=== PATIENT | female | born 1955 | race Caucasian/White ===

== ENCOUNTER → 2018-04-06 | Outpatient (CLI) | payer BC ==
--- NOTE | 2018-04-06 16:08 | XR ---
EXAMINATION TYPE: XR knee complete LT DATE OF EXAM: 04/06/2018 COMPARISON: None HISTORY: Left knee pain TECHNIQUE: Three-view left knee FINDINGS: No acute fractures are evident. Joint spaces are preserved. No joint effusion is evident. S oft tissues appear unremarkable. IMPRESSION: 1. Normal three-view left knee. 2. Follow-up exams can be performed 7-10 days from acute trauma for continued pain.
== END | disposition home or self-care (01) ==
LOC: RADXRMAIN 11:22
PROVIDERS: ATTEND Family Medicine
DX: M25.562 Pain in left knee (principal)

== ENCOUNTER 2019-01-25 14:15 | Inpatient (IN) | payer BC ==
[2019-01-25 15:00] LABS: Glucose,Whole Blood 109 mg/dL (75-99)
--- NOTE | 2019-01-25 15:03 | ED ---
General Adult HPI - General Chief complaint: Neuro Symptoms/Deficit Stated complaint: Fall, panic attack, shakiness Time Seen by Provider: 01/25/19 14:42 Source: patient Mode of arrival: wheelchair Limitations: no limitations - History of Present Illness Initial comments: Dictation was produced using [employer] dictation software. please excuse any grammatical, word or spelling errors. Chief Complaint: 63-year-old female with past medical history of hypertension presents with tremulousness and weakness to the left side. History of Present Illness: It is a 63-year-old female she was at rest today at approximately 150 she began experiencing tremulousness and weakness to the left upper extremity left lower extremity. Patient states she has had symptoms like this however fleeting. Patient denies any history of CVA. Fell member who was at bedside denies any aphasia. Patient's otherwise well-appearing denies any constitutional symptoms. Patient also complains of mild anesthesia sensation to her right lower extremity. The ROS documented in this emergency department record has been reviewed and confirmed by me. Those systems with pertinent positive or negative responses have been documented in the HPI. All other systems are other negative and/or noncontributory. PHYSICAL EXAM: General Impression: Alert and oriented x3, not in acute distress HEENT: Normocephalic atraumatic, extra-ocular movements intact, pupils equal and reactive to light bilaterally, mucous membranes moist. Cardiovascular: Heart regular rate and rhythm, S1&S2 audible, no murmurs, rubs or gallops Chest: Lungs clear to auscultation bilaterally, no rhonchi, no wheeze, no rales Abdomen: Bowel sounds present, abdomen soft, non-tender, non-distended, no organomegaly Musculoskeletal: Pulses present and equal in all extremities, no peripheral edema Motor: no focal deficits noted Neurological: CN II-XII grossly intact, paresthesia and slight sensory deficit to the right lower extremity, no clonus to lower extremities. Drift of the right lower extremity and left upper extremity. No facial droop. Skin: Intact with no visualized rashes Psych: Normal affect and mood ED course: 63-year-old female presents with onset of symptoms at 1:15 PM of left upper extremity weakness and tremor status, left lower extremity weakness and paresthesias to the right lower extremity. Patient case was discussed with stroke neurologist who did not recommend patient is a TPA candidate.Agree with this recommendation given that patient's NIH score is 0 and risk outweigh the benefits. CT and CTA were obtained and were found to be nonacute. Laboratory evaluation obtained showing no acute processes. No electrolyte derangement. Chest x-ray is nonacute. Patient was notified of these results. Patient initially wanted to leave AGAINST MEDICAL ADVICE. Patient case was discussed with neurologist commend patient not be discharge and to be admitted to the emergency department for further neurologic testing. Further discussion was held with patient and family member. They do agree to stay in the hospital. Patient be admitted to Dr. Sibley. Patient given aspirin. Given 1 g of Keppra. Patient reevaluated with cessation of tremors in the left upper extremity. Patient be admitted for neurologic testing. EKG interpretation: Ventricular rate 116, sinus tachycardia, CO interval 160, care 76, QTC 461. No CO prolongation, no QTC prolongation, no ST or T-wave changes noted.Overall, this EKG is unremarkable - Related Data Home Medications Medication Instructions Recorded Confirmed Lisinopril-Hctz 20-12.5 mg 1 tab PO BID 01/15/16 01/25/19 [Zestoretic 20-12.5] amLODIPine [Norvasc] 10 mg PO QAM 01/15/16 01/25/19 ALPRAZolam [Xanax] 0.25 mg PO Q8H 01/25/19 01/25/19 Allergies Allergy/AdvReac Type Severity Reaction Status Date / Time adhesive tape Allergy Rash/Hives Verified 01/25/19 14:36 gemifloxacin mesylate Allergy Rash/Hives Verified 01/25/19 14:36 [From Factive] Review of Systems ROS Statement: Those systems with pertinent positive or pertinent negative responses have been documented in the HPI. ROS Other: All systems not noted in ROS Statement are negative. Past Medical History Past Medical History: Hypertension History of Any Multi-Drug Resistant Organisms: None Reported Past Surgical History: Appendectomy, Tonsillectomy Past Anesthesia/Blood Transfusion Reactions: Postoperative Nausea & Vomiting (PONV) Past Psychological History: No Psychological Hx Reported Smoking Status: Former smoker Past Alcohol Use History: Occasional Past Drug Use History: Marijuana General Exam Limitations: no limitations Course Vital Signs 01/25/19 01/25/19 01/25/19 14:22 15:43 16:13 Temperature 98.3 F Pulse Rate 126 H 116 H 116 H Respiratory 18 16 20 Rate Blood Pressure 107/72 123/78 109/77 O2 Sat by Pulse 98 97 96 Oximetry Medical Decision Making - Lab Data Result diagrams: 01/25/19 15:04 01/25/19 15:04 Lab Results 01/25/19 01/25/19 01/25/19 Range/Units 14:58 15:04 15:04 WBC 9.0 (3.8-10.6) k/uL RBC 5.10 (3.80-5.40) m/uL Hgb 15.0 (11.4-16.0) gm/dL Hct 46.1 H (34.0-46.0) % MCV 90.3 (80.0-100.0) fL MCH 29.5 (25.0-35.0) pg MCHC 32.7 (31.0-37.0) g/dL RDW 13.1 (11.5-15.5) % Plt Count 376 (150-450) k/uL Neutrophils % 64 % Lymphocytes % 23 % Monocytes % 6 % Eosinophils % 2 % Basophils % 0 % Neutrophils # 5.8 (1.3-7.7) k/uL Lymphocytes # 2.1 (1.0-4.8) k/uL Monocytes # 0.6 (0-1.0) k/uL Eosinophils # 0.2 (0-0.7) k/uL Basophils # 0.0 (0-0.2) k/uL PT (9.0-12.0) sec INR (<1.2) APTT (22.0-30.0) sec Sodium 140 (137-145) mmol/L Potassium 4.4 (3.5-5.1) mmol/L Chloride 104 (98-107) mmol/L Carbon Dioxide 26 (22-30) mmol/L Anion Gap 10 mmol/L BUN 17 (7-17) mg/dL Creatinine 0.73 (0.52-1.04) mg/dL Est GFR (CKD-EPI)AfAm >90 (>60 ml/min/1.73 sqM) Est GFR (CKD-EPI)NonAf 89 (>60 ml/min/1.73 sqM) Glucose 109 H (74-99) mg/dL POC Glucose (mg/dL) 109 H (75-99) mg/dL POC Glu Control Panel Assembler ID Caroline Turcios Calcium 10.1 (8.4-10.2) mg/dL Total Bilirubin 0.6 (0.2-1.3) mg/dL AST 26 (14-36) U/L ALT 22 (9-52) U/L Alkaline Phosphatase 99 (38-126) U/L Troponin I (0.000-0.034) ng/mL Total Protein 7.3 (6.3-8.2) g/dL Albumin 4.6 (3.5-5.0) g/dL 01/25/19 01/25/19 Range/Units 15:04 15:04 WBC (3.8-10.6) k/uL RBC (3.80-5.40) m/uL Hgb (11.4-16.0) gm/dL Hct (34.0-46.0) % MCV (80.0-100.0) fL MCH (25.0-35.0) pg MCHC (31.0-37.0) g/dL RDW (11.5-15.5) % Plt Count (150-450) k/uL Neutrophils % % Lymphocytes % % Monocytes % % Eosinophils % % Basophils % % Neutrophils # (1.3-7.7) k/uL Lymphocytes # (1.0-4.8) k/uL Monocytes # (0-1.0) k/uL Eosinophils # (0-0.7) k/uL Basophils # (0-0.2) k/uL PT 10.0 (9.0-12.0) sec INR 0.9 (<1.2) APTT 23.8 (22.0-30.0) sec Sodium (137-145) mmol/L Potassium (3.5-5.1) mmol/L Chloride (98-107) mmol/L Carbon Dioxide (22-30) mmol/L Anion Gap mmol/L BUN (7-17) mg/dL Creatinine (0.52-1.04) mg/dL Est GFR (CKD-EPI)AfAm (>60 ml/min/1.73 sqM) Est GFR (CKD-EPI)NonAf (>60 ml/min/1.73 sqM) Glucose (74-99) mg/dL POC Glucose (mg/dL) (75-99) mg/dL POC Glu Control Panel Assembler ID Calcium (8.4-10.2) mg/dL Total Bilirubin (0.2-1.3) mg/dL AST (14-36) U/L ALT (9-52) U/L Alkaline Phosphatase (38-126) U/L Troponin I <0.012 (0.000-0.034) ng/mL Total Protein (6.3-8.2) g/dL Albumin (3.5-5.0) g/dL Disposition Clinical Impression: Neurological abnormality Disposition: ADMITTED IP TO THIS HOSP Condition: Fair Referrals: Narendra Mohan DO [Primary Care Provider] - 1-2 days Decision Time: 16:39
--- NOTE | 2019-01-25 15:31 | CT ---
EXAMINATION TYPE: CT brain wo con for TPA DATE OF EXAM: 01/25/2019 COMPARISON: None HISTORY: Left sided arm tingling. CT DLP: 1041 mGycm Automated exposure control for dose reduction was used. FINDINGS: There are few patchy areas of periventricular and subcortical hypoattenuation particularly in the lef t posterior frontal and parietal kaplan radiata such as on series 205 image [address] Jimenez-white mat ter interface is maintained. The MCA appear symmetric without unusual asymmetric hyperdensity. The in sular cortices are well-preserved. No suspicious extra-axial fluid collection. There is slight promin ence of the peripheral sulci and ventricular system compatible with very minimal age-related volume l oss. No acute intracranial hemorrhage, midline shift or mass effect. There is polypoid mucosal thickening of the right maxillary sinus there is mild. Remaining paranasal sinuses and mastoid air cells are well aerated. Calvarium is intact. IMPRESSION: 1. NO ACUTE INTRACRANIAL PROCESS. 2. MILD BURDEN NONSPECIFIC PERIVENTRICULAR WHITE MATTER CHANGE, LIKELY ON THE BASIS OF CHRONIC MICROA NGIOPATHY.
[2019-01-25 15:34] LABS: Basophils % (A) 0 %; Eosinophils # (A) 0.2 k/uL (0-0.7); Eosinophils % (A) 2 %; HCT 46.1 % (34.0-46.0); Lymphocytes # (A) 2.1 k/uL (1.0-4.8); Lymphocytes % (A) 23 %; MCH 29.5 pg (25.0-35.0); MCHC 32.7 g/dL (31.0-37.0); MCV 90.3 fL (80.0-100.0); Mean Platelet Volume 6.8; Monocytes # (A) 0.6 k/uL (0-1.0); Monocytes % (A) 6 %; Neutrophils # (A) 5.8 k/uL (1.3-7.7); Neutrophils % (A) 64 %; Platelet Count 376 k/uL (150-450); RDW 13.1 % (11.5-15.5)
--- NOTE | 2019-01-25 15:38 | XR ---
EXAMINATION TYPE: XR chest 2V DATE OF EXAM: 01/25/2019 COMPARISON: 10/02/2007 HISTORY: Fall and left arm pain. Altered mental status. TECHNIQUE: Frontal and lateral views of the chest are obtained. FINDINGS: There is no focal air space opacity, pleural effusion, or pneumothorax seen. The cardiac silhouette size is upper limits of normal. The osseous structures are intact. Minimal multilevel de generative changes of the spine are seen. IMPRESSION: No acute cardiopulmonary process.
[2019-01-25 15:44] LABS: ALT 22 U/L (9-52); AST 26 U/L (14-36); Albumin 4.6 g/dL (3.5-5.0); Alkaline Phosphatase 99 U/L (38-126); Anion Gap 10 mmol/L; Blood Urea Nitrogen 17 mg/dL (7-17); Calcium 10.1 mg/dL (8.4-10.2); Carbon Dioxide 26 mmol/L (22-30); Chloride 104 mmol/L (98-107); Glucose 109 mg/dL (74-99); Potassium 4.4 mmol/L (3.5-5.1); Sodium 140 mmol/L (137-145); Total Bilirubin 0.6 mg/dL (0.2-1.3); Total Protein 7.3 g/dL (6.3-8.2)
--- NOTE | 2019-01-25 15:44 | CT ---
EXAMINATION TYPE: CT angio head neck DATE OF EXAM: 01/25/2019 HISTORY: Left sided arm tingling COMPARISON: CT brain of the same date CT DLP: 496.6 mGycm. Automated Exposure Control for Dose Reduction was Utilized. TECHNIQUE: CTA scan of the head and neck were performed with IV Contrast, patient injected with 50 m L of Isovue 370, axial images are obtained, coronal and sagittal reformatted images are reviewed. Thr ee-D reconstructed images are created on an independent workstation and reviewed. FINDINGS: Carotid/Vascular Structures: There is incidental note of a bovine aortic arch. Mild atherosclerosis o f the aortic arch is also seen. The common carotid arteries, carotid bulbs, and cervical portions of the internal carotid arteries are patent without hemodynamically significant stenosis. Minimal calcif ic atheromatous changes seen of the left carotid bulb. The left vertebral artery is dominant. There i s a late entry of the right vertebral artery into the transverse foramen. The basilar artery is paten t. The internal carotid arteries and their branches appear patent without hemodynamically significant st enosis. There is slight possibility of distal branch vessels of the right MCA in comparison to the le ft such as on image 35 and 36. The posterior communicating arteries may be diminutive or congenitally absent. No intracranial aneurysm is seen. Other: There is a 3 mm solid pulmonary nodule on image 12 in the right upper lobe laterally. There is a 3 mm solid pulmonary nodule medially in the right upper lobe on image 17. Mild to moderate multilevel degenerative changes of the cervical spine are noted. No vertebral body h eight loss or malalignment. The thyroid gland is diffusely heterogenous and enlarged with numerous no dules measuring up to 2.1 cm. There are numerous scattered nonenlarged cervical lymph nodes. No patho logic adenopathy by size criteria. IMPRESSION: 1. Slight asymmetry and number of visualized distal branch vessels of the right MCA with slight pauci ty on the right in comparison to the left however no large vessel vascular occlusion, hemodynamically significant stenosis, or dissection is seen within the head or neck. 2. 3 mm right upper lobe pulmonary nodules. Full CT thorax could be performed for complete evaluation of the chest on a nonemergent basis. 3. Diffusely heterogenous and enlarged thyroid gland, possible multinodular goiter. Thyroid ultrasoun d is recommended on a nonemergent basis.
[2019-01-25] MEDS ORDERED: levETIRAcetam IV 1,000 MG in SALINE 1 100ML.BAG IVPB STA (15:47)
[2019-01-25 15:52] LABS: INR 0.9 (<1.2); Partial Thromboplastin Time 23.8 sec (22.0-30.0)
[2019-01-25] MEDS ORDERED: ASPIRIN 81 MG PO STA (16:34)
--- NOTE | 2019-01-25 20:06 | P.CNNES ---
History of Present Illness Consult date: 01/25/19 Reason for Consult: Neuro deficit, stroke/TIA History of Present Illness: Patient is a 63-year-old female who came to the hospital for what she believes like an anxiety attack. Patient states she got upset with her about something, then she started crying, yelling which she usually does with her panic attacks. She couldn't breathe, ran into the house and felt will fall so laid down on the kitchen. Her came over and tie to talk to her, and she started snoring. She did calm down. Patient when woke up, started noticing th at her left arm was shaking, weakness tingling on the left side. She heard him talking to her but she could not squeeze her left hand. There was no symptoms on the right side, only left side was weak. All these symptoms of speech difficulty, left-sided weakness shaking like will resolve in about 20-30 minutes. Patient came to the hospital and when she arrived here, her NIH stroke scale was 0. Computed tomography scan of the head showed no acute process. Mild burden nonspecific periventricular white matter change, likely on the basis of chronic microangiopathy. Patient had CTA of the head and neck, which revealed slight asymmetry in number of visualized distal branch vessels of the right MCA with slight paucity on the right in comparison to the left, however no large vessel vascular occlusion, hemodynamically significant stenosis, or dissection seen within the neck or head. 3 mm right upper lobe pulmonary nodule. Full CT thorax could be performed for complete evaluation of the chest on a nonemergent basis. Diffusely heterogenous enlarged thyroid gland, possible multinodular goiter. Thyroid ultrasound is recommended on normal recent basis. Chest x-ray showed no acute process. EKG showed sinus tachycardia. Her blood tests showed normal CBC, PT/PTT, Chem-7. Normal liver panel, TSH. Patient has history of hypertension, but denies diabetes. She does not know about her cholesterol status. She has smoked half pack per day for 15 years, none for the past 30 years. Denies any family history or personal history of epilepsy or seizure disorder. Patient says that she does have history of panic disorder and anxiety attacks in the past, the last one was about a year ago. When she gets anxiety attack, she does start crying, yelling, moaning like she did earlier today, before she had this focal possible TIA Review of Systems Denies any focal symptoms. Denies any headache, double vision, completely unremarkable at this time. Past Medical History Past Medical History: Hypertension History of Any Multi-Drug Resistant Organisms: None Reported Past Surgical History: Appendectomy, Tonsillectomy Past Anesthesia/Blood Transfusion Reactions: Postoperative Nausea & Vomiting (PONV) Past Psychological History: No Psychological Hx Reported Smoking Status: Former smoker Past Alcohol Use History: Occasional Past Drug Use History: Marijuana Medications and Allergies Home Medications Medication Instructions Recorded Confirmed Type Lisinopril-Hctz 20-12.5 mg 1 tab PO BID 01/15/16 01/25/19 History [Zestoretic 20-12.5] amLODIPine [Norvasc] 10 mg PO QAM 01/15/16 01/25/19 History ALPRAZolam [Xanax] 0.25 mg PO Q8H 01/25/19 01/25/19 History Allergies Allergy/AdvReac Type Severity Reaction Status Date / Time adhesive tape Allergy Rash/Hives Verified 01/25/19 14:36 gemifloxacin mesylate Allergy Rash/Hives Verified 01/25/19 14:36 [From Factive] Physical Examination - Vital Signs Vital Signs: Vital Signs Temp Pulse Resp BP Pulse Ox 01/25/19 18:17 96 20 133/89 96 01/25/19 16:13 116 H 20 109/77 96 01/25/19 15:43 116 H 16 123/78 97 01/25/19 14:22 98.3 F 126 H 18 107/72 98 Intake and Output 01/25/19 01/25/19 01/25/19 06:59 14:59 22:59 Other: Weight 107.501 kg Patient's mental status, speech and language functions are normal. Cranial nerve examination, pupils are round and reacting to light, visual weems are full, extraocular muscles muscles are intact. Face is symmetric and tongue protrudes the midline. On muscle strength testing there is no pronator drift and the strength is normal in arms and legs distally and proximally. Reflexes are diminished overall, but symmetric. Plantars downgoing. Sensory touch is equal. No ataxia for [id number] testing, tone and bulk of muscles normal. Results - Laboratory Findings CBC and BMP: 01/25/19 15:04 01/25/19 15:04 Abnormal Lab Findings: Abnormal Labs 01/25/19 01/25/19 01/25/19 14:58 15:04 15:04 Hct 46.1 H Glucose 109 H POC Glucose (mg/dL) 109 H Assessment and Plan Assessment: * 63-year-old female, who had a panic attack, subsequently developed left-sided shaking, left hemiparesis and speech difficulty, that resolved in 20-30 minutes. Rule out TIA versus panic attack versus focal seizure. * Hypertension * Hyperlipidemia Plan: * MRI of the brain to rule out CVA. * 2-D echo with bubble study. * Fasting a.m. lipid panel, hemoglobin A1c. * EEG. * She was given loading dose of Keppra 1000 g IV in the ER. * Aspirin 325 mg daily for now.
[2019-01-25] MEDS: SODIUM CHLORIDE 0.9% 1,000 ML IV SCH (21:46)
[2019-01-25] MEDS ORDERED: ALPRAZolam 0.25 MG TAB PO PRN (22:08)
[2019-01-25] MEDS: LISINOPRIL-HCTZ 20-12.5 MG 1 EACH TAB PO SCH (22:47)
[2019-01-25] MEDS: FAMOTIDINE 20 MG TAB PO SCH (22:47)
--- NOTE | 2019-01-25 23:43 | P.HPIM ---
History of Present Illness H&P Date: 01/25/19 Chief Complaint: Seizures Patient is a 63-year-old female with a known history of hypertension, GERD, chronic back pain currently using medical marijuana every other day came to the hospital with left arm shakiness followed by anxiety attack. Patient says that she had an anxiety Attack after having an argument with her and got upset. Patient ran into the house and laid down on the kitchen. Patient started having left arm shakiness and felt weakness on the left side and also difficulty in speech. Symptoms lasted about 20 minutes and she became completely normal after that. Patient otherwise denied any headache. No numbness or tingling. Patient came to ER for further evaluation. CT head showed no acute cardiopulmonary process. Nonspecific periventricular white matter chronic small vessel ischemic changes were noted. CT angiogram of the head and neck showed slight asymmetry in number of visualized branch vessels of the right MCA with slight paucity on the right in comparison to the left, however no large vessel vascular occlusion, hemodynamically significant stenosis are dissection seen within the neck and head. 3 mL right upper lobe pulmonary nodule. Diffusely heterogenous enlarged thyroid gland, possible multinodular goiter. TSH within normal limits Chest x-ray showed no acute cardiopulmonary process EKG showed sinus tachycardia Troponin times negative and TSH within normal limits. Review of Systems Constitutional: Patient denies any fever or chills . No generalized weakness or weight loss. Abdomen: Patient denied nausea vomiting and diarrhea and abdominal pain. Cardiovascular: Patient denies any chest pain or short of breath no palpitations. Respiratory: patient denied any cough is from production. No shortness of breath Neurologic: Patient denied any numbness or tingling headache. Musculoskeletal: Patient denies any complaints of joint swelling or deformity. Skin: Negative Psychiatric: Negative Endocrine: No heat or cold intolerance. No recent weight gain. Genitourinary: No dysuria or hematuria. All other 14 point ROS negative except the above Past Medical History Past Medical History: Hypertension History of Any Multi-Drug Resistant Organisms: None Reported Past Surgical History: Appendectomy, Tonsillectomy Past Anesthesia/Blood Transfusion Reactions: Postoperative Nausea & Vomiting (PONV) Past Psychological History: No Psychological Hx Reported Smoking Status: Former smoker Past Alcohol Use History: Occasional Past Drug Use History: Marijuana Medications and Allergies Home Medications Medication Instructions Recorded Confirmed Type Lisinopril-Hctz 20-12.5 mg 1 tab PO BID 01/15/16 01/25/19 History [Zestoretic 20-12.5] amLODIPine [Norvasc] 10 mg PO QAM 01/15/16 01/25/19 History ALPRAZolam [Xanax] 0.25 mg PO Q8H 01/25/19 01/25/19 History Allergies Allergy/AdvReac Type Severity Reaction Status Date / Time adhesive tape Allergy Rash/Hives Verified 01/25/19 14:36 gemifloxacin mesylate Allergy Rash/Hives Verified 01/25/19 14:36 [From Factive] Physical Exam Vitals: Vital Signs Temp Pulse Resp BP Pulse Ox 01/25/19 18:17 96 20 133/89 96 01/25/19 16:13 116 H 20 109/77 96 01/25/19 15:43 116 H 16 123/78 97 01/25/19 14:22 98.3 F 126 H 18 107/72 98 Intake and Output 01/25/19 01/25/19 01/25/19 06:59 14:59 22:59 Other: Weight 107.501 kg PHYSICAL EXAMINATION: Patient is lying in the bed comfortably, no acute distress, awake alert and oriented.. HEENT: Normocephalic. Neck is supple. Pupils reactive. Nostrils clear. Oral cavity is moist. Ears reveal no drainage. Neck reveals no JVD, carotid bruits, or thyromegaly. CHEST EXAMINATION: Trachea is central. Symmetrical expansion. Lung weems clear to auscultation and percussion. CARDIAC: Normal S1, S2 with no gallops. No murmurs ABDOMEN: Soft. Bowel sounds normal. No organomegaly. No abdominal bruits. Extremities: reveal no edema. No clubbing or cyanosis Neurologically awake, alert, oriented x3 with well-coordinated movements. No f ocal deficits noted Skin: No rash or skin lesions. Psychiatric: Coperative. Nonsuicidal Musculoskeletal: No joint swelling or deformity. Normal range of motion. Results CBC & Chem 7: 01/25/19 15:04 01/25/19 15:04 Labs: Abnormal Lab Results - Last 24 Hours (Table) 01/25/19 01/25/19 01/25/19 Range/Units 14:58 15:04 15:04 Hct 46.1 H (34.0-46.0) % Glucose 109 H (74-99) mg/dL POC Glucose (mg/dL) 109 H (75-99) mg/dL Thrombosis Risk Factor Assmnt - DVT/VTE Prophylaxis DVT/VTE Prophylaxis: Pharmacologic Prophylaxis ordered Assessment and Plan Assessment: Acute anxiety attack Left arm shakiness with left-sided weakness with dysarthria. Possible TIA versus seizures versus panic attack. Resolving now. Hypertension controlled GERD Chronic back pain on medical marijuana every other day DVT prophylaxis Plan: Patient will be continued on telemetry monitoring. Was given a dose of IV in the ER. Continue with aspirin. Neurology was consulted. MRI of the brain, 2-D echocardiogram with global study, A1c and lipid panel was ordered. Continue with seizure precautions and fall precautions. Further recommendations based on the clinical course. Time with Patient: Greater than 30
[2019-01-26] MEDS: ASPIRIN 325 MG TAB PO SCH (07:49)
[2019-01-26] MEDS: LISINOPRIL-HCTZ 20-12.5 MG 1 EACH TAB PO SCH ×2 (07:49→20:48)
[2019-01-26] MEDS: amLODIPine 10 MG TAB PO SCH (07:49)
[2019-01-26] MEDS: FAMOTIDINE 20 MG TAB PO SCH ×2 (07:49→20:48)
[2019-01-26 08:39] LABS: Cholesterol 169 mg/dL (<200); HDL Cholesterol 36 mg/dL (40-60); LDL Cholesterol,Calculated 108 mg/dL (0-99); Triglycerides 127 mg/dL (<150)
--- NOTE | 2019-01-26 16:50 | EEG ---
ELECTROENCEPHALOGRAM REPORT ELECTROENCEPHALOGRAM REPORT: DATE OF SERVICE: 01/26/2019. PREAMBLE: This is a 63-year-old female who had an episode of panic attack, followed by some focal symptoms concerning for stroke versus seizure. This study is performed to look for any epileptiform activity. CURRENT MEDICATIONS: 1. Lisinopril. 2. Pepcid. 3. Aspirin. 4. Xanax. EEG FINDINGS: The background consists of well developed, well regulated, moderate amplitude activity in the 8-9 Hz alpha. Background is posterior-dominant, reacting to eye opening and closing. Photic driving response was not seen. Some drowsiness was seen with appearance of bilaterally symmetric theta frequency rhythm. Deeper stages of sleep were not seen. No focal or generalized epileptiform activity was seen. EKG rhythm lead revealed no obvious arrhythmia. IMPRESSION: This is a normal awake and drowsy EEG. No focal lateralized or epileptiform activity was seen. MMODL / IJN: [id number] /
--- NOTE | 2019-01-26 17:32 | P.PN ---
Subjective Progress Note Date: 01/26/19 Patient denies any other focal symptoms or syncopal spells. Objective - Vital Signs Vital signs: Vital Signs Temp 98.7 F 01/26/19 16:00 Pulse 117 H 01/26/19 16:00 Resp 18 01/26/19 16:00 BP 107/66 01/26/19 16:00 Pulse Ox 96 01/26/19 16:00 Intake & Output 01/25/19 01/26/19 01/26/19 18:59 06:59 18:59 Intake Total 240 180 Balance 240 180 Weight 107.501 kg 107.1 kg Intake: Oral 240 180 Other: Voiding Method Toilet Toilet # Voids 3 2 - Exam Normal, nonfocal - Labs CBC & Chem 7: 01/25/19 15:04 01/25/19 15:04 Labs: Abnormal Lab Results - Last 24 Hours (Table) 01/26/19 Range/Units 07:24 LDL Cholesterol, Calc 108 H (0-99) mg/dL HDL Cholesterol 36 L (40-60) mg/dL Assessment and Plan Assessment: * 63-year-old female, who had a panic attack, subsequently developed left-sided shaking, left hemiparesis and speech difficulty, that resolved in 20-30 minutes. Rule out TIA versus panic attack versus focal seizure. * Hypertension * Hyperlipidemia Plan: * MRI of the brain has been performed, on my review appears normal. Await official radiology report. * 2-D echo with bubble study if not done, can be performed as an outpatient. * Hemoglobin A1c pending. * Patient's cholesterol is 169, LDL 36 * EEG was normal. No indication for seizure medication. * Continue Aspirin 325 mg daily.
[2019-01-26 19:14] LABS: Hemoglobin A1C 5.9 % (4.0-6.0)
--- NOTE | 2019-01-26 19:47 | MR ---
EXAMINATION TYPE: MR brain wo con DATE OF EXAM: 01/26/2019 COMPARISON: CT brain from yesterday. HISTORY: Lt arm tingling on admission yesterday acute onset neuro deficits, CVA vs TIA TECHNIQUE: Multiplanar, multisequence imaging of the brain and brainstem is performed without IV cont rast. FINDINGS: Diffusion weighted images demonstrate no evidence of a recent infarct or other diffusion abnormality. There is no worrisome extra-axial fluid collection. Mild ventricular and sulcal prominence is present . There are a few scattered foci of T2 hyperintensity throughout deep and superficial white matter wi th some more prominent periventricular areas identified. There is a tangle of vessels low right occip ital region axial image 11 consistent with vascular malformation Midline structures demonstrate normal morphology. The craniocervical junction appears within normal limits. Normal vascular flow voids are present. The visualized sinuses are clear and the globes are i ntact. IMPRESSION: 1. No evidence of a recent infarct. 2. 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
[2019-01-26] MEDS: SODIUM CHLORIDE 0.9% 1,000 ML IV SCH (20:49)
[2019-01-27] MEDS ORDERED: ACETAMINOPHEN TAB 325 MG TAB PO PRN (00:52)
--- NOTE | 2019-01-27 00:56 | P.PN ---
Subjective Progress Note Date: 01/26/19 Principal diagnosis: Possible TIA Acute seizure episode Patient is a 63-year-old female with a known history of hypertension, GERD, chronic back pain currently using medical marijuana every other day came to the hospital with left arm shakiness followed by anxiety attack. Patient says that she had an anxiety Attack after having an argument with her and got upset. Patient ran into the house and laid down on the kitchen. Patient started having left arm shakiness and felt weakness on the left side and also difficulty in speech. Symptoms lasted about 20 minutes and she became completely normal after that. Patient otherwise denied any headache. No numbness or tingling. Patient came to ER for further evaluation. CT head showed no acute cardiopulmonary process. Nonspecific periventricular white matter chronic small vessel ischemic changes were noted. CT angiogram of the head and neck showed slight asymmetry in number of visualized branch vessels of the right MCA with slight paucity on the right in comparison to the left, however no large vessel vascular occlusion, hemodynamically significant stenosis are dissection seen within the neck and head. 3 mL right upper lobe pulmonary nodule. Diffusely heterogenous enlarged thyroid gland, possible multinodular goiter. TSH within normal limits Chest x-ray showed no acute cardiopulmonary process EKG showed sinus tachycardia Troponin times negative and TSH within normal limits. 01/26/2019 Patient denied any complaints of headache or dizziness. Left-sided weakness is resolved. No further seizure episodes. Patient is scheduled for MRI of the brain today afternoon. 2-D echocardiogram is pending. No other acute overnight issues. Neurology is following. Continued on aspirin. Current medications reviewed. Objective - Vital Signs Vital signs: Vital Signs Temp 97.9 F 01/26/19 20:00 Pulse 100 01/26/19 20:00 Resp 18 01/26/19 20:00 BP 115/85 01/26/19 20:00 Pulse Ox 97 01/26/19 20:00 Intake & Output 01/26/19 01/26/19 01/27/19 06:59 18:59 06:59 Intake Total 240 632 Balance 240 632 Weight 107.1 kg Intake: Oral 240 632 Other: Voiding Method Toilet Toilet Toilet # Voids 3 2 1 # Bowel Movements 1 - Exam PHYSICAL EXAMINATION: Patient is lying in the bed comfortably, no acute distress, awake alert and oriented.. HEENT: Normocephalic. Neck is supple. Pupils reactive. Nostrils clear. Oral cavity is moist. Ears reveal no drainage. Neck reveals no JVD, carotid bruits, or thyromegaly. CHEST EXAMINATION: Trachea is central. Symmetrical expansion. Lung weems clear to auscultation and percussion. CARDIAC: Normal S1, S2 with no gallops. No murmurs ABDOMEN: Soft. Bowel sounds normal. No organomegaly. No abdominal bruits. Extremities: reveal no edema. No clubbing or cyanosis Neurologically awake, alert, oriented x3 with well-coordinated movements. No focal deficits noted Skin: No rash or skin lesions. Psychiatric: Coperative. Nonsuicidal Musculoskeletal: No joint swelling or deformity. Normal range of motion. - Labs CBC & Chem 7: 01/25/19 15:04 01/25/19 15:04 Labs: Abnormal Lab Results - Last 24 Hours (Table) 01/26/19 Range/Units 07:24 LDL Cholesterol, Calc 108 H (0-99) mg/dL HDL Cholesterol 36 L (40-60) mg/dL Assessment and Plan Assessment: Acute anxiety attack Left arm shakiness with left-sided weakness with dysarthria. Possible TIA versus seizures versus panic attack. Resolving now. Hypertension controlled GERD Chronic back pain on medical marijuana every other day DVT prophylaxis Plan: Patient will be continued on telemetry monitoring. Was given a dose of IV Keppra in the ER. Continue with aspirin. Neurology is following. MRI of the brain, 2-D echocardiogram with bubble study was ordered. A1c 5.9. LDL 109, Continue with seizure precautions and fall precautions. Further recommendations based on the clinical course. Anticipate discharge tomorrow. Time with Patient: Greater than 30
[2019-01-27] MEDS: ASPIRIN 325 MG TAB PO SCH (07:58)
[2019-01-27] MEDS: amLODIPine 10 MG TAB PO SCH (07:58)
[2019-01-27] MEDS: FAMOTIDINE 20 MG TAB PO SCH (07:58)
[2019-01-27] MEDS: LISINOPRIL-HCTZ 20-12.5 MG 1 EACH TAB PO SCH (07:58)
[2019-01-27 10:22] VITALS: BP 104/67; PULSE 108; RESP 18; TEMP 98.1
--- NOTE | 2019-01-28 06:54 | DS ---
DISCHARGE SUMMARY DATE OF ADMISSION: 01/25/2019 DATE OF DISCHARGE: 01/27/2019 FINAL DIAGNOSES: 1. Probable TIA. 2. Essential hypertension. 3. Gastroesophageal reflux disease. 4. Chronic low back pain, probably from arthritis. HOSPITAL COURSE: This patient presented with an episode of left arm numbness, some change in speech. EEG was unremarkable. MRI was negative. CT angio did not show any critical stenosis. I talked to Dr. Ni from Neurology today. It was felt to be a TIA. I spoke to the patient and . Questions were answered. Symptoms had resolved. PHYSICAL EXAMINATION: Temperature 98, pulse 101, respiration 18, blood pressure 104/57, pulse ox 96% on room air. No neuro deficits. LUNGS: Clear. CARDIOVASCULAR: First and second sounds are normal. Patient's LDL is 108. DISCHARGE MEDICATIONS: 1. Zestoretic /12.5 one tablet p.o. b.i.d. 2. Norvasc 10 mg p.o. daily. 3. Xanax 0.25 p.o. q.8. 4. Aspirin 81 mg p.o. daily. 5. Lipitor 20 mg q.h.s. Follow up with Dr. Mohan on 02/02/2019. CONSULTATION: Dr. Ni from Neurology. MMODL / IJN: [id number] /
== END 2019-01-27 13:57 | disposition home or self-care (01) | DRG 69 ==
LOC: EC 14:15 → 3SCARD 16:39
PROVIDERS: ADMIT Hospitalist; ATTEND Hospitalist
DX: G45.9 Transient cerebral ischemic attack, unspecified (principal); G81.94 Hemiplegia, unspecified affecting left nondominant side; E78.5 Hyperlipidemia, unspecified; F17.200 Nicotine dependence, unspecified, uncomplicated; F41.0 Panic disorder [episodic paroxysmal anxiety]; F41.1 Generalized anxiety disorder; G89.29 Other chronic pain; I10 Essential (primary) hypertension; I73.9 Peripheral vascular disease, unspecified; K21.9 Gastro-esophageal reflux disease without esophagitis; M19.90 Unspecified osteoarthritis, unspecified site; R29.700 NIHSS score 0; Z79.899 Other long term (current) drug therapy; Z88.8 Allergy status to other drugs, medicaments and biological substances
CPT/HCPCS: 36415; 70450; 70496; 70498; 70551; 71046; 80053; 80061; 83036; 84443; 84484; 85025; 85610; 85730; 93005; 95819; 96374; 99285

== ENCOUNTER → 2019-02-15 | Outpatient (CLI) | payer BC ==
--- NOTE | 2019-03-04 15:28 | EM ---
EVENT MONITOR 14-DAY EVENT MONITOR: Fourteen-day event monitor shows: 1. Sinus rhythm. 2. Sinus tachycardia. 3. Intermittent PVCs. 4. One ventricular triplet. KRISTAN / LISAN: [id number] /
== END | disposition home or self-care (01) ==
LOC: RADECHMAIN 11:50
PROVIDERS: ATTEND Family Medicine
DX: I49.3 Ventricular premature depolarization (principal); G45.9 Transient cerebral ischemic attack, unspecified
CPT/HCPCS: 93270

== ENCOUNTER → 2019-03-21 | Outpatient (CLI) | payer BC ==
[2019-03-21 19:28] LABS: T4, Free (Free Thyroxine) 1.1 ng/dL (0.80-1.80)
== END | disposition home or self-care (01) ==
LOC: LABWHC1 13:06
PROVIDERS: ATTEND Internal Medicine Endocrinology, Diabetes & Metabolism
DX: E04.2 Nontoxic multinodular goiter (principal)
CPT/HCPCS: 36415; 84439; 84443

== ENCOUNTER 2019-07-15 06:32 | Day surgery (SDC) | payer BC ==
[2019-07-13 11:31] VITALS: BMI 37.2
[~2019-07-15 06:32] MED LIST: ALPRAZolam 0.25 MG TAB PO PRN; ALPRAZolam 0.5 MG TAB PO PRN; NITROGLYCERIN SL TABS 0.4 MG TAB SUBLINGUAL PRN; SODIUM CHLORIDE 0.9% 1,000 ML in EMPTY BAG 1 BAG IV ONE
[2019-07-15] MEDS ORDERED: ASPIRIN 325 MG TAB PO ONE (07:00)
[2019-07-15] MEDS ORDERED: ATORVASTATIN 80 MG TAB PO ONE (07:00)
[2019-07-15 07:05] VITALS: TEMP 97.8
[2019-07-15] MEDS ORDERED: VERAPAMIL 2.5 MG/ML 2 ML AMP ONE (07:29)
[2019-07-15] MEDS ORDERED: fentaNYL (PF) 50 MCG/ML 2 ML AMP ONE (07:29)
[2019-07-15] MEDS ORDERED: LIDOCAINE 1% INJ 10MG/ML (20 ML MDV) ONE (07:29)
[2019-07-15] MEDS ORDERED: fentaNYL (PF) 50 MCG/ML 2 ML AMP IV ONE (07:53)
[2019-07-15] MEDS ORDERED: LIDOCAINE 1% INJ 10MG/ML (20 ML MDV) SQ ONE (07:59)
[2019-07-15] MEDS ORDERED: VERAPAMIL SYRINGE (5 MG/10 ML) INTRAARTER ONE (08:00)
[2019-07-15] MEDS ORDERED: HEPARIN SODIUM 1,000 UN/ML (10ML VL) IV ONE (08:09)
[2019-07-15] MEDS ORDERED: IOPAMIDOL-370 125ML BTL INJ ONE (08:14)
[2019-07-15] MEDS ORDERED: RX INFO: IV CONTRAST WAS GIVEN 1 EACH MISC MISCELLANE PRN (08:25)
[2019-07-15] MEDS ORDERED: AZELASTINE 137MCG/SPRAY NASAL PRN (08:26)
[2019-07-15] MEDS ORDERED: ALPRAZolam 0.25 MG TAB PO PRN (08:26)
[2019-07-15] MEDS ORDERED: SODIUM CHLORIDE 0.9% 1,000 ML IV SCH (08:30)
--- NOTE | 2019-07-15 08:41 | CC ---
CARDIAC CATHETERIZATION REPORT Mrs. Abernathy is a 64-year-old female with known history of hypertension, hyperlipidemia, prior history of smoking, who has been complaining of progressive dyspnea as well as episode of chest discomfort. She underwent myocardial perfusion imaging that revealed an apical defect with mildly impaired left ventricular systolic function. In view of that, recommendation was made regarding cardiac catheterization. The procedure as well as the risks and the complications were discussed with the patient who is in full understanding and agreement. PROCEDURE: Patient was brought to chemical processing laborer in a fasting semi-sedated state after receiving fentanyl and Benadryl and achieving moderate conscious sedated state. Using Xylocaine anesthesia in the Seldinger technique, a 6-Ivorian sheath was introduced in the right radial artery. Selective right and left coronary angiography performed using 5-Ivorian 3.5 bend right and left Concepcion catheter. Multiple views of the coronary artery including hemiaxial views obtained. Following that, 5-Ivorian tight pigtail catheter was introduced left ventricle and a 30-degree HAILE view of the left ventricle was obtained. Following that, catheter and sheath were removed. Hemostasis was obtained with deployment of a TR band. There was no immediate complication. Patient was returned to her room in stable condition. Of note, the patient received 5000 units of intravenous heparin as well as intra-arterial verapamil. There was no immediate complication. FINDINGS: LEFT MAIN: This is a large-sized vessel bifurcating left circumflex, left anterior descending artery. Left main coronary artery has no evidence of obstructive coronary artery disease. LEFT ANTERIOR DESCENDING ARTERY: This is a large-sized vessel tapers down distal third, giving rise to a large diagonal branch in the mid segment. The left anterior descending artery as well as branches have no evidence of obstructive coronary artery disease. LEFT CIRCUMFLEX: This is a dominant vessel large in caliber giving rise to a proximal obtuse marginal branch distally bifurcating PDA and posterolateral segments and branches. The left circumflex as well as branches have no evidence of obstructive coronary artery disease. RIGHT CORONARY ARTERY: This is a small nondominant vessel giving rise to an acute marginal branch. The right coronary artery as well as branches have no evidence of obstructive coronary artery disease. LEFT VENTRICULOGRAM: The left ventriculogram was performed in 30-degree HAILE view and revealed a mild hypokinesis with ejection fraction 50%. There was no significant mitral regurgitation. HEMODYNAMICS: There was no gradient across the aortic valve. The left ventricular end- diastolic pressure was 16 to 20 mmHg. CONCLUSION: 1. Normal coronary arteries. 2. Mildly impaired left ventricular systolic function. RECOMMENDATION: In view of finding anatomy, I recommend continue medical therapy with aggressive coronary risk modifications that have been initiated. Those findings and recommendation were discussed with the patient and her family and are in full understanding and agreement. Duration of procedure is 17 minutes. MMODL / IJN: [id number] /
--- NOTE | 2019-07-15 08:47 | LTR ---
July 15, 2019 Re: Nohemy Koromamann Dear Dr. Mohan: I had the opportunity to perform cardiac catheterization on Mrs. Abernathy at [facility] on the 15 of July and a full copy of the procedure note will be forwarded to you. In brief, she was found to have no evidence of obstructive coronary artery disease with a mildly impaired left ventricular systolic function. Based on those findings I have recommended to continue medical therapy with aggressive coronary risk modification that has been initiated. Thank you again for allowing me the opportunity to participate in her care. Please feel free to call for any questions. Sincerely yours, MD ELEANOR KelleyL / LISAN: [id number] /
[2019-07-15] MEDS ORDERED: NON FORMULARY DRUG (Ranitidine Hcl [Ranitidine Hcl] 150 MG) PO SCH (09:00)
[2019-07-15] MEDS ORDERED: METOPROLOL SUCCINATE (ER) 25 MG TAB.ER.24H PO SCH (09:00)
[2019-07-15] MEDS ORDERED: amLODIPine 10 MG TAB PO SCH (09:00)
[2019-07-15] MEDS ORDERED: LISINOPRIL-HCTZ 20-12.5 MG 1 EACH TAB PO SCH (09:00)
[2019-07-15 09:11] VITALS: RESP 16
[2019-07-15] MEDS ORDERED: ACETAMINOPHEN TAB 325 MG TAB ONE (09:27)
[2019-07-15] MEDS ORDERED: ACETAMINOPHEN TAB 325 MG TAB PO ONE (09:45)
[2019-07-15 12:46] VITALS: BP 105/76; PULSE 108
[2019-07-15] MEDS ORDERED: ATORVASTATIN 20 MG TAB PO SCH (21:00)
[2019-07-15] MEDS ORDERED: MELOXICAM 15 MG PO SCH (21:00)
[2019-07-16] MEDS ORDERED: ASPIRIN 81 MG PO SCH (09:00)
== END 2019-07-15 13:20 | disposition home or self-care (01) ==
LOC: CATHCVL 06:32
PROVIDERS: ATTEND Internal Medicine Interventional Cardiology
DX: I42.8 Other cardiomyopathies (principal); I10 Essential (primary) hypertension; E78.2 Mixed hyperlipidemia; E66.9 Obesity, unspecified; Z87.891 Personal history of nicotine dependence; Z79.82 Long term (current) use of aspirin; Z79.899 Other long term (current) drug therapy; Z88.8 Allergy status to other drugs, medicaments and biological substances; Z68.37 Body mass index [BMI] 37.0-37.9, adult
CPT/HCPCS: 93458; J2001; J3010; J1644; Q9967

== ENCOUNTER 2019-08-28 14:12 | Emergency (ER) | payer BC ==
[2019-08-28 14:18] VITALS: TEMP 97.3
[2019-08-28] MEDS ORDERED: NITROGLYCERIN OINT 1 INCH/GM PACKET TOPICAL STA (15:12)
[2019-08-28] MEDS ORDERED: ASPIRIN 81 MG PO STA (15:12)
--- NOTE | 2019-08-28 15:14 | ED ---
General Adult HPI - General Chief complaint: Chest Pain Stated complaint: chest & shoulder pain Time Seen by Provider: 08/28/19 14:43 Source: patient, RN notes reviewed Mode of arrival: wheelchair Limitations: no limitations - History of Present Illness Initial comments: Patient is a pleasant 64-year-old female presenting to the emergency Department with complaints of chest discomfort. Onset of symptoms was around an hour and a half ago. Symptoms have now resolved. Patient states discomfort was sharp and was proximally 7/10. Patient has been expressing some shoulder discomfort intermittently over the past month however this is generally worse with movement. Patient did have a sense of some acid reflux is morning. Patient was nauseated with that earlier this morning and did vomit once. No diaphoresis. No dyspnea. No history of similar symptoms previously. - Related Data Home Medications Medication Instructions Recorded Confirmed Lisinopril-Hctz 20-12.5 mg 1 tab PO BID 01/15/16 07/15/19 [Zestoretic 20-12.5] amLODIPine [Norvasc] 10 mg PO QAM 01/15/16 07/15/19 ALPRAZolam [Xanax] 0.25 mg PO Q8H PRN 01/25/19 07/15/19 Albuterol Inhaler [Ventolin Hfa 1 - 2 puff INHALATION RT-Q6H PRN 07/13/19 07/15/19 Inhaler] Azelastine HCl [Astepro] 1 spray NASAL BID PRN 07/13/19 07/15/19 Meloxicam [Mobic] 15 mg PO HS 07/13/19 07/15/19 Metoprolol Succinate (ER) [Toprol 25 mg PO DAILY 07/13/19 07/15/19 Xl] Ranitidine HCl 150 mg PO BID 07/13/19 07/15/19 Previous Rx's Medication Instructions Recorded Aspirin 81 mg PO DAILY #30 chewable 01/27/19 Atorvastatin Calcium [Lipitor] 20 mg PO HS #30 tab 01/27/19 Allergies Allergy/AdvReac Type Severity Reaction Status Date / Time adhesive tape Allergy Rash/Hives Verified 08/28/19 14:18 gemifloxacin mesylate Allergy Rash/Hives Verified 08/28/19 14:18 [From Factive] Review of Systems ROS Statement: Those systems with pertinent positive or pertinent negative responses have been documented in the HPI. ROS Other: All systems not noted in ROS Statement are negative. Constitutional: Denies: fever Eyes: Denies: eye pain ENT: Denies: ear pain Respiratory: Denies: cough Cardiovascular: Reports: as per HPI, chest pain Endocrine: Denies: fatigue Gastrointestinal: Denies: abdominal pain Genitourinary: Denies: dysuria Musculoskeletal: Denies: back pain Skin: Denies: rash Neurological: Denies: weakness Past Medical History Past Medical History: Hypertension Additional Past Medical History / Comment(s): chronic back pain History of Any Multi-Drug Resistant Organisms: None Reported Past Surgical History: Appendectomy, Tonsillectomy Past Anesthesia/Blood Transfusion Reactions: Postoperative Nausea & Vomiting (PONV) Past Psychological History: No Psychological Hx Reported Smoking Status: Never smoker Past Alcohol Use History: Occasional Past Drug Use History: None Reported - Past Family History Mother Family Medical History: Cancer Additional Family Medical History / Comment(s): pt. states her maternal grandmother had ovarian cancer Father Family Medical History: Unable to Obtain General Exam Limitations: no limitations General appearance: alert, in no apparent distress Head exam: Present: normocephalic Eye exam: Present: normal appearance, PERRL ENT exam: Present: normal oropharynx Neck exam: Present: normal inspection Respiratory exam: Present: normal lung sounds bilaterally. Absent: chest wall tenderness Cardiovascular Exam: Present: regular rate, normal rhythm Expanded Peripheral pulses: 2+: Radial (R), Radial (L), Dorsalis Pedis (R), Dorsalis Pedis (L) GI/Abdominal exam: Present: soft. Absent: tenderness Extremities exam: Present: normal inspection. Absent: pedal edema, calf tenderness Neurological exam: Present: alert. Absent: motor sensory deficit Expanded Motor strength exam: RUE: 5, LUE: 5 Psychiatric exam: Present: normal affect, normal mood Skin exam: Present: normal color Course Vital Signs 08/28/19 14:16 Temperature 97.3 F L Pulse Rate 106 H Respiratory 20 Rate Blood Pressure 138/91 O2 Sat by Pulse 99 Oximetry EKG Findings - EKG Comments: EKG Findings:: Normal sinus rhythm 100. VT 172. QRS 84. QT 362. QTC 466. Normal axis. Q waves in leads V1 and V2. No acute ST change. Medical Decision Making - Medical Decision Making Patient reevaluated and resting comfortably in bed. Patient remained symptom- free. Patient and family updated on results and recommended admission. Patient refuses admission. Patient states she did have a heart cath done just one month ago and has been symptom-free since before she got here. Patient is aware that although unlikely cannot 100% rule out heart attack or risk for heart attack in the very near future. Patient does demonstrate medical decision making and will leave AGAINST MEDICAL ADVICE. - Lab Data Result diagrams: 08/28/19 14:50 08/28/19 14:50 Lab Results 08/28/19 08/28/19 08/28/19 Range/Units 14:50 14:50 14:50 WBC 6.6 (3.8-10.6) k/uL RBC 4.59 (3.80-5.40) m/uL Hgb 13.7 (11.4-16.0) gm/dL Hct 40.9 (34.0-46.0) % MCV 89.1 (80.0-100.0) fL MCH 29.9 (25.0-35.0) pg MCHC 33.5 (31.0-37.0) g/dL RDW 12.9 (11.5-15.5) % Plt Count 295 (150-450) k/uL Neutrophils % 57 % Lymphocytes % 28 % Monocytes % 7 % Eosinophils % 3 % Basophils % 1 % Neutrophils # 3.7 (1.3-7.7) k/uL Lymphocytes # 1.9 (1.0-4.8) k/uL Monocytes # 0.5 (0-1.0) k/uL Eosinophils # 0.2 (0-0.7) k/uL Basophils # 0.0 (0-0.2) k/uL PT 10.4 (9.0-12.0) sec INR 1.0 (<1.2) APTT 23.9 (22.0-30.0) sec D-Dimer 0.28 (<0.60) mg/L FEU Sodium 141 (137-145) mmol/L Potassium 3.8 (3.5-5.1) mmol/L Chloride 104 (98-107) mmol/L Carbon Dioxide 28 (22-30) mmol/L Anion Gap 9 mmol/L BUN 28 H (7-17) mg/dL Creatinine 0.99 (0.52-1.04) mg/dL Est GFR (CKD-EPI)AfAm 70 (>60 ml/min/1.73 sqM) Est GFR (CKD-EPI)NonAf 61 (>60 ml/min/1.73 sqM) Glucose 120 H (74-99) mg/dL Calcium 9.9 (8.4-10.2) mg/dL Total Bilirubin 0.6 (0.2-1.3) mg/dL AST 23 (14-36) U/L ALT 18 (4-34) U/L Alkaline Phosphatase 125 (38-126) U/L Troponin I (0.000-0.034) ng/mL Total Protein 7.1 (6.3-8.2) g/dL Albumin 4.2 (3.5-5.0) g/dL 08/28/19 Range/Units 14:50 WBC (3.8-10.6) k/uL RBC (3.80-5.40) m/uL Hgb (11.4-16.0) gm/dL Hct (34.0-46.0) % MCV (80.0-100.0) fL MCH (25.0-35.0) pg MCHC (31.0-37.0) g/dL RDW (11.5-15.5) % Plt Count (150-450) k/uL Neutrophils % % Lymphocytes % % Monocytes % % Eosinophils % % Basophils % % Neutrophils # (1.3-7.7) k/uL Lymphocytes # (1.0-4.8) k/uL Monocytes # (0-1.0) k/uL Eosinophils # (0-0.7) k/uL Basophils # (0-0.2) k/uL PT (9.0-12.0) sec INR (<1.2) APTT (22.0-30.0) sec D-Dimer (<0.60) mg/L FEU Sodium (137-145) mmol/L Potassium (3.5-5.1) mmol/L Chloride (98-107) mmol/L Carbon Dioxide (22-30) mmol/L Anion Gap mmol/L BUN (7-17) mg/dL Creatinine (0.52-1.04) mg/dL Est GFR (CKD-EPI)AfAm (>60 ml/min/1.73 sqM) Est GFR (CKD-EPI)NonAf (>60 ml/min/1.73 sqM) Glucose (74-99) mg/dL Calcium (8.4-10.2) mg/dL Total Bilirubin (0.2-1.3) mg/dL AST (14-36) U/L ALT (4-34) U/L Alkaline Phosphatase (38-126) U/L Troponin I <0.012 (0.000-0.034) ng/mL Total Protein (6.3-8.2) g/dL Albumin (3.5-5.0) g/dL - Radiology Data Radiology results: image reviewed (X-ray shows some atelectasis) Disposition Clinical Impression: Chest pain Disposition: HOME SELF-CARE Condition: Stable Instructions (If sedation given, give patient instructions): Chest Pain (ED) Additional Instructions: Please follow-up with cardiology and primary care physician tomorrow. Return for increased pain, worsening or change in symptoms, or any other concerns. You are leaving AGAINST MEDICAL ADVICE. Is patient prescribed a controlled substance at d/c from ED?: No Referrals: Narendra Mohan DO [Primary Care Provider] - 1-2 days Vanessa Núñez MD [Family Provider] - 1-2 days Time of Disposition: 16:37
[2019-08-28 15:53] LABS: Basophils % (A) 1 %; Eosinophils # (A) 0.2 k/uL (0-0.7); Eosinophils % (A) 3 %; HCT 40.9 % (34.0-46.0); HGB 13.7 gm/dL (11.4-16.0); Lymphocytes # (A) 1.9 k/uL (1.0-4.8); Lymphocytes % (A) 28 %; MCH 29.9 pg (25.0-35.0); MCHC 33.5 g/dL (31.0-37.0); MCV 89.1 fL (80.0-100.0); Mean Platelet Volume 7.6; Monocytes # (A) 0.5 k/uL (0-1.0); Monocytes % (A) 7 %; Neutrophils # (A) 3.7 k/uL (1.3-7.7); Neutrophils % (A) 57 %; Platelet Count 295 k/uL (150-450); RBC 4.59 m/uL (3.80-5.40); RDW 12.9 % (11.5-15.5); WBC 6.6 k/uL (3.8-10.6)
[2019-08-28 15:57] LABS: Albumin 4.2 g/dL (3.5-5.0); Calcium 9.9 mg/dL (8.4-10.2); Potassium 3.8 mmol/L (3.5-5.1); Total Bilirubin 0.6 mg/dL (0.2-1.3); Total Protein 7.1 g/dL (6.3-8.2)
[2019-08-28 16:01] LABS: D-Dimer 0.28 mg/L FEU (<0.60); Partial Thromboplastin Time 23.9 sec (22.0-30.0); Prothrombin Time 10.4 sec (9.0-12.0)
--- NOTE | 2019-08-28 16:02 | XR ---
EXAMINATION TYPE: XR chest 2V DATE OF EXAM: 08/28/2019 COMPARISON: 01/17/2019 HISTORY: Fall. Pain. TECHNIQUE: FINDINGS: There is some mild linear density at the lung bases. There is no pleural effusion or pneumo thorax. Heart is normal. There are no hilar masses. There is no heart failure. There are chest leads thoracic spine is intact. IMPRESSION: There is mild subsegmental atelectasis at the lung bases that is new compared to old exam . Normal heart.
[2019-08-28 17:00] VITALS: BP 101/76; PULSE 90; RESP 18
== END 2019-08-28 16:45 | disposition home or self-care (01) ==
LOC: EC 14:12
DX: R07.89 Other chest pain (principal); I10 Essential (primary) hypertension; G89.29 Other chronic pain; K21.9 Gastro-esophageal reflux disease without esophagitis; Z88.1 Allergy status to other antibiotic agents; Z91.048 Other nonmedicinal substance allergy status; Z79.1 Long term (current) use of non-steroidal anti-inflammatories (NSAID); Z79.899 Other long term (current) drug therapy; Z90.49 Acquired absence of other specified parts of digestive tract; Z95.818 Presence of other cardiac implants and grafts; Z53.29 Procedure and treatment not carried out because of patient's decision for other reasons
CPT/HCPCS: 36415; 71046; 80053; 84484; 85025; 85379; 85610; 85730; 93005; 99285

== ENCOUNTER → 2019-10-25 | Outpatient (CLI) | payer BC ==
--- NOTE | 2019-10-26 07:25 | US ---
EXAMINATION TYPE: US thyroid st tissue head/neck DATE OF EXAM: 10/25/2019 COMPARISON: NONE CLINICAL HISTORY: E04.2 nontoxic multinodular goiter. GLAND SIZE: Right Lobe: 5.1 x 1.9 x 1.9 cm Overall Parenchyma: heterogenous Left Lobe: 4.1 x 1.3 x 1.4 cm Overall Parenchyma: heterogeneous Isthmus Thickness: 0.8 cm NODULES RIGHT: # of nodules measured on right: Innumerable nodules visualized, largest two measurin. 1.0 X 0.5 x 0.8 cm hypoechoic mixed nodule at the upper pole with well-defined margins; . This nodule is wider than tall and shows intranodular vascularity. Prior size: No previous 2. 0.8 X 0.5 x 0.6 cm hypoechoic solid nodule at the upper pole with well-defined margins; . This n odule is wider than tall and shows intranodular vascularity. Prior size: no previous LEFT: # of nodules measured on left: 1 1. 2.4 X 1.1 x 1.8 cm hypoechoic mixed nodule at the lower pole with well-defined margins; . This nodule is wider than tall and shows intranodular vascularity. Prior size: No previous ISTHMUS: # of nodules measured in the isthmus: 0 Bilateral neck scanned, no evidence of lymphadenopathy. IMPRESSION: Glandular heterogeneity complex nodule left thyroid lobe measuring greater than 1 cm. Possible subcen timeter nodules left thyroid lobe are nonspecific. Consider tissue diagnosis if clinically indicated.
== END | disposition home or self-care (01) ==
LOC: RADUSWWP 16:17
PROVIDERS: ATTEND Internal Medicine Endocrinology, Diabetes & Metabolism
DX: E04.1 Nontoxic single thyroid nodule (principal)
CPT/HCPCS: 76536

== ENCOUNTER → 2020-01-18 | Outpatient (CLI) | payer BC ==
--- NOTE | 2020-01-18 14:56 | XR ---
EXAMINATION TYPE: XR shoulder complete LT DATE OF EXAM: 01/18/2020 CLINICAL HISTORY: Chronic left shoulder pain. TECHNIQUE: Three views of the left shoulder are obtained. COMPARISON: None. FINDINGS: There is no acute fracture/dislocation evident in the left shoulder. Mild to moderate narr owing glenohumeral joint. Moderate to severe narrowing of acromioclavicular joint. Distal acromion mo rphology unremarkable. The visualized ribs are intact. IMPRESSION: As above.
== END | disposition home or self-care (01) ==
LOC: RADXRMAIN 14:35
PROVIDERS: ATTEND Family Medicine
DX: M19.012 Primary osteoarthritis, left shoulder (principal)

== ENCOUNTER → 2021-02-27 | Outpatient (CLI) | payer BC, MEDICARE ==
[2021-02-27 16:56] VITALS: BP 128/84; PULSE 99; RESP 18; TEMP 98.7; BMI 40.6
--- NOTE | 2021-02-27 17:20 | P.HPBAR ---
Bariatric H&P - History & Physicial H&P Date: 02/27/21 History & Physicial: Visit/CC: initial visit Patient initial contact: Initial weight: Initial weight in pounds: Height: 5 ft 6.5 in Initial BMI: Last weight: Current weight: 115.802 kg Current weight in pounds: 255.30 Current BMI: 40.6 [place] body weight (based on NIH guidelines): 60.101 kg Excess body weight loss: The patient is a 66 year-old F who presents for Bariatric Assessment. DATE OF SERVICE: 02/27/2021 REASON FOR CONSULTATION: Initial bariatric evaluation. HISTORY OF PRESENT ILLNESS: Nohemy Abernathy is a 66-year-old female who comes with lifelong morbid obesity. She is looking into the gastric bypass. She has tried medical weight loss, weight watchers, including [employer]. Her most weight loss is 20 pounds with weight watchers. She reports being skinny all of her life and was 145 pounds. She has lost weight to 120 pounds after the of her son. She weighed 160 pounds at her marriage. She is looking to get back to her prior weight. She is on medications. She is pre-diabetic. She has lactose int olerance. She is on blood pressure medications. She has gastroesophageal reflux disease that is severe despite her medications. She has not had an upper endoscopy before. She had her colonoscopy and had a polyp. She had her colonoscopy more than 5 years ago. She is due for a colonoscopy. She reports lower back pain, hip, and knee pain. She denies prior deep venous thrombosis. She presents first time in consultation for morbid obesity. At height of 5 feet 6.5 inches, her ideal body weight is 154 pounds. She comes in 255 pounds. Her body mass index is 40.6. She is 101 pounds overweight. PAST MEDICAL HISTORY: 1. Morbid obesity due to excess calories 2. Body mass index of 38.0, initial 3. Hypertensive heart disease 4. Hyperlipidemia 5. Diabetes type II, non-insulin dependent 6. Gastroesophageal reflux disease 7. Osteoarthritis lower back 8. Generalized anxiety disorder 9. Post op nausea and vomiting 10. Colon polyps. 11. Osteoarthritis of the hips 12. Osteoarthritis of the knee PAST SURGICAL HISTORY: 1. Appendectomy 2. Tonsillectomy HOME MEDICATIONS: Home Medications Medication Instructions Recorded Confirmed Lisinopril-Hctz 20-12.5 mg 1 tab PO BID 01/15/16 03/27/21 [Zestoretic 20-12.5] amLODIPine [Norvasc] 5 mg PO QAM 01/15/16 03/27/21 Meloxicam [Mobic] 15 mg PO HS 07/13/19 03/27/21 Metoprolol Succinate (ER) [Toprol 50 mg PO DAILY 07/13/19 03/27/21 Xl] Atorvastatin [Lipitor] 20 mg PO DAILY 02/27/21 03/27/21 Celecoxib [CeleBREX] 200 mg PO DAILY 02/27/21 03/27/21 Omeprazole 20 mg PO DAILY 02/27/21 03/27/21 metFORMIN HCL 500 mg PO DAILY 02/27/21 03/27/21 Previous Rx's Medication Instructions Recorded Aspirin 81 mg PO DAILY #30 chewable 01/27/19 ALLERGIES: Allergies Allergy/AdvReac Type Severity Reaction Status Date / Time adhesive tape Allergy Rash/Hives Verified 03/27/21 11:13 gemifloxacin mesylate Allergy Rash/Hives Verified 03/27/21 11:13 [From Factive] SOCIAL HISTORY: Tobacco use. FAMILY HISTORY: No family history of ulcerative colitis disease or Crohn's disease. Family history of morbid obesity. No lupus in the family. No reports of stomach or esophageal cancer. REVIEW OF ORGAN SYSTEMS: CONSTITUTIONAL: At height of 5 feet 6.5 inches, her ideal body weight is 154 pounds. She comes in 255 pounds. Her body mass index is 40.6. She is 101 pounds overweight. HEENT: Denies any active troubles with vision or hearing. ENDOCRINE: Has diabetes. No hypothyroidism. CARDIOVASCULAR: Denies past reports of palpitations or heart attacks or chest pain. Has hypertensive heart disease. RESPIRATORY: Has daytime somnolence. GASTROINTESTINAL: Denies any bright red blood per rectum. No diarrhea. No constipation. Has gastroesophageal reflux disease. GENITOURINARY: Denies bladder urgency. No recent blood in urine MUSCULOSKELETAL: Has lower back pain and joint pain. Has osteoarthritis of the knees. NEURO: No headaches. No seizure disorders. PSYCH: Has depression. No suicidal ideation. Has anxiety. RHEUMATOLOGIC: No lupus. No rheumatoid arthritis. HEMATOLOGIC: Denies any abnormal bleeding or bruising. SKIN: No rash. No skin cancer. PHYSICAL EXAM: VITAL SIGNS: Height 5 foot 6.5 inches, weight 255 pounds. BMI 40.6 Vital Signs Temp 98.7 F 02/27/21 16:52 Pulse 99 02/27/21 16:52 Resp 18 02/27/21 16:52 BP 128/84 02/27/21 16:52 Pulse Ox GENERAL: Well-developed in no acute distress. HEENT: No scleral icterus. Extraocular movements grossly intact. Hears conversational speech. No nasal drainage. NECK: Supple without lymphadenopathy. CHEST: Nonlabored respirations with equal bilateral excursions. CARDIOVASCULAR: Regular rate and regular rhythm. Distal 2+ pulses. ABDOMEN: Obese, soft, nontender, nondistended. MUSCULOSKELETAL: No clubbing, cyanosis. NEURO: No focal or lateralizing signs. Cranial nerves 2 through 12 grossly within normal limits. PSYCH: Appropriate affect. Alert and oriented to person, place and time. SKIN: Good skin turgor. Well perfused. ASSESSMENT: 1. Morbid obesity due to excess calories 2. Body mass index of 38.0, initial 3. Hypertensive heart disease 4. Hyperlipidemia 5. Diabetes type II, non-insulin dependent 6. Gastroesophageal reflux disease 7. Osteoarthritis lower back 8. Generalized anxiety disorder 9. Post op nausea and vomiting 10. Colon polyps. 11. Osteoarthritis of the hips 12. Osteoarthritis of the knee 13. Lactose intolerance PLAN: 1. Surgical options including a band, gastric bypass, sleeve gastrectomy were described in detail. Alternatives such as gastric balloon including duodenal switch were described. She is looking into the gastric bypass. 2. The [place] bariatric surgical collaborative data and outcomes calculator were described with surgical options. 3. Recommend a bariatric metabolic panel to evaluate for micro- including macronutrient deficiencies. 4. For history of daytime somnolence, recommend evaluation and treatment for sleep apnea. 5. Dietary surveillance and counseling was reviewed. Increased protein intake over 65 grams daily advised. 6. Will need cardiac risk assessment. 7. Recommend medical risk assessment. 8. Psych assessment per insurance guidelines. 9. Recommend upper endoscopy. 10. Recommend 12-lead EKG. 11. Recommend esophagram 12. Recommend urine nicotine testing for history of tobacco abuse disorder 13. Recommend urine drug screen 14. Recommend colonoscopy for history of colon polyps. Thank you for this consultation. Past Medical History Past Medical History: Hypertension Additional Past Medical History / Comment(s): chronic back pain. pre-diabetic. History of Any Multi-Drug Resistant Organisms: None Reported Past Surgical History: Appendectomy, Tonsillectomy Past Anesthesia/Blood Transfusion Reactions: Postoperative Nausea & Vomiting (PONV) Past Psychological History: No Psychological Hx Reported Additional Psychological History / Comment(s): pt. takes xanax prn for anxiety Smoking Status: Former smoker Past Alcohol Use History: Occasional Additional Past Alcohol Use History / Comment(s): STARTED SMOKING AGE 14(1968), QUIT 1988, SMOKED 1-1AND 1/2PPD Past Drug Use History: None Reported Additional Drug Use History / Comment(s): pt. states she rarely drinks alcohol and occassionally smokes a vape pen with marijuana for her chronic back pain, pt. states she uses every 2 days - Past Family History Mother Family Medical History: Cancer Additional Family Medical History / Comment(s): pt. states her maternal grand mother had ovarian cancer Father Family Medical History: Unable to Obtain Surgical - Exam Vital Signs Temp Pulse Resp BP 98.7 F 99 18 128/84 02/27/21 16:52 02/27/21 16:52 02/27/21 16:52 02/27/21 16:52 Bariatric Checklist Checklist: Plan: Checklist: EGD: 1. Hiatal hernia: 2. H. Pylori: HgbA1c: Vitamin D: Smoking: Never smoker Primary care physician referral: Dr. Mohan Psychiatry clearance: Cardiology clearance: Sleep study: Diet journal: VTE risk score: VTE risk level: Rehab needs at discharge:
== END ==
LOC: BARWHC3 15:38
PROVIDERS: ATTEND Surgery Plastic and Reconstructive Surgery
DX: E66.01 Morbid (severe) obesity due to excess calories (principal); I11.0 Hypertensive heart disease with heart failure; E78.5 Hyperlipidemia, unspecified; E11.9 Type 2 diabetes mellitus without complications; K21.9 Gastro-esophageal reflux disease without esophagitis; M47.9 Spondylosis, unspecified; F41.1 Generalized anxiety disorder; E73.9 Lactose intolerance, unspecified; F17.290 Nicotine dependence, other tobacco product, uncomplicated; R11.2 Nausea with vomiting, unspecified; K63.5 Polyp of colon; M17.0 Bilateral primary osteoarthritis of knee; M17.9 Osteoarthritis of knee, unspecified; Z79.84 Long term (current) use of oral hypoglycemic drugs; Z79.899 Other long term (current) drug therapy; Z91.048 Other nonmedicinal substance allergy status; Z88.1 Allergy status to other antibiotic agents; Z68.41 Body mass index [BMI] 40.0-44.9, adult
CPT/HCPCS: 99203

== ENCOUNTER → 2021-03-13 | Outpatient (CLI) | payer MEDICARE ==
[2021-03-13 23:35] LABS: HCT 43.3 % (37.2-46.3); HGB 13.5 g/dL (12.0-15.0); MCHC 31.2 g/dL (32.0-37.0); MCV 92.9 fL (80.0-97.0); Mean Platelet Volume 10.3 fL (9.5-12.2); Platelet Count 350 X 10*3/uL (140-440); RBC 4.66 X 10*6/uL (4.10-5.20); RDW 12.8 % (11.5-14.5); WBC 7.14 X 10*3/uL (4.50-10.00)
[2021-03-14 04:39] LABS: Hemoglobin A1C 6.1 % (4.0-6.0)
[2021-03-14 05:28] LABS: INR 1.01 (0.90-1.11); Partial Thromboplastin Time 25.8 sec (23.5-31.0)
[2021-03-14 12:31] LABS: Zinc, Serum 83 ug/dL (60-130)
[2021-03-14 13:26] LABS: % Iron Saturation 25.12 (12.00-45.00); African American GFR (CKD) 77.8 (60.0-200.0); Albumin 4.8 g/dL (3.80-4.90); Albumin/Globulin Ratio 2.18 (1.60-3.17); Anion Gap 12.4 mmol/L (4.00-12.00); BUN/Creat Ratio 25.56 Ratio (12.00-20.00); Calcium 10.1 mg/dL (8.7-10.3); Carbon Dioxide 25.6 mmol/L (21.6-31.8); Chol/HDL Ratio 3.78; Globulin 2.2 g/dL (1.6-3.3); LDL Cholesterol,Calculated 66.2 mg/dL (0.0-131.0); Magnesium 1.7 mg/dL (1.5-2.4); Non-African American GFR(CKD) 67.1 (60.0-200.0); Phosphorus 3.4 mg/dL (2.4-5.1); Potassium 4.1 mmol/L (3.5-5.5); Total Bilirubin 0.6 mg/dL (0.3-1.2); VLDL Calculation 33.8 mg/dL (5.00-40.00)
[2021-03-14 13:36] LABS: Ferritin 31.7 ng/mL (10.0-291.0)
[2021-03-14 13:40] LABS: Folate, Serum 13.3 ng/mL
[2021-03-15 06:08] LABS: Vit B1(Thiamine) 57 ug/L (38-122)
[2021-03-15 06:18] LABS: Vitamin A 66 ug/dL (38-106)
[2021-03-21 02:34] LABS: Selenium 130 mcg/L (63-160)
== END | disposition home or self-care (01) ==
LOC: LABWHC1 15:28
PROVIDERS: ATTEND Surgery Plastic and Reconstructive Surgery
DX: E66.01 Morbid (severe) obesity due to excess calories (principal); E89.1 Postprocedural hypoinsulinemia; D50.8 Other iron deficiency anemias; E44.0 Moderate protein-calorie malnutrition; E55.9 Vitamin D deficiency, unspecified; K74.1 Hepatic sclerosis; N19 Unspecified kidney failure; K50.90 Crohn's disease, unspecified, without complications; Z71.51 Drug abuse counseling and surveillance of drug abuser; I45.10 Unspecified right bundle-branch block; I21.19 ST elevation (STEMI) myocardial infarction involving other coronary artery of inferior wall; R00.0 Tachycardia, unspecified; R94.31 Abnormal electrocardiogram [ECG] [EKG]; Z98.84 Bariatric surgery status
CPT/HCPCS: 36415; 80053; 80061; 82306; 82525; 82607; 82728; 82746; 83036; 83540; 83550; 83735; 83970; 84100; 84134; 84255; 84425; 84443; 84590; 84630; 85027; 85610; 85730; 93005

== ENCOUNTER → 2021-03-13 | Outpatient (CLI) | payer MEDICARE ==
--- NOTE | 2021-03-13 15:57 | US ---
EXAMINATION TYPE: US pelvic complete DATE OF EXAM: 03/13/2021 COMPARISON: 05/11/2012 CLINICAL HISTORY: R10.2 Pelvic and perineal pain. pelvic pain, patient states she had post menopausal bleeding on and off TECHNIQUE: TA. Transabdominal sonographic images of the pelvis were acquired. Patient felt full an d no to TV approach Date of LMP: 16yrs old EXAM MEASUREMENTS: Uterus: 9.5 x 5.5 x 5.4 cm Endometrial Stripe: 2.4cm Right Ovary: not seen Left Ovary: not seen 1. Uterus: Anteverted wnl 2. Endometrium: grossly thickened 3. Right Ovary: not seen due to bowel gas and atrophy 4. Left Ovary: not seen due to bowel gas and atrophy 5. Bilateral Adnexa: wnl 6. Posterior cul-de-sac: wnl IMPRESSION: Neither ovary could be visualized. There is thickening of the endometrium measuring up to 2.4 cm. Endometrial hyperplasia versus neoplas m are considerations and clinical follow-up is recommended with possible direct visualization and/or biopsy.
== END | disposition home or self-care (01) ==
LOC: RADUSWWP 14:58
PROVIDERS: ATTEND Family Medicine
DX: R93.89 Abnormal findings on diagnostic imaging of other specified body structures (principal)
CPT/HCPCS: 76856

== ENCOUNTER → 2021-04-26 | Outpatient (CLI) | payer MEDICARE ==
--- NOTE | 2021-04-26 16:02 | XR ---
EXAMINATION TYPE: XR chest 2V DATE OF EXAM: 04/26/2021 COMPARISON: Chest x-ray 08/28/2019 HISTORY: Malignant neoplasm of endometrium, preop TECHNIQUE: Frontal and lateral views of the chest are obtained. FINDINGS: There is no focal air space opacity, pleural effusion, or pneumothorax seen. The cardiac silhouette size is within normal limits. The osseous structures are intact, there is a slight spina l curvature. Aorta is atheromatous. Retrocardiac lucency is consistent with a hiatal hernia. IMPRESSION: No acute cardiopulmonary process. Hiatal hernia.
--- NOTE | 2021-04-27 09:00 | CT ---
EXAMINATION TYPE: CT abdomen pelvis w con DATE OF EXAM: 04/26/2021 COMPARISON: None HISTORY: malignant neoplasm of endometrium CT DLP: 1904.8 mGycm Automated exposure control for dose reduction was used. TECHNIQUE: Helical acquisition of images from the lung bases through the pelvis have been completed. CONTRAST: Performed with Oral Contrast and with IV Contrast, patient injected with 80 mL of Isovue 300. FINDINGS: There is a hiatal hernia with partial intrathoracic stomach LUNG BASES: No significant abnormality is appreciated. AORTA: No significant abnormality is appreciated. LIVER/GB: Low dense focus is present within the liver, axial image #24 measuring approximately 16 mm in greatest dimension, likely hepatic cyst, gallbladder somewhat contracted. PANCREAS: No significant abnormality is seen. SPLEEN: No significant abnormality is seen. Splenule is noted anteriorly ADRENALS: No significant abnormality is seen. KIDNEYS: No significant abnormality is seen. REPRODUCTIVE ORGANS: Uterus is somewhat heterogeneous in appearance. BOWEL: No significant abnormality is seen. FREE AIR: No Free Air visible. ASCITES: None visible. PELVIC ADENOPATHY: Borderline enlargement noted along the left external iliac vein, short axis measu rement of the node is approximately 14 to 15 mm, axial image 81. Additional nonenlarged nodes are pre sent along the inguinal regions, iliac chains. RETROPERITONEAL ADENOPATHY: No Retroperitoneal Adenopathy visible. URINARY BLADDER: No significant abnormality is seen. OSSEOUS STRUCTURES: No significant abnormality is seen. IMPRESSION: HETEROGENEOUS APPEARANCE OF THE UTERUS IN KEEPING WITH PATIENT'S HISTORY. BORDERLINE ADENOPATHY SUSPE CTED AT THE LEFT EXTERNAL ILIAC LOCATION DESCRIBED. ADDITIONAL FINDINGS ABOVE.
== END | disposition home or self-care (01) ==
LOC: RADCTMAIN 14:35
PROVIDERS: ATTEND Obstetrics & Gynecology
DX: Z01.818 Encounter for other preprocedural examination (principal); C54.1 Malignant neoplasm of endometrium; K44.9 Diaphragmatic hernia without obstruction or gangrene
CPT/HCPCS: 82565; 84520; 71046; 74177; 36415; Q9967

== ENCOUNTER → 2021-08-05 | Outpatient (CLI) | payer MEDICARE ==
--- NOTE | 2021-08-05 14:27 | US ---
EXAMINATION TYPE: US venous doppler duplex LE LT DATE OF EXAM: 08/05/2021 2:21 PM COMPARISON: NONE CLINICAL HISTORY: M79.662 Pain L leg. Shooting pain in the left lower extremity. SIDE PERFORMED: Left TECHNIQUE: The lower extremity deep venous system is examined utilizing real time linear array sonog cornelia with graded compression, doppler sonography and color-flow sonography. VESSELS IMAGED: Common Femoral Vein Deep Femoral Vein Greater Saphenous Vein * Femoral Vein Popliteal Vein Small Saphenous Vein * Proximal Calf Veins (* superficial vessels) Left Leg: Negative for DVT IMPRESSION: No evidence of DVT.
== END | disposition home or self-care (01) ==
LOC: RADUSWWP 14:01
PROVIDERS: ATTEND Internal Medicine Hematology & Oncology
DX: M79.662 Pain in left lower leg (principal)

== ENCOUNTER → 2021-08-16 | Outpatient (CLI) | payer MEDICARE ==
[2021-08-16 16:12] LABS: African American GFR (CKD) >90 (>60 ml/min/1.73 sqM); Blood Urea Nitrogen 17 mg/dL (7-17); Non-African American GFR(CKD) >90 (>60 ml/min/1.73 sqM)
--- NOTE | 2021-08-19 11:32 | CT ---
EXAMINATION TYPE: CT ChestAbdPelvis w con DATE OF EXAM: 08/16/2021 COMPARISON: 04/26/2021 HISTORY: f/u uterine ca CT DLP: 2070 mGycm Automated exposure control for dose reduction was used. CONTRAST: CT scan of the chest, abdomen and pelvis is performed with Oral Contrast and with IV Contrast, patien t injected with 100 mL of Isovue 300. FINDINGS: LUNGS: The lungs are grossly clear, there is no evidence of consolidative pneumonia. There is no pl eural effusion or pneumothorax seen. The tracheobronchial tree is patent. There is a subpleural nodu le anterior segment right upper lobe axial image 31 measuring 3 mm MEDIASTINUM: There are no greater than 1 cm hilar or mediastinal lymph nodes. No pericardial effusi on is seen. Atherosclerotic change aorta. Heart size normal. OTHER: Moderate-sized hiatal hernia noted there appears to be a thyroid nodule measuring approximate ly 1.2 cm LIVER/GB: Low dense focus is present within the liver, axial image #24 measuring approximately 16 mm in greatest dimension, likely hepatic cyst, gallbladder somewhat contracted. PANCREAS: No significant abnormality is seen. SPLEEN: No significant abnormality is seen. ADRENALS: No significant abnormality is seen. KIDNEYS: No significant abnormality is seen. BOWEL: No significant abnormality is seen. LYMPH NODES: Stable 1 cm short axis measurement left iliac chain lymph node. No interval change from prior exam. Stable subcentimeter retroperitoneal lymph nodes: Shotty adenopathy unchanged from prior exam. OSSEOUS STRUCTURES: Hypertrophic and degenerative changes of the spine. OTHER: Aorta of normal caliber. Small fat-containing periumbilical hernia. Post hysterectomy changes noted. IMPRESSION: 1. Stable left iliac chain 1 cm borderline lymphadenopathy. Findings are unchanged from prior exam. N o new sizable lymph nodes are identified. 2. 3 mm subpleural right upper lobe pulmonary nodule too small to characterize but likely benign. No prior CT of the chest is available 3. Stable subcentimeter hepatic lesion. Given stability over time likely benign. 4. Left thyroid nodule measuring approximately 1 2 cm
== END | disposition home or self-care (01) ==
LOC: RADCTMAIN 15:23
PROVIDERS: ATTEND Internal Medicine Hematology & Oncology
DX: C56.3 Malignant neoplasm of bilateral ovaries (principal); K76.9 Liver disease, unspecified; R59.0 Localized enlarged lymph nodes; E04.1 Nontoxic single thyroid nodule; R91.1 Solitary pulmonary nodule; Z85.42 Personal history of malignant neoplasm of other parts of uterus
CPT/HCPCS: 82565; 84520; 71260; 74177; 36415; Q9967

== ENCOUNTER → 2021-09-11 | Outpatient (CLI) | payer MEDICARE ==
--- NOTE | 2021-09-12 09:24 | US ---
EXAMINATION TYPE: US thyroid st tissue head/neck DATE OF EXAM: 09/11/2021 COMPARISON: 10/25/2019 CLINICAL HISTORY: 66-year-old female R22.0 SWELLING, MASS, LUMP. TECHNIQUE: Multiple sonographic images of the thyroid gland are obtained. FINDINGS: GLAND SIZE: Right Lobe: 5.9 x 1.9 x 2.5 cm Overall Parenchyma: heterogenous Left Lobe: 5.0 x 2.0 x 1.7 cm Overall Parenchyma: heterogeneous Isthmus Thickness: 0.37 cm NODULES RIGHT: # of nodules measured on right: Multiple nodules; largest 2 measured 1. 1.1 X 0.7 x 1.0 cm, upper solid or almost completely solid, hypoechoic nodule, which is wider th an tall, with smooth margins, without echogenic foci. Prior size: 1.0 x 0.5 x 0.8 cm 2. 1.1 X 0.8 x 1.1 cm, upper mid, solid or almost completely solid, hypoechoic nodule, which is wid er than tall, with smooth margins, without echogenic foci. Prior size: 0.8 x 0.5 x 0.6 cm LEFT: # of nodules measured on left: 2 1. 0.8 X 0.7 x 0.8 cm, upper medial, solid or almost completely solid, hypoechoic nodule, which is wider than tall, with ill-defined margins, with echogenic foci. Not clearly seen previously. 2. 1.7 X 1.5 x 1.5 cm, mid to lower pole medial, mixed cystic and solid, but primarily solid hypoe choic nodule, which is wider than tall, with ill-defined margins, without echogenic foci. Prior size: 2.4 x 1.8 x 1.1 cm. Previously larger but now with more solid component ISTHMUS: # of nodules measured in the isthmus: 1 1. 1.2 X 1.0 x 1.5 cm solid or almost completely solid, who hypoechoic nodule, which is wider than tall, with ill-defined margins, with echogenic foci. Bilateral neck scanned, no evidence of lymphadenopathy. IMPRESSION: 1. Multinodular goiter. 2. Two, possible spongiform nodules in the right lobe are slightly larger measuring up to 1.1 cm (carla lucia 1.0 and 0.8 cm, previously). These can be reassessed at follow-up. 3. While a primarily solid nodule in the left mid to lower pole is slightly smaller (1.7 cm versus 2. 4 cm, previously), it now shows more solid component. FNA can be considered. 4. A 1.5 cm solid isthmic nodule has some calcification. Not seen previously. This nodule warrants FN A. 5. A small 8 mm nodule at the left upper pole was not clearly seen previously and can be reassessed a t follow-up.
== END | disposition home or self-care (01) ==
LOC: RADUSWWP 15:32
PROVIDERS: ATTEND Internal Medicine Hematology & Oncology
DX: E04.2 Nontoxic multinodular goiter (principal)
CPT/HCPCS: 76536

== ENCOUNTER 2021-09-26 08:51 | Day surgery (SDC) | payer BC, MEDICARE ==
[2021-09-26] MEDS ORDERED: ALPRAZolam 0.5 MG TAB PO PRN (09:15)
[2021-09-26 09:33] VITALS: TEMP 97.8
[2021-09-26 09:46] LABS: Glucose,Whole Blood 114 mg/dL (75-99)
--- NOTE | 2021-09-26 10:55 | US ---
EXAMINATION TYPE: US FNA thyroid first lesion, US FNA thyroid each add lesion DATE OF EXAM: 09/26/2021 COMPARISON: NONE HISTORY: Thyroid nodules. Maximal barrier technique was utilized. After informed consent, skin overlying the left lobe lower p ole thyroid nodule was localized with ultrasound and the overlying skin prepped and draped. Ultrasoun d was utilized using sterile technique. Lidocaine was used for local anesthesia. Five passes with a 25-gauge needle were made into the nodule and aspirated specimen was submitted to cytology. Using sim ilar technique 5 passes with 25-gauge needle were made into the isthmus nodule and submitted to patho logy. Following the procedure hemostasis achieved. No immediate complication. The patient discharge d in stable condition. IMPRESSION: STATUS POST ULTRASOUND GUIDED FINE NEEDLE ASPIRATION OF THYROID NODULES, PATHOLOGY IS [place]. THIS PROCEDURE WAS PERFORMED BY THE UNDERSIGNED.
[2021-09-26 10:59] VITALS: PULSE 103
[2021-09-26 11:00] VITALS: BP 115/72; RESP 16
== END 2021-09-26 10:50 | disposition home or self-care (01) ==
LOC: RADPROMAIN 08:51
PROVIDERS: ATTEND Internal Medicine Hematology & Oncology
DX: E04.1 Nontoxic single thyroid nodule (principal); Z88.1 Allergy status to other antibiotic agents; Z91.09 Other allergy status, other than to drugs and biological substances
CPT/HCPCS: 10005; 10006; 88173; 88305

== ENCOUNTER → 2021-09-26 | Outpatient (CLI) | payer BC, MEDICARE ==
--- NOTE | 2021-09-30 09:11 | MM ---
Reason for exam: screening (asymptomatic). Last mammogram was performed 7 years and 3 months ago. History: Patient is postmenopausal, has history of endometrial cancer at age 66, and has history of ovarian cancer at age 66. Physical Findings: A clinical breast exam by your physician is recommended on an annual basis and results should be correlated with mammographic findings. MG 3D Screening Mammo W/Cad Bilateral CC, MLO, and XCCL view(s) were taken. Prior study comparison: July 11, 2014, bilateral MG screening mammo w CAD. The breast tissue is heterogeneously dense. This may lower the sensitivity of mammography. Left lower inner quadrant mole. No significant changes when compared with prior studies. ASSESSMENT: Negative, BI-RAD 1 RECOMMENDATION: Routine screening mammogram of both breasts in 1 year.
== END | disposition home or self-care (01) ==
LOC: RADMAMWWP 10:53
PROVIDERS: ATTEND Family Medicine
DX: Z12.31 Encounter for screening mammogram for malignant neoplasm of breast (principal); Z78.0 Asymptomatic menopausal state
CPT/HCPCS: 77063; 77067

== ENCOUNTER → 2021-12-16 | Outpatient (CLI) | payer MEDICARE ==
--- NOTE | 2021-12-16 11:17 | CT ---
EXAMINATION TYPE: CT ChestAbdPelvis w con DATE OF EXAM: 12/16/2021 COMPARISON: CT dated 08/16/2021 HISTORY: Malignant neoplasm of right ovary CT DLP: 2310.6 mGycm Automated exposure control for dose reduction was used. CONTRAST: CT scan of the chest, abdomen and pelvis is performed with Oral Contrast and with IV Contrast, patien t injected with 80 mL of Isovue 300. FINDINGS: LUNGS: Stable 3 mm right upper lobe pleural-based nodule as well as the 4 mm middle lobe pleural-base d nodule. Unremarkable remainder of the lungs. No new or progressive lung lesion. Patent trachea and main bronchi. No pleural effusion. MEDIASTINUM: No progressive or pathologically enlarged lymph nodes in the chest. No gross cardiomegal y. Scattered arterial atherosclerotic calcifications. No pericardial effusion. OTHER: No aggressive bone lesion. LIVER/GB: Stable right hepatic lobe calcification and tiny hypodensity, possibly representing a hepat ic cyst. No definite new hepatic focal lesion identified. Unremarkable gallbladder. PANCREAS: No significant abnormality is seen. SPLEEN: No significant abnormality is seen. ADRENALS: No significant abnormality is seen. KIDNEYS: No significant abnormality is seen. BOWEL: Large hiatal hernia containing probably half of the stomach. Unremarkable remainder of the st omach and duodenum. Grossly unremarkable small bowel. Colonic diverticulosis most evident involving t he sigmoid colon with thickened colonic wall. Recommend correlation with colonoscopy results. REPRODUCTIVE ORGANS: Previous hysterectomy. No gross adnexal mass. LYMPH NODES: Stable prominent subcentimeter bilateral external iliac and retroperitoneal lymph nodes, nonspecific. No pathologically enlarged or progressive lymph nodes in the abdomen or the pelvis. OSSEOUS STRUCTURES: Grade 1 anterolisthesis of L4 over L5. No aggressive bone lesion. OTHER: Arterial atherosclerotic calcifications. No sizable ascites. Small fat-containing umbilical he rnia. IMPRESSION: 1. Stable pulmonary nodules without interval progression, possibly benign. 2. Stable right hepatic lobe hypodensity, likely representing a hepatic cyst. 3. Stable subcentimeter bilateral external iliac and retroperitoneal lymph nodes without interval pro gression. 4. Otherwise no evidence of metastatic disease seen in the chest, abdomen or the pelvis. This is consistent with a stable condition. Other incidental findings as described above.
== END | disposition home or self-care (01) ==
LOC: RADCTMAIN 07:18
PROVIDERS: ATTEND Internal Medicine Hematology & Oncology
DX: C56.1 Malignant neoplasm of right ovary (principal); R91.8 Other nonspecific abnormal finding of lung field; K76.89 Other specified diseases of liver
CPT/HCPCS: 82565; 84520; 71260; 74177; 36415; Q9967

== ENCOUNTER → 2022-03-18 | Outpatient (CLI) | payer MEDICARE ==
[2022-03-18 10:39] LABS: African American GFR (CKD) >90 (>60 ml/min/1.73 sqM); Blood Urea Nitrogen 24 mg/dL (7-17); Non-African American GFR(CKD) 86 (>60 ml/min/1.73 sqM)
--- NOTE | 2022-03-18 12:36 | CT ---
EXAMINATION TYPE: CT ChestAbdPelvis w con CT DLP: 2396.4 mGycm, Automated exposure control for dose reduction was used. DATE OF EXAM: 03/18/2022 11:31 AM COMPARISON: CT chest abdomen pelvis 12/16/2021. CLINICAL INDICATION:Female, 67 years old with history of C56.3 MALIGNANT NEOPLASM OF BILATERAL OVARIE S Technique: Multiple axial images of the chest, abdomen, and pelvis were obtained following the intrav enous administration of 70 mL Isovue-300. Oral contrast was administered. Two-dimensional coronal and sagittal reconstructions were obtained. Findings: CHEST: LUNGS/ PLEURA: No pleural effusion, pneumothorax, or focal consolidation. Bibasilar dependent subsegm ental atelectasis. Stable 3 mm subpleural nodule anterior segment of the right upper lobe. No new or enlarging pulmonary nodules. AIRWAY: Patent and unremarkable.. HEART: Size within normal limits. No pericardial effusion. MEDIASTINUM: No gross evidence of adenopathy. VASCULATURE: Atherosclerotic calcifications are present throughout the aorta and its branches. No th oracic aortic aneurysm. MUSCULOSKELETAL: No acute osseous abnormalities. No suspicious osseous lesions. SOFT TISSUES/LYMPH NODES: Unremarkable. LOWER NECK: Stable left thyroid nodule. ABDOMEN: ABDOMEN LIVER: Stable right hepatic lobe calcification and tiny hypodensity posterior representing a hepatic cyst. No definite new hepatic focal lesion identified. GALLBLADDER AND BILE DUCTS: Unremarkable. PANCREAS: Unremarkable. SPLEEN: Unremarkable. ADRENAL GLANDS: Unremarkable. KIDNEYS AND URETERS: No hydronephrosis. Punctate nonobstructive right renal calculus. No suspicious r enal lesion. PELVIS BLADDER: Unremarkable REPRODUCTIVE: Postsurgical changes from hysterectomy. Vaginal cuff appears unremarkable. No gross adn exal mass. ABDOMEN & PELVIS STOMACH AND BOWEL: Moderate to large hernia redemonstrated containing approximately half the stomach. Distal colonic diverticulosis without evidence for acute diverticulitis. No evidence of bowel obstru ction. PERITONEUM: No evidence of pneumoperitoneum or free fluid. VASCULATURE: Mild atherosclerotic calcifications are present throughout the abdominal aorta and its b ranches. No abdominal aortic aneurysm. Stable prominent right gonadal vein. MUSCULOSKELETAL: No acute osseous abnormalities. No suspicious osseous lesions. Grade 1 anterolisthes is of L4 on L5. LYMPH NODES: No pathologically enlarged lymphadenopathy. SOFT TISSUE/ABDOMINAL WALL: Small fat containing umbilical hernia. IMPRESSION: 1. Stable 3 mm right upper lobe pulmonary nodule. No new or enlarging pulmonary nodules. 2. Stable subcentimeter hepatic lesion which is likely benign given stability over time. 3. No evidence for local recurrence or pathologic adenopathy. 4. Moderate to large hiatal hernia redemonstrated.
== END | disposition home or self-care (01) ==
LOC: RADCTMAIN 09:47
PROVIDERS: ATTEND Internal Medicine Hematology & Oncology
DX: C56.3 Malignant neoplasm of bilateral ovaries (principal); K76.89 Other specified diseases of liver; K44.9 Diaphragmatic hernia without obstruction or gangrene; R91.1 Solitary pulmonary nodule
CPT/HCPCS: 82565; 84520; 71260; 74177; 36415; Q9967

== ENCOUNTER → 2022-06-25 | Outpatient (CLI) | payer MEDICARE ==
[2022-06-25 14:27] VITALS: BP 121/82; PULSE 105; RESP 18; TEMP 98
--- NOTE | 2022-06-25 14:28 | P.PAINPG ---
PQRS Measure Charge Sheet Comment: HISTORY OF PRESENT ILLNESS: 67 yr old female w at side as a referral from Dr Garcia present today w sever and chronic LBP x 4 yrs secondary to DDD, spondylosis and facet arthropathy without myelopathy for evaluation. Pt states her pain level is currently at 1/10 in intensity, constant, localized in the mid to lower aspect of the lumbar spine, sore/ achy in character w shooting towards the BLEs. Pain is provoked as high as 9/10 in intensity by standing/ walking for periods of 5 min or more. Pain is alleviated w TENS unit use, medications (Ibu), massage integrated w PT, PT currently 3 x per week, heating pad use, +CBD oils, sitting, repositioning and rest. PMH: HTN, Hyperlipidemia, Anzeity, OA, GERD, NIDDM PSH: Bariatric Surgery, Appendectomy, Tonsillectomy SH: Former smoker, Occasional ETOH use, +Cannabis use FH: Non contributory All: See list Meds: See list REVIEW OF ORGAN SYSTEMS: CONSTITUTIONAL: No fevers or chills. No recent weight loss. NEUROLOGICAL: + numbness and tingling along the distal extremities. No seizure disorders or headaches. MUSCULOSKELETAL: + pain PSYCHIATRIC: Denies current depression or suicidal thoughts. Physical Examinations : Constitutional : Cooperative , not in acute distress . Neurologic : Cranial nerve II to XII intact. No focal neurological deficits. Psychiatric : alert & oriented x 3. Matching mood & appropriate affect. Judgment & insight intact. Musculoskeletal : Cervical Spine Motor strength in the deltoid and biceps: Normal right side. Normal Left side Motor strength biceps and the wrist extensors: Normal right side . Normal left side Motor strength in the triceps muscle: Normal right side. Normal left side Deep tendon reflexes: Normal at the biceps. Normal at Brachioradialis. Normal at triceps Vertebral body tenderness to deep palpation over Cervical facet loading test: positive bilaterally Spurling test: positive bilaterally Neck distraction test: positive bilaterally Fausto sign: positive bilaterally Lumbar spine Motor strength lower extremities ,thigh and legs 5/5 Right side , 5/5 Left side Deep tendon reflexes : Normal Knee Jerk. Normal Ankle Jerk Vertebral body tenderness over L4 Lumbar facet Loading Test: positive Right / positive Left Range of motion of the lumbar spine Flexion 30 degrees, extension 10 degrees Straight Leg Raise test: Left/ Right positive at <40 degree Samantha test: positive right / positive left. Severe tenderness over the Sacroiliac joint on the Right / Left sides Gaenslen test: positive bilaterally Seated flexion test: positive bilaterally. Sacral spine : Severe tenderness over the Sacroiliac joint: right side / left side Range of motion: Flexion of the lumbar spine <60 degrees Range of motion: Extension of the lumbar spine <20 degrees Gaenslen's Test positive Humberto's Test positive Samantha test: positive right side / left side Thigh Thrust Test Sacral Thrust Test Imaging: MRI without contrast of the lumbar spine from 05/29/22 reviewed Assessment/ Plan : Lumbar DDD, Lumbar spondylosis Recommendation of HERBERT L4-L5 #1. May need a series of injections, up to 3 within a 6 mo period, for optimal pain relief. Risks, benefits of procedure discussed and patient verbalized understanding. Admits to aspirin or anti- coagulant use or medical history of diabetes. Protocol for discontinuation/ continuation of medications rayshawn procedure discussed. All questions answered. I have spent greater than 30 minutes on patient care today. Dr Pizano was available by phone for the evaluation of this patient. The time was used to review the medical records including relevant urine studies and Prescription history (MAPs), review of the available imaging, evaluation and examination of the patient, coordination of care with the medical staff and if applicable referring physicians, as well as creation of the medical record PQRS Narrative: Smoking Status Never smoker Home Medications: Ambulatory Orders Lisinopril-Hctz 20-12.5 mg [Zestoretic 20-12.5] 1 tab PO BID 01/15/16 amLODIPine [Norvasc] 5 mg PO QAM 01/15/16 Aspirin 81 mg PO DAILY #30 chewable 01/27/19 Meloxicam [Mobic] 15 mg PO HS 07/13/19 Metoprolol Succinate (ER) [Toprol Xl] 50 mg PO DAILY 07/13/19 Atorvastatin [Lipitor] 20 mg PO DAILY 02/27/21 Omeprazole 20 mg PO DAILY 02/27/21 metFORMIN HCL 500 mg PO DAILY 02/27/21 ALPRAZolam [Xanax] 0.25 mg PO DIRECTED PRN 07/09/21 Anastrozole [Arimidex] 1 mg PO DAILY 06/25/22 Gabapentin 300 mg PO TID 06/25/22 HYDROcodone/APAP 5-325MG [[place] 5-325] 1 tab PO Q6HR PRN 06/25/22 Controlled Substance Measures - Controlled Substance Measures Is patient prescribed a controlled substance at discharge?: No
== END ==
LOC: PNWHC3 13:26
PROVIDERS: ATTEND Specialist
DX: M47.816 Spondylosis without myelopathy or radiculopathy, lumbar region (principal); M51.36 Other intervertebral disc degeneration, lumbar region; E11.9 Type 2 diabetes mellitus without complications; I10 Essential (primary) hypertension; E78.5 Hyperlipidemia, unspecified; F41.9 Anxiety disorder, unspecified; M19.90 Unspecified osteoarthritis, unspecified site; K21.9 Gastro-esophageal reflux disease without esophagitis; Z79.84 Long term (current) use of oral hypoglycemic drugs; Z79.899 Other long term (current) drug therapy; Z79.01 Long term (current) use of anticoagulants; Z91.048 Other nonmedicinal substance allergy status; Z88.0 Allergy status to penicillin; Z87.891 Personal history of nicotine dependence
CPT/HCPCS: 99211

== ENCOUNTER → 2022-08-18 | Outpatient (CLI) | payer MEDICARE ==
[2022-08-18 18:48] LABS: Blood Urea Nitrogen 21.1 mg/dL (9.0-27.0); Non-African American GFR(CKD) 76.8 (60.0-200.0)
[2022-08-18 21:33] LABS: Cancer Antigen 125 10.6 U/mL (0.0-30.1)
== END | disposition home or self-care (01) ==
LOC: LABWHC1 12:00
PROVIDERS: ATTEND Obstetrics & Gynecology
DX: C56.1 Malignant neoplasm of right ovary (principal)
CPT/HCPCS: 36415; 82565; 84520; 86304

== ENCOUNTER → 2022-08-18 | Outpatient (CLI) | payer MEDICARE ==
[2022-08-18 11:16] VITALS: BP 118/78; PULSE 102; RESP 18; TEMP 982
--- NOTE | 2022-08-18 15:01 | P.PAINPG ---
Objective - Vital Signs Vital signs: Vital Signs Temp 982 F H 08/18/22 11:13 Pulse 102 H 08/18/22 11:13 Resp 18 08/18/22 11:13 BP 118/78 08/18/22 11:13 Pulse Ox 95 08/18/22 11:13 FiO2 Intake & Output 08/17/22 08/18/22 08/18/22 18:59 06:59 18:59 Weight 114.759 kg PQRS Measure Charge Sheet Mode of Arrival: Ambulatory Comment: A 67 yr old female w at side with a history of severe and chronic low back pain secondary to lumbar DDD and spondylosis with facet arthropathy without myelopathy presents today for LBP. Pain level is at 10/10 in intensity w provocation, constant, localized in the lower lumbar spine,stabbing in character w shooting towards the L and R flanks. Pain is provoked by standing for periods of 20 min or more. Pain is alleviated with PT in Jul 2022 but too expensive, home exercise regimen, heat, Meds (Ibu), reclining, repositioning and rest. Patient is currently on ibuprofen Patient denies any side effects of the medication(s), denies excessive drowsiness or sleepiness, denies suicidal ideation and reports that the current pain medication is helping to control the pain and improve activities of daily living. Patient denies any motor or sensory deficits. Patient denies any fever or night sweats, denies any change in the bowel movements or urination. Physical Examination: -Constitutional: Cooperative. Not in acute distress . - Neurologic: Cranial nerve II to XII intact. No focal neurological deficits. - Psychatric: Alert & oriented x 3. Matching mood & appropriate affect. Judgment and insight intact. - Musculoskeletal: Cervical spine: Muscle bulk/ tone/ strength in the bilateral upper extremities normal Vertebral body tenderness to palpation over Spurling test positive Distraction test positive Facet loading test positive Thoracic spine Muscle bulk / tone/ strength in the bilateral paraspinal muscles normal Vertebral body tender to palpation over Facet loading test positive Lumbar spine: Motor bulk/ tone/ strength lower extremities , thigh and legs : 5/5 Deep tendon reflexes : Normal Knee Jerk. Normal Ankle Jerk . Vertebral body tenderness to palpation over L4 Lumbar Facet Loading Test positive Straight Leg Raise: positive at 30 degrees right side/ left side Gaenslen's Test positive Sacral spine : Severe tenderness over the Sacroiliac joint: right side / left side Range of motion: Flexion of the lumbar spine <60 degrees Range of motion: Extension of the lumbar spine <20 degrees Gaenslen's Test positive Samantha test: positive right side / left side Thigh Thrust Test Sacral Thrust Test Assessment and plan: Chronic low back pain secondary to lumbar degenerative disc disease, spondylosis with facet arthropathy without myelopathy Recommendation of HERBERT L4-L5. May need a series, up to 3 within a 6 mo period, for optimal pain relief. Risks, benefits of procedure discussed and pt verbalized understanding. Admits to anticoagulant use or medical history of diabetes. Protocol for discontinuation/ continuation of medications rayshawn procedure discussed. All patient questions answered I have spent less than 30 minutes on patient care today. Dr Pizano was available by phone for the evaluation of this patient. The time was used to review the medical records including relevant urine studies and Prescription history (MAPs), review of the available imaging, evaluation and examination of the patient, coordination of care with the medical staff and if applicable referring physicians, as well as creation of the medical record - Pain Location Lower Back Non-Pharmacological Interventions: Heat, Home Exercise, Inactivity, Physical Therapy, Position/Reposition, Sitting, Stretching Pharmacological Interventions: PRN Medication PQRS Narrative: Smoking Status Never smoker Blood Pressure 118/78 Pain Intensity [Lower Back] 4 Scale Used Numeric (1 - 10) Home Medications: Ambulatory Orders Lisinopril-Hctz 20-12.5 mg [Zestoretic 20-12.5] 1 tab PO BID 01/15/16 amLODIPine [Norvasc] 5 mg PO QAM 01/15/16 Aspirin 81 mg PO DAILY #30 chewable 01/27/19 Meloxicam [Mobic] 15 mg PO HS 07/13/19 Metoprolol Succinate (ER) [Toprol Xl] 50 mg PO DAILY 07/13/19 Atorvastatin [Lipitor] 20 mg PO DAILY 02/27/21 Omeprazole 20 mg PO DAILY 02/27/21 metFORMIN HCL 500 mg PO DAILY 02/27/21 ALPRAZolam [Xanax] 0.25 mg PO DIRECTED PRN 07/09/21 Anastrozole [Arimidex] 1 mg PO DAILY 06/25/22 Gabapentin 300 mg PO TID 06/25/22 HYDROcodone/APAP 5-325MG [[place] 5-325] 1 tab PO Q6HR PRN 06/25/22 Ibuprofen [Motrin Ib] 200 mg PO Q8H PRN 08/18/22 Controlled Substance Measures - Controlled Substance Measures Is patient prescribed a controlled substance at discharge?: No
== END ==
LOC: PNWHC3 11:01
PROVIDERS: ATTEND Specialist
DX: M47.816 Spondylosis without myelopathy or radiculopathy, lumbar region (principal); M51.36 Other intervertebral disc degeneration, lumbar region; E11.9 Type 2 diabetes mellitus without complications; Z79.84 Long term (current) use of oral hypoglycemic drugs; Z91.048 Other nonmedicinal substance allergy status; Z88.1 Allergy status to other antibiotic agents
CPT/HCPCS: 99211

== ENCOUNTER → 2022-08-25 | Outpatient (CLI) | payer MEDICARE ==
--- NOTE | 2022-08-26 21:22 | CT ---
EXAMINATION TYPE: CT ChestAbdPelvis w con DATE OF EXAM: 08/25/2022 COMPARISON: 03/18/2022, 12/16/2021. HISTORY: 67-year-old female C5 4.1, malignant observation for mets. History of ovarian/ endometrial c a TECHNIQUE: Contiguous axial scanning of the chest, abdomen, and pelvis performed with IV Contrast, pa tient injected with 70 mL of Isovue 300. Delayed images through the kidneys were obtained. Coronal/sa gittal reconstructions performed. CT DLP: 2644.70 mGycm Automated exposure control for dose reduction was used. FINDINGS: CHEST: Heart normal size without pericardial effusion. Aorta normal caliber and configuration. Mild atherosclerotic lesions. No thoracic lymphadenopathy is present. Mild dependent atelectasis in the lungs. Minimal biapical pleural parenchymal scarring. Mild upper stacey ng centrilobular edema. Mild diffuse bronchial wall thickening. Tiny calcified pleural plaque posteromedial left base is unchanged. Unchanged 4 mm peripheral pulmonary nodule overlying the left hemidiaphragm on axial image 40. Stable 3 mm pulmonary nodule medial right upper lobe on axial image 17. No new pulmonary nodule is seen. No consolidation or pleural effusion. ABDOMEN: Demonstrated large hiatal hernia involving half of the stomach and the lower chest. No obstructive ch anges. Stable 1.2 cm the cyst right liver lobe. Portal venous system is patent. No biliary ductal dilatation . Gallbladder, adrenal glands, left kidney, spleen with small inferior splenule, and pancreas within no rmal limits. Punctate 2 mm nonobstructive right renal calculus is unchanged. Symmetric uptake and excretion of con trast. Moderate atherosclerotic disease in the infrarenal abdominal aortic aneurysm. No dilated small bowel, free fluid, or free air. Numerous nonenlarged retroperitoneal lymph nodes are redemonstrated measuring up to 9 mm in the aorto caval region. No progressive mesenteric or retroperitoneal lymphadenopathy seen. Oral contrast is faintly progressed to the proximal sigmoid colon. There is moderate stool within the left side of the colon. Redundant sigmoid and scattered diverticulosis. No pericolonic inflammatory. PELVIS: Bladder urine distended. Uterus surgically absent. Neither ovary is visualized. No abnormal fluid col lection in the pelvis. Nonenlarged external iliac lymph nodes are redemonstrated measuring up to 8 mm , unchanged. BONES: Mild degenerative change of both hips. Hypertrophic facet arthropathy lower lumbar spine. Accentuated mid thoracic kyphosis. No osseous destructive process seen. IMPRESSION: 1. A COUPLE TINY PULMONARY NODULES MEASURING UP TO 4 MM REMAIN UNCHANGED. 2. SCATTERED PROMINENT BUT NONENLARGED RETROPERITONEAL LYMPH NODES MEASURING UP TO 9 MM AND BILATERAL EXTERNAL ILIAC CHAIN LYMPH NODES MEASURING UP TO 8 MM REMAIN UNCHANGED BACK TO AT LEAST 12/16/2021. N O EVIDENCE FOR RECURRENT OR METASTATIC DISEASE. 3. COPD WITH MINIMAL EMPHYSEMA. A 2 MM NONOBSTRUCTIVE RIGHT RENAL CALCULUS. 4. DEMONSTRATED LARGE HIATAL HERNIA INVOLVING HALF OF THE STOMACH IN THE LOWER CHEST. 5. REDUNDANT SIGMOID COLON WITH DIVERTICULOSIS.
== END | disposition home or self-care (01) ==
LOC: RADCTMAIN 11:54
PROVIDERS: ATTEND Obstetrics & Gynecology
DX: C54.1 Malignant neoplasm of endometrium (principal); R91.8 Other nonspecific abnormal finding of lung field; J43.9 Emphysema, unspecified; N20.0 Calculus of kidney; K44.9 Diaphragmatic hernia without obstruction or gangrene; K57.30 Diverticulosis of large intestine without perforation or abscess without bleeding
CPT/HCPCS: 71260; 74177; Q9967

== ENCOUNTER 2022-09-18 12:01 | Day surgery (SDC) | payer MEDICARE ==
[2022-09-16 08:57] VITALS: BMI 39.0
[~2022-09-18 12:01] MED LIST changes: -ALPRAZolam 0.25 MG TAB PO PRN; -ALPRAZolam 0.5 MG TAB PO PRN; +LACTATED RINGERS 1,000 ML IV SCH; +LIDOCAINE 1% (10MG/ML) FOR IV START INTRADERMA PRN; -NITROGLYCERIN SL TABS 0.4 MG TAB SUBLINGUAL PRN; -SODIUM CHLORIDE 0.9% 1,000 ML in EMPTY BAG 1 BAG IV ONE
[2022-09-18 12:25] LABS: Glucose,Whole Blood 110 mg/dL (70-110)
[2022-09-18 12:26] VITALS: RESP 16; TEMP 97.4
[2022-09-18] MEDS ORDERED: methylPREDNISolone ACETATE 80 MG/ML 1 ML VIAL ONE (12:40)
[2022-09-18] MEDS ORDERED: fentaNYL (PF) 50 MCG/ML 2 ML AMP ONE (12:40)
[2022-09-18] MEDS ORDERED: IOPAMIDOL M200 10 ML VIAL ONE (12:40)
[2022-09-18] MEDS ORDERED: MIDAZOLAM 2 MG/2 ML VIAL ONE (12:40)
--- NOTE | 2022-09-18 12:57 | P.PCN ---
Date of Procedure: 09/18/22 Procedure(s) Performed: PREOPERATIVE DIAGNOSIS: 1- Lumbar Degenerative Disc Diseases 2-Lumbar spondylosis with Facet arthropathy without myelopathy. POSTOPERATIVE DIAGNOSIS: Same as preop diagnosis. PROCEDURE 1. Lumbar epidural steroid injection under fluoroscopic guidance at the L4-5 level. (Fluoroscopy imaging was available in radiology department) 2. Lumbar epidurogram. ANESTHESIA: moderate sedation with intravenous Versed 2 mg ,and fentanyle 50 Mcg Sedation start time : 1246 Sedation end time : 1254 EBL: Minimal PROCEDURE INDICATION: The patient with low back pain and radiculitis symptoms unresponsive to conservative treatment. Fluoroscopy was used to optimize visualization of the needle placement and to maximize safety. PROCEDURE DESCRIPTION / TECHNIQUE: The patient was seen and identified in the preoperative area. Risks, benefits, complications including but not limited to infections ,bleeding ,allergic reaction to the medications ,nerve damage and not complete pain releife , and alternatives were discussed with the patient. The patient agreed to proceed with the procedure and signed the consent. IV was started, and vital signs were stable. Patient was taken to the OR and time out was completed. The patient was placed in the prone position on procedure table and a pillow was placed under the abdomen to reduce lumbar lordosis. The lumbosacral area was prepped and draped in the usual sterile fashion.ere closely monitored during the procedure. Conscious sedation was used during the procedure to decrease patients anxiety. Vital signs was monitered during the entire procedure. Using anterior-posterior fluoroscopy, the L4-5 interlaminar space was identified and the skin over this site was marked and then infiltrated with 1% lidocaine subcutaneously. Subsequently, a 20-gauge Tuohy epidural needle was inserted and advanced toward the epidural space using the ``Loss of resistance technique and guided by AP and lateral fluoroscopy. The correct needle position in the ep idural space was verified with the injection of 2 mL of the water soluble contrast dye Isovue 200 contrast and observing an excellent epidurogram with the epidural spread of the dye, after negative aspiration for blood and CSF and in the absence of paresthesias. Again after negative aspiration, a 6 ml mixture containing 60 mg of Depo-medrol ( Preservetive Free ), and 2 ml of preservative free Normal Saline, and 2 ml of preservative free lidocaine 1% solution was injected and a washout of epidurogram was seen. Needle was withdrawn intact, skin was cleansed, and bandages were applied. COMPLICATIONS: None DISPOSITION / PLANS: The patient was placed in a supine position and transferred to the recovery area in a stable condition for observation. There was no evidence of lower extremity motor or sensory deficit after the procedure. Patient was discharged from the recovery room after meeting discharge criteria. Home discharge instructions were given to the patient by the staff. The patient was reexamined prior to discharge. The patient will schedule a follow up in the clinic in 2-4 weeks.
--- NOTE | 2022-09-18 13:12 | FL ---
Fluoroscopy INDICATION: Pain FINDINGS: Fluoroscopy time: 4 seconds. Images obtained: One. IMPRESSIONS: 1. Documentation of fluoroscopy.
[2022-09-18] MEDS ORDERED: IV FLUID CONTINUATION 1,000 ML IV ONE (13:17)
[2022-09-18 13:24] VITALS: PULSE 104
[2022-09-18 13:25] VITALS: BP 111/77
== END 2022-09-18 13:30 | disposition home or self-care (01) ==
LOC: ORPAIN 12:01
PROVIDERS: ATTEND Specialist
DX: M51.16 Intervertebral disc disorders with radiculopathy, lumbar region (principal); M47.26 Other spondylosis with radiculopathy, lumbar region; Z88.1 Allergy status to other antibiotic agents; Z91.048 Other nonmedicinal substance allergy status
CPT/HCPCS: 99152; 62323; J2250; J1040; J3010; Q9966

== ENCOUNTER → 2022-09-30 | Outpatient (CLI) | payer MEDICARE ==
--- NOTE | 2022-10-01 09:02 | MM ---
Reason for Exam: Screening (asymptomatic). Last screening mammogram was performed 12 month(s) ago. Patient History: Menarche at age 14. First Full-Term at age 19. Postmenopausal. Endometrial cancer, age 66. Ovarian cancer, age 66. Risk Values: Audra 5 year model risk: 1.2%. NCI Lifetime model risk: 4.4%. Prior Study Comparison: 11/22/2008 Right Diagnostic Mammogram, [facility]ED WITH [facility]. 07/11/2014 Bilateral Screening Mammogram, MERGED WITH [facility]. 09/26/2021 Bilateral Screening Mammogram, MERGED WITH [facility]. Tissue Density: The breast tissue is almost entirely fat. Findings: Analyzed By CAD. There is no suspicious group of microcalcifications or new suspicious mass in either breast. Overall Assessment: Negative, BI-RAD 1 Management: Screening Mammogram of both breasts in 1 year. A clinical breast exam by your physician is recommended on an annual basis and results should be correlated with mammographic findings. [facility] will attempt to contact patient to return for supplemental views and ultrasound if indicated. Electronically signed and approved by: Sai Lorenzana DO
== END | disposition home or self-care (01) ==
LOC: RADMAMWWP 16:40
PROVIDERS: ATTEND Family Medicine
DX: Z12.31 Encounter for screening mammogram for malignant neoplasm of breast (principal); Z78.0 Asymptomatic menopausal state
CPT/HCPCS: 77063; 77067

== ENCOUNTER → 2022-10-01 | Outpatient (CLI) | payer MEDICARE ==
[2022-10-01 16:43] VITALS: BP 122/81; PULSE 92; RESP 13; TEMP 98.3; BMI 40.6
--- NOTE | 2022-10-01 17:14 | P.HPBAR ---
Bariatric H&P - History & Physicial H&P Date: 10/01/22 History & Physicial: Visit/CC: follow up Patient initial contact: Initial weight: Initial weight in pounds: Height: 5 ft 6.5 in Initial BMI: Last weight: Current weight: 115.921 kg Current weight in pounds: 255.56 Current BMI: 40.6 [place] body weight (based on NIH guidelines): 60.101 kg Excess body weight loss: The patient is a 67 year-old F who presents for Bariatric Assessment. She had endometrial and ovarian cancer. She has large hiatal hernia. Recommend fixing hiatal hernia. Recommend assessment. COPD and lung nodules. Pulmonary referral. Bariatric labs. EGD. Needs cardiac management elsewhere. Labs needed. EKG. EGD recommended. Past Medical History Past Medical History: Cancer, GERD/Reflux, Hypertension, Thyroid Disorder Additional Past Medical History / Comment(s): chronic back pain. pre-diabetic. right ovarian CA and endometrial CA, 09/21 Current chemo, finished with radiation. Thyroid nodules History of Any Multi-Drug Resistant Organisms: None Reported Past Surgical History: Appendectomy, Hysterectomy, Tonsillectomy Additional Past Surgical History / Comment(s): COLONOSCOPY Past Anesthesia/Blood Transfusion Reactions: Postoperative Nausea & Vomiting (PONV) Past Psychological History: No Psychological Hx Reported Additional Psychological History / Comment(s): pt. takes xanax prn for anxiety Smoking Status: Former smoker Past Alcohol Use History: Occasional Additional Past Alcohol Use History / Comment(s): STARTED SMOKING AGE 14(1968), QUIT 1988, SMOKED 1-1AND 1/2PPD Past Drug Use History: None Reported Additional Drug Use History / Comment(s): pt. states she rarely drinks alcohol and occassionally smokes a vape pen with marijuana for her chronic back pain, pt. states she uses every 2 days - Past Family History Mother Family Medical History: Cancer Additional Family Medical History / Comment(s): pt. states her maternal grandmother had ovarian cancer, mother had thyroid nodules Father History Unknown: Yes Family Medical History: Unable to Obtain Surgical - Exam Vital Signs Temp Pulse Resp BP 98.3 F 92 13 122/81 10/01/22 16:34 10/01/22 16:34 10/01/22 16:34 10/01/22 16:34 Bariatric Checklist Checklist: Plan: Checklist: EGD: 1. Hiatal hernia: 2. H. Pylori: HgbA1c: Vitamin D: Smoking: Never smoker Primary care physician referral: DR RUBIO Psychiatry clearance: Cardiology clearance: Sleep study: Diet journal: VTE risk score: VTE risk level: Rehab needs at discharge:
== END ==
LOC: BARWHC3 15:25
PROVIDERS: ATTEND Surgery Plastic and Reconstructive Surgery
DX: E66.01 Morbid (severe) obesity due to excess calories (principal); Z68.41 Body mass index [BMI] 40.0-44.9, adult; K21.9 Gastro-esophageal reflux disease without esophagitis; I10 Essential (primary) hypertension; Z87.891 Personal history of nicotine dependence; Z91.048 Other nonmedicinal substance allergy status; Z88.8 Allergy status to other drugs, medicaments and biological substances
CPT/HCPCS: 99211

== ENCOUNTER → 2022-11-27 | Outpatient (CLI) | payer MEDICARE ==
[2022-11-27 13:36] VITALS: BP 101/72; PULSE 109; RESP 18; TEMP 98.3
--- NOTE | 2022-11-27 14:46 | P.PAINPG ---
PQRS Measure Charge Sheet Comment: A 67 yr old female w at side with a history of severe and chronic LBP secondary to lumbar DDD and spondylosis with facet arthropathy without myelopathy presents today for evaluation s/p BL facet block of the medial branches L4-L5, L5-S1 #1. Pt states she experienced 80 % pain relief x 1 hrs s/p procedure. Pain level is provoked at 9/10 in intensity, constant, localized in the lumbar spine, dull in character w shooting towards the RLE. Pain is provoked by standing, walking for periods of 20 min or more. Pain is alleviated with PT in 2021 but stopped due to out of pocket expenses, heat, meds (Tyl), topical, PT guided home exercise regimen multiple times a week, repositioning and rest. Interventional pain procedures completed include BL MBB L3-L5 x1 Patient is currently on Tyl Patient denies any side effects of the medication(s), denies excessive drowsiness or sleepiness, denies suicidal ideation and reports that the current pain medication is helping to control the pain and improve activities of daily living. Patient denies any motor or sensory deficits. Patient denies any fever or night sweats, denies any change in the bowel movements or urination. Physical Examination: -Constitutional: Cooperative. Not in acute distress . - Neurologic: Cranial nerve II to XII intact. No focal neurological deficits. - Psychatric: Alert & oriented x 3. Matching mood & appropriate affect. Judgment and insight intact. - Musculoskeletal: Cervical spine: Muscle bulk/ tone/ strength in the bilateral upper extremities normal Vertebral body tenderness to palpation over Spurling test positive Distraction test positive Facet loading test positive TTP Thoracic spine Muscle bulk / tone/ strength in the bilateral paraspinal muscles normal Vertebral body tender to palpation over Facet loading test positive TTP Lumbar spine: Motor bulk/ tone/ strength lower extremities , thigh and legs : 5/5 Deep tendon reflexes : Normal Knee Jerk. Normal Ankle Jerk . Vertebral body tenderness to palpation over Lumbar Facet Loading Test positive TTP over BL L4-L5, L5-S1 facets Straight Leg Raise: positive at 30 degrees right side/ left side Gaenslen's Test positive Sacral spine : Severe tenderness over the Sacroiliac joint: right side / left side Range of motion: Flexion of the lumbar spine <60 degrees Range of motion: Extension of the lumbar spine <20 degrees Gaenslen's Test positive right side / left side Samantha test: positive right side / left side Thigh Thrust Test positive right side / left side Sacral Thrust Test positive right side / left side Assessment and plan: Chronic LBP secondary to lumbar DDD, spondylosis with facet arthropathy without myelopathy Recommendation of BL facet block of the medial branches L4-L5, L5-S1 #2. May need a series of injections, up until RFA, for optimal pain relief. Risks, benefits of procedure discussed and pt verbalized understanding. Admits to anticoagulant use or medical history of diabetes. Protocol for discontinuation/ continuation of medications rayshawn procedure discussed. All questions answered. I have spent less than 30 minutes on patient care today. Dr Pizano was available by phone for the evaluation of this patient. The time was used to review the medical records including relevant urine studies and Prescription history (MAPs), review of the available imaging, evaluation and examination of the patient, coordination of care with the medical staff and if applicable referring physicians, as well as creation of the medical record PQRS Narrative: Smoking Status Never smoker Home Medications: Ambulatory Orders Lisinopril-Hctz 20-12.5 mg [Zestoretic 20-12.5] 1 tab PO BID 01/15/16 amLODIPine [Norvasc] 5 mg PO QAM 01/15/16 Aspirin 81 mg PO DAILY #30 chewable 01/27/19 Metoprolol Succinate (ER) [Toprol XL] 50 mg PO DAILY 07/13/19 Atorvastatin [Lipitor] 20 mg PO HS 02/27/21 metFORMIN HCL 500 mg PO 1700 02/27/21 Anastrozole [Arimidex] 1 mg PO DAILY 06/25/22 Gabapentin 300 mg PO QID 06/25/22 Omeprazole [PriLOSEC] 40 mg PO DAILY #14 cap 11/03/22 Controlled Substance Measures - Controlled Substance Measures Is patient prescribed a controlled substance at discharge?: No
== END ==
LOC: PNWHC3 12:57
PROVIDERS: ATTEND Specialist
DX: M51.36 Other intervertebral disc degeneration, lumbar region (principal); M47.816 Spondylosis without myelopathy or radiculopathy, lumbar region; G89.29 Other chronic pain; Z91.048 Other nonmedicinal substance allergy status; Z88.8 Allergy status to other drugs, medicaments and biological substances
CPT/HCPCS: 99211

== ENCOUNTER → 2022-12-17 | Outpatient (CLI) | payer MEDICARE ==
[2022-12-17 14:50] VITALS: BP 116/76; PULSE 116; TEMP 97.2; BMI 41.9
--- NOTE | 2022-12-17 14:59 | P.BASOAP ---
Subjective Progress Note Date: 12/17/22 She has a hiatal hernia. Plan for hiatal hernia repair. Refill for omeprazole advised. Objective - Vital Signs Vital signs: Vital Signs Temp 97.2 F L 12/17/22 14:47 Pulse 116 H 12/17/22 14:47 Resp BP 116/76 12/17/22 14:47 Pulse Ox FiO2 Intake & Output 12/16/22 12/17/22 12/17/22 18:59 06:59 18:59 Weight 119.748 kg Assessment/Plan Plan: Date: 12/17/22 Initial Weight: Initial BMI: Current Weight: 119.748 kg Current BMI: 41.9 Type of Surgery: Total Volume in Band: Previous Volume: Volume Removed: Volume Added: Band Size:
== END ==
LOC: BARWHC3 13:58
PROVIDERS: ATTEND Surgery Plastic and Reconstructive Surgery
DX: E66.01 Morbid (severe) obesity due to excess calories (principal); Z98.890 Other specified postprocedural states; Z68.41 Body mass index [BMI] 40.0-44.9, adult; Z91.048 Other nonmedicinal substance allergy status; Z88.1 Allergy status to other antibiotic agents
CPT/HCPCS: 99211

== ENCOUNTER → 2022-12-22 | Outpatient (CLI) | payer MEDICARE ==
[2022-12-22 14:45] LABS: African American GFR (CKD) >90 (>60 ml/min/1.73 sqM); Blood Urea Nitrogen 24 mg/dL (7-17); Non-African American GFR(CKD) 85 (>60 ml/min/1.73 sqM)
--- NOTE | 2022-12-22 16:55 | CT ---
EXAMINATION TYPE: CT ChestAbdPelvis w con DATE OF EXAM: 12/22/2022 COMPARISON: Most recent CT August 25, 2022 and older studies. HISTORY: obs for mets. hx of ovarian ca CT DLP: 2585.70 mGycm. Automated Exposure Control for Dose Reduction was Utilized. CONTRAST: CT scan of the thorax, abdomen and pelvis is performed with oral and with IV Contrast, patient inject ed with 100 mL of Isovue 300. FINDINGS: LUNGS: Stable 4 mm left basilar nodule axial image 42. Stable 3 mm central right mid lung nodule axia l image 19. No new or enlarging greater than 5 mm pulmonary nodules or masses. No pleural effusion or pneumothorax seen bilaterally. MEDIASTINUM: There are no greater than 1 cm hilar or mediastinal lymph nodes. No cardiomegaly or pe ricardial effusion is seen. OTHER: Subcentimeter bilateral axillary lymph nodes are redemonstrated. LIVER/GB: No significant abnormality is appreciated. PANCREAS: No significant abnormality is seen. SPLEEN: No significant abnormality is seen. ADRENALS: No significant abnormality is seen. KIDNEYS: Stable 2 mm nonobstructing calculus midpole of the right kidney coronal image 72. BOWEL: Moderate to large size hiatal hernia is redemonstrated be in stable. Oral contrast reaches lev el of splenic flexure.. Sigmoid colonic diverticulosis. No CT evidence for acute diverticulitis. No s mall or large bowel dilatation. GENITAL ORGANS: Uterus surgically absent. No suspicious adnexal masses. LYMPH NODES: Prominent but subcentimeter lymph nodes in the aortocaval region are not significantly c hanged from most recent study. No new greater than 1.0 cm adenopathy. Tubular shaped device along the right ureter is redemonstrated and stable OSSEOUS STRUCTURES: No significant abnormality is seen. OTHER: Mild to moderate calcified plaque of the aorta extends into branch vessels. IMPRESSION: No new or enlarging masses or adenopathy to suggest active neoplastic recurrence. No sig nificant change from most recent CT.
== END | disposition home or self-care (01) ==
LOC: RADCTMAIN 13:45
PROVIDERS: ATTEND Obstetrics & Gynecology
DX: Z85.43 Personal history of malignant neoplasm of ovary (principal); Z92.3 Personal history of irradiation
CPT/HCPCS: 82565; 84520; 71260; 74177; 36415; Q9967

== ENCOUNTER → 2022-12-29 | Outpatient (CLI) | payer MEDICARE ==
[2022-12-29 11:13] VITALS: BMI 43.0
== END ==
LOC: BARWHC3 08:46
PROVIDERS: ATTEND Surgery Plastic and Reconstructive Surgery
DX: E66.01 Morbid (severe) obesity due to excess calories (principal); Z71.3 Dietary counseling and surveillance; Z91.048 Other nonmedicinal substance allergy status; Z88.1 Allergy status to other antibiotic agents; Z68.41 Body mass index [BMI] 40.0-44.9, adult
CPT/HCPCS: 97804

== ENCOUNTER → 2023-01-13 | Outpatient (CLI) | payer MEDICARE ==
[2023-01-13 21:51] LABS: Basophils # (A) 0.03 X 10*3/uL (0.00-0.10); Basophils % (A) 0.3 %; Eosinophils # (A) 0 X 10*3/uL (0.04-0.35); Eosinophils % (A) 0 %; HCT 40.3 % (37.2-46.3); HGB 12.3 g/dL (12.0-15.0); Immature Grans, Automated 0.4 %; Lymphocytes # (A) 2.38 X 10*3/uL (0.90-5.00); Lymphocytes % (A) 23.3 %; MCH 27.3 pg (27.0-32.0); MCHC 30.5 g/dL (32.0-37.0); MCV 89.4 fL (80.0-97.0); Mean Platelet Volume 9.7 fL (9.5-12.2); Monocytes # (A) 0.68 X 10*3/uL (0.20-1.00); Monocytes % (A) 6.7 %; NRBC Per 100 WBC 0 /100 WBCS (0.0-0.0); Neutrophils # (A) 7.08 X 10*3/uL (1.80-7.70); Neutrophils % (A) 69.3 %; Platelet Count 349 X 10*3/uL (140-440); RBC 4.51 X 10*6/uL (4.10-5.20); RDW 15.6 % (11.5-14.5); WBC 10.21 X 10*3/uL (4.50-10.00)
[2023-01-14 00:15] LABS: Albumin 4.8 g/dL (3.8-4.9); Albumin/Globulin Ratio 1.85 (1.60-3.17); Anion Gap 15.9 mmol/L (10.00-18.00); BUN/Creat Ratio 47.01 Ratio (12.00-20.00); Blood Urea Nitrogen 42.4 mg/dL (9.0-27.0); Calcium 10.3 mg/dL (8.7-10.3); Carbon Dioxide 19.3 mmol/L (20.0-27.5); Globulin 2.6 g/dL (1.6-3.3); Non-African American GFR(CKD) 66.5 (60.0-200.0); Potassium 4.4 mmol/L (3.5-5.5); Total Bilirubin 0.4 mg/dL (0.30-1.20); Total Protein 7.4 g/dL (6.2-8.2)
== END | disposition home or self-care (01) ==
LOC: LABPAT 11:11
PROVIDERS: ATTEND Surgery Plastic and Reconstructive Surgery
DX: Z01.812 Encounter for preprocedural laboratory examination (principal)
CPT/HCPCS: 80053; 85025

== ENCOUNTER 2023-01-19 07:30 | Inpatient (IN) | payer MEDICARE ==
[~2023-01-19 07:30] MED LIST changes: +CHLORHEXIDINE GLUCONATE 15 ML CUP MUCOUS MEM PRN; +ENOXAPARIN 40 MG/0.4 ML SYRINGE SQ PRN; -LACTATED RINGERS 1,000 ML IV SCH; -LIDOCAINE 1% (10MG/ML) FOR IV START INTRADERMA PRN; +PANTOPRAZOLE 40 MG/10 ML VIAL IVP PRN
[2023-01-19] MEDS ORDERED: LIDOCAINE 1% (10MG/ML) FOR IV START INTRADERMA PRN (07:49)
[2023-01-19] MEDS ORDERED: droPERidol 5 MG/2 ML VIAL IVP ONE (07:49)
[2023-01-19] MEDS ORDERED: DEXAMETHASONE SOD PHOSPHATE 4 MG/ML 1 ML VIAL IV ONE (07:49)
[2023-01-19] MEDS ORDERED: ONDANSETRON 4 MG/2 ML VIAL IVP ONE ×2 (07:49→16:23)
--- NOTE | 2023-01-19 07:56 | P.GSHP ---
History of Present Illness H&P Date: 01/19/23 CHIEF COMPLAINT: Gastroesophageal reflux disease HISTORY OF PRESENT ILLNESS: Nohemy Abernathy is a 67-year-old female who comes with lifelong morbid obesity. She has gastroesophageal reflux disease that is severe despite her medications for over 5 years. Upper endoscopy demonstrated gastroesophageal reflux disease with hiatal hernia. She presents for a hiatal hernia repair. At height of 5 feet 6.5 inches, her ideal body weight is 154 pounds. She comes in 255 pounds. Her body mass index is 40.6. She is 101 pounds overweight. PAST MEDICAL HISTORY: 1. Morbid obesity due to excess calories 2. Body mass index of 40.6 3. Hypertensive heart disease 4. Hyperlipidemia 5. Diabetes type II, non-insulin dependent 6. Gastroesophageal reflux disease 7. Osteoarthritis lower back 8. Generalized anxiety disorder 9. Post op nausea and vomiting 10. Colon polyps. 11. Osteoarthritis of the hips 12. Osteoarthritis of the knee PAST SURGICAL HISTORY: 1. Appendectomy 2. Tonsillectomy HOME MEDICATIONS: Reviewed ALLERGIES: Reviewed SOCIAL HISTORY: Tobacco use. FAMILY HISTORY: No family history of ulcerative colitis disease or Crohn's disease. Family history of morbid obesity. No lupus in the family. No reports of stomach or esophageal cancer. REVIEW OF ORGAN SYSTEMS: CONSTITUTIONAL: At height of 5 feet 6.5 inches, her ideal body weight is 154 pounds. She comes in 255 pounds. Her body mass index is 40.6. She is 101 pounds overweight. HEENT: Denies any active troubles with vision or hearing. ENDOCRINE: Has diabetes. No hypothyroidism. CARDIOVASCULAR: Denies past reports of palpitations or heart attacks or chest pain. Has hypertensive heart disease. RESPIRATORY: Has daytime somnolence. GASTROINTESTINAL: Denies any bright red blood per rectum. No diarrhea. No constipation. Has gastroesophageal reflux disease. GENITOURINARY: Denies bladder urgency. No recent blood in urine MUSCULOSKELETAL: Has lower back pain and joint pain. Has osteoarthritis of the knees. NEURO: No headaches. No seizure disorders. PSYCH: Has depression. No suicidal ideation. Has anxiety. RHEUMATOLOGIC: No lupus. No rheumatoid arthritis. HEMATOLOGIC: Denies any abnormal bleeding or bruising. SKIN: No rash. No skin cancer. PHYSICAL EXAM: VITAL SIGNS: Height 5 foot 6.5 inches, weight 255 pounds. BMI 40.6 GENERAL: Well-developed in no acute distress. HEENT: No scleral icterus. Extraocular movements grossly intact. Hears conversational speech. No nasal drainage. NECK: Supple without lymphadenopathy. CHEST: Nonlabored respirations with equal bilateral excursions. CARDIOVASCULAR: Regular rate and regular rhythm. Distal 2+ pulses. ABDOMEN: Obese, soft, nontender, nondistended. MUSCULOSKELETAL: No clubbing, cyanosis. NEURO: No focal or lateralizing signs. Cranial nerves 2 through 12 grossly within normal limits. PSYCH: Appropriate affect. Alert and oriented to person, place and time. SKIN: Good skin turgor. Well perfused. REPORTS: Upper endoscopy demonstrates paraesophageal hiatal hernia BARIUM SWALLOW: Images reviewed demonstrating paraesophageal hiatal hernia. This is my independent interpretation. REPORTS: Cardiology risk assessment obtained. Please see chart. ASSESSMENT: 1. Diaphragmatic paraesophageal hiatal hernia with severe gastroesophageal reflux disease. 2. Body mass index 40.6 3. Hypertensive heart disease 4. Hyperlipidemia 5. Diabetes type II, non-insulin dependent 6. Gastroesophageal reflux disease 7. Osteoarthritis lower back 8. Generalized anxiety disorder 9. Post op nausea and vomiting 10. Colon polyps. 11. Osteoarthritis of the hips 12. Osteoarthritis of the knee 13. Lactose intolerance1 14. Morbid obesity due to excess calories PLAN: 1. Recommend proceeding with a robotic paraesophageal hiatal hernia with possible mesh. 2. Benefits and risks of surgical intervention was discussed including possibility of open technique. 3. Inpatient hospitalization recommended of 2 nights 4. DVT prophylaxis. 5. Antibiotic prophylaxis. 6. She has also completed a very low caloric high-protein diet to address underlying hepatomegaly. 7. Non narcotic pain management including abdominal wall block described 8. Blood sugar glucose described. 9. Weight loss management described. Past Medical History Past Medical History: Cancer, Diabetes Mellitus, GERD/Reflux, Hypertension, Thyroid Disorder Additional Past Medical History / Comment(s): chronic back pain. right ovarian CA and endometrial CA-last chemo Oct 2021,received radiation. Thyroid nodules, HIATAL HERNIA,gastric ulcer History of Any Multi-Drug Resistant Organisms: None Reported Past Surgical History: Appendectomy, Hysterectomy, Tonsillectomy Additional Past Surgical History / Comment(s): COLONOSCOPY, PAIN CLINIC PROCEDURE Past Anesthesia/Blood Transfusion Reactions: Postoperative Nausea & Vomiting (PONV) Additional Past Anesthesia/Blood Transfusion Reaction / Comment(s): PONV w/ appendicitis, no other problems. no hx blood transfusion Smoking Status: Former smoker - Past Family History Mother Family Medical History: Cancer Additional Family Medical History / Comment(s): pt. states her maternal grandmother had ovarian cancer, mother had thyroid nodules Father History Unknown: Yes Family Medical History: Unable to Obtain Medications and Allergies Home Medications Medication Instructions Recorded Confirmed Type Lisinopril-Hctz 20-12.5 mg 1 tab PO BID 01/15/16 01/14/23 History [Zestoretic 20-12.5] amLODIPine [Norvasc] 5 mg PO QAM 01/15/16 01/14/23 History Aspirin 81 mg PO DAILY #30 chewable 01/27/19 01/14/23 Rx Atorvastatin [Lipitor] 20 mg PO HS 02/27/21 01/14/23 History metFORMIN HCL 500 mg PO 1700 02/27/21 01/14/23 History Anastrozole [Arimidex] 1 mg PO DAILY 06/25/22 01/14/23 History Gabapentin 300 mg PO 0500,1100 06/25/22 01/14/23 History Gabapentin 600 mg PO HS 01/14/23 01/14/23 History Metoprolol Succinate (ER) [Toprol 50 mg PO QAM 01/14/23 01/14/23 History Xl] Omeprazole [PriLOSEC] 40 mg PO QAM 01/14/23 01/14/23 History Allergies Allergy/AdvReac Type Severity Reaction Status Date / Time adhesive tape Allergy Rash/Hives Verified 01/14/23 14:53 gemifloxacin mesylate Allergy Rash/Hives Verified 01/14/23 14:53 [From Factive]
[2023-01-19] MEDS ORDERED: HEPARIN SODIUM,PORCINE/PF 5,000 UNIT/0.5 ML SYRINGE SQ PRN (08:03)
[2023-01-19] MEDS: LACTATED RINGERS 1,000 ML IV SCH ×2 (08:05→13:44)
[2023-01-19 08:48] LABS: Glucose,Whole Blood 104 mg/dL (70-110)
[2023-01-19] MEDS ORDERED: NEOSTIGMINE 1 MG/ML 10 ML VIAL ONE (10:36)
[2023-01-19] MEDS ORDERED: MIDAZOLAM 2 MG/2 ML VIAL ONE (10:36)
[2023-01-19] MEDS ORDERED: LIDOCAINE 2% INJ 20 MG/ML (2 ML VIAL) ONE (10:36)
[2023-01-19] MEDS ORDERED: fentaNYL (PF) 50 MCG/ML 2 ML AMP ONE (10:36)
[2023-01-19] MEDS ORDERED: GLYCOPYRROLATE 0.2 MG/ML 2 ML VIAL ONE (10:36)
[2023-01-19] MEDS ORDERED: ESMOLOL 100 MG/10 ML VIAL ONE (10:36)
[2023-01-19] MEDS ORDERED: SUCCINYLCHOLINE CHLORIDE 200 MG/10 ML VIAL IV ONE (10:36)
[2023-01-19] MEDS ORDERED: ROCURONIUM 10 MG/ML (5 ML VIAL) IV ONE (10:36)
[2023-01-19] MEDS ORDERED: PROPOFOL 10 MG/ML 20 ML VIAL IV ONE (10:36)
[2023-01-19] MEDS ORDERED: HYDROmorphone (PF) 1 MG/ML ONE (10:36)
[2023-01-19] MEDS ORDERED: PHENYLEPHRINE-0.9% NACL SYG 1,000 MCG/10 ML SYRINGE ONE (10:36)
[2023-01-19] MEDS ORDERED: KETOROLAC 15 MG/ML 1 ML VIAL ONE (10:36)
[2023-01-19] MEDS ORDERED: BUPIVACAINE (PF) 0.5% 30 ML VIAL SQ ONE (11:18)
[2023-01-19] MEDS ORDERED: LACTATED RINGERS 1,000 ML IV ONE (11:30)
[2023-01-19] MEDS: HYDROmorphone 0.5 MG/0.5 ML SYRINGE IVP PRN ×2 (12:58→15:16)
--- NOTE | 2023-01-19 13:30 | P.OP ---
Date of Procedure: 01/19/23 Description of Procedure: SURGEON: VIKAS CUMMINGS MD PREOPERATIVE DIAGNOSES: 1. Symptomatic paraesophageal diaphragmatic hiatal hernia. 2. Gastroesophageal reflux disease. 3. Hypertensive heart disease 4. Generalized anxiety disorder 5. History of breast cancer 6. History of ovarian and endometrial cancer 7. Morbid obesity excess calories, BMI 37.9 8. Panic disorder 9. History of gastric ulcers 10. Postop nausea or vomiting POSTOPERATIVE DIAGNOSES: 1. Paraesophageal midline diaphragmatic hernia, 6 cm, with incarceration. 2. Gastroesophageal reflux disease. 3. Hypertensive heart disease 4. Generalized anxiety disorder 5. History of breast cancer 6. History of ovarian and endometrial cancer 7. Morbid obesity excess calories, BMI 37.9 8. Panic disorder 9. History of gastric ulcers 10. Postop nausea or vomiting 11. 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 Robotic-assisted da Lorena Xi laparoscopic repair of incarcerated paraesophageal hiatal hernia, 6 x 5 cm, with [place] Biopatch A 8 x 8 cm. 2. Intraoperative esophagogastroduodenoscopy 3. Placement of 56-Djiboutian bougie ANESTHESIA: General with local anesthetic. ESTIMATED BLOOD LOSS: 5 mL SPECIMENS REMOVED: None COMPLICATIONS: None. Condition: stable Disposition: floor FINDINGS: 1. Midline incarcerated paraesophageal hiatal hernia 6 x 5 cm 2. Intraoperative upper endoscopy confirms complete closure of hiatal hernia from Hill grade 4 to Hill grade 1 3. Intraesophageal length over 2 cm 4. 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 Gastric bypass unlikely procedure for the future ue to severe intraloop, peritoneal adhesions involving pelvis and small bowel 6. Incarceration of 40% of the stomach with risk of obstruction requiring extensive dissection INDICATIONS: The patient is a 67-year-old female who presents withastroesophageal reflux disease poorly controlled despite medications, and a symptomatic diaphragmatic hiatal hernia. Preoperative workup including upper endoscopy demonstrated a sliding hiatal hernia. Given the severity of symptoms, the patient had elected for surgical intervention. Benefits and risks including bleeding, infection, recurrence, dysphagia, injury to the lung, need for further surgery was described at length. Informed consent was obtained. DESCRIPTION: The patient was brought into the operating room and placed in supine position. Preoperatively the patient had received heparin subcutaneously for DVT prophylaxis. After general induction, the abdomen was prepped and draped in standard sterile fashion. The patient had previously voided prior to coming to the operating room. [place]oban draping was placed along the abdomen. A timeout protocol was confirmed with the surgical team, for which the patient's name, procedure to be performed including DVT prophylaxis with bilateral SCDs, and preoperative antibiotics were also confirmed. A robotic da Lorena Xi system was prepped and primed. At 12 cm from the xiphoid to just below the umbilicus, proposed port sites were marked with indelible marker along the left axillary line, left mid-clavicular line with each ports were marked 10 cm from each other. A 5 mm 0 degrees laparoscopic trocar entry was performed along the left upper quadrant. The abdomen was insufflated to 15 mmHg pressure was tolerated well. Diagnostic laparoscopy demonstrated no injury to bowel, viscera, or mesentery. No injury had occurred to the small bowel or viscera. The liver was smooth consistent with two-week high-protein low-carb diet. Severe pelvic adhesions involving small bowel colon or identified due to previous pelvic surgery with radiation. With this finding, gastric bypass would be less advised for future bariatric procedures. Previous trochar sites from cholecystectomy were used. Next, one 8 mm robotic port was placed along the right upper abdomen. An 8-mm port was were placed along the right lateral lateral abdominal wall. The camera 8-mm port was maintained along the epigastrium. Another 12 mm port was placed along the left upper abdominal wall after exchanging the 5 mm port. Please note that the ports were placed at least 20 cm away from the target anatomy. Care was taken to check that each robotic arm were safely away from collision with the bed or the patient. At the epigastrium, a medium sized Jeanie liver retractor was placed under direct visualization with the Iron Bench Assembler placed under the right shoulder of the patient. All robotic arms were used. The patient was repositioned in reverse Trendelenburg position at 21-degrees after lowering the bed. The robot was docked above the right side of the patient. Using a grasper for arm 3, a grasper for arm 1, including vessel sealer for arm 2, the robotic system was docked and primed as described. Instruments were interchanged by the assistant corporate controller. I had sat at the console. The gastrohepatic ligament was cleaved using a vessel sealer. Next, the phrenoesophageal ligament was mobilized and the distal esophagus was mobilized circumferentially. The left and right crura was identified. Circumferentially, the hernia sac was excised and brought into the peritoneal cavity. Over 40% of the stomach was incarcerated and obstructed into the mediastinum. Moderate dissection into the mediastinum was performed to release the esophagus into the abdominal cavity. The paraesophageal hiatal hernia sac was also incised and divided from the esophagus. Care was taken to avoid any gastrotomy. The measured defect was consistent with 6 cm axial length and 5 cm in width. After dissection, the distal esophagus of 2+ cm was brought into the abdominal cavity. Once the hiatus and crura was dissected, 2-0 VLOC nonabsorbable suture was placed to reapproximate the diaphragmatic hiatus posteriorly. To buttress the repair, a [place] Biopatch A was prepared along the back table and cut in half of a garcia-hole fashion as to reinforce the repair as an underlay. The mesh was placed along the crural repair and tagged using horizontal mattress sutures using 2-0 VLOC. I went to the head of the bed to perform intraoperative esophagogastroduodenoscopy and placement of a 56Fr bougie. The bougie was passed along the posterior oropharynx into the stomach to address pre-existing esophageal dysmotility for 2 minutes then removed. An Olympus gastroscope was passed through posterior oropharynx. Retroflexion of the scope confirmed a Hill grade 1 lower esophageal valve. A gastric cardia diverticulum was identified. The stomach had been desufflated. No evidence of leaks were found of the esophagus or stomach. The GI tract with desufflated This concluded the endoscopic portion of the case. The robot was undocked from the patient. I re-scrubbed into the case. All instruments and pneumoperitoneum and specimens were evacuated from the abdominal cavity. Incisions were reapproximated using 4-0 Monocryl in an interrupted subcuticular fashion. Liquid glue was applied to the skin. Local anesthetic was infiltrated in all wounds for postop analgesia. At the end of the procedure, needle, sponge, and instrument count was verified correct by the surgical garment inspector. The patient had tolerated the procedure well and was taken to the postanesthesia unit in stable condition.
[2023-01-19] MEDS ORDERED: METOPROLOL TARTRATE 5 MG/5 ML VIAL IVP ONE (16:27)
[2023-01-19] MEDS ORDERED: metFORMIN 500 MG TAB PO SCH (17:00)
[2023-01-19 17:44] LABS: Glucose,Whole Blood 159 mg/dL (70-110)
[2023-01-19] MEDS: D5-0.45% NACL WITH KCL 20MEQ/L 1,000 ML IV SCH (18:38)
[2023-01-19] MEDS: DEXAMETHASONE SOD PHOSPHATE 4 MG/ML 1 ML VIAL IVP SCH ×2 (18:56→23:27)
[2023-01-19] MEDS: ONDANSETRON 4 MG/2 ML VIAL IVP SCH ×2 (19:02→23:27)
[2023-01-19] MEDS: METOCLOPRAMIDE 5 MG/ML 2 ML VIAL IVP SCH (19:02)
[2023-01-19] MEDS: HYDROmorphone 1 MG/ML 1 ML SYRINGE IVP PRN ×2 (19:04→23:27)
[2023-01-19 20:27] LABS: Glucose,Whole Blood 141 mg/dL (70-110)
[2023-01-19] MEDS: LISINOPRIL-HCTZ 20-12.5 MG 1 EACH TAB PO SCH (20:38)
[2023-01-19] MEDS: FAMOTIDINE 20 MG/2 ML VIAL IV SCH (20:39)
[2023-01-19] MEDS ORDERED: GABAPENTIN 300 MG CAP PO SCH (21:00)
[2023-01-20] MEDS: METOCLOPRAMIDE 5 MG/ML 2 ML VIAL IVP SCH ×3 (02:53→11:49)
[2023-01-20] MEDS: GABAPENTIN 300 MG CAP PO SCH ×2 (04:36→10:16)
[2023-01-20] MEDS: D5-0.45% NACL WITH KCL 20MEQ/L 1,000 ML IV SCH ×2 (04:36→09:36)
[2023-01-20] MEDS: ONDANSETRON 4 MG/2 ML VIAL IVP SCH ×2 (05:36→11:48)
[2023-01-20] MEDS: DEXAMETHASONE SOD PHOSPHATE 4 MG/ML 1 ML VIAL IVP SCH ×2 (05:36→11:48)
[2023-01-20] MEDS: LACTATED RINGERS 1,000 ML IV SCH (06:55)
[2023-01-20 07:14] LABS: Glucose,Whole Blood 166 mg/dL (70-110)
[2023-01-20] MEDS ORDERED: ASPIRIN 81 MG PO SCH (09:00)
[2023-01-20] MEDS ORDERED: METOPROLOL SUCCINATE (ER) 50 MG TAB.ER.24H PO SCH (09:00)
[2023-01-20] MEDS ORDERED: amLODIPine 5 MG TAB PO SCH (09:00)
[2023-01-20] MEDS ORDERED: ANASTROZOLE 1 MG TAB PO SCH (09:00)
[2023-01-20] MEDS: LISINOPRIL-HCTZ 20-12.5 MG 1 EACH TAB PO SCH (09:36)
[2023-01-20] MEDS: FAMOTIDINE 20 MG/2 ML VIAL IV SCH (09:37)
[2023-01-20 12:52] LABS: Glucose,Whole Blood 108 mg/dL (70-110)
--- NOTE | 2023-01-20 13:00 | FL ---
EXAMINATION TYPE: FL esophagus cervic/pharynx DATE OF EXAM: 01/20/2023 HISTORY: History of gastric sleeve COMPARISON: CT 12/22/2022 TECHNIQUE: A double contrast esophagram is performed utilizing air and barium. A total of 24 second s of fluoroscopic time was utilized during procedure and 10 images obtained. Total dose area product (DAP) is not provided by the machine. FINDINGS: The stomach demonstrates a postsurgical morphology. No extravasation of contrast identifie d. No evidence of mass or ulcer disease. There is delayed emptying into the stomach. The duodenal bulb and sweep are unremarkable. IMPRESSION: 1. Postsurgical changes without evidence of contrast extravasation. 2. Mild delayed emptying into the stomach.
[2023-01-20 13:09] VITALS: BMI 37.9
[2023-01-20 14:19] VITALS: BP 106/72; PULSE 97; RESP 16; TEMP 97.4
--- NOTE | 2023-01-20 14:46 | P.DS ---
Providers Date of admission: 01/19/23 07:50 Expected date of discharge: 01/20/23 Attending physician: Loretta Espinoza Primary care physician: Narendra Mohan [facility] Course: Discharge diagnosis 1. Paraesophageal midline diaphragmatic hernia, 6 cm, with incarceration. 2. Gastroesophageal reflux disease. 3. Hypertensive heart disease 4. Generalized anxiety disorder 5. History of breast cancer 6. History of ovarian and endometrial cancer 7. Morbid obesity excess calories, BMI 37.9 8. Panic disorder 9. History of gastric ulcers 10. Postop nausea or vomiting 11. 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 Patient tolerated surgery well. Her pain is controlled. She is tolerating liquid diet. Upper GI shows no evidence of leak or obstruction. She has been up and ambulating. She is afebrile. She is stable for discharge. Physician Time Clock Inspector note has been reviewed by physician. Signing provider agrees with the documented findings, assessment, and plan of care. Patient Condition at Discharge: Stable Plan - Discharge Summary Discharge Rx Participant: No New Discharge Prescriptions: New Simethicone 40 mg/0.6 ml Drops [Mylicon Drops] 40 mg PO PCHS PRN #30 ml PRN Reason: Gas Ondansetron Odt [Zofran Odt] 4 mg PO Q8HR PRN #9 tab PRN Reason: Nausea Acetaminophen Tab [Tylenol] 1,000 mg PO Q6HR PRN #30 tablet PRN Reason: Pain bisacodyL [Dulcolax] 5 mg PO DAILY PRN #10 tab PRN Reason: Constipation Omeprazole [PriLOSEC] 40 mg PO DAILY #30 cap Continue amLODIPine [Norvasc] 5 mg PO QAM Lisinopril-Hctz 20-12.5 mg [Zestoretic 20-12.5] 1 tab PO BID Aspirin 81 mg PO DAILY #30 chewable Anastrozole [Arimidex] 1 mg PO DAILY Metoprolol Succinate (ER) [Toprol XL] 50 mg PO QAM metFORMIN HCL 500 mg PO 1700 Gabapentin 300 mg PO 0500,1100 Gabapentin 600 mg PO HS Discontinued Omeprazole [PriLOSEC] 40 mg PO QAM No Action Atorvastatin [Lipitor] 20 mg PO HS Discharge Medication List Lisinopril-Hctz 20-12.5 mg [Zestoretic 20-12.5] 1 tab PO BID 01/15/16 [History] amLODIPine [Norvasc] 5 mg PO QAM 01/15/16 [History] Aspirin 81 mg PO DAILY #30 chewable 01/27/19 [Rx] Atorvastatin [Lipitor] 20 mg PO HS 02/27/21 [History] metFORMIN HCL 500 mg PO 1700 02/27/21 [History] Anastrozole [Arimidex] 1 mg PO DAILY 06/25/22 [History] Gabapentin 300 mg PO 0500,1100 06/25/22 [History] Gabapentin 600 mg PO HS 01/14/23 [History] Metoprolol Succinate (ER) [Toprol XL] 50 mg PO QAM 01/14/23 [History] Acetaminophen Tab [Tylenol] 1,000 mg PO Q6HR PRN #30 tablet 01/20/23 [Rx] Omeprazole [PriLOSEC] 40 mg PO DAILY #30 cap 01/20/23 [Rx] Ondansetron Odt [Zofran Odt] 4 mg PO Q8HR PRN #9 tab 01/20/23 [Rx] Simethicone 40 mg/0.6 ml Drops [Mylicon Drops] 40 mg PO PCHS PRN #30 ml 01/20/23 [Rx] bisacodyL [Dulcolax] 5 mg PO DAILY PRN #10 tab 01/20/23 [Rx] Follow up Appointment(s)/Referral(s): Loretta Espinoza MD [STAFF PHYSICIAN] - 01/27/23 Activity/Diet/Wound Care/Special Instructions: Liquid diet only for 2 weeks No lifting over 4 pounds in 4 weeks May shower No soaking in bath tubs for 2 weeks Please notify your surgeon if you develop nausea and vomiting including new onset of abdominal pain. Please ambulate at all times. Use Simethicone, Gas-X, Tylenol scheduled for the next 24-48 hours for best pain relief. Use ice along incisions for the today to prevent swelling. Please open, cut, crush pills larger than the size of a tic tack No carbonated beverages. No straws. DO NOT take Lipitor until seen by surgeon Do not remove scopolamine patch for 3 days, if present Avoiding Gas Avoid drinking through a straw. Do not chew gum or tobacco. These actions cause you to swallow air, which produces excess gas in your stomach. Chew with your mouth closed. Avoid any foods that cause stomach gas and distention. These foods include corn, dried beans, peas, lentils, onions, broccoli, cauliflower and any food from the cabbage family. Avoid carbonated drinks, alcohol, citrus and tomato products. Carbonated drinks (sodas) are not allowed for the first six to eight weeks after surgery. After this time you can try them again in small amounts Clear Liquid Diet The first diet after surgery is the clear liquid diet. It includes the following liquids: Apple juice Cranberry juice Grape juice Chicken broth Beef broth Flavored gelatin (Jell-O) Decaf tea and coffee Caffeinated beverages are permitted based on tolerance Popfranciscan children's Chinese ice Full Liquid Diet The full liquid diet contains anything on the clear liquid diet, plus: Milk, soy, rice and almond (no chocolate) Cream of wheat, cream of rice, grits Strained creamed soups (no tomato or broccoli) Vanilla and strawberry-flavored ice cream Sherbet Blended, custard styled or whipped yogurt (plain or vanilla only) Vanilla and butterscotch pudding (no chocolate or coconut) Nutritional drinks including Ensure, Boost, [place] Instant Breakfast (no chocolate-flavored) Note: Dairy products, such as milk, ice cream and pudding, may cause diarrhea in some people just after surgery. You may need to avoid milk products. If so, substitute them with lactose-free beverages, such as soy, rice, Lactaid or almond milks. Discharge Disposition: HOME SELF-CARE
== END 2023-01-20 16:14 | disposition home or self-care (01) | DRG 327 ==
LOC: 2ORMAIN 07:50 → 6NMEDSUR 16:49
PROVIDERS: ADMIT Surgery Plastic and Reconstructive Surgery; ATTEND Surgery Plastic and Reconstructive Surgery
PROC: 0BUT4JZ Supplement Diaphragm with Synthetic Substitute, Percutaneous Endoscopic Approach (ICD-10-PCS; principal; 2023-01-19 09:00)
PROC: 0DJ08ZZ Inspection of Upper Intestinal Tract, Via Natural or Artificial Opening Endoscopic (ICD-10-PCS; principal; 2023-01-19 09:00)
PROC: 8E0W4CZ Robotic Assisted Procedure of Trunk Region, Percutaneous Endoscopic Approach (ICD-10-PCS; principal; 2023-01-19 09:00)
DX: K44.0 Diaphragmatic hernia with obstruction, without gangrene (principal); I42.8 Other cardiomyopathies; E66.01 Morbid (severe) obesity due to excess calories; Z68.37 Body mass index [BMI] 37.0-37.9, adult; E11.9 Type 2 diabetes mellitus without complications; I11.9 Hypertensive heart disease without heart failure; R16.0 Hepatomegaly, not elsewhere classified; E04.2 Nontoxic multinodular goiter; E73.0 Congenital lactase deficiency; K21.9 Gastro-esophageal reflux disease without esophagitis; K22.4 Dyskinesia of esophagus; K31.4 Gastric diverticulum; N73.6 Female pelvic peritoneal adhesions (postinfective); E78.2 Mixed hyperlipidemia; K63.5 Polyp of colon; F41.1 Generalized anxiety disorder; F41.0 Panic disorder [episodic paroxysmal anxiety]; M16.0 Bilateral primary osteoarthritis of hip; M17.10 Unilateral primary osteoarthritis, unspecified knee; M19.09 Primary osteoarthritis, other specified site; G89.29 Other chronic pain; M54.9 Dorsalgia, unspecified; Z79.82 Long term (current) use of aspirin; Z79.811 Long term (current) use of aromatase inhibitors; Z79.84 Long term (current) use of oral hypoglycemic drugs; Z79.899 Other long term (current) drug therapy; Z87.891 Personal history of nicotine dependence; Z87.11 Personal history of peptic ulcer disease; Z92.21 Personal history of antineoplastic chemotherapy; Z92.3 Personal history of irradiation; Z85.42 Personal history of malignant neoplasm of other parts of uterus; Z85.43 Personal history of malignant neoplasm of ovary; Z85.3 Personal history of malignant neoplasm of breast; Z88.1 Allergy status to other antibiotic agents; Z91.048 Other nonmedicinal substance allergy status; R06.00 Dyspnea, unspecified
CPT/HCPCS: 74210; 86850; 86900; 86901

== ENCOUNTER → 2023-01-23 | Outpatient (CLI) | payer MEDICARE ==
[2023-01-23 10:40] VITALS: BP 98/65; PULSE 115; RESP 12; TEMP 97.6; BMI 39.1
--- NOTE | 2023-01-23 10:48 | P.BASOAP ---
Subjective Progress Note Date: 01/23/23 Clinically doing well. No dysphagia. Pain well-controlled. Full liquid diet without straws. Follow-up next week. 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 No infection. Objective - Vital Signs Vital signs: Vital Signs Temp 97.6 F 01/23/23 10:30 Pulse 115 H 01/23/23 10:30 Resp 12 01/23/23 10:30 BP 98/65 01/23/23 10:30 Pulse Ox FiO2 Intake & Output 01/22/23 01/23/23 01/23/23 18:59 06:59 18:59 Weight 111.674 kg Assessment/Plan Plan: Date: 01/23/23 Initial Weight: Initial BMI: Current Weight: 111.674 kg Current BMI: 39.1 Type of Surgery: Total Volume in Band: Previous Volume: Volume Removed: Volume Added: Band Size:
== END ==
LOC: BARWHC3 08:54
PROVIDERS: ATTEND Surgery Plastic and Reconstructive Surgery
DX: E66.01 Morbid (severe) obesity due to excess calories (principal); Z91.048 Other nonmedicinal substance allergy status; Z88.1 Allergy status to other antibiotic agents
CPT/HCPCS: 99211

== ENCOUNTER → 2023-01-28 | Outpatient (CLI) | payer MEDICARE ==
[2023-01-28 15:22] VITALS: BP 111/77; PULSE 96; TEMP 98.4; BMI 38.9
--- NOTE | 2023-01-28 16:06 | P.BASOAP ---
Subjective Progress Note Date: 01/28/23 She has no troubles with her surgery. Pictures reviewed. She has severe adhesions. Plan for sleeve instead. Objective - Vital Signs Vital signs: Vital Signs Temp 98.4 F 01/28/23 15:19 Pulse 96 01/28/23 15:19 Resp BP 111/77 01/28/23 15:19 Pulse Ox FiO2 Intake & Output 01/27/23 01/28/23 01/28/23 18:59 06:59 18:59 Weight 111.13 kg Assessment/Plan Plan: Date: 01/28/23 Initial Weight: Initial BMI: Current Weight: 111.13 kg Current BMI: 38.9 Type of Surgery: Total Volume in Band: Previous Volume: Volume Removed: Volume Added: Band Size:
== END ==
LOC: BARWHC3 14:46
PROVIDERS: ATTEND Surgery Plastic and Reconstructive Surgery
DX: E66.01 Morbid (severe) obesity due to excess calories (principal); Z91.048 Other nonmedicinal substance allergy status; Z88.1 Allergy status to other antibiotic agents; Z68.36 Body mass index [BMI] 36.0-36.9, adult
CPT/HCPCS: 99211

== ENCOUNTER → 2023-01-29 | Outpatient (CLI) | payer MEDICARE ==
[2023-01-29 13:34] VITALS: BP 103/60; PULSE 107; RESP 18; TEMP 97.7
--- NOTE | 2023-01-29 14:27 | P.PAINPG ---
PQRS Measure Charge Sheet Comment: A 67 yr old female w at side with a history of severe and chronic LBP secondary to lumbar DDD and spondylosis with facet arthropathy without myelopathy presents today for evaluation s/p BL MBB L4-L5, L5-S1 #2. Pt states she experienced 85% pain relief x 6 hrs s/p procedure. Pain level is provoked a t 9/10 in intensity, constant, localized in the lumbar spine, sore in character w shooting towards the BLEs. Pain is provoked by standing for periods of 3 min or more. Pain is alleviated with heated massage pad use, medications, topical, repositioning and rest. Pt could not afford PT but she follows the packet provided by her therapist at home. Interventional pain procedures completed include BL MBB L3-L5 x2, HERBERT L4-5 Patient is currently on Tyl Arth, Patient denies any side effects of the medication(s), denies excessive drowsiness or sleepiness, denies suicidal ideation and reports that the current pain medication is helping to control the pain and improve activities of daily living. Patient denies any motor or sensory deficits. Patient denies any fever or night sweats, denies any change in the bowel movements or urination. Physical Examination: -Constitutional: Cooperative. Not in acute distress . - Neurologic: Cranial nerve II to XII intact. No focal neurological deficits. - Psychatric: Alert & oriented x 3. Matching mood & appropriate affect. Judgment and insight intact. - Musculoskeletal: Cervical spine: Muscle bulk/ tone/ strength in the bilateral upper extremities normal Vertebral body tenderness to palpation over Spurling test positive Distraction test positive Facet loading test positive TTP Thoracic spine Muscle bulk / tone/ strength in the bilateral paraspinal muscles normal Vertebral body tender to palpation over Facet loading test positive TTP Lumbar spine: Motor bulk/ tone/ strength lower extremities , thigh and legs : 5/5 Deep tendon reflexes : Normal Knee Jerk. Normal Ankle Jerk . Vertebral body tenderness to palpation over Jay Test positive Lumbar Facet Loading Test positive over BL L4-L5, L5-S1 Straight Leg Raise: positive at 30 degrees right side/ left side Gaenslen's Test positive Sacral spine : Severe tenderness over the Sacroiliac joint: right side / left side Range of motion: Flexion of the lumbar spine <60 degrees Range of motion: Extension of the lumbar spine <20 degrees Gaenslen's Test positive right side / left side Samantha test: positive right side / left side Thigh Thrust Test positive right side / left side Sacral Thrust Test positive right side / left side Assessment and plan: Chronic LBP secondary to lumbar DDD, spondylosis with facet arthropathy without myelopathy Recommendation of BL RFA L4-L5 L5-S1. Pt exhibited sufficient and substantial pain relief w prior facet blocks of the medial branches. Risks, benefits of procedure discussed and pt verbalized understanding. Admits to anticoagulant use or medical history of diabetes. Protocol for discontinuation/ continuation of medications rayshawn procedure discussed. Minimal anesthesia provided, if clinically indicated, consisting of Versed and Fentanyl. All questions answered. I have spent less than 30 minutes on patient care today. Dr Pizano was available by phone for the evaluation of this patient. The time was used to review the medical records including relevant urine studies and Prescription history (MAPs), review of the available imaging, evaluation and examination of the patient, coordination of care with the medical staff and if applicable referring physicians, as well as creation of the medical record PQRS Narrative: Smoking Status Never smoker Home Medications: Ambulatory Orders Lisinopril-Hctz 20-12.5 mg [Zestoretic 20-12.5] 1 tab PO BID 01/15/16 amLODIPine [Norvasc] 5 mg PO QAM 01/15/16 Aspirin 81 mg PO DAILY #30 chewable 01/27/19 metFORMIN HCL 500 mg PO 1700 02/27/21 Anastrozole [Arimidex] 1 mg PO DAILY 06/25/22 Gabapentin 300 mg PO 0500,1100 06/25/22 Metoprolol Succinate (ER) [Toprol XL] 50 mg PO QAM 01/14/23 Acetaminophen Tab [Tylenol] 1,000 mg PO Q6HR PRN #30 tablet 01/20/23 Omeprazole [PriLOSEC] 40 mg PO DAILY #30 cap 01/20/23 Simethicone 40 mg/0.6 ml Drops [Mylicon Drops] 40 mg PO PCHS PRN #30 ml 01/20/23 bisacodyL [Dulcolax] 5 mg PO DAILY PRN #10 tab 01/20/23 Controlled Substance Measures - Controlled Substance Measures Is patient prescribed a controlled substance at discharge?: No
== END ==
LOC: PNWHC3 12:49
PROVIDERS: ATTEND Specialist
DX: M51.37 Other intervertebral disc degeneration, lumbosacral region (principal); G89.29 Other chronic pain; M47.817 Spondylosis without myelopathy or radiculopathy, lumbosacral region; Z79.82 Long term (current) use of aspirin; Z88.1 Allergy status to other antibiotic agents; Z91.048 Other nonmedicinal substance allergy status
CPT/HCPCS: 99211

== ENCOUNTER → 2023-02-20 | Day surgery (SDC) | payer MEDICARE ==
[2023-02-16 16:13] VITALS: BMI 36.1
[~2023-02-20] MED LIST changes: -CHLORHEXIDINE GLUCONATE 15 ML CUP MUCOUS MEM PRN; -ENOXAPARIN 40 MG/0.4 ML SYRINGE SQ PRN; +IV FLUID CONTINUATION 1,000 ML IV ONE; +LACTATED RINGERS 1,000 ML IV SCH; +LIDOCAINE 1% (10MG/ML) FOR IV START INTRADERMA PRN; +MIDAZOLAM 2 MG/2 ML VIAL ONE; -PANTOPRAZOLE 40 MG/10 ML VIAL IVP PRN; +ROPIVACAINE 5 MG/ML 20 ML AMPULE ONE; +fentaNYL (PF) 50 MCG/ML 2 ML AMP ONE; +methylPREDNISolone ACETATE 40 MG/ML 1 ML VIAL ONE
[2023-02-20 07:07] VITALS: TEMP 97.2
[2023-02-20 07:09] LABS: Glucose,Whole Blood 103 mg/dL (70-110)
--- NOTE | 2023-02-20 08:17 | P.PCN ---
Date of Procedure: 02/20/23 Procedure(s) Performed: PREOPERATIVE DIAGNOSIS: 1-Lumbar Spondylosis with Facet Arthropathy without myelopathy. 2- Lumber degenerative disc disease. POSTOPERATIVE DIAGNOSIS: 1- Lumbar Spondylosis with Facet Arthropathy without myelopathy. 2- Lumber degenerative disc disease. PROCEDURES : Bilateral Radiofrequency thermocoagulation, L3 , L4 , and L5 medial branch, with fluoroscopic guidance (fluoroscopy images available in the radiology department) ( to denervate the facet joint at bilateral L4-5 ,and L5-S1 levels ). ANESTHESIA: Monitored anesthesia care as per anesthesia department . EBL: Minimal PROCEDURE INDICATION: The patient with low back pain secondary to lumbar facet arthropathy who had more than 80% relief of her pain with previous diagnostic lumbar medial branch block with bupivacaine. PROCEDURE DESCRIPTION / TECHNIQUE: The patient was seen and identified in the preoperative area. Risks, benefits, complications, including but not limited to risk of infection ,bleeding , allergic reactions to the medications and no complete pain releife , and alternatives were discussed with the patient, the patient agreed to proceed with the procedure and signed the consent. IV was started. Vital signs remained stable throughout the procedure. Patient was taken to the OR and time out was completed. The patient was placed in the prone position on the procedure table. The lumber area was prepped and draped in the usual sterile fashion. . Vital signs were closely monitored during the procedure .IV sedation was used during the procedure to decrease patients anxiety. Using AP and then oblique fluoroscopy, the ``eye of the Layo dog luke esponding to the connection between the superior and transverse articular processes of right L3, L4, and L5 were identified, marked, and localized with 1% lidocaine. Subsequently, a [id number] radiofrequency cannula with a 10- mm active tip was advanced guided by fluoroscopy to each of the``eyes of the Layo dog at right L3, L4, and L5. Each site then underwent sensory testing at 50 Hz and 0 to 1 volt and motor testing at 2.5 Hz and 0 to 3 volt with local stimulation, but no radicular symptoms down the legs. Thereafter each sites underwent radiofrequency thermocoagulation at 80 degrees celsius for 90 seconds after injecting 0.5 ml of PF Ropivacaine 1ml, then after the thermocoagulation done , 1 ml of the block solution containing Depo-Medrol 20 mg and 3 ml of Ropivacaine 0.5% was injected at the right L3 , L4 , and L5 , levels after negative aspiration of CSF and blood and with no paresthesias. Cannulas were retracted while injecting lidocaine 1% until the needle is out. The same procedure was repeated at the level of Left L3, L4, and L5 levels. At the end of the procedure, the skin was cleansed and bandages were applied. COMPLICATIONS: No acute complications. DISPOSITION / PLANS: The patient was placed in a supine position and transferred to the recovery area in a stable condition for observation and was discharged from the recovery room after meeting discharge criteria. Home discharge instructions given to the patient by the staff. The patient was reexamined prior to discharge. The patient will schedule a follow up in the clinic in 2-4 weeks.
[2023-02-20 08:36] VITALS: BP 96/68; PULSE 93; RESP 16
--- NOTE | 2023-02-20 08:52 | FL ---
Fluoroscopy History: RADIO FREQ BILAT LUMBAR Eligio lumbar rf dap [id number] fl 22.1
== END ==
LOC: ORPAIN 06:37
PROVIDERS: ATTEND Specialist
DX: M51.36 Other intervertebral disc degeneration, lumbar region (principal); M47.816 Spondylosis without myelopathy or radiculopathy, lumbar region; I10 Essential (primary) hypertension; E11.9 Type 2 diabetes mellitus without complications; K21.9 Gastro-esophageal reflux disease without esophagitis; Z91.048 Other nonmedicinal substance allergy status; Z88.8 Allergy status to other drugs, medicaments and biological substances; Z79.84 Long term (current) use of oral hypoglycemic drugs; Z79.899 Other long term (current) drug therapy; Z90.710 Acquired absence of both cervix and uterus
CPT/HCPCS: 64636 ×2; 64635; 99152; 99153; J2250; J1030; J3010; J2795

== ENCOUNTER → 2023-03-18 | Outpatient (CLI) | payer MEDICARE ==
[2023-03-18 13:39] VITALS: BP 117/81; PULSE 103; RESP 14; TEMP 97.6
--- NOTE | 2023-03-18 15:32 | P.PAINPG ---
Objective - Vital Signs Vital signs: Vital Signs Temp 97.6 F 03/18/23 13:30 Pulse 103 H 03/18/23 13:30 Resp 14 03/18/23 13:30 BP 117/81 03/18/23 13:30 Pulse Ox 96 03/18/23 13:30 FiO2 Intake & Output 03/17/23 03/18/23 03/18/23 18:59 06:59 18:59 Weight 108.862 kg PQRS Measure Charge Sheet Mode of Arrival: Ambulatory Comment: A 68 yr old female w at side with a history of severe and chronic LBP secondary to lumbar DDD and spondylosis with facet arthropathy without myelopathy presents today for evaluation s/p BL RFA L4-L5, L5-S1. Pt states she experienced 80% pain relief s/p procedure. Pain level is provoked at 2/10 in intensity, constant, localized in the lumbar spine, sharp in character w shooting towards the L hip and knee. Pain is provoked by standing for periods of 3 min or more. Pain is alleviated with injections, heated massage pad use, medications, topical, repositioning and rest. Pt could not afford PT but she follows the packet provided by her therapist at home. Interventional pain procedures completed include BL RFA L3-L5, HERBERT L4-5 Patient is currently on Tyl Arth, Patient denies any side effects of the medication(s), denies excessive drowsiness or sleepiness, denies suicidal ideation and reports that the current pain medication is helping to control the pain and improve activities of daily living. Patient denies any motor or sensory deficits. Patient denies any fever or night sweats, denies any change in the bowel movements or urination. Physical Examination: -Constitutional: Cooperative. Not in acute distress . - Neurologic: Cranial nerve II to XII intact. No focal neurological deficits. - Psychatric: Alert & oriented x 3. Matching mood & appropriate affect. Judgment and insight intact. - Musculoskeletal: Cervical spine: Muscle bulk/ tone/ strength in the bilateral upper extremities normal Vertebral body tenderness to palpation over Spurling test positive Distraction test positive Facet loading test positive TTP Thoracic spine Muscle bulk / tone/ strength in the bilateral paraspinal muscles normal Vertebral body tender to palpation over Facet loading test positive TTP Lumbar spine: Motor bulk/ tone/ strength lower extremities , thigh and legs : 5/5 Deep tendon reflexes : Normal Knee Jerk. Normal Ankle Jerk . Vertebral body tenderness to palpation over Jay Test positive Lumbar Facet Loading Test positive over BL L4-L5, L5-S1 Straight Leg Raise: positive at 30 degrees right side/ left side Gaenslen's Test positive Sacral spine : Severe tenderness over the Sacroiliac joint: right side / left side Range of motion: Flexion of the lumbar spine <60 degrees Range of motion: Extension of the lumbar spine <20 degrees Gaenslen's Test positive right side / left side Samantha test: positive right side / left side Thigh Thrust Test positive right side / left side Sacral Thrust Test positive right side / left side Assessment and plan: Chronic LBP secondary to lumbar DDD, spondylosis with facet arthropathy without myelopathy May follow up at this clinic on an as needed basis. All questions answered. I have spent less than 30 minutes on patient care today. Dr Pizano was available by phone for the evaluation of this patient. The time was used to review the medical records including relevant urine studies and Prescription history (MAPs), review of the available imaging, evaluation and examination of the patient, coordination of care with the medical staff and if applicable referring physicians, as well as creation of the medical record PQRS Narrative: Smoking Status Never smoker Blood Pressure 117/81 Pain Intensity [Right Hip] 2 Scale Used Numeric (1 - 10) Home Medications: Ambulatory Orders Lisinopril-Hctz 20-12.5 mg [Zestoretic 20-12.5] 1 tab PO BID 01/15/16 amLODIPine [Norvasc] 5 mg PO QAM 01/15/16 Aspirin 81 mg PO DAILY #30 chewable 01/27/19 metFORMIN HCL 500 mg PO 1700 02/27/21 Anastrozole [Arimidex] 1 mg PO DAILY 06/25/22 Gabapentin 300 mg PO 0500,1100 06/25/22 Metoprolol Succinate (ER) [Toprol XL] 50 mg PO QAM 01/14/23 Acetaminophen Tab [Tylenol] 1,000 mg PO Q6HR PRN #30 tablet 01/20/23 Omeprazole [PriLOSEC] 40 mg PO DAILY #30 cap 01/20/23 Simethicone 40 mg/0.6 ml Drops [Mylicon Drops] 40 mg PO PCHS PRN #30 ml 01/20/23 bisacodyL [Dulcolax] 5 mg PO DAILY PRN #10 tab 01/20/23 Atorvastatin [Lipitor] 20 mg PO HS 02/16/23 Controlled Substance Measures - Controlled Substance Measures Is patient prescribed a controlled substance at discharge?: No
== END ==
LOC: PNWHC3 13:14
PROVIDERS: ATTEND Specialist
DX: M51.37 Other intervertebral disc degeneration, lumbosacral region (principal); M47.817 Spondylosis without myelopathy or radiculopathy, lumbosacral region; G89.29 Other chronic pain; Z79.82 Long term (current) use of aspirin; Z91.048 Other nonmedicinal substance allergy status; Z88.8 Allergy status to other drugs, medicaments and biological substances
CPT/HCPCS: 99211

== ENCOUNTER → 2023-03-30 | Outpatient (CLI) | payer MEDICARE ==
[2023-03-30 20:47] LABS: ALT 14 U/L (8-44); AST 20 U/L (13-35); Albumin 4.8 d/dL (3.8-4.9); Albumin/Globulin Ratio 2.18 Ratio (1.60-3.17); Alkaline Phosphatase 129 U/L (41-126); Blood Urea Nitrogen 23.2 mg/dL (9.0-27.0); Calcium 10.6 mg/dL (8.7-10.3); Carbon Dioxide 20.7 mmol/L (21.6-31.8); Chloride 101 mmol/L (96-109); Globulin 2.2 d/dL (1.6-3.3); Glucose 103 mg/dL (70-110); Potassium 4.3 mmol/L (3.5-5.5); Sodium 138 mmol/L (135-145); Total Bilirubin 0.4 mg/dL (0.3-1.2)
[2023-03-30 21:42] LABS: Basophils # (A) 0.02 X 10*3/uL (0.00-0.10); Basophils % (A) 0.4 %; Eosinophils # (A) 0.13 X 10*3/uL (0.04-0.35); Eosinophils % (A) 2.3 %; HGB 13.1 d/dL (12.0-15.0); Lymphocytes # (A) 2.01 X 10*3/uL (0.90-5.00); Lymphocytes % (A) 35.9 %; MCH 28.5 pg (27.0-32.0); MCV 89.1 FL (80.0-97.0); Mean Platelet Volume 9.7 FL (9.5-12.2); Monocytes # (A) 0.59 X 10*3/uL (0.20-1.00); Monocytes % (A) 10.5 %; NRBC Per 100 WBC 0 X 10*3/uL (0.00-0.01); Neutrophils # (A) 2.84 X 10*3/uL (1.80-7.70); Neutrophils % (A) 50.7 %; Platelet Count 324 X 10*3/uL (140-440); RDW 15.4 % (11.5-14.5)
== END | disposition home or self-care (01) ==
LOC: LABPAT 13:05
PROVIDERS: ATTEND Surgery Plastic and Reconstructive Surgery
DX: Z01.812 Encounter for preprocedural laboratory examination (principal)
CPT/HCPCS: 80053; 85025

== ENCOUNTER 2023-04-06 08:00 | Inpatient (IN) | payer MEDICARE ==
[~2023-04-06 08:00] MED LIST changes: +ACETAMINOPHEN TAB 500 MG TAB PO PRN; +ALVIMOPAN 12 MG CAPSULE PO PRN; +CHLORHEXIDINE GLUCONATE 15 ML CUP MUCOUS MEM PRN; +ENOXAPARIN 40 MG/0.4 ML SYRINGE SQ PRN; +HYDROmorphone 0.5 MG/0.5 ML SYRINGE IVP PRN; -IV FLUID CONTINUATION 1,000 ML IV ONE; -LACTATED RINGERS 1,000 ML IV SCH; -LIDOCAINE 1% (10MG/ML) FOR IV START INTRADERMA PRN; +MIDAZOLAM 2 MG/2 ML VIAL IV PRN; -MIDAZOLAM 2 MG/2 ML VIAL ONE; +ONDANSETRON 4 MG/2 ML VIAL IVP PRN; +PANTOPRAZOLE 40 MG/10 ML VIAL IVP PRN; -ROPIVACAINE 5 MG/ML 20 ML AMPULE ONE; -fentaNYL (PF) 50 MCG/ML 2 ML AMP ONE; -methylPREDNISolone ACETATE 40 MG/ML 1 ML VIAL ONE
--- NOTE | 2023-04-06 08:38 | P.GSHP ---
History of Present Illness H&P Date: 04/06/23 DATE OF SERVICE: 04/06/2023 CHIEF COMPLAINT: Morbid obesity HISTORY OF PRESENT ILLNESS: Nohemy Abernathy is a 68-year-old female who comes with lifelong morbid obesity. She is looking into the gastric bypass. She has tried medical weight loss, weight watchers, including [employer]. Her most weight loss is 20 pounds with weight watchers. She reports being skinny all of her life and was 145 pounds. She has lost weight to 120 pounds after the of her son. She weighed 160 pounds at her marriage. She is looking to get back to her prior weight. She is on medications. She is pre-diabetic. She has lactose intolerance. She is on blood pressure medications. She has gastroesophageal reflux disease that is severe despite her medications. She has not had an upper endoscopy before. She had her colonoscopy and had a polyp. She had her colonoscopy more than 5 years ago. She is due for a colonoscopy. She reports lower back pain, hip, and knee pain. She denies prior deep venous thrombosis. She presents first time in consultation for morbid obesity. At height of 5 feet 6.5 inches, her ideal body weight is 154 pounds. She comes in 255 pounds. Her body mass index is 40.6. She is 101 pounds overweight. PAST MEDICAL HISTORY: 1. Morbid obesity due to excess calories 2. Body mass index of 38.0, initial 3. Hypertensive heart disease 4. Hyperlipidemia 5. Diabetes type II, non-insulin dependent 6. Gastroesophageal reflux disease 7. Osteoarthritis lower back 8. Generalized anxiety disorder 9. Post op nausea and vomiting 10. Colon polyps. 11. Osteoarthritis of the hips 12. Osteoarthritis of the knee PAST SURGICAL HISTORY: 1. Appendectomy 2. Tonsillectomy HOME MEDICATIONS: ALLERGIES: SOCIAL HISTORY: Tobacco use. FAMILY HISTORY: No family history of ulcerative colitis disease or Crohn's disease. Family history of morbid obesity. No lupus in the family. No reports of stomach or esophageal cancer. REVIEW OF ORGAN SYSTEMS: CONSTITUTIONAL: At height of 5 feet 6.5 inches, her ideal body weight is 154 pounds. She comes in 255 pounds. Her body mass index is 40.6. She is 101 pounds overweight. HEENT: Denies any active troubles with vision or hearing. ENDOCRINE: Has diabetes. No hypothyroidism. CARDIOVASCULAR: Denies past reports of palpitations or heart attacks or chest pain. Has hypertensive heart disease. RESPIRATORY: Has daytime somnolence. GASTROINTESTINAL: Denies any bright red blood per rectum. No diarrhea. No constipation. Has gastroesophageal reflux disease. GENITOURINARY: Denies bladder urgency. No recent blood in urine MUSCULOSKELETAL: Has lower back pain and joint pain. Has osteoarthritis of the knees. NEURO: No headaches. No seizure disorders. PSYCH: Has depression. No suicidal ideation. Has anxiety. RHEUMATOLOGIC: No lupus. No rheumatoid arthritis. HEMATOLOGIC: Denies any abnormal bleeding or bruising. SKIN: No rash. No skin cancer. PHYSICAL EXAM: VITAL SIGNS: Height 5 foot 6.5 inches, weight 255 pounds. BMI 40.6 GENERAL: Well-developed in no acute distress. HEENT: No scleral icterus. Extraocular movements grossly intact. Hears conversational speech. No nasal drainage. NECK: Supple without lymphadenopathy. CHEST: Nonlabored respirations with equal bilateral excursions. CARDIOVASCULAR: Regular rate and regular rhythm. Distal 2+ pulses. ABDOMEN: Obese, soft, nontender, nondistended. MUSCULOSKELETAL: No clubbing, cyanosis. NEURO: No focal or lateralizing signs. Cranial nerves 2 through 12 grossly within normal limits. PSYCH: Appropriate affect. Alert and oriented to person, place and time. SKIN: Good skin turgor. Well perfused. ASSESSMENT: 1. Morbid obesity due to excess calories 2. Body mass index of 40.6, initial 3. Hypertensive heart disease 4. Hyperlipidemia 5. Diabetes type II, non-insulin dependent 6. Gastroesophageal reflux disease 7. Osteoarthritis lower back 8. Generalized anxiety disorder 9. Post op nausea and vomiting 10. Colon polyps. 11. Osteoarthritis of the hips 12. Osteoarthritis of the knee 13. Lactose intolerance PLAN: 1. Bariatric options between a sleeve, band and a Kayleigh-en-Y gastric bypass were reviewed in detail. The patient elected for a sleeve gastrectomy. Robotic assisted approach described. 2. The [place] [facility] Data was also reviewed with benefits and risks as described. 3. An 8 page second-generation bariatric consent form was reviewed in detail including potential of bleeding, infection, leaks, adequate weight loss, nutritional deficiencies which the patient demonstrated understanding of the risks. 4. A 2 week high-protein low caloric 800 kcal diet described to address hepatomegaly. 5. Preoperative labs including complete metabolic panel and CBC with type and screen recommended. 6. DVT prophylaxis per [place] [facility]. 7. Antibiotic prophylaxis. 8. Inpatient hospitalization anticipated for more than 2 nights. 9. All questions and concerns were addressed with the patient. 10. The patient is at elevated risk for perioperative complications with sleep apnea and hypertensive heart disease. 11. Overall, patient has expressed understanding of bariatric care including postoperative diet and commitment of lifestyle. Patient should benefit from surgical intervention for correction of morbid obesity. 12. She is elevated risk due to pre-existing comorbid conditions Past Medical History Past Medical History: Cancer, GERD/Reflux, Hearing Disorder / Deafness, Hypertension, Thyroid Disorder Additional Past Medical History / Comment(s): chronic back pain. right ovarian CA and endometrial CA, 09/21 Current chemo, finished with radiation. Thyroid nodules, HIATAL HERNIA History of Any Multi-Drug Resistant Organisms: None Reported Past Surgical History: Appendectomy, Hernia Repair, Hysterectomy, Tonsillectomy Additional Past Surgical History / Comment(s): FEBRUARY 19 HIATAL HERNIA REPAIR. COLONOSCOPY, PAIN CLINIC PROCEDURE Past Anesthesia/Blood Transfusion Reactions: Postoperative Nausea & Vomiting (PONV) Additional Past Anesthesia/Blood Transfusion Reaction / Comment(s): PONV w/ appendicitis, no other problems. no hx blood transfusion Past Psychological History: Anxiety Additional Psychological History / Comment(s): NO MEDS. Smoking Status: Former smoker Past Alcohol Use History: Occasional Additional Past Alcohol Use History / Comment(s): STARTED SMOKING AGE 14(1968), QUIT 1988, SMOKED 1-1AND 1/2PPD Past Drug Use History: None Reported - Past Family History Mother Family Medical History: Cancer Additional Family Medical History / Comment(s): pt. states her maternal grandmother had ovarian cancer, mother had thyroid nodules Father History Unknown: Yes Family Medical History: Unable to Obtain Medications and Allergies Home Medications Medication Instructions Recorded Confirmed Type Lisinopril-Hctz 20-12.5 mg 1 tab PO BID 01/15/16 03/30/23 History [Zestoretic 20-12.5] amLODIPine [Norvasc] 5 mg PO QAM 01/15/16 03/30/23 History Aspirin 81 mg PO DAILY #30 chewable 01/27/19 03/30/23 Rx metFORMIN HCL 500 mg PO 1700 02/27/21 03/30/23 History Anastrozole [Arimidex] 1 mg PO QAM 10/26/22 07/31/23 History Gabapentin 300 mg PO TID 06/25/22 03/30/23 History Metoprolol Succinate (ER) [Toprol 50 mg PO QAM 01/14/23 03/30/23 History XL] Acetaminophen Tab [Tylenol] 1,000 mg PO Q6HR PRN #30 tablet 01/20/23 03/30/23 Rx Simethicone 40 mg/0.6 ml Drops 40 mg PO PCHS PRN #30 ml 01/20/23 03/30/23 Rx [Mylicon Drops] bisacodyL [Dulcolax] 5 mg PO DAILY PRN #10 tab 01/20/23 03/30/23 Rx Atorvastatin [Lipitor] 20 mg PO HS 02/16/23 03/30/23 History Omeprazole [PriLOSEC] 40 mg PO QAM 03/30/23 03/30/23 History Allergies Allergy/AdvReac Type Severity Reaction Status Date / Time adhesive tape Allergy Rash/Hives Verified 03/30/23 11:39 gemifloxacin mesylate Allergy Rash/Hives Verified 03/30/23 11:39 [From Factive]
[2023-04-06] MEDS ORDERED: droPERidol 5 MG/2 ML VIAL IVP ONE (08:39)
[2023-04-06] MEDS ORDERED: LACTATED RINGERS 1,000 ML IV ONE ×2 (12:06→15:00)
[2023-04-06 12:22] LABS: Glucose,Whole Blood 99 mg/dL (70-110)
[2023-04-06] MEDS ORDERED: GLYCOPYRROLATE 0.2 MG/ML 2 ML VIAL ONE (13:37)
[2023-04-06] MEDS ORDERED: ROCURONIUM 10 MG/ML (5 ML VIAL) IV ONE (13:37)
[2023-04-06] MEDS ORDERED: fentaNYL (PF) 50 MCG/ML 2 ML AMP ONE (13:37)
[2023-04-06] MEDS ORDERED: SUCCINYLCHOLINE CHLORIDE 200 MG/10 ML VIAL IV ONE (13:37)
[2023-04-06] MEDS ORDERED: PROPOFOL 10 MG/ML 20 ML VIAL IV ONE (13:37)
[2023-04-06] MEDS ORDERED: LIDOCAINE 2% INJ 20 MG/ML (2 ML VIAL) ONE (13:37)
[2023-04-06] MEDS ORDERED: NEOSTIGMINE 1 MG/ML 10 ML VIAL ONE (13:37)
[2023-04-06] MEDS ORDERED: PHENYLEPHRINE-0.9% NACL SYG 1,000 MCG/10 ML SYRINGE ONE (13:37)
[2023-04-06] MEDS ORDERED: MIDAZOLAM 2 MG/2 ML VIAL ONE (13:37)
[2023-04-06] MEDS ORDERED: BUPIVACAINE (PF) 0.25% 30 ML VIAL SQ ONE ×2 (13:40→14:23)
[2023-04-06] MEDS ORDERED: NALOXONE 0.4 MG/ML 1 ML VIAL IV PRN (15:43)
--- NOTE | 2023-04-06 15:49 | P.OP ---
Date of Procedure: 04/06/23 Description of Procedure: SURGEON: VIKAS CUMMINGS MD PREOPERATIVE DIAGNOSES: 1. Morbid obesity due to excess calories 2. Body mass index of 38.0, initial 3. Hypertensive heart disease 4. Hyperlipidemia 5. Diabetes type II, non-insulin dependent 6. Gastroesophageal reflux disease 7. Osteoarthritis lower back 8. Generalized anxiety disorder 9. Post op nausea and vomiting 10. Colon polyps. 11. Osteoarthritis of the hips 12. Osteoarthritis of the knee 13. History of hiatal hernia repair POSTOPERATIVE DIAGNOSES: 1. Morbid obesity due to excess calories 2. Body mass index of 38.0, initial 3. Hypertensive heart disease 4. Hyperlipidemia 5. Diabetes type II, non-insulin dependent 6. Gastroesophageal reflux disease 7. Osteoarthritis lower back 8. Generalized anxiety disorder 9. Post op nausea and vomiting 10. Colon polyps. 11. Osteoarthritis of the hips 12. Osteoarthritis of the knee 13. History of hiatal hernia repair with recurrence OPERATION: 1. Robotic assisted daVinci Xi laparoscopic sleeve gastrectomy 2. Intraoperative esophagogastroduodenoscopy. ANESTHESIA: Gen. local anesthetic ESTIMATED BLOOD LOSS: 5 mL SPECIMENS REMOVED: Sleeve gastrectomy COMPLICATIONS: None. FINDINGS: 1. Negative intraoperative esophagogastrojejunoscopy leak test. 2. No hepatomegaly 3. Total of 7 staplers used including 2 - 60 mm green robot darin and 4 - 60 mm blue robot loads used to create the gastric sleeve. 4. Sleeve gastrectomy, 26 x 4 cm 5. Recurrent hiatal hernia, anterior without incarceration, 2-cm 6. Endoscope used for sleeve gastrectomy bougie as 40-Yoruba bougie unable to pass. INDICATIONS: Nohemy Abernathy is a 68-year-old female who comes with lifelong morbid obesity. As a result of her morbid obesity, she has developed osteoarthritis, hypertensive heart disease, diabetes type 2. She had recent hiatal hernia repair for control of her gastroesophageal reflux disease. She presents seeking sleeve gastrectomy. At height of 5 feet 6.5 inches, her ideal body weight is 154 pounds. She was 255 pounds. Her body mass index was 40.6. Today she comes in 235 pounds, 81 pounds overweight. Surgical options for morbid obesity had been described. A second-generation bariatric consent form was described in detail including the possibility of protein malnutrition, leaks, gastric stricture, venous thrombosis, gastroesophageal reflux disease, need for further surgery for which she demonstrated understanding. Benefits and risks of the procedure were described at length. Informed consent was obtained. DESCRIPTION: The patient was brought into the operating room theater. Preoperatively she had received Lovenox subcutaneously for DVT prophylaxis. Additionally she had Peridex oral solution as an oral decontaminant. After general induction, the abdomen was prepped and draped in standard sterile fashion. An Ioban draping was placed along the abdomen. A robotic da Lorena Xi system was prepped and primed. At 15 cm from the xiphoid, proposed port sites were marked with indelible marker along the anterior axillary line bilaterally, mid axillary line bilaterally with each ports were marked 10 to 15 cm from each other. The robotic stapler port was marked for the right midclavicular line. A 5 mm 0 degrees laparoscopic trocar entry was performed along the left upper quadrant. The abdomen was insufflated to 15 mmHg pressure was tolerated well. Diagnostic laparoscopy demonstrated no injury to bowel, viscera, or mesentery. No evidence of large hiatus hernia was identified. The liver edge was sharp consistent with 2 week low-carb high-protein diet. A 8 mm port was placed along the left upper abdominal wall after exchanging the 5 mm port. A separate 8 mm port was placed along the left lateral abdominal wall. Please note that the ports were placed at least 20 cm away from the target anatomy. Care was taken to check each robotic arms were safely away from collision with the bed or the patient. At the epigastrium, a medium sized Jeanie liver retractor was placed under direct visualization with the [employer] Account Manager placed under the right shoulder of the patient. Next, 12-mm robot stapler port was placed along the right upper quadrant. The camera 8-mm port was maintained along the epigastrium. The patient was repositioned in reverse Trendelenburg position at 21-degrees after lowering the bed. The robot was docked along the left side of the patient. Using a grasper for arm 4, a vessel sealer for arm 3, including grasper for arm 1, the robotic system was docked and primed as described. Instruments were interchanged by the assistant guest services manager for stapler loads. The camera was placed at 30- degrees down. I had sat at the console. The pylorus was identified and 6 cm proximally along the greater curvature of the stomach, the short gastrics were mobilized upwards to the angle of His using a vessel sealer. Hemostasis was excellent during this portion of the procedure. Next, the upper pole of the stomach was adherent to the left sridhar, which was gently dissected free using atraumatic grasper. I went to the head of the bed and placed 40-Yoruba blunt bougie into the stomach. However the bougie could not pass. An Olympus gastroscope was used as a bougie. Robotic stapler green load 60 mm 2 followed by blue 60 mm x 4 loads were used to create the sleeve. Initial firing was across the antrum of the stomach towards the angle of His. The staple line was linear without corkscrewing. The space from the angularis incisura of the sleeve was approximately 4 cm. I then went to the head of the bed to perform the intraoperative esophagogastroduodenoscopy leak test. The bougie was withdrawn. The upper pole of the stomach was bathed using normal saline solution. The scope was withdrawn with careful inspection along the staple line for which no leaks were found along the entire length. Additionally,the sleeve was completely hemostatic without any encroachment along the angularis incisura. Its topology was a soft "J". No stricture was encountered upon placement of the scope. The GI tract was desufflated. The patient tolerated this portion of the procedure well. The scope was completely withdrawn. The robot was undocked. I then rescrubbed into case, whereby the irrigation fluid was aspirated from the abdominal cavity. Tisseel fibrin sealant was placed along the entire staple length. Once dried the Jeanie liver retractor was removed. Attention was now brought to removal of the specimen. The distal end of the sleeve gastrectomy specimen was brought out through the 12 mm port at the left upper quadrant. The specimen was gently removed en total. No contamination had occurred during this process. All instruments and pneumoperitoneum including irrigation fluid was removed from the abdominal cavity. The 12 mm port site was closed using 0-Vicryl and Aldo Hartley and irrigated with diluted hydrogen peroxide. The final incisions were closed using subcuticular interrupted suture of 4-0 Monocryl. Exofin was applied to the skin once the skin had been cleansed. OptiFoam dressing was placed along the stomach extraction site. The sleeve specimen was measured and checked also for leaks which none were found. At the end of the procedure, needle, sponge, and instrument count was verified correct by the surgical pathologist. The patient was taken to the postanesthesia care unit in stable condition. She had tolerated the procedure well. Intraoperative films and findings were reviewed with the patient's family.
[2023-04-06] MEDS: LACTATED RINGERS 1,000 ML IV SCH (18:08)
[2023-04-06] MEDS: ONDANSETRON 4 MG/2 ML VIAL IVP SCH (18:08)
[2023-04-06] MEDS: ACETAMINOPHEN IV (For NPO) 1,000 MG in EMPTY BAG 1 BAG IVPB SCH (18:09)
[2023-04-06] MEDS: SIMETHICONE 80 MG CHEWABLE PO SCH ×2 (18:10→23:17)
[2023-04-06] MEDS ORDERED: DEXTROSE 50% SYRINGE 50 ML IVP PRN ×2 (18:34)
[2023-04-06] MEDS: 0.9% NACL WITH KCL 20 MEQ/L 1,000 ML IV SCH ×2 (18:45→23:06)
[2023-04-06] MEDS: ALBUTEROL NEBULIZED 2.5 MG/3 ML INHALATION SCH ×2 (18:46→21:42)
[2023-04-06] MEDS ORDERED: DEXAMETHASONE SOD PHOSPHATE 10 MG/ML 1 ML VIAL IVP STA (19:50)
[2023-04-06] MEDS ORDERED: SODIUM CHLORIDE 0.9% 1,000 ML IV ONE (19:51)
[2023-04-06] MEDS: PANTOPRAZOLE 40 MG/10 ML VIAL IV SCH (21:40)
[2023-04-06] MEDS: LISINOPRIL-HCTZ 20-12.5 MG 1 EACH TAB PO SCH (21:40)
[2023-04-06] MEDS: GABAPENTIN 300 MG CAP PO SCH (21:41)
[2023-04-06] MEDS: HYDROmorphone 1 MG/ML 1 ML SYRINGE IVP PRN (21:41)
[2023-04-06 21:56] LABS: Glucose,Whole Blood 156 mg/dL (70-110)
[2023-04-06] MEDS: INSULIN ASPART (NovoLOG) 100 UNIT/ML VIAL SQ SCH (23:06)
[2023-04-07] MEDS: ACETAMINOPHEN IV (For NPO) 1,000 MG in EMPTY BAG 1 BAG IVPB SCH ×3 (00:24→11:12)
[2023-04-07] MEDS: ONDANSETRON 4 MG/2 ML VIAL IVP SCH ×4 (00:25→17:04)
[2023-04-07] MEDS: DEXAMETHASONE SOD PHOSPHATE 4 MG/ML 1 ML VIAL IVP SCH ×4 (00:25→17:04)
[2023-04-07] MEDS ORDERED: ONDANSETRON 4 MG/2 ML VIAL IVP PRN (00:37)
[2023-04-07] MEDS: 0.9% NACL WITH KCL 20 MEQ/L 1,000 ML IV SCH (03:00)
[2023-04-07 05:35] LABS: Glucose,Whole Blood 150 mg/dL (70-110)
[2023-04-07] MEDS: LACTATED RINGERS 1,000 ML IV SCH (07:58)
[2023-04-07] MEDS: INSULIN ASPART (NovoLOG) 100 UNIT/ML VIAL SQ SCH ×4 (07:59→21:08)
[2023-04-07] MEDS ORDERED: 0.9% NACL WITH KCL 20 MEQ/L 1,000 ML IV SCH (08:00)
[2023-04-07] MEDS ORDERED: SODIUM CHLORIDE 0.9% 1,000 ML IV ONE ×2 (08:35→13:38)
[2023-04-07] MEDS ORDERED: METOPROLOL SUCCINATE (ER) 50 MG TAB.ER.24H PO SCH (09:00)
[2023-04-07] MEDS ORDERED: amLODIPine 5 MG TAB PO SCH (09:00)
[2023-04-07] MEDS: ALBUTEROL NEBULIZED 2.5 MG/3 ML INHALATION SCH ×4 (09:09→20:39)
[2023-04-07] MEDS: PANTOPRAZOLE 40 MG/10 ML VIAL IV SCH ×2 (09:54→21:08)
[2023-04-07] MEDS: HYDROmorphone 1 MG/ML 1 ML SYRINGE IVP PRN ×2 (09:55→21:13)
[2023-04-07 11:06] LABS: Basophils # (A) 0.01 X 10*3/uL (0.00-0.10); Basophils % (A) 0.1 %; Eosinophils # (A) 0 X 10*3/uL (0.04-0.35); Eosinophils % (A) 0 %; HCT 39.1 % (37.2-46.3); HGB 11.9 d/dL (12.0-15.0); Lymphocytes # (A) 0.81 X 10*3/uL (0.90-5.00); Lymphocytes % (A) 9.9 %; MCH 28.7 pg (27.0-32.0); MCHC 30.4 d/dL (32.0-37.0); MCV 94.4 FL (80.0-97.0); Mean Platelet Volume 9.8 FL (9.5-12.2); Monocytes # (A) 0.06 X 10*3/uL (0.20-1.00); Monocytes % (A) 0.7 %; NRBC Per 100 WBC 0 X 10*3/uL (0.00-0.01); Neutrophils # (A) 7.24 X 10*3/uL (1.80-7.70); Neutrophils % (A) 88.7 %; Platelet Count 271 X 10*3/uL (140-440); RBC 4.14 X 10*6/uL (4.10-5.20); RDW 15.2 % (11.5-14.5); WBC 8.17 X 10*3/uL (4.50-10.00)
[2023-04-07] MEDS: ENOXAPARIN 40 MG/0.4 ML SYRINGE SQ SCH (11:11)
[2023-04-07] MEDS: ASPIRIN 81 MG PO SCH (11:11)
[2023-04-07] MEDS: GABAPENTIN 300 MG CAP PO SCH ×3 (11:11→21:09)
[2023-04-07] MEDS: SIMETHICONE 80 MG CHEWABLE PO SCH ×4 (11:12→22:22)
[2023-04-07] MEDS: LISINOPRIL-HCTZ 20-12.5 MG 1 EACH TAB PO SCH (11:12)
[2023-04-07 11:16] LABS: Glucose,Whole Blood 182 mg/dL (70-110)
[2023-04-07 12:12] LABS: Magnesium 1.5 mg/dL (1.5-2.4); Phosphorus 3.9 mg/dL (2.4-5.1)
[2023-04-07 12:15] LABS: Blood Urea Nitrogen 19.2 mg/dL (9.0-27.0); Calcium 9.5 mg/dL (8.7-10.3); Carbon Dioxide 14.7 mmol/L (21.6-31.8); Chloride 104 mmol/L (96-109); Potassium 5.5 mmol/L (3.5-5.5); Sodium 137 mmol/L (135-145)
--- NOTE | 2023-04-07 12:57 | FL ---
EXAMINATION TYPE: FL UGI DATE OF EXAM: 04/07/2023 CLINICAL HISTORY: Status post gastric sleeve Contrast: Omnipaque 350 50 mL FL TIME 0.37 MINS DAP 710.41 The patient ingested contrast without difficulty or delay. Noted are postsurgical changes of gastric sleeve. There is no evidence for leak or obstruction. Contrast is noted within the duodenum. IMPRESSION: Post-surgical change of gastric sleeve without evidence for obstruction or leak at this point in time.
[2023-04-07 13:15] VITALS: BMI 35.7
[2023-04-07] MEDS: MAGNESIUM SULFATE-D5W PMX 1 GM in DEXTROSE/WATER 1 100ML.BAG IVPB SCH ×2 (14:08→15:23)
[2023-04-07] MEDS: SODIUM CHLORIDE 0.9% 1,000 ML IV SCH (14:09)
--- NOTE | 2023-04-07 14:42 | P.PN ---
Subjective Progress Note Date: 04/07/23 CHIEF COMPLAINT: Morbid obesity HISTORY OF PRESENT ILLNESS: Postop day #1 status post sleeve gastrectomy. Patient complains of abdominal pain about 7 out of 10. Denies any vomiting. Does report nausea earlier that has improved. She denies any flatus. She has been up and ambulate. Denies difficulty urinating. She has been tachycardic. Also had a drop in oxygen saturation 86% on 2 L. Afebrile. Patient did receive IV fluid bolus this morning. But does remain tachycardic and has become hypoten sive again. Patient does report taking her metoprolol yesterday. WBC is 8.17 hgb 11.9 na 137 potassium is 5.5 creatinine 1.0 magnesium is 1.5 upper GI shows no evidence of obstruction or leak PHYSICAL EXAM: VITAL SIGNS: Reviewed GENERAL: Well-developed in no acute distress. HEENT: No sclera icterus. Extraocular movements grossly intact. Moist buccal mucosa. Head is atraumatic, normocephalic. Hears conversational speech. No nasal drainage. NECK: Supple without lymphadenopathy. CHEST: Non-labored respirations and equal bilateral excursions. CARDIOVASCULAR: Palpable 2+ radial pulses. ABDOMEN: Soft. Nondistended. Incision sites clean dry and intact. MUSCULOSKELETAL: No clubbing or cyanosis. NEUROLOGIC: No focal or lateralizing signs. Cranial nerves II through XII grossly intact. PSYCH: Appropriate affect. Alert and oriented to person, place and time. SKIN: Well perfused. Good skin turgor. ASSESSMENT: 1. Morbid obesity due to excess calories 2. Body mass index of 40.6, initial 3. Hypertensive heart disease 4. Hyperlipidemia 5. Diabetes type II, non-insulin dependent 6. Gastroesophageal reflux disease 7. Osteoarthritis lower back 8. Generalized anxiety disorder 9. Post op nausea and vomiting 10. Colon polyps. 11. Osteoarthritis of the hips 12. Osteoarthritis of the knee 13. History of hiatal hernia repair with recurrence 14. Hypomagnesemia PLAN: -Continue bariatric clear liquid diet -CTA of the chest to rule out PE due to tachycardia and hypoxia -Consult cardiology due to tachycardia -Discontinue patient Zestoretic -We'll give another 1 L fluid bolus -Remove potassium from IV fluids. Place patient on normal saline at 100 mL an hour -Replace magnesium -Repeat labs in a.m. -Check EKG and check troponin -DVT prophylaxis Lovenox Physician Fagot Maker note has been reviewed by physician. Signing provider agrees with the documented findings, assessment, and plan of care. Objective - Vital Signs Vital signs: Vital Signs Temp 98.7 F 04/07/23 13:18 Pulse 127 H 04/07/23 13:18 Resp 18 04/07/23 13:18 BP 86/49 04/07/23 13:18 Pulse Ox 86 L 04/07/23 13:18 FiO2 Intake & Output 04/06/23 04/07/23 04/07/23 18:59 06:59 18:59 Intake Total 1050 Output Total 5 Balance 1045 Weight 106.6 kg 106.6 kg 106.6 kg Intake: IV 1050 Output: Estimated Blood Loss 5 - Labs CBC & Chem 7: 04/07/23 05:10 04/07/23 05:10 Labs: Abnormal Lab Results - Last 24 Hours (Table) 04/06/23 04/07/23 04/07/23 Range/Units 21:53 05:10 05:10 Hgb 11.9 L (12.0-15.0) d/dL MCHC 30.4 L (32.0-37.0) d/dL RDW 15.2 H (11.5-14.5) % Lymphocytes # 0.81 L (0.90-5.00) X 10*3/uL Monocytes # 0.06 L (0.20-1.00) X 10*3/uL Eosinophils # 0 L (0.04-0.35) X 10*3/uL Carbon Dioxide 14.7 L (21.6-31.8) mmol/L Anion Gap 18.30 H (4.00-12.00) mmol/L POC Glucose (mg/dL) 156 H (70-110) mg/dL 04/07/23 04/07/23 Range/Units 05:28 11:15 Hgb (12.0-15.0) d/dL MCHC (32.0-37.0) d/dL RDW (11.5-14.5) % Lymphocytes # (0.90-5.00) X 10*3/uL Monocytes # (0.20-1.00) X 10*3/uL Eosinophils # (0.04-0.35) X 10*3/uL Carbon Dioxide (21.6-31.8) mmol/L Anion Gap (4.00-12.00) mmol/L POC Glucose (mg/dL) 150 H 182 H (70-110) mg/dL
--- NOTE | 2023-04-07 15:44 | CT ---
EXAMINATION TYPE: CT chest angio for PE DATE OF EXAM: 04/07/2023 COMPARISON: 12/22/2022 HISTORY: Shortness of breath and tachycardia post bariatric surgery x1 week ago. CT DLP: 539.5 mGycm CONTRAST: CT chest with contrast and 3D reconstruction with MIP imaging is performed with IV Contrast, patient injected with 62ml mL of Isovue 370. Contrast-enhanced CT of the chest was performed through the course of the pulmonary arteries with елена g and mediastinal window settings submitted. 3D reconstruction with MIP imaging was also performed. PULMONARY ARTERIES: The pulmonary arteries and their major tributaries are patent. I do not see yoan dence for sizable filling defect to suggest pulmonary embolic process. LUNGS: The lungs are clear and free of infiltrate. No evidence for atelectasis. No pulmonary nodule or mass is detected. No pleural effusion. MEDIASTINUM: Thyroid nodules. Thoracic aorta is of normal caliber. The heart is not enlarged. No ev idence for mediastinal mass. No mediastinal lymph nodes greater than 1cm. HILAR STRUCTURES: No evidence for mass. No hilar lymph nodes greater than 1 cm. UPPER ABDOMEN: There is anterior abdominal wall subcutaneous air from recent bariatric surgery. There appears to be gastric sleeve formation. There may be a hiatal hernia. IMPRESSION: 1. No evidence for Pulmonary embolism at this time.
[2023-04-07 16:10] LABS: Glucose,Whole Blood 202 mg/dL (70-110)
[2023-04-07] MEDS: metFORMIN 500 MG TAB PO SCH (17:04)
[2023-04-07 20:11] LABS: Glucose,Whole Blood 185 mg/dL (70-110)
[2023-04-08] MEDS: DEXAMETHASONE SOD PHOSPHATE 4 MG/ML 1 ML VIAL IVP SCH ×3 (00:41→12:44)
[2023-04-08] MEDS: ONDANSETRON 4 MG/2 ML VIAL IVP SCH ×3 (00:41→12:39)
[2023-04-08] MEDS: SODIUM CHLORIDE 0.9% 1,000 ML IV SCH ×2 (01:39→05:04)
[2023-04-08 05:54] LABS: Glucose,Whole Blood 164 mg/dL (70-110)
[2023-04-08] MEDS: INSULIN ASPART (NovoLOG) 100 UNIT/ML VIAL SQ SCH ×2 (06:40→12:31)
[2023-04-08] MEDS: LACTATED RINGERS 1,000 ML IV SCH (06:58)
[2023-04-08] MEDS: HYDROmorphone 1 MG/ML 1 ML SYRINGE IVP PRN (07:41)
[2023-04-08] MEDS: ALBUTEROL NEBULIZED 2.5 MG/3 ML INHALATION SCH ×3 (08:21→16:04)
[2023-04-08] MEDS ORDERED: METOPROLOL TARTRATE 50 MG TAB PO SCH (09:00)
--- NOTE | 2023-04-08 09:08 | P.CRDCN ---
History of Present Illness Consult date: 04/08/23 Reason for Consult (text): Tachycardia and hypotension History of present illness: History of present illness: This is a 68-year-old female patient of Dr. Mulligan with past medical history of tachycardia, hypertension, hyperlipidemia, diabetes, remote history of tobacco use. Patient was recently in the office on 02/11 for surgical clearance for gastric sleeve surgery with Dr. Espinoza. Patient was admitted on 04/06 underwent gastric sleeve procedure. We have been consulted regarding tachycardia and hypotension. Patient states that she is on clear liquid diet and tolerating. She has been on IV fluids at 100 mL per hour since yesterday. Patient also states that she is urinating well. Yesterday, patient had documented blood pressure at the lowest of 86/49 and heart rate 127. Patient is well-known to have sinus tachycardia and maintained on Toprol-XL 50 mg daily and usually is asymptomatic. Yesterday, patient did receive amlodipine and Toprol- XL 50 mg. EKG sinus tachycardia right bundle branch 126 bpm CTA of the chest performed 04/07: No evidence of pulmonary embolism WBC 8.1, hemoglobin 1.9, BUN 19 and creatinine 1. Potassium 5.5. Troponin negative 1. Home cardiac medications: Amlodipine 5 mg daily, aspirin 81 mg daily, Lipitor 20 mg at bedtime, lisinopril hydrochlorothiazide 1 tablet twice a day, Toprol-XL 50 mg daily Echocardiograms 10/2022 EF 52%, mild MR, mild TR. Lexiscan stress test 03/2019 EF 45%, fixed apical defect Cardiac catheterization 07/2019 EF 50%, normal coronaries, left dominant. Review Of Systems: At the time of my evaluation: Constitutional: No fever, no chills. No weakness, fatigue or lethargy. EENT: No headache. No dizziness. Lungs: No shortness of breath, cough, no sputum production. No wheezing. Cardiovascular: No chest pain, no lower extremity edema. No palpitations. No paroxysmal nocturnal dyspnea. No orthopnea. No lightheadedness or dizziness. No syncopal episodes. Abdominal: Mild abdominal discomfort. No nausea, vomiting. Genitourinary: No dysuria.. No urinary retention. Musculoskeletal: No myalgias. No muscle weakness, no frequent falls. Integumentary: No wounds. No rash. No unusual bruising. Neurologic: No aphasia. No facial droop. No change in mentation. Physical examination: Gen: This is a 68-year-old female. She is resting in bed appears to be comfortable and in no acute distress VS: reviewed 101/69, heart rate 106. HEENT: Head is atraumatic, normocephalic. Pupils equal, round. Sclerae is anicteric. NECK: Supple. No JVD. LUNGS: Clear to auscultation. No wheezes or rhonchi. No intercostal retractions. HEART: Regular rate and rhythm. No murmur. Tachycardic. ABDOMEN: Soft EXTREMITIES: No pedal edema. No calf tenderness. NEUROLOGICAL: Patient is awake, alert and oriented x3. Assessment: Gastric sleeve surgery Sinus tachycardia and hypotension Hypertension Hyperlipidemia Diabetes2 Plan: Discontinue amlodipine and continue to hold lisinopril/chlorothiazide Discontinue Toprol-XL and place patient on metoprolol tartrate 50 mg twice daily Continue IV fluids at 100 mL per hour until 4 PM this afternoon and decreased to 75 mL Obtain TSH and free T4 No need to obtain echocardiogram Further recommendations to follow based upon clinical course Thank you kindly for this consultation. Nurse practitioner note has been reviewed, I agree with documented findings and plan of care. Patient was seen and examined. Past Medical History Past Medical History: Cancer, GERD/Reflux, Hearing Disorder / Deafness, Hypertension, Thyroid Disorder Additional Past Medical History / Comment(s): chronic back pain. right ovarian CA and endometrial CA, 09/21 Current chemo, finished with radiation. Thyroid nodules, HIATAL HERNIA History of Any Multi-Drug Resistant Organisms: None Reported Past Surgical History: Appendectomy, Hernia Repair, Hysterectomy, Tonsillectomy Additional Past Surgical History / Comment(s): FEBRUARY 19 HIATAL HERNIA REPAIR. COLONOSCOPY, PAIN CLINIC PROCEDURE Past Anesthesia/Blood Transfusion Reactions: Postoperative Nausea & Vomiting (PONV) Additional Past Anesthesia/Blood Transfusion Reaction / Comment(s): PONV w/ appendicitis, no other problems. no hx blood transfusion Past Psychological History: Anxiety Additional Psychological History / Comment(s): NO MEDS. Smoking Status: Former smoker Past Alcohol Use History: Occasional Additional Past Alcohol Use History / Comment(s): STARTED SMOKING AGE 14(1968), QUIT 1988, SMOKED 1-1AND 1/2PPD Past Drug Use History: None Reported Additional Drug Use History / Comment(s): pt. states she rarely drinks alcohol and occassionally smokes a vape pen with marijuana for her chronic back pain, pt. states she uses every 2 days - Past Family History Mother Family Medical History: Cancer Additional Family Medical History / Comment(s): pt. states her maternal grandmother had ovarian cancer, mother had thyroid nodules Father History Unknown: Yes Family Medical History: Unable to Obtain Medications and Allergies Home Medications Medication Instructions Recorded Confirmed Type Lisinopril-Hctz 20-12.5 mg 1 tab PO BID 01/15/16 03/30/23 History [Zestoretic 20-12.5] amLODIPine [Norvasc] 5 mg PO QAM 01/15/16 03/30/23 History Aspirin 81 mg PO DAILY #30 chewable 01/27/19 03/30/23 Rx metFORMIN HCL 500 mg PO 1700 02/27/21 03/30/23 History Anastrozole [Arimidex] 1 mg PO QAM 06/25/22 03/30/23 History Gabapentin 300 mg PO TID 06/25/22 03/30/23 History Metoprolol Succinate (ER) [Toprol 50 mg PO QAM 01/14/23 03/30/23 History XL] Acetaminophen Tab [Tylenol] 1,000 mg PO Q6HR PRN #30 tablet 01/20/23 03/30/23 Rx Simethicone 40 mg/0.6 ml Drops 40 mg PO PCHS PRN #30 ml 01/20/23 03/30/23 Rx [Mylicon Drops] bisacodyL [Dulcolax] 5 mg PO DAILY PRN #10 tab 01/20/23 03/30/23 Rx Atorvastatin [Lipitor] 20 mg PO HS 02/16/23 03/30/23 History Omeprazole [PriLOSEC] 40 mg PO QAM 03/30/23 03/30/23 History Allergies Allergy/AdvReac Type Severity Reaction Status Date / Time adhesive tape Allergy Rash/Hives Verified 03/30/23 11:39 gemifloxacin mesylate Allergy Rash/Hives Verified 03/30/23 11:39 [From Factive] Physical Exam Vitals: Vital Signs Temp Pulse Pulse Pulse Resp BP Pulse Ox 04/08/23 08:21 95 04/08/23 07:05 98.8 F 109 H 17 101/69 95 04/08/23 00:53 97.6 F 123 H 18 103/67 94 L 04/07/23 20:49 120 H 04/07/23 20:40 115 H 04/07/23 19:25 97.9 F 114 H 16 97/55 95 04/07/23 15:44 120 H 04/07/23 15:36 117 H 04/07/23 13:18 98.7 F 127 H 18 86/49 86 L 04/07/23 12:26 120 H 04/07/23 12:15 116 H 04/07/23 09:18 126 H 04/07/23 09:12 95 04/07/23 09:09 120 H Intake and Output 04/07/23 04/08/23 04/08/23 22:59 06:59 14:59 Other: # Voids 1 Results 04/07/23 05:10 04/07/23 05:10 Cardiac Enzymes 04/07/23 Range/Units 15:11 Troponin I 0.033 (0.000-0.034) ng/mL CBC 04/07/23 Range/Units 05:10 WBC 8.17 (4.50-10.00) X 10*3/uL RBC 4.14 (4.10-5.20) X 10*6/uL Hgb 11.9 L (12.0-15.0) d/dL Hct 39.1 (37.2-46.3) % Plt Count 271 (140-440) X 10*3/uL Comprehensive Metabolic Panel 04/07/23 Range/Units 05:10 Sodium 137 (135-145) mmol/L Potassium 5.5 (3.5-5.5) mmol/L Chloride 104 (96-109) mmol/L Carbon Dioxide 14.7 L (21.6-31.8) mmol/L BUN 19.2 (9.0-27.0) mg/dL Creatinine 1.0 (0.6-1.5) mg/dL Calcium 9.5 (8.7-10.3) mg/dL Current Medications Generic Name Dose Route Start Last Admin Trade Name Freq PRN Reason Stop Dose Admin Albuterol Sulfate 2.5 mg 04/06/23 16:00 04/08/23 08:21 Albuterol Nebulized 2.5 Mg/3 Ml INHALATION Not Given RT-QID TYRONE Aspirin 81 mg 04/07/23 09:00 04/07/23 11:11 Aspirin 81 Mg PO 81 mg DAILY TYRONE Administration Dexamethasone Sodium Phosphate 4 mg 04/07/23 00:00 04/08/23 05:04 Dexamethasone Sod Phosphate 4 Mg/Ml 1 Ml Vial IVP 4 mg Q6HR TYRONE Administration Dextrose/Water 25 ml 04/06/23 18:34 Dextrose 50% Syringe 50 Ml IVP PER PROTOCOL PRN Hypoglycemia Protocol Dextrose/Water 50 ml 04/06/23 18:34 Dextrose 50% Syringe 50 Ml IVP PER PROTOCOL PRN Hypoglycemia Protocol Enoxaparin Sodium 40 mg 04/07/23 09:00 04/07/23 11:11 Enoxaparin 40 Mg/0.4 Ml Syringe SQ 40 mg DAILY TYRONE Administration Gabapentin 300 mg 04/06/23 22:00 04/07/23 21:09 Gabapentin 300 Mg Cap PO 300 mg TID TYRNOE Administration Hydromorphone HCl 1 mg 04/06/23 15:43 04/08/23 07:41 Hydromorphone 1 Mg/Ml 1 Ml Syringe IVP 1 mg Q3HR PRN Administration Severe Pain (7 to 10) Lactated Ringer's 1,000 mls @ 20 mls/hr 04/06/23 05:23 04/08/23 06:58 Lactated Ringers IV Not Given .Q24H [facility] Sodium Chloride 1,000 mls @ 100 mls/hr 04/07/23 13:45 04/08/23 05:04 Saline 0.9% IV 100 mls/hr .Q10H TYRONE Administration Insulin Aspart 0 unit 04/06/23 21:00 04/08/23 06:40 Insulin Aspart (Novolog) 100 Unit/Ml Vial SQ 2 unit ACHS TYRONE Administration Protocol Metformin HCl 500 mg 04/07/23 17:00 04/07/23 17:04 Metformin 500 Mg Tab PO 500 mg 1700 TYRONE Administration Metoprolol Tartrate 50 mg 04/08/23 09:00 Metoprolol Tartrate 50 Mg Tab PO BID TYRONE Naloxone HCl 0.2 mg 04/06/23 15:43 Naloxone 0.4 Mg/Ml 1 Ml Vial IV Q2M PRN Opioid Reversal Ondansetron HCl 4 mg 04/06/23 18:00 04/08/23 05:04 Ondansetron 4 Mg/2 Ml Vial IVP 4 mg Q6HR TYRONE Administration Ondansetron HCl 4 mg 04/07/23 00:37 Ondansetron 4 Mg/2 Ml Vial IVP Q6HR PRN Nausea And Vomiting Pantoprazole Sodium 40 mg 04/06/23 21:00 04/07/23 21:08 Pantoprazole 40 Mg/10 Ml Vial IV 40 mg BID TYRONE Administration Simethicone 80 mg 04/06/23 18:00 04/07/23 22:22 Simethicone 80 Mg Chewable PO Not Given QID TYRONE Intake and Output 04/07/23 04/08/23 04/08/23 22:59 06:59 14:59 Other: # Voids 1 04/07/23 05:10 04/07/23 05:10
[2023-04-08] MEDS: ENOXAPARIN 40 MG/0.4 ML SYRINGE SQ SCH (09:21)
[2023-04-08] MEDS: PANTOPRAZOLE 40 MG/10 ML VIAL IV SCH (09:21)
[2023-04-08] MEDS: ASPIRIN 81 MG PO SCH (09:21)
[2023-04-08] MEDS: SIMETHICONE 80 MG CHEWABLE PO SCH ×2 (09:21→12:44)
[2023-04-08] MEDS: GABAPENTIN 300 MG CAP PO SCH ×2 (09:21→16:37)
[2023-04-08 09:31] LABS: Basophils # (A) 0.02 X 10*3/uL (0.00-0.10); Basophils % (A) 0.1 %; Eosinophils # (A) 0 X 10*3/uL (0.04-0.35); Eosinophils % (A) 0 %; HCT 34.9 % (37.2-46.3); HGB 10.7 d/dL (12.0-15.0); Lymphocytes # (A) 0.91 X 10*3/uL (0.90-5.00); Lymphocytes % (A) 6.1 %; MCH 28.9 pg (27.0-32.0); MCHC 30.7 d/dL (32.0-37.0); MCV 94.3 FL (80.0-97.0); Mean Platelet Volume 9.8 FL (9.5-12.2); Monocytes # (A) 0.67 X 10*3/uL (0.20-1.00); Monocytes % (A) 4.5 %; NRBC Per 100 WBC 0 X 10*3/uL (0.00-0.01); Neutrophils # (A) 13.34 X 10*3/uL (1.80-7.70); Neutrophils % (A) 88.8 %; Platelet Count 290 X 10*3/uL (140-440); RDW 15.9 % (11.5-14.5); WBC 15.01 X 10*3/uL (4.50-10.00)
[2023-04-08 11:01] LABS: BUN/Creat Ratio 18.29 Ratio (12.00-20.00); Blood Urea Nitrogen 12.8 mg/dL (9.0-27.0); Calcium 9.5 mg/dL (8.7-10.3); Carbon Dioxide 20.1 mmol/L (21.6-31.8); Chloride 110 mmol/L (96-109); Glucose 149 mg/dL (70-110); Magnesium 2.1 mg/dL (1.5-2.4); Potassium 4.2 mmol/L (3.5-5.5); Sodium 142 mmol/L (135-145)
[2023-04-08 11:12] LABS: Glucose,Whole Blood 151 mg/dL (70-110)
[2023-04-08] MEDS ORDERED: ACETAMINOPHEN TAB 500 MG TAB PO SCH (12:00)
[2023-04-08 13:09] VITALS: BP 109/74; PULSE 103; RESP 18; TEMP 97.7
[2023-04-08 16:24] LABS: Glucose,Whole Blood 131 mg/dL (70-110)
[2023-04-08] MEDS: metFORMIN 500 MG TAB PO SCH (16:37)
--- NOTE | 2023-04-08 16:40 | P.DS ---
Providers Date of admission: 04/06/23 11:49 Expected date of discharge: 04/08/23 Attending physician: Loretta Espinoza Consults: 04/07/23 13:39 Consult Physician Routine Consulting Provider: Reji Kelly Consult Reason/Comments: Tachycardia and hypotension Do you want consulting provider notified?: Yes Primary care physician: Narendra Mohan [facility] Hospital Course: Discharge diagnosis 1. Morbid obesity due to excess calories 2. Body mass index of 40.6, initial 3. Hypertensive heart disease 4. Hyperlipidemia 5. Diabetes type II, non-insulin dependent 6. Gastroesophageal reflux disease 7. Osteoarthritis lower back 8. Generalized anxiety disorder 9. Post op nausea and vomiting 10. Colon polyps. 11. Osteoarthritis of the hips 12. Osteoarthritis of the knee 13. History of hiatal hernia repair with recurrence 14. Hypomagnesemia 15. Sinus tachycardia and hypotension Hospital course This is a 68-year-old female with a known history of morbid obesity she is status post Robotic-assisted laparoscopic sleeve gastrectomy. Patient's upper GI shows no evidence of leak or obstruction. She is tolerating diet. Her pain is controlled she has been up and ambulating. She is having flatus. Denies and was urinating. On during the hospitalization patient had a drop in her oxygen saturation and had been tachycardic. CT of the chest was done no evidence of PE. Her troponin was negative. EKG had shown sinus tachycardia. Cardiology was consulted. The adjusted patient's metoprolol and and discontinued her other 2 blood pressure medications. Patient had received fluid boluses. Patient's blood pressure and heart rate have improved. Patient is on room air. Patient is stable for discharge. Physician Administration Manager note has been reviewed by physician. Signing provider agrees with the documented findings, assessment, and plan of care. Patient Condition at Discharge: Stable Plan - Discharge Summary Discharge Rx Participant: No New Discharge Prescriptions: New bisacodyL [Dulcolax] 5 mg PO DAILY PRN #10 tab PRN Reason: Constipation Simethicone 40 mg/0.6 ml Drops [Mylicon Drops] 40 mg PO PCHS PRN #30 ml PRN Reason: Gas Ondansetron Odt [Zofran Odt] 4 mg PO Q8HR PRN #9 tab PRN Reason: Nausea Metoprolol Tartrate [Lopressor] 50 mg PO BID #60 tab Continue Aspirin 81 mg PO DAILY #30 chewable Acetaminophen Tab [Tylenol] 1,000 mg PO Q6HR PRN #30 tablet PRN Reason: Pain metFORMIN HCL 500 mg PO 1700 Gabapentin 300 mg PO TID Omeprazole [PriLOSEC] 40 mg PO QAM Discontinued amLODIPine [Norvasc] 5 mg PO QAM Lisinopril-Hctz 20-12.5 mg [Zestoretic 20-12.5] 1 tab PO BID Anastrozole [Arimidex] 1 mg PO QAM Metoprolol Succinate (ER) [Toprol XL] 50 mg PO QAM Simethicone 40 mg/0.6 ml Drops [Mylicon Drops] 40 mg PO PCHS PRN #30 ml PRN Reason: Gas Atorvastatin [Lipitor] 20 mg PO HS bisacodyL [Dulcolax] 5 mg PO DAILY PRN #10 tab PRN Reason: Constipation Discharge Medication List Aspirin 81 mg PO DAILY #30 chewable 01/27/19 [Rx] metFORMIN HCL 500 mg PO 1700 02/27/21 [History] Gabapentin 300 mg PO TID 06/25/22 [History] Omeprazole [PriLOSEC] 40 mg PO QAM 03/30/23 [History] Acetaminophen Tab [Tylenol] 1,000 mg PO Q6HR PRN #30 tablet 04/08/23 [Rx] Metoprolol Tartrate [Lopressor] 50 mg PO BID #60 tab 04/08/23 [Rx] Ondansetron Odt [Zofran Odt] 4 mg PO Q8HR PRN #9 tab 04/08/23 [Rx] Simethicone 40 mg/0.6 ml Drops [Mylicon Drops] 40 mg PO PCHS PRN #30 ml 04/08/23 [Rx] bisacodyL [Dulcolax] 5 mg PO DAILY PRN #10 tab 04/08/23 [Rx] Follow up Appointment(s)/Referral(s): Loretta Espinoza MD [STAFF PHYSICIAN] - 04/15/23 [place], [place] [NON-STAFF] - 04/10/23 Activity/Diet/Wound Care/Special Instructions: Liquid diet only for 2 weeks No lifting over 4 pounds in 4 weeks, May Shower. No soaking in bath tubs for 2 weeks Please notify your surgeon if you develop nausea and vomiting including new onset of abdominal pain. Continue to use incentive spirometry to prevent pneumonias. Please continue to ambulate at home to prevent blood clots in legs. Follow-up at the bariatric center. May shower. Dressings to be discontinued by surgeon in the office. Drink 64 oz of fluid daily. Start protein shakes on . Notify bariatric center for temp over 101.0, increased pain, drainage from incisions. No straws or carbonated beverages. Liquid diet only. Sugar content should be less than 6 g to avoid dumping syndrome. Take MOM for constipation. CRUSH, OPEN, OR CUT TABLETS LARGER THAN A SIZE OF A TIC TAC Hold on taking Lipitor and Arimidex until seen by surgeon Follow up with your street railway line installer in 1 week Check BP daily at home Discharge Disposition: HOME SELF-CARE
== END 2023-04-08 16:52 | disposition home or self-care (01) | DRG 621 ==
LOC: 2ORMAIN 11:49 → 4SSUR 17:33
PROVIDERS: ADMIT Surgery Plastic and Reconstructive Surgery; ATTEND Surgery Plastic and Reconstructive Surgery
PROC: 8E0W4CZ Robotic Assisted Procedure of Trunk Region, Percutaneous Endoscopic Approach (ICD-10-PCS; 2023-04-06)
PROC: 0DB64Z3 Excision of Stomach, Percutaneous Endoscopic Approach, Vertical (ICD-10-PCS; principal; 2023-04-06 13:00)
DX: E66.01 Morbid (severe) obesity due to excess calories (principal); E11.9 Type 2 diabetes mellitus without complications; Z68.41 Body mass index [BMI] 40.0-44.9, adult; I95.9 Hypotension, unspecified; I11.9 Hypertensive heart disease without heart failure; M16.0 Bilateral primary osteoarthritis of hip; K21.9 Gastro-esophageal reflux disease without esophagitis; E78.5 Hyperlipidemia, unspecified; F41.1 Generalized anxiety disorder; M17.10 Unilateral primary osteoarthritis, unspecified knee; K44.9 Diaphragmatic hernia without obstruction or gangrene; H91.90 Unspecified hearing loss, unspecified ear; G89.29 Other chronic pain; E73.9 Lactose intolerance, unspecified; M54.50 Low back pain, unspecified; K63.5 Polyp of colon; E83.42 Hypomagnesemia; R11.2 Nausea with vomiting, unspecified; R00.0 Tachycardia, unspecified; Z68.36 Body mass index [BMI] 36.0-36.9, adult; Z87.891 Personal history of nicotine dependence; Z79.82 Long term (current) use of aspirin; Z79.899 Other long term (current) drug therapy; Z85.43 Personal history of malignant neoplasm of ovary; Z85.42 Personal history of malignant neoplasm of other parts of uterus; Z92.3 Personal history of irradiation; Z92.21 Personal history of antineoplastic chemotherapy; Z79.84 Long term (current) use of oral hypoglycemic drugs; Z91.048 Other nonmedicinal substance allergy status; Z88.8 Allergy status to other drugs, medicaments and biological substances
CPT/HCPCS: 71275; 74240; 80048; 80051; 82310; 82565; 83036; 83735; 84100; 84439; 84443; 84484; 84520; 85025; 86850; 86900; 86901; 93005; 94640; 94760

== ENCOUNTER → 2023-04-10 | Outpatient (CLI) | payer MEDICARE ==
--- NOTE | 2023-04-10 09:41 | P.BASOAP ---
Subjective Progress Note Date: 04/10/23 Patient presents status post sleeve gastrectomy. No nausea or vomiting. Does complain of intermittent epigastric pain with large gulps. Abdominal binder readjusted. No signs of infection. Start full liquid diet. Avoid cream of wheat and oatmeal until April 20. Not tachycardic. Encouraged deep breaths H hour while awake. Follow up in 1 week. All questions addressed. Assessment/Plan Plan: Date: Initial Weight: Initial BMI: Current Weight: Current BMI: Type of Surgery: Total Volume in Band: Previous Volume: Volume Removed: Volume Added: Band Size:
[2023-04-10 11:47] VITALS: BP 144/77; PULSE 77; TEMP 98.1; BMI 38.7
== END ==
LOC: BARWHC3 09:06
PROVIDERS: ATTEND Surgery Plastic and Reconstructive Surgery
DX: Z53.9 Procedure and treatment not carried out, unspecified reason (principal)
CPT/HCPCS: 99211

== ENCOUNTER → 2023-04-15 | Outpatient (CLI) | payer MEDICARE ==
[2023-04-15 14:44] VITALS: BP 140/91; PULSE 95; TEMP 98; BMI 36.8
--- NOTE | 2023-04-15 15:04 | P.BASOAP ---
Subjective Progress Note Date: 04/15/23 No reflux She feels well She lost 14 pounds in 1 week. She has constipation She feels better after her enema. Incisions without infection. Objective - Vital Signs Vital signs: Vital Signs Temp 98 F 04/15/23 14:38 Pulse 95 04/15/23 14:38 Resp BP 140/91 04/15/23 14:38 Pulse Ox FiO2 Intake & Output 04/14/23 04/15/23 04/15/23 18:59 06:59 18:59 Weight 105.233 kg Assessment/Plan Plan: Date: 04/15/23 Initial Weight: Initial BMI: Current Weight: 105.233 kg Current BMI: 36.8 Type of Surgery: Total Volume in Band: Previous Volume: Volume Removed: Volume Added: Band Size:
== END ==
LOC: BARWHC3 14:01
PROVIDERS: ATTEND Surgery Plastic and Reconstructive Surgery
DX: Z53.9 Procedure and treatment not carried out, unspecified reason (principal)
CPT/HCPCS: 97802; G0463; 99211

== ENCOUNTER → 2023-04-21 | Outpatient (CLI) | payer MEDICARE ==
[2023-04-21 11:42] LABS: Prothrombin Time 10.7 sec (9.0-12.0)
[2023-04-21 15:33] LABS: HCT 41.4 % (37.2-46.3); HGB 12.8 d/dL (12.0-15.0); MCH 28.3 pg (27.0-32.0); MCHC 30.9 d/dL (32.0-37.0); MCV 91.6 FL (80.0-97.0); Mean Platelet Volume 9.9 FL (9.5-12.2); NRBC Per 100 WBC 0 X 10*3/uL (0.00-0.01); Platelet Count 338 X 10*3/uL (140-440); RBC 4.52 X 10*6/uL (4.10-5.20); RDW 15.4 % (11.5-14.5); WBC 6.02 X 10*3/uL (4.50-10.00)
[2023-04-21 16:11] LABS: Prealbumin 26.7 mg/dL (18.0-42.0)
[2023-04-21 16:17] LABS: % Iron Saturation 9.46 (12.00-45.00); ALT 31 U/L (8-44); AST 24 U/L (13-35); Albumin 4.7 d/dL (3.8-4.9); Albumin/Globulin Ratio 2.24 Ratio (1.60-3.17); Alkaline Phosphatase 113 U/L (41-126); Blood Urea Nitrogen 16.8 mg/dL (9.0-27.0); Calcium 10.5 mg/dL (8.7-10.3); Carbon Dioxide 22.7 mmol/L (21.6-31.8); Chloride 107 mmol/L (96-109); Chol/HDL Ratio 5.27 Ratio; Ferritin 36.2 ng/mL (10.0-291.0); Globulin 2.1 d/dL (1.6-3.3); Glucose 104 mg/dL (70-110); Iron 42 UG/DL (50-170); LDL Cholesterol,Calculated 118.6 mg/dL (0.0-131.0); Magnesium 2.1 mg/dL (1.5-2.4); Phosphorus 3.5 mg/dL (2.4-5.1); Potassium 4.6 mmol/L (3.5-5.5); Sodium 142 mmol/L (135-145); Total Bilirubin 0.5 mg/dL (0.3-1.2); Total Iron Binding Capacity 444 UG/DL (228-460); Total Protein 6.8 d/dL (6.2-8.2)
[2023-04-23 06:35] LABS: Vit B1(Thiamine) 57 ug/L (38-122)
== END | disposition home or self-care (01) ==
LOC: LABWHC1 09:31
PROVIDERS: ATTEND Internal Medicine Interventional Cardiology
DX: E78.2 Mixed hyperlipidemia (principal); E66.01 Morbid (severe) obesity due to excess calories; E89.1 Postprocedural hypoinsulinemia; D50.8 Other iron deficiency anemias; K91.2 Postsurgical malabsorption, not elsewhere classified; E44.1 Mild protein-calorie malnutrition; E44.0 Moderate protein-calorie malnutrition; E55.9 Vitamin D deficiency, unspecified; E45 Retarded development following protein-calorie malnutrition; K74.1 Hepatic sclerosis; N19 Unspecified kidney failure; T56.894A Toxic effect of other metals, undetermined, initial encounter; K50.90 Crohn's disease, unspecified, without complications
CPT/HCPCS: 36415; 80053; 80061; 82306; 82525; 82607; 82728; 82746; 83036; 83540; 83550; 83735; 83970; 84100; 84134; 84255; 84425; 84443; 84590; 84630; 85027; 85610; 85730

== ENCOUNTER → 2023-04-29 | Outpatient (CLI) | payer MEDICARE | END | disposition home or self-care (01) | LOC: LABWHC1 09:17 | PROVIDERS: ATTEND Obstetrics & Gynecology | DX: C54.1 Malignant neoplasm of endometrium (principal); C56.9 Malignant neoplasm of unspecified ovary; Z79.811 Long term (current) use of aromatase inhibitors; Z85.43 Personal history of malignant neoplasm of ovary; Z92.3 Personal history of irradiation | CPT/HCPCS: 36415; 86304 ==

== ENCOUNTER → 2023-05-06 | Outpatient (CLI) | payer MEDICARE ==
[2023-05-06 14:08] VITALS: BP 110/77; PULSE 56; TEMP 97.7; BMI 35.3
== END ==
LOC: BARWHC3 13:55
PROVIDERS: ATTEND Surgery Plastic and Reconstructive Surgery
DX: E66.01 Morbid (severe) obesity due to excess calories (principal); Z71.3 Dietary counseling and surveillance; Z68.35 Body mass index [BMI] 35.0-35.9, adult; Z91.048 Other nonmedicinal substance allergy status; Z88.8 Allergy status to other drugs, medicaments and biological substances
CPT/HCPCS: 97803; G0463; 99211

== ENCOUNTER → 2023-06-12 | Outpatient (CLI) | payer MEDICARE ==
[2023-06-12 11:41] LABS: ALT 15 U/L (8-44); AST 19 U/L (13-35); Chol/HDL Ratio 3.64 Ratio; LDL Cholesterol,Calculated 57.6 mg/dL (0.0-131.0)
== END | disposition home or self-care (01) ==
LOC: LABWHC1 07:11
PROVIDERS: ATTEND Internal Medicine Interventional Cardiology
DX: E78.2 Mixed hyperlipidemia (principal)
CPT/HCPCS: 36415; 80061; 84450; 84460

== ENCOUNTER → 2023-07-09 | Outpatient (CLI) | payer MEDICARE ==
[2023-07-09 09:48] LABS: Partial Thromboplastin Time 23.4 sec (22.0-30.0); Prothrombin Time 11.3 sec (10.0-12.5)
[2023-07-09 16:26] LABS: HCT 42.2 % (37.2-46.3); HGB 13.1 g/dL (12.0-15.0); MCH 28.4 pg (27.0-32.0); MCV 91.5 FL (80.0-97.0); Mean Platelet Volume 10.2 FL (9.5-12.2); NRBC Per 100 WBC 0 X 10*3/uL (0.00-0.01); Platelet Count 251 X 10*3/uL (140-440); RBC 4.61 X 10*6/uL (4.10-5.20); WBC 4.71 X 10*3/uL (4.50-10.00)
[2023-07-09 16:37] LABS: Prealbumin 23.9 mg/dL (18.0-42.0)
[2023-07-09 16:39] LABS: % Iron Saturation 23.49 (12.00-45.00); ALT 12 U/L (8-44); AST 16 U/L (13-35); Albumin 4.3 g/dL (3.8-4.9); Albumin/Globulin Ratio 2.05 Ratio (1.60-3.17); Alkaline Phosphatase 122 U/L (41-126); BUN/Creat Ratio 27.71 Ratio (12.00-20.00); Blood Urea Nitrogen 19.4 mg/dL (9.0-27.0); Calcium 10.3 mg/dL (8.7-10.3); Carbon Dioxide 20.6 mmol/L (21.6-31.8); Chloride 108 mmol/L (96-109); Chol/HDL Ratio 3.39 Ratio; Globulin 2.1 g/dL (1.6-3.3); Glucose 96 mg/dL (70-110); Iron 105 UG/DL (50-170); Magnesium 2.1 mg/dL (1.5-2.4); Phosphorus 3.7 mg/dL (2.4-5.1); Potassium 4.5 mmol/L (3.5-5.5); Sodium 145 mmol/L (135-145); Total Bilirubin 0.7 mg/dL (0.3-1.2); Total Iron Binding Capacity 447 UG/DL (228-460); Total Protein 6.4 g/dL (6.2-8.2)
[2023-07-09 21:44] LABS: Ferritin 20.5 ng/mL (10.0-291.0)
[2023-07-10 15:40] LABS: Zinc, Serum 80 ug/dL (60-130)
== END | disposition home or self-care (01) ==
LOC: LABWHC1 08:13
PROVIDERS: ATTEND Surgery Plastic and Reconstructive Surgery
DX: E89.1 Postprocedural hypoinsulinemia (principal); E66.01 Morbid (severe) obesity due to excess calories; D50.8 Other iron deficiency anemias; E44.0 Moderate protein-calorie malnutrition; E44.1 Mild protein-calorie malnutrition; E45 Retarded development following protein-calorie malnutrition; E55.9 Vitamin D deficiency, unspecified; K74.1 Hepatic sclerosis; N19 Unspecified kidney failure; T56.894A Toxic effect of other metals, undetermined, initial encounter; K50.90 Crohn's disease, unspecified, without complications
CPT/HCPCS: 36415; 80053; 80061; 82306; 82525; 82607; 82728; 82746; 83036; 83540; 83550; 83735; 83970; 84100; 84134; 84255; 84425; 84443; 84590; 84630; 85027; 85610; 85730

== ENCOUNTER → 2023-08-26 | Outpatient (CLI) | payer MEDICARE | END | disposition home or self-care (01) | LOC: LABWHC1 08:00 | PROVIDERS: ATTEND Obstetrics & Gynecology | DX: C54.1 Malignant neoplasm of endometrium (principal); Z79.811 Long term (current) use of aromatase inhibitors; Z92.3 Personal history of irradiation; Z85.43 Personal history of malignant neoplasm of ovary | CPT/HCPCS: 36415; 86304 ==

== ENCOUNTER → 2023-10-07 | Outpatient (CLI) | payer MEDICARE ==
[2023-10-07 09:24] LABS: INR 1.1 (<1.2); Partial Thromboplastin Time 23.1 sec (22.0-30.0); Prothrombin Time 11.6 sec (10.0-12.5)
[2023-10-07 15:15] LABS: HCT 41.9 % (37.2-46.3); HGB 13.2 g/dL (12.0-15.0); MCH 29.3 pg (27.0-32.0); MCHC 31.5 g/dL (32.0-37.0); MCV 92.9 FL (80.0-97.0); NRBC Per 100 WBC 0 X 10*3/uL (0.00-0.01); Platelet Count 243 X 10*3/uL (140-440); RBC 4.51 X 10*6/uL (4.10-5.20); RDW 14.6 % (11.5-14.5); WBC 5.34 X 10*3/uL (4.50-10.00)
[2023-10-07 15:51] LABS: Prealbumin 21.9 mg/dL (18.0-42.0)
[2023-10-07 16:19] LABS: % Iron Saturation 13.36 (12.00-45.00); ALT 9 U/L (8-44); AST 16 U/L (13-35); Albumin 4.2 g/dL (3.8-4.9); Alkaline Phosphatase 132 U/L (41-126); Blood Urea Nitrogen 19.6 mg/dL (9.0-27.0); Calcium 10.2 mg/dL (8.7-10.3); Carbon Dioxide 21.5 mmol/L (21.6-31.8); Chloride 108 mmol/L (96-109); Chol/HDL Ratio 3.27 Ratio; Ferritin 19.1 ng/mL (10.0-291.0); Glucose 118 mg/dL (70-110); Iron 58 UG/DL (50-170); LDL Cholesterol,Calculated 69.8 mg/dL (0.0-131.0); Magnesium 2.1 mg/dL (1.5-2.4); Phosphorus 4.2 mg/dL (2.4-5.1); Potassium 4.4 mmol/L (3.5-5.5); Sodium 143 mmol/L (135-145); Total Bilirubin 0.5 mg/dL (0.3-1.2); Total Iron Binding Capacity 434 UG/DL (228-460); Total Protein 6.2 g/dL (6.2-8.2); VLDL Calculation 19.14 mg/dL (5.00-40.00)
[2023-10-08 13:07] LABS: Zinc, Serum 80 ug/dL (60-130)
[2023-10-09 06:45] LABS: Vitamin A 57 ug/dL (38-106)
== END | disposition home or self-care (01) ==
LOC: LABWHC1 08:29
PROVIDERS: ATTEND Surgery Plastic and Reconstructive Surgery
DX: E66.01 Morbid (severe) obesity due to excess calories (principal); D50.8 Other iron deficiency anemias; K91.2 Postsurgical malabsorption, not elsewhere classified; E44.0 Moderate protein-calorie malnutrition; E44.1 Mild protein-calorie malnutrition; E45 Retarded development following protein-calorie malnutrition; E55.9 Vitamin D deficiency, unspecified; K74.1 Hepatic sclerosis; N19 Unspecified kidney failure; T56.894A Toxic effect of other metals, undetermined, initial encounter; K50.90 Crohn's disease, unspecified, without complications; E46 Unspecified protein-calorie malnutrition
CPT/HCPCS: 36415; 80053; 80061; 82306; 82525; 82607; 82728; 82746; 83036; 83540; 83550; 83735; 83970; 84100; 84134; 84255; 84425; 84443; 84590; 84630; 85027; 85610; 85730

== ENCOUNTER → 2023-10-14 | Outpatient (CLI) | payer MEDICARE ==
--- NOTE | 2023-10-15 15:24 | MM ---
Reason for Exam: Screening (asymptomatic). Last mammogram was performed 1 year(s) and 1 month(s) ago. Patient History: Menarche at age 14. First Full-Term at age 19. Left ovary removed at age 65. Right ovary removed at age 65. Hysterectomy at age 65. Postmenopausal. Patient has history of breast feeding. Endometrial cancer, age 66. Ovarian cancer, age 66. Previous chemotherapy at age 65. Patient used Hormonal Contraceptives for 10 years. Risk Values: Audra 5 year model risk: 1.2%. NCI Lifetime model risk: 4.2%. Prior Study Comparison: 07/11/2014 Bilateral Screening Mammogram, [facility]. 09/26/2021 Bilateral Screening Mammogram, [facility]. 09/30/2022 Bilateral MG 3D screening mammo w/cad, [facility]. Tissue Density: There are scattered fibroglandular densities. Findings: Analyzed By CAD. There is no suspicious group of microcalcifications or new suspicious mass. Overall Assessment: Negative, BI-RAD 1 Management: Screening Mammogram of both breasts in [address] [facility] will attempt to contact patient to return for supplemental views and ultrasound if indicated. Patient should continue monthly self-breast exams. A clinical breast exam by your physician is recommended on an annual basis. This exam should not preclude additional follow-up of suspicious palpable abnormalities. Note on Audra scores and lifetime risk: 1. A Audra score greater than 3% is considered moderate risk. If this is the case, consider specialist referral to assess eligibility for a risk reducing agent. 2. If overall lifetime risk for the development of breast cancer is 20% or higher, the patient may qualify for future screening with alternating mammogram and breast MRI. Electronically signed and approved by: aSi Lorenzana DO
== END | disposition home or self-care (01) ==
LOC: RADMAMWWP 14:16
PROVIDERS: ATTEND Family Medicine
DX: Z12.31 Encounter for screening mammogram for malignant neoplasm of breast (principal); Z78.0 Asymptomatic menopausal state
CPT/HCPCS: 77063; 77067

== ENCOUNTER 2024-01-22 14:05 | Emergency (ER) | payer MEDICARE ==
--- NOTE | 2024-01-22 14:13 | ED ---
Abdominal Pain HPI - General Source: patient, RN notes reviewed Mode of arrival: ambulatory Limitations: no limitations - History of Present Illness MD Complaint: abdominal pain <Goldie Galvez - Last Filed: 01/22/24 14:12> - General Source: RN notes reviewed <Rylee Beltran - Last Filed: 01/22/24 19:10> - General Chief Complaint: Abdominal Pain Stated Complaint: R sided abd pain Time Seen by Provider: 01/22/24 14:12 - History of Present Illness Initial Comments: Quick Note: This is a 68-year-old female who presents to the emergency department for right lower quadrant abdominal pain. Symptoms started an hour before arrival. She had a large bowel movement, however symptoms did not improve. She has mild associated nausea. (Goldie Galvez) 68-year-old female presenting with right lower quadrant abdominal pain since this morning. States pain came on suddenly and felt as though she needed to have a bowel movement. She went to the bathroom and states she was able to have a normal bowel movement however symptoms did not resolve. Admits some mild nausea but denies vomiting. Reports history of appendectomy, total hysterectomy status post ovarian and endometrial cancer 3 years ago. Reports the pain is a 6 out of 10 currently. Denies fever, dysuria, urinary urgency, urinary frequency. Tolerating orals well. (Rylee Beltran) - Related Data Home Medications Medication Instructions Recorded Confirmed metFORMIN HCL 500 mg PO 1700 02/27/21 10/14/23 Gabapentin 300 mg PO TID 06/25/22 10/14/23 Omeprazole [PriLOSEC] 40 mg PO QAM 03/30/23 10/14/23 Anastrozole [Arimidex] 1 mg PO DAILY 05/06/23 10/14/23 Atorvastatin [Lipitor] 20 mg PO DAILY 05/06/23 10/14/23 Metoprolol Succinate (ER) [Toprol 100 mg PO DAILY 05/06/23 10/14/23 Xl] lisinopriL [Zestril] 5 mg PO DAILY 05/06/23 10/14/23 Previous Rx's Medication Instructions Recorded Aspirin 81 mg PO DAILY #30 chewable 01/27/19 Acetaminophen Tab [Tylenol] 1,000 mg PO Q6HR PRN #30 tablet 04/08/23 Ondansetron Odt [Zofran Odt] 4 mg PO Q8HR PRN #10 tab 01/22/24 Tamsulosin [Flomax] 0.4 mg PO DAILY #7 cap 01/22/24 Allergies Allergy/AdvReac Type Severity Reaction Status Date / Time adhesive tape Allergy Rash/Hives Verified 01/22/24 14:30 gemifloxacin mesylate Allergy Rash/Hives Verified 01/22/24 14:30 [From Factive] Review of Systems ROS Other: All systems not noted in ROS Statement are negative. <Goldie Galvez - Last Filed: 01/22/24 14:12> ROS Other: All systems not noted in ROS Statement are negative. <Rylee Beltran - Last Filed: 01/22/24 19:10> ROS Statement: Those systems with pertinent positive or pertinent negative responses have been documented in the HPI. Past Medical History Past Medical History: Cancer, GERD/Reflux, Hearing Disorder / Deafness, Hypertension, Thyroid Disorder Additional Past Medical History / Comment(s): chronic back pain. right ovarian CA and endometrial CA, 09/21 Current chemo, finished with radiation. Thyroid nodules, HIATAL HERNIA History of Any Multi-Drug Resistant Organisms: None Reported Past Surgical History: Appendectomy, Hernia Repair, Hysterectomy, Tonsillectomy Additional Past Surgical History / Comment(s): FEBRUARY 19 HIATAL HERNIA REPAIR. COLONOSCOPY, PAIN CLINIC PROCEDURE. Hiatal hernia repair 01-20. Sleeve gastrectomy 04-06-23 Past Anesthesia/Blood Transfusion Reactions: Postoperative Nausea & Vomiting (PONV) Additional Past Anesthesia/Blood Transfusion Reaction / Comment(s): PONV w/ appendicitis, no other problems. no hx blood transfusion Past Psychological History: Anxiety Additional Psychological History / Comment(s): NO MEDS. Smoking Status: Former smoker Past Alcohol Use History: Occasional Additional Past Alcohol Use History / Comment(s): STARTED SMOKING AGE 14(1968), QUIT 1988, SMOKED 1-1AND 1/2PPD Past Drug Use History: None Reported Additional Drug Use History / Comment(s): pt. states she rarely drinks alcohol and occassionally smokes a vape pen with marijuana for her chronic back pain, pt. states she uses every 2 days - Past Family History Mother Family Medical History: Cancer Additional Family Medical History / Comment(s): pt. states her maternal grandmother had ovarian cancer, mother had thyroid nodules Father History Unknown: Yes Family Medical History: Unable to Obtain <Goldie Galvez - Last Filed: 01/22/24 14:12> General Exam <Goldie Galvez - Last Filed: 01/22/24 14:12> General appearance: alert, in no apparent distress Head exam: Present: atraumatic, normocephalic, normal inspection Eye exam: Present: normal appearance, PERRL, EOMI. Absent: scleral icterus, conjunctival injection, periorbital swelling ENT exam: Present: normal exam, mucous membranes moist Neck exam: Present: normal inspection. Absent: tenderness, meningismus, lymphadenopathy Respiratory exam: Present: normal lung sounds bilaterally. Absent: respiratory distress, wheezes, rales, rhonchi, stridor Cardiovascular Exam: Present: regular rate, normal rhythm, normal heart sounds. Absent: systolic murmur, diastolic murmur, rubs, gallop, clicks GI/Abdominal exam: Present: soft, normal bowel sounds. Absent: distended, tenderness, guarding, rebound, rigid Extremities exam: Present: normal inspection, full ROM, normal capillary refill. Absent: tenderness, pedal edema, joint swelling, calf tenderness Back exam: Absent: CVA tenderness (R), CVA tenderness (L) Neurological exam: Present: alert, oriented X3, CN II-XII intact Psychiatric exam: Present: normal affect, normal mood Skin exam: Present: warm, dry, intact, normal color. Absent: rash <Rylee Beltran - Last Filed: 01/22/24 19:10> - General Exam Comments Initial Comments: Visual Physical Exam Vital signs reviewed General: Well-appearing, nontoxic, no acute distress. Head: Normocephalic, atraumatic Eyes: PERRLA, EOMI ENT: Airway patent Chest: Nonlabored breathing Skin: No visual rash, normal skin tone Neuro: Alert and oriented 3 Musculoskeletal: No gross abnormalities (Goldie Galvez) Course Vital Signs 01/22/24 01/22/24 14:28 18:15 Temperature 98.2 F Pulse Rate 72 70 Respiratory 20 16 Rate Blood Pressure 157/97 145/80 O2 Sat by Pulse 98 98 Oximetry Medical Decision Making <Goldie Galvez - Last Filed: 01/22/24 14:12> - Lab Data Result diagrams: 01/22/24 14:49 01/22/24 14:49 <Rylee Beltran - Last Filed: 01/22/24 19:10> - Medical Decision Making I performed the QuickNote portion of this chart. Signed Goldie Galvez PA-C. (Goldie Galvez) Was pt. sent in by a medical professional or institution ([facility], WAITER, urgent care, hospital, or penitentiary...) When possible be specific @ -No Did you speak to anyone other than the patient for history (EMS, parent, family, police, friend...)? What history was obtained from this source @ -No Did you review nursing and triage notes (agree or disagree)? Why? @ -I reviewed and agree with nursing and triage notes Were old charts reviewed (outside hosp., previous admission, EMS record, old EKG, old radiological studies, urgent care reports/EKG's, penitentiary records)? Report findings @ -No old charts were reviewed Differential Diagnosis (chest pain, altered mental status, abdominal pain women, abdominal pain men, vaginal bleeding, weakness, fever, dyspnea, syncope, headache, dizziness, GI bleed, back pain, seizure, CVA, palpatations, mental health, musculoskeletal)? @ -Differential Abdominal Pain Women: Appendicitis, Cholecystitis, diverticulosis, ischemic bowel, pancreatitis, hepatitis, UTI, gastroenteritis, AAA, incarcerated hernia, bowel obstruction, constipation, inflammatory bowel, hepatitis, peptic ulcer disease, splenic infar ction, perforated viscus, vulvitis, ovarian torsion, PID, kidney stone, placenta abruption, this is not meant to be an all-inclusive list EKG interpreted by me (3pts min.). @ -None X-rays interpreted by me (1pt min.). @ -None done CT interpreted by me (1pt min.). @ -CT of abdomen pelvis revealed 4 mm right ureteral vesicle junction calcification with mild right hydronephrosis U/S interpreted by me (1pt. min.). @ -None done What testing was considered but not performed or refused? (CT, X-rays, U/S, labs)? Why? @ -None What meds were considered but not given or refused? Why? @ -None Did you discuss the management of the patient with other professionals (professionals i.e. , PA, WAITER, lab, RT, psych nurse, vp digital marketing social media and crm, cottage parent, teacher, special weapons and tactics officer, social work case manager)? Give summary @ -No Was smoking cessation discussed for >3mins.? @ -No Was critical care preformed (if so, how long)? @ -No Were there social determinants of health that impacted care today? How? (Homelessness, low income, unemployed, alcoholism, drug addiction, transportation, low edu. Level, literacy, decrease access to med. care, shelter, rehab)? @ -No Was there de-escalation of care discussed even if they declined (Discuss DNR or withdrawal of care, Hospice)? DNR status @ -No What co-morbidities impacted this encounter? (DM, HTN, Smoking, COPD, CAD, Cancer, CVA, ARF, Chemo, Hep., AIDS, mental health diagnosis, sleep apnea, morbid obesity)? @ -None Was patient admitted / discharged? Hospital course, mention meds given and route, prescriptions, significant lab abnormalities, going to OR and other pertinent info. @ -Patient was discharged. Patient was seen and evaluated for right lower quadrant pain since this morning with nausea. Vitals are stable. Physical examination is unremarkable. Patient is tolerating orals well and pain is well- controlled. Declines pain medication or antinausea medication at this time. Lab work unremarkable. Urine remarkable for large amount of red blood cells, negative for bacteria. CT scan of abdomen pelvis revealed a 4 mm right ureteral vesicle junction calcification with mild right hydronephrosis. Discussed diagnosis of nephrolithiasis with patient. Given urology follow-up. Prescribed Flomax and Zofran. Given Tylenol 3 starter pack for pain control. Encouraged aggressive hydration. Strict return/alarm symptoms discussed with patient and she shows understanding and agrees to plan. Patient discharged in stable condition. Case discussed with Dr. Suggs Undiagnosed new problem with uncertain prognosis? @ -No Drug Therapy requiring intensive monitoring for toxicity (Heparin, Nitro, Insulin, Cardizem)? @ -No Were any procedures done? @ -No Diagnosis/symptom? @ -Right-sided nephrolithiasis Acute, or Chronic, or Acute on Chronic? @ -Acute Uncomplicated (without systemic symptoms) or Complicated (systemic symptoms)? @ -uncomplicated Side effects of treatment? @ -No Exacerbation, Progression, or Severe Exacerbation? @ -No Poses a threat to life or bodily function? How? (Chest pain, USA, NM, pneumonia, PE, COPD, DKA, ARF, appy, cholecystitis, CVA, Diverticulitis, Homicidal, Suicidal, threat to staff... and all critical care pts) @ -No (Rylee Beltran) - Lab Data Lab Results 01/22/24 01/22/24 01/22/24 Range/Units 14:49 14:49 14:49 WBC 5.8 (3.8-10.6) k/uL RBC 4.16 (3.80-5.40) m/uL Hgb 13.0 (11.4-16.0) gm/dL Hct 39.0 (34.0-46.0) % MCV 93.8 (80.0-100.0) fL MCH 31.2 (25.0-35.0) pg MCHC 33.3 (31.0-37.0) g/dL RDW 13.4 (11.5-15.5) % Plt Count 234 (150-450) k/uL MPV 7.8 Neutrophils % 57 % Lymphocytes % 29 % Monocytes % 7 % Eosinophils % 3 % Basophils % 0 % Neutrophils # 3.3 (1.3-7.7) k/uL Lymphocytes # 1.7 (1.0-4.8) k/uL Monocytes # 0.4 (0-1.0) k/uL Eosinophils # 0.2 (0-0.7) k/uL Basophils # 0.0 (0-0.2) k/uL Sodium 142 (137-145) mmol/L Potassium 4.5 (3.5-5.1) mmol/L Chloride 112 H (98-107) mmol/L Carbon Dioxide 23 (22-30) mmol/L Anion Gap 7 mmol/L BUN 23 H (7-17) mg/dL Creatinine 0.71 (0.52-1.04) mg/dL Est GFR (CKD-EPI)AfAm >90 (>60 ml/min/1.73 sqM) Est GFR (CKD-EPI)NonAf 89 (>60 ml/min/1.73 sqM) Glucose 110 H (74-99) mg/dL Plasma Lactic Acid Garth (0.7-2.0) mmol/L Calcium 9.7 (8.4-10.2) mg/dL Total Bilirubin 0.8 (0.2-1.3) mg/dL AST 29 (14-36) U/L ALT 14 (4-34) U/L Alkaline Phosphatase 123 (38-126) U/L Total Protein 6.4 (6.3-8.2) g/dL Albumin 3.9 (3.5-5.0) g/dL Amylase 40 (30-110) U/L Lipase 57 (23-300) U/L Urine Color Light Red Urine Appearance Cloudy H (Clear) Urine pH 5.5 (5.0-8.0) Ur Specific [place] 1.026 (1.001-1.035) Urine Protein 1+ H (Negative) Urine Glucose (UA) Negative (Negative) Urine Ketones Negative (Negative) Urine Blood Large H (Negative) Urine Nitrite Negative (Negative) Urine Bilirubin Negative (Negative) Urine Urobilinogen <2.0 (<2.0) mg/dL Ur Leukocyte Esterase Small H (Negative) Urine RBC >182 H (0-5) /hpf Urine WBC 7 H (0-5) /hpf Ur Squamous Epith Cells 2 (0-4) /hpf Calcium Oxalate Crystal Moderate H (None) /hpf Urine Mucus Occasional H (None) /hpf 01/21/ Range/Units 16:14 WBC (3.8-10.6) k/uL RBC (3.80-5.40) m/uL Hgb (11.4-16.0) gm/dL Hct (34.0-46.0) % MCV (80.0-100.0) fL MCH (25.0-35.0) pg MCHC (31.0-37.0) g/dL RDW (11.5-15.5) % Plt Count (150-450) k/uL MPV Neutrophils % % Lymphocytes % % Monocytes % % Eosinophils % % Basophils % % Neutrophils # (1.3-7.7) k/uL Lymphocytes # (1.0-4.8) k/uL Monocytes # (0-1.0) k/uL Eosinophils # (0-0.7) k/uL Basophils # (0-0.2) k/uL Sodium (137-145) mmol/L Potassium (3.5-5.1) mmol/L Chloride (98-107) mmol/L Carbon Dioxide (22-30) mmol/L Anion Gap mmol/L BUN (7-17) mg/dL Creatinine (0.52-1.04) mg/dL Est GFR (CKD-EPI)AfAm (>60 ml/min/1.73 sqM) Est GFR (CKD-EPI)NonAf (>60 ml/min/1.73 sqM) Glucose (74-99) mg/dL Plasma Lactic Acid Garth 1.2 (0.7-2.0) mmol/L Calcium (8.4-10.2) mg/dL Total Bilirubin (0.2-1.3) mg/dL AST (14-36) U/L ALT (4-34) U/L Alkaline Phosphatase (38-126) U/L Total Protein (6.3-8.2) g/dL Albumin (3.5-5.0) g/dL Amylase (30-110) U/L Lipase (23-300) U/L Urine Color Urine Appearance (Clear) Urine pH (5.0-8.0) Ur Specific [place] (1.001-1.035) Urine Protein (Negative) Urine Glucose (UA) (Negative) Urine Ketones (Negative) Urine Blood (Negative) Urine Nitrite (Negative) Urine Bilirubin (Negative) Urine Urobilinogen (<2.0) mg/dL Ur Leukocyte Esterase (Negative) Urine RBC (0-5) /hpf Urine WBC (0-5) /hpf Ur Squamous Epith Cells (0-4) /hpf Calcium Oxalate Crystal (None) /hpf Urine Mucus (None) /hpf Disposition <Goldie Galvez - Last Filed: 01/22/24 14:12> Is patient prescribed a controlled substance at d/c from ED?: No Time of Disposition: 17:54 <Rylee Beltran - Last Filed: 01/22/24 19:10> Clinical Impression: Right nephrolithiasis Disposition: HOME SELF-CARE Condition: Stable Instructions (If sedation given, give patient instructions): Kidney Stones (ED) Additional Instructions: Please follow-up with urology. Please return to the Emergency Department if symptoms worsen or any other concerns. Prescriptions: Tamsulosin [Flomax] 0.4 mg PO DAILY #7 cap Ondansetron Odt [Zofran Odt] 4 mg PO Q8HR PRN #10 tab PRN Reason: Nausea Referrals: Narendra Mohan DO [Primary Care Provider] - 1-2 days Rio Graham MD [STAFF PHYSICIAN] - 1-2 days
[2024-01-22 14:58] LABS: Basophils % (A) 0 %; Eosinophils # (A) 0.2 k/uL (0-0.7); Eosinophils % (A) 3 %; Lymphocytes # (A) 1.7 k/uL (1.0-4.8); Lymphocytes % (A) 29 %; MCH 31.2 pg (25.0-35.0); MCHC 33.3 g/dL (31.0-37.0); MCV 93.8 fL (80.0-100.0); Mean Platelet Volume 7.8; Monocytes # (A) 0.4 k/uL (0-1.0); Monocytes % (A) 7 %; Neutrophils # (A) 3.3 k/uL (1.3-7.7); Neutrophils % (A) 57 %; Platelet Count 234 k/uL (150-450); RBC 4.16 m/uL (3.80-5.40); RDW 13.4 % (11.5-15.5); WBC 5.8 k/uL (3.8-10.6)
[2024-01-22 14:59] VITALS: TEMP 98.2
[2024-01-22 15:10] LABS: Appearance,Urine Cloudy (Clear); Bilirubin,Urine Negative (Negative); Blood,Urine Large (Negative); Calcium Oxalate Crystals,Urine Moderate /hpf; Color,Urine Light Red; Glucose,Urine (UA) Negative (Negative); Ketones,Urine Negative (Negative); Leukocyte Esterase,Urine Small (Negative); Mucus,Urine Occasional /hpf; Nitrite,Urine Negative (Negative); PH, Urine 5.5 (5.0-8.0); Protein,Urine 1+ (Negative); RBC,Urine >182 /hpf (0-5); Specific Gravity,Urine 1.026 (1.001-1.035); Squamous Epithelial Cell,Urine 2 /hpf (0-4); Urobilinogen,Urine <2.0 mg/dL (<2.0); WBC,Urine 7 /hpf (0-5)
[2024-01-22 15:31] LABS: ALT 14 U/L (4-34); African American GFR (CKD) >90 (>60 ml/min/1.73 sqM); Albumin 3.9 g/dL (3.5-5.0); Amylase 40 U/L (30-110); Anion Gap 7 mmol/L; Blood Urea Nitrogen 23 mg/dL (7-17); Calcium 9.7 mg/dL (8.4-10.2); Carbon Dioxide 23 mmol/L (22-30); Chloride 112 mmol/L (98-107); Glucose 110 mg/dL (74-99); Lipase 57 U/L (23-300); Non-African American GFR(CKD) 89 (>60 ml/min/1.73 sqM); Sodium 142 mmol/L (137-145); Total Bilirubin 0.8 mg/dL (0.2-1.3); Total Protein 6.4 g/dL (6.3-8.2)
[2024-01-22 15:41] LABS: AST 29 U/L (14-36); Alkaline Phosphatase 123 U/L (38-126); Potassium 4.5 mmol/L (3.5-5.1)
--- NOTE | 2024-01-22 16:46 | CT ---
EXAMINATION TYPE: CT abdomen pelvis w con DATE OF EXAM: 01/22/2024 COMPARISON: 12/22/2022 INDICATION: RLQ abdominal pain. hx of endometrial and ovarian ca DLP: 1151.8 mGycm, Automated exposure control for dose reduction was used. CONTRAST: 100 ml mL of Isovue 300. Study performed without Oral Contrast TECHNIQUE: Axial images were obtained from above the diaphragm to the pubic rami in the axial plane a t 5 mm thick sections. Reconstructed images are reviewed on the computer in the coronal plane. FINDINGS: Limited CT sections are obtained the lung bases. The lung bases are clear. There is a large hiatal hernia present. There has been prior gastric sleeve surgery. CT ABDOMEN: Liver: Normal Spleen: Normal Pancreas: Normal Adrenal glands: The adrenal glands are normal. Gallbladder: Normal Kidneys: No masses are evident. Minimal right hydronephrosis is present. No cysts are present. There is mild right hydroureter to the urinary bladder. At the right ureterovesical junction there is a 0. 4 cm calcification. Aorta: Vascular calcification is within the aorta. Inferior vena cava: Normal. CT PELVIS: Loops of bowel within the abdomen and pelvis are normal. This study was performed without oral co ntrast limiting bowel evaluation. Appendix: Not visualized. No dilated tubular structure or inflammatory changes. There appears to be a prior appendectomy. No suspicious right lower quadrant masses or cysts. Urinary bladder: Normal. Genitourinary structures: Uterus and ovaries are not identified. No free fluid is within the pelvis. Osseous structures: No suspicious lytic or sclerotic lesions. IMPRESSION: 1. Right ureteral vesicle junction calcification with mild right hydronephrosis and hydroureter. Thi s is an interval change from comparison.
[2024-01-22] MEDS: ACET/COD 300 MG/30 MG STARTER PACK 6 TAB BTL PO STA (18:11)
[2024-01-22 18:23] VITALS: BP 145/80; PULSE 70; RESP 16
== END 2024-01-22 18:18 | disposition home or self-care (01) ==
LOC: EC 14:05
DX: N13.2 Hydronephrosis with renal and ureteral calculous obstruction (principal); F12.90 Cannabis use, unspecified, uncomplicated; Z91.09 Other allergy status, other than to drugs and biological substances; Z88.8 Allergy status to other drugs, medicaments and biological substances
CPT/HCPCS: 36415; 80053; 82150; 83605; 83690; 85025; 81001; 74177; 99284; Q9967

== ENCOUNTER → 2024-01-27 | Outpatient (CLI) | payer MEDICARE ==
[2024-01-27 12:47] LABS: INR 1.1 (<1.2); Prothrombin Time 11.4 sec (10.0-12.5)
[2024-01-27 14:38] LABS: HGB 13.1 g/dL (12.0-15.0); MCH 30.4 pg (27.0-32.0); MCHC 32.8 g/dL (32.0-37.0); MCV 92.8 FL (80.0-97.0); Mean Platelet Volume 9.6 FL (9.5-12.2); NRBC Per 100 WBC 0 X 10*3/uL (0.00-0.01); Platelet Count 232 X 10*3/uL (140-440); RBC 4.31 X 10*6/uL (4.10-5.20); RDW 12.9 % (11.5-14.5); WBC 5.73 X 10*3/uL (4.50-10.00)
[2024-01-27 15:32] LABS: % Iron Saturation 16.33 (12.00-45.00); ALT 12 U/L (8-44); AST 20 U/L (13-35); Albumin 4.4 g/dL (3.8-4.9); Albumin/Globulin Ratio 2.44 Ratio (1.60-3.17); Alkaline Phosphatase 146 U/L (41-126); BUN/Creat Ratio 30.17 Ratio (12.00-20.00); Blood Urea Nitrogen 18.1 mg/dL (9.0-27.0); Carbon Dioxide 21.9 mmol/L (21.6-31.8); Chloride 108 mmol/L (96-109); Chol/HDL Ratio 3.29 Ratio; Ferritin 16.7 ng/mL (10.0-291.0); Globulin 1.8 g/dL (1.6-3.3); Glucose 105 mg/dL (70-110); Iron 73 UG/DL (50-170); LDL Cholesterol,Calculated 53.2 mg/dL (0.0-131.0); Phosphorus 3.6 mg/dL (2.4-5.1); Sodium 142 mmol/L (135-145); Total Bilirubin 0.5 mg/dL (0.3-1.2); Total Iron Binding Capacity 447 UG/DL (228-460); Total Protein 6.2 g/dL (6.2-8.2)
[2024-01-27 15:52] LABS: Prealbumin 21.6 mg/dL (18.0-42.0)
[2024-01-28 10:28] LABS: Zinc, Serum 66 ug/dL (60-130)
[2024-01-29 06:55] LABS: Vitamin A 69 ug/dL (38-106)
[2024-01-29 11:29] LABS: Vit B1(Thiamine) 74 ug/L (38-122)
== END | disposition home or self-care (01) ==
LOC: LABWHC1 10:48
PROVIDERS: ATTEND Surgery Plastic and Reconstructive Surgery
DX: E89.1 Postprocedural hypoinsulinemia (principal); E66.01 Morbid (severe) obesity due to excess calories; D50.8 Other iron deficiency anemias; K91.2 Postsurgical malabsorption, not elsewhere classified; E44.0 Moderate protein-calorie malnutrition; E44.1 Mild protein-calorie malnutrition; E45 Retarded development following protein-calorie malnutrition; E55.9 Vitamin D deficiency, unspecified; K74.1 Hepatic sclerosis; N19 Unspecified kidney failure; T56.894A Toxic effect of other metals, undetermined, initial encounter; K50.90 Crohn's disease, unspecified, without complications
CPT/HCPCS: 36415; 80053; 80061; 82306; 82525; 82607; 82728; 82746; 83036; 83540; 83550; 83735; 83970; 84100; 84134; 84255; 84425; 84443; 84590; 84630; 85027; 85610; 85730

== ENCOUNTER → 2024-02-03 | Outpatient (CLI) | payer MEDICARE ==
[2024-02-03 13:48] VITALS: BP 152/89; PULSE 73; RESP 16; TEMP 98; BMI 30.9
--- NOTE | 2024-02-03 14:30 | P.BASOAP ---
Subjective Progress Note Date: 02/03/24 DATE OF SERVICE: 02/03/24 CHIEF COMPLAINT: Status post sleeve gastrectomy HISTORY OF PRESENT ILLNESS: Nohemy Abernathy is a 68-year-old female status post sleeve gastrectomy, 04/06/2023. She is over 9 months out. She had kidney stones and was hospitalized for which she is concerned. She has moderate constipation. She has new bruising and lower legs. She still has her gallbladder. She denies symptoms from her hiatal hernia. She has history of cancer with ovarian and uterine cancer. She reports change in bowel habits. She presents with trouble with her bowels. At height of 5 feet 6.5 inches, her ideal body weight is 154 pounds. She comes in 195 pounds from 255 pounds, 9 months ago. She has lost 40 pounds in 9 months. Her lifetime weight loss is 60 pounds. Her body mass index was 40.6. Her body mass index is 31.0. She is 41 pounds overweight. PAST MEDICAL HISTORY: 1. Morbid obesity due to excess calories 2. Body mass index of 40.6, initial 3. Hypertensive heart disease 4. Hyperlipidemia 5. Diabetes type II, non-insulin dependent 6. Gastroesophageal reflux disease 7. Osteoarthritis lower back 8. Generalized anxiety disorder 9. Post op nausea and vomiting 10. Colon polyps. 11. Osteoarthritis of the hips 12. Osteoarthritis of the knee 13. Chronic lower back pain 14. Right ovarian cancer 15. Endometrial cancer 16. Neuropathy PAST SURGICAL HISTORY: 1. Appendectomy 2. Tonsillectomy 3. Hysterectomy 4. Status post hernia repair 5. Status post sleeve gastrectomy HOME MEDICATIONS: Home Medications Medication Instructions Recorded Confirmed metFORMIN HCL 500 mg PO AC-SUPPER 02/27/21 03/17/24 Gabapentin 300 mg PO QAM 06/25/22 03/17/24 Anastrozole [Arimidex] 1 mg PO DAILY 05/06/23 03/17/24 Atorvastatin [Lipitor] 20 mg PO HS 05/06/23 03/17/24 Metoprolol Succinate (ER) [Toprol 100 mg PO QAM 05/06/23 03/17/24 Xl] lisinopriL [Zestril] 5 mg PO QAM 05/06/23 03/17/24 Previous Rx's Medication Instructions Recorded Aspirin 81 mg PO DAILY #30 chewable 01/27/19 Acetaminophen Tab [Tylenol] 1,000 mg PO Q6HR PRN #30 tablet 04/08/23 ALLERGIES: Allergies Allergy/AdvReac Type Severity Reaction Status Date / Time adhesive tape Allergy Rash/Hives Verified 03/17/24 06:29 gemifloxacin mesylate Allergy Rash/Hives Verified 03/17/24 06:29 [From Factive] SOCIAL HISTORY: Past tobacco use. FAMILY HISTORY: No family history of ulcerative colitis disease or Crohn's disease. Family history of morbid obesity. No lupus in the family. No reports of stomach or esophageal cancer. REVIEW OF ORGAN SYSTEMS: CONSTITUTIONAL: At height of 5 feet 6.5 inches, her ideal body weight is 154 pounds. She comes in 255 pounds. Her body mass index is 40.6. She is 101 pounds overweight. HEENT: Denies any active troubles with vision. Has troubles with hearing. ENDOCRINE: Has diabetes. No hypothyroidism. CARDIOVASCULAR: Denies past reports of palpitations or heart attacks or chest pain. Has hypertensive heart disease. RESPIRATORY: Has daytime somnolence. GASTROINTESTINAL: Denies any bright red blood per rectum. No diarrhea. No constipation. Has gastroesophageal reflux disease. GENITOURINARY: Denies bladder urgency. No recent blood in urine. History of endometrial and ovarian cancer. MUSCULOSKELETAL: Has lower back pain and joint pain. Has osteoarthritis of the knees. NEURO: No headaches. No seizure disorders. Has neuropathy. PSYCH: Has depression. No suicidal ideation. Has anxiety. RHEUMATOLOGIC: No lupus. No rheumatoid arthritis. HEMATOLOGIC: Denies any abnormal bleeding or bruising. History of chemoradiation. SKIN: No rash. No skin cancer. PHYSICAL EXAM: VITAL SIGNS: Height 5 foot 6.5 inches, weight 195 pounds. BMI 31.0 Vital Signs Temp 98 F 02/03/24 13:45 Pulse 73 02/03/24 13:45 Resp 16 02/03/24 13:45 BP 152/89 02/03/24 13:45 Pulse Ox FiO2 GENERAL: Well-developed in no acute distress. HEENT: No scleral icterus. Extraocular movements grossly intact. Hears conversational speech. No nasal drainage. NECK: Supple without lymphadenopathy. CHEST: Nonlabored respirations with equal bilateral excursions. CARDIOVASCULAR: Regular rate and regular rhythm. Distal 2+ pulses. ABDOMEN: Obese, soft, nontender, nondistended. MUSCULOSKELETAL: No clubbing, cyanosis. Browsing along the lower extremities. NEURO: No focal or lateralizing signs. Cranial nerves 2 through 12 grossly within normal limits. PSYCH: Appropriate affect. Alert and oriented to person, place and time. SKIN: Good skin turgor. Well perfused. LABS: Reviewed from 01/27/2024 demonstrates elevated hemoglobin A1c at 6.1%. Triglycerides elevated. STUDIES: CT reviewed with diverticulosis and lower abdominal pain along the right lower side. She still has her gallbladder. She has moderately redundant colon with diverticulosis. Presence of hiatal hernia. Small umbilical hernia. Osteoarthritis of the spine. ASSESSMENT: 1. Morbid obesity due to excess calories 2. Body mass index of 40.6, initial to 31.0 3. Hypertensive heart disease 4. Hyperlipidemia 5. Diabetes type II, non-insulin dependent 6. Gastroesophageal reflux disease 7. Osteoarthritis lower back 8. Generalized anxiety disorder 9. Post op nausea and vomiting 10. Colon polyps. 11. Osteoarthritis of the hips 12. Osteoarthritis of the knee 13. Chronic lower back pain 14. Right ovarian cancer 15. Endometrial cancer 16. Status post sleeve gastrectomy 17. Kidney stones 18. Sigmoid diverticulosis 19. Hiatal hernia PLAN: 1. She has moderate constipation and change in bowel habits. Options for colectomy described with K57.30 for CPT 97445. 2. She denies symptoms from her hiatal hernia. No hiatal hernia repair needed at this time. 3. She has history of cancer with ovarian and uterine cancer with increased ri sk of pelvic adhesions. She is at elevated risk for colectomy. Objective - Vital Signs Vital signs: Vital Signs Temp 98 F 02/03/24 13:45 Pulse 73 02/03/24 13:45 Resp 16 02/03/24 13:45 BP 152/89 02/03/24 13:45 Pulse Ox FiO2 Intake & Output 02/02/24 02/03/24 02/03/24 18:59 06:59 18:59 Weight 88.451 kg Assessment/Plan Plan: Date: 02/03/24 Initial Weight: 115.751 kg Initial BMI: 40.6 Current Weight: 88.451 kg Current BMI: 30.9 Type of Surgery: Vertical Sleeve Gastrectomy Total Volume in Band: Previous Volume: Volume Removed: Volume Added: Band Size:
== END ==
LOC: BARWHC3 13:00
PROVIDERS: ATTEND Surgery Plastic and Reconstructive Surgery
DX: E66.01 Morbid (severe) obesity due to excess calories (principal); I11.9 Hypertensive heart disease without heart failure; E78.5 Hyperlipidemia, unspecified; K21.9 Gastro-esophageal reflux disease without esophagitis; M47.816 Spondylosis without myelopathy or radiculopathy, lumbar region; F41.1 Generalized anxiety disorder; K91.0 Vomiting following gastrointestinal surgery; K63.5 Polyp of colon; M16.0 Bilateral primary osteoarthritis of hip; M17.0 Bilateral primary osteoarthritis of knee; G89.29 Other chronic pain; M54.50 Low back pain, unspecified; N20.0 Calculus of kidney; C56.1 Malignant neoplasm of right ovary; C54.1 Malignant neoplasm of endometrium; K57.30 Diverticulosis of large intestine without perforation or abscess without bleeding; K44.9 Diaphragmatic hernia without obstruction or gangrene; E11.40 Type 2 diabetes mellitus with diabetic neuropathy, unspecified; Z90.3 Acquired absence of stomach [part of]; Z68.30 Body mass index [BMI] 30.0-30.9, adult; Z98.84 Bariatric surgery status; Z91.048 Other nonmedicinal substance allergy status; Z88.1 Allergy status to other antibiotic agents; Z79.84 Long term (current) use of oral hypoglycemic drugs; Z79.899 Other long term (current) drug therapy; Z87.442 Personal history of urinary calculi
CPT/HCPCS: 99211

== ENCOUNTER → 2024-02-08 | Outpatient (CLI) | payer MEDICARE ==
[2024-02-08 10:08] VITALS: BP 151/93; PULSE 70; RESP 16; TEMP 97.1
--- NOTE | 2024-02-08 15:02 | P.PAINPG ---
PQRS Measure Charge Sheet Comment: A 68 yr old female w at side with a history of severe and chronic LBP secondary to lumbar DDD and spondylosis with facet arthropathy without myelopathy presents today for evaluation. Pain level is provoked at 10 /10 in intensity, constant, localized in the lumbar spine, predominantly axial, sharp i n character w occasional shooting towards the back of the LEs. Pain is provoked by standing for periods of 3 min or more. Pain is alleviated with injections, heated massage pad use, medications, topical, repositioning and rest. Pt could not afford PT but she follows the packet provided by her therapist at home. Oswestry axial pain score of 26. Interventional pain procedures completed include BL RFA L3-L5 (Oct 2022), HERBERT L4-5 Patient is currently on Tyl Arth, Patient denies any side effects of the medication(s), denies excessive drowsiness or sleepiness, denies suicidal ideation and reports that the current pain medication is helping to control the pain and improve activities of daily living. Patient denies any motor or sensory deficits. Patient denies any fever or night sweats, denies any change in the bowel movements or urination. Physical Examination: -Constitutional: Cooperative. Not in acute distress . - Neurologic: Cranial nerve II to XII intact. No focal neurological deficits. - Psychatric: Alert & oriented x 3. Matching mood & appropriate affect. Judgment and insight intact. - Musculoskeletal: Cervical spine: Muscle bulk/ tone/ strength in the bilateral upper extremities normal Vertebral body tenderness to palpation over Spurling test positive Distraction test positive Facet loading test positive TTP Thoracic spine Muscle bulk / tone/ strength in the bilateral paraspinal muscles normal Vertebral body tender to palpation over Facet loading test positive TTP Lumbar spine: Motor bulk/ tone/ strength lower extremities , thigh and legs : 5/5 Deep tendon reflexes : Normal Knee Jerk. Normal Ankle Jerk . Vertebral body tenderness to palpation over Jay Test positive Lumbar Facet Loading Test positive over BL L4-L5, L5-S1 Straight Leg Raise: positive at 30 degrees right side/ left side Gaenslen's Test positive Sacral spine : Severe tenderness over the Sacroiliac joint: right side / left side Range of motion: Flexion of the lumbar spine <60 degrees Range of motion: Extension of the lumbar spine <20 degrees Gaenslen's Test positive right side / left side Samantha test: positive right side / left side Thigh Thrust Test positive right side / left side Sacral Thrust Test positive right side / left side Assessment and plan: Chronic LBP secondary to lumbar DDD, spondylosis with facet arthropathy without myelopathy Recommendation of BL RFA L3-L5. Pt exhibited substantial relief with prior BL RFA L3-L5 procedure. Risks, benefits of procedure discussed and patient verbalized understanding. Protocol for discontinuation/continuation of medication surrounding procedure discussed. Minimal anesthesia including Fentanyl and Versed if clinically indicated. All questions answered. I have spent less than 30 minutes on patient care today. Dr Pizano was available by phone for the evaluation of this patient. The time was used to review the medical records including relevant urine studies and Prescription history (MAPs), review of the available imaging, evaluation and examination of the patient, coordination of care with the medical staff and if applicable referring physicians, as well as creation of the medical record PQRS Narrative: Smoking Status Never smoker Home Medications: Ambulatory Orders Aspirin 81 mg PO DAILY #30 chewable 01/27/19 metFORMIN HCL 500 mg PO 1700 02/27/21 Gabapentin 300 mg PO TID 06/25/22 Omeprazole [PriLOSEC] 40 mg PO QAM 03/30/23 Acetaminophen Tab [Tylenol] 1,000 mg PO Q6HR PRN #30 tablet 04/08/23 Anastrozole [Arimidex] 1 mg PO DAILY 05/06/23 Atorvastatin [Lipitor] 20 mg PO DAILY 05/06/23 Metoprolol Succinate (ER) [Toprol Xl] 100 mg PO DAILY 05/06/23 lisinopriL [Zestril] 5 mg PO DAILY 05/06/23 Ondansetron Odt [Zofran Odt] 4 mg PO Q8HR PRN #10 tab 01/22/24 Tamsulosin [Flomax] 0.4 mg PO DAILY #7 cap 01/22/24 Controlled Substance Measures - Controlled Substance Measures Is patient prescribed a controlled substance at discharge?: No
== END ==
LOC: PNWHC3 09:45
PROVIDERS: ATTEND Specialist
DX: M51.37 Other intervertebral disc degeneration, lumbosacral region (principal); M47.817 Spondylosis without myelopathy or radiculopathy, lumbosacral region; Z91.048 Other nonmedicinal substance allergy status; Z88.1 Allergy status to other antibiotic agents
CPT/HCPCS: 99211

== ENCOUNTER → 2024-03-08 | Outpatient (CLI) | payer MEDICARE | END | disposition home or self-care (01) | LOC: LABWHC1 13:27 | PROVIDERS: ATTEND Obstetrics & Gynecology | DX: C54.1 Malignant neoplasm of endometrium (principal); C56.9 Malignant neoplasm of unspecified ovary; Z79.811 Long term (current) use of aromatase inhibitors; Z85.43 Personal history of malignant neoplasm of ovary; Z92.3 Personal history of irradiation | CPT/HCPCS: 36415; 86304 ==

== ENCOUNTER 2024-03-17 06:11 | Day surgery (SDC) | payer MEDICARE ==
[~2024-03-17 06:11] MED LIST changes: -ACETAMINOPHEN TAB 500 MG TAB PO PRN; -ALVIMOPAN 12 MG CAPSULE PO PRN; -CHLORHEXIDINE GLUCONATE 15 ML CUP MUCOUS MEM PRN; -ENOXAPARIN 40 MG/0.4 ML SYRINGE SQ PRN; -HYDROmorphone 0.5 MG/0.5 ML SYRINGE IVP PRN; +LACTATED RINGERS 1,000 ML IV SCH; -MIDAZOLAM 2 MG/2 ML VIAL IV PRN; -ONDANSETRON 4 MG/2 ML VIAL IVP PRN; -PANTOPRAZOLE 40 MG/10 ML VIAL IVP PRN
[2024-03-17 06:36] VITALS: TEMP 97.3
[2024-03-17] MEDS: LACTATED RINGERS 1,000 ML IV SCH (06:40)
[2024-03-17] MEDS: IV FLUID CONTINUATION 1,000 ML IV ONE ×2 (06:40→07:45)
[2024-03-17 07:00] LABS: Glucose,Whole Blood 102 mg/dL (70-110)
[2024-03-17] MEDS ORDERED: fentaNYL (PF) 50 MCG/ML 2 ML AMP ONE (07:07)
[2024-03-17] MEDS ORDERED: MIDAZOLAM 2 MG/2 ML VIAL ONE (07:07)
[2024-03-17] MEDS ORDERED: ROPIVACAINE 5MG/ML 20ML VIAL ONE (07:07)
--- NOTE | 2024-03-17 07:49 | P.PCN ---
Description of Procedure: Preprocedure diagnosis. 1. Lumbar spondylosis with facet joint arthropathy without myelopathy. 2. Lumbar degenerative disc disease. Procedure diagnosis. 1. Lumbar spondylosis with facet joint arthropathy without myelopathy. Space 2. Lumbar degenerative disc disease. Procedure.Bilateral radiofrequency thermocoagulation L3, L4 and L5 medial branch, with fluoroscopic guidance (fluoroscopy images are available in the radiology department) (to Denervate the facet joint at bilateral L4- 5 and L5-S1 levels) Anesthesia. Moderate sedation with intravenous Versed 2 mg and fentanyl 50 g and local infiltration with Lidocaine. Continuous pulse OX,BP,EKG and verbal communication was maintained with patient. EBL minimal. Procedure indication. The patient with low back pain secondary to lumbar facet arthropathy who he had more than 50% relief of her pain with previous diagnostic lumbar medial branch block with local anesthetics.The patient was seen and identified in the preoperative area. Risks: Benefits, complications, including but not limited to risk of infection, bleeding, ALLERGIC reaction to the medications and no complete pain relief and alternatives were discussed with the patient, the patient admitted to proceed with the procedure and signed the consent. Procedure description/technique. Patient was taken to the OR and timeout was completed. The patient was placed in prone position on the procedure table. The lumbar area was prepped and draped in the usual sterile fashion. After injecting 5 ml of 1% Lidocaine subcutaneously,using AP and then oblique, lateral view of fluoroscopy, 18-gauge 100 mm radiofrequency cannula with a 10 mm active tip was advanced and guided by fluoroscopy at the junction of supirior articular process with RIGHT ala of the sacrum, transverse process of L4&L5. Each site then underwent positive sensory testing with 50 Hz and 0-1 V and negative motor testing at 2.5 Hz and 0-3 V with local stimulation but no radicular symptoms down the leg. Thereafter each sites underwent radiofrequency thermocoagulation at 80C for 90 seconds after injecting 1 mL of preservative- free 0.5% ropivacaine. Repeat radiofrequency ablation was done at each points after rotating the needle 180 with same setting. This same procedure was repeated twice on the LEFT side at the junction of superior articular process with ala of sacrum,transverse process of L4, L5 with the same settings after positive sensory,negative motor stimulation and infiltration of 1.0 ml 5% Ropivacaine at each site . RF needles were taken out. At the end of the procedure the skin was cleansed and Band-Aids were applied. Disposition patient tolerated the procedure well. No complication. She was placed in supine position and transferred to the recovery area in stable condition for observation and was discharged home from recovery room after meeting discharge criteria. Discharge instructions given to the patient by the staff. The patient were examined prior to discharge the patient will schedule a follow-up in the clinic in 2-4 weeks.
[2024-03-17] MEDS: ONDANSETRON 4 MG/2 ML VIAL IVP STA (07:51)
[2024-03-17 08:01] VITALS: RESP 18
[2024-03-17 08:23] VITALS: BP 116/76; PULSE 85
--- NOTE | 2024-03-17 08:46 | FL ---
Fluoroscopy INDICATION: Pain FINDINGS: Fluoroscopy time: 62.3 seconds. Total dose area product (DAP) in uGy*m?, mGy*cm? (or similar): 0.33015 Images obtained: 6. IMPRESSION: 1. Documentation of fluoroscopy.
== END 2024-03-17 08:20 | disposition home or self-care (01) ==
LOC: ORPAIN 06:11
PROVIDERS: ATTEND Pain Medicine Interventional Pain Medicine
DX: M47.816 Spondylosis without myelopathy or radiculopathy, lumbar region (principal); M51.36 Other intervertebral disc degeneration, lumbar region; Z91.040 Latex allergy status; Z88.8 Allergy status to other drugs, medicaments and biological substances
CPT/HCPCS: 64635; 64636 ×2; 99152; 99153; J2250; J2405; J3010; J2795

== ENCOUNTER → 2024-04-04 | Outpatient (CLI) | payer MEDICARE ==
--- NOTE | 2024-05-18 07:56 | XR ---
Patient Abernathy Carolyn ID [id number] Order # EXAMINATION TYPE: XR thoracic spine complete DATE OF EXAM: 04/17/2024 COMPARISON: No comparison available on downtime PACS. HISTORY: Midthoracic back pain 3-4 months TECHNIQUE: 3 view thoracic spine FINDINGS: There are 12 thoracic type vertebral bodies. Pedicles are intact. There is exaggeration of the thoracic kyphosis. Vertebral body heights are preserved. Minimal spondylosis is present. Mild dif fuse disc space narrowing is present. IMPRESSION: 1. No suspicious acute osseous abnormality. 2. Exaggeration thoracic kyphosis. Degenerative disc changes and mild spondylosis present.
== END ==
LOC: PNWHC3 09:44
PROVIDERS: ATTEND Specialist
DX: M47.816 Spondylosis without myelopathy or radiculopathy, lumbar region
CPT/HCPCS: 72072; 99211

== ENCOUNTER → 2024-04-08 | Outpatient (CLI) | payer MEDICARE ==
--- NOTE | 2024-05-17 14:42 | MR ---
Site ID synapse default Patient Nohemy Abernathy J ID [id number] Age/Gender: 69Y, F Order # N/A Procedure MR thoracic spine wo Date 04/08/2024 8:02:28 PM INDICATION: Patient age: Female; 69 year old; Reason for study: Mid back pain COMPARISON: CTA chest 04/07/2023, thyroid ultrasound 09/11/2021. TECHNIQUE: Multi planar, multi sequence imaging was performed utilizing: T1-weighted, T2-weighted, an d turbo inversion recovery imaging of the thoracic spine. The patient was not given Gadolinium. FINDINGS: The thoracic vertebral bodies have preserved heights. No spondylolisthesis. Increased smooth thoracic kyphosis. Bone marrow is diffusely heterogenous. Benign 1.2 cm vertebral hemangioma involving the T9 vertebral body. Multilevel disc desiccation. Thoracic spinal cord appears unremarkable. T6-T7 central disc protrusion with cranial extrusion approximately 4 mm along the posterior cortex of the T6 vertebral body. Mild effacement of the anterior thecal sac (series 801, image 2). T8-T9 central disc protrusion with mild effacement of the anterior thecal sac (series 701, image 14). No other evidence of significant central canal stenosis. No MR evidence for significant neural alva inal stenosis at any thoracic level. Right thyroid lobe 9 mm T2 hyperintense nodule with additional T2 hyperintense nodules within the ist hmus. These correspond to prior ultrasound. Prominent size right thyroid lobe. IMPRESSION: Mild multilevel degenerative disc disease. T6-T7 small disc herniation with cranial extrusion. Additi onally T8-T9 small disc herniation. Both cause mild central canal stenosis.
== END | disposition home or self-care (01) ==
LOC: RADMRIMAIN 20:45
PROVIDERS: ATTEND Specialist
DX: M51.24 Other intervertebral disc displacement, thoracic region (principal); M51.34 Other intervertebral disc degeneration, thoracic region; M48.04 Spinal stenosis, thoracic region
CPT/HCPCS: 72146

== ENCOUNTER → 2024-05-25 | Outpatient (CLI) | payer MEDICARE ==
[2024-05-25 09:08] VITALS: BP 144/85; PULSE 75; RESP 16; TEMP 97.1
--- NOTE | 2024-05-25 15:30 | P.PAINPG ---
PQRS Measure Charge Sheet Comment: A 69 yr old female w at side with a history of severe and chronic thoracolumbar secondary to radiculopathy, spondylosis and facet arthropathy without myelopathy presents today for evaluation s/p BL RFA L3-L5. Pt states she experienced 85 % pain relief s/p procedure. Pain level is provoked at 10 /10 in intensity, constant, localized in the thoracic spine, predominantly axial, sharp in character without shooting pain. Pain is provoked by standing for periods of 3 min or more. Pain is alleviated with injections, heated massage pad use, medications, topical, repositioning and rest. Pt could not afford PT but she follows the packet provided by her therapist at home. Interventional pain procedures completed include BL RFA L3-L5 x2 (Oct 2022, Mar 2024), HERBERT L4-5 Patient is currently on Tyl Arth Patient denies any side effects of the medication(s), denies excessive drowsiness or sleepiness, denies suicidal ideation and reports that the current pain medication is helping to control the pain and improve activities of daily living. Patient denies any motor or sensory deficits. Patient denies any fever or night sweats, denies any change in the bowel movements or urination. Physical Examination: -Constitutional: Cooperative. Not in acute distress . - Neurologic: Cranial nerve II to XII intact. No focal neurological deficits. - Psychatric: Alert & oriented x 3. Matching mood & appropriate affect. Judgment and insight intact. - Musculoskeletal: Cervical spine: Muscle bulk/ tone/ strength in the bilateral upper extremities normal Vertebral body tenderness to palpation over Spurling test positive Distraction test positive Facet loading test positive TTP Thoracic spine Muscle bulk / tone/ strength in the bilateral paraspinal muscles normal Vertebral body tender to palpation over T6 Jay test positive BL T6-T7 Facet loading test positive TTP Lumbar spine: Motor bulk/ tone/ strength lower extremities , thigh and legs : 5/5 Deep tendon reflexes : Normal Knee Jerk. Normal Ankle Jerk . Vertebral body tenderness to palpation over Jay Test positive Lumbar Facet Loading Test positive over BL L4-L5, L5-S1 Straight Leg Raise: positive at 30 degrees right side/ left side Gaenslen's Test positive Sacral spine : Severe tenderness over the Sacroiliac joint: right side / left side Range of motion: Flexion of the lumbar spine <60 degrees Range of motion: Extension of the lumbar spine <20 degrees Gaenslen's Test positive right side / left side Samantha test: positive right side / left side Thigh Thrust Test positive right side / left side Sacral Thrust Test positive right side / left side Imaging: MRI non contrast thoracic spine from 04/24/24 reviewed, T6-T8 disc bulges Assessment and plan: Chronic thoracolumbar pain secondary to radiculopathy, spondylosis with facet arthropathy without myelopathy Recommendation of HERBERT T6-T7 #1. Risks, benefits of procedure discussed and patient verbalized understanding. Protocol for discontinuation/continuation of medication surrounding procedure discussed. All questions answered. I have spent less than 30 minutes on patient care today. Dr Pizano was available by phone for the evaluation of this patient. The time was used to review the medical records including relevant urine studies and Prescription history (MAPs), review of the available imaging, evaluation and examination of the patient, coordination of care with the medical staff and if applicable referring physicians, as well as creation of the medical record PQRS Narrative: Smoking Status Never smoker Home Medications: Ambulatory Orders Aspirin 81 mg PO DAILY #30 chewable 01/27/19 Gabapentin 300 mg PO QAM 06/25/22 Acetaminophen Tab [Tylenol] 1,000 mg PO Q6HR PRN #30 tablet 04/08/23 Anastrozole [Arimidex] 1 mg PO DAILY 05/06/23 Atorvastatin [Lipitor] 20 mg PO HS 05/06/23 Metoprolol Succinate (ER) [Toprol Xl] 100 mg PO QAM 05/06/23 lisinopriL [Zestril] 5 mg PO QAM 05/06/23 Dapagliflozin Propanediol [Farxiga] 5 mg PO DAILY 05/25/24 Controlled Substance Measures - Controlled Substance Measures Is patient prescribed a controlled substance at discharge?: No
== END ==
LOC: PNWHC3 08:44
PROVIDERS: ATTEND Specialist
DX: M54.14 Radiculopathy, thoracic region
CPT/HCPCS: 99211

== ENCOUNTER → 2024-06-23 | Outpatient (CLI) | payer MEDICARE ==
[2024-06-23 08:15] LABS: INR 1.1 (<1.2); Partial Thromboplastin Time 22.5 sec (22.0-30.0); Prothrombin Time 11.5 sec (10.0-12.5)
[2024-06-23 10:36] LABS: HGB 14.5 g/dL (12.0-15.0); MCHC 32.2 g/dL (32.0-37.0); MCV 96.4 FL (80.0-97.0); NRBC Per 100 WBC 0 X 10*3/uL (0.00-0.01); Platelet Count 234 X 10*3/uL (140-440); RBC 4.67 X 10*6/uL (4.10-5.20); RDW 12.7 % (11.5-14.5); WBC 5.85 X 10*3/uL (4.50-10.00)
[2024-06-23 11:01] LABS: Prealbumin 23.6 mg/dL (18.0-42.0)
[2024-06-23 11:08] LABS: ALT 15 U/L (8-44); AST 20 U/L (13-35); Albumin 4.4 g/dL (3.8-4.9); Alkaline Phosphatase 160 U/L (41-126); BUN/Creat Ratio 21.75 Ratio (12.00-20.00); Blood Urea Nitrogen 17.4 mg/dL (9.0-27.0); Calcium 9.9 mg/dL (8.7-10.3); Cancer Antigen 125 11.4 U/mL (0.0-30.1); Carbon Dioxide 26.6 mmol/L (21.6-31.8); Chloride 106 mmol/L (96-109); Chol/HDL Ratio 3.24 Ratio; Globulin 2.1 g/dL (1.6-3.3); Glucose 106 mg/dL (70-110); LDL Cholesterol,Calculated 77.2 mg/dL (0.0-131.0); Magnesium 2.1 mg/dL (1.5-2.4); Phosphorus 3.9 mg/dL (2.4-5.1); Potassium 3.9 mmol/L (3.5-5.5); Sodium 142 mmol/L (135-145); Total Bilirubin 0.6 mg/dL (0.3-1.2); Total Protein 6.5 g/dL (6.2-8.2)
[2024-06-23 11:39] LABS: % Iron Saturation 18.31 (12.00-45.00); Ferritin 20.1 ng/mL (10.0-291.0); Iron 91 UG/DL (50-170); Total Iron Binding Capacity 497 UG/DL (228-460)
[2024-06-24 15:17] LABS: Zinc, Serum 90 ug/dL (60-130)
[2024-06-25 09:19] LABS: Vit B1(Thiamine) 76 ug/L (38-122)
== END ==
LOC: LABWHC1 07:11
PROVIDERS: ATTEND Surgery Plastic and Reconstructive Surgery
CPT/HCPCS: 36415; 80053; 80061; 82306; 82525; 82607; 82728; 82746; 83036; 83540; 83550; 83735; 83970; 84100; 84134; 84255; 84425; 84443; 84590; 84630; 85027; 85610; 85730; 86304

== ENCOUNTER → 2024-06-29 | Outpatient (CLI) | payer MEDICARE ==
--- NOTE | 2024-06-29 15:38 | P.BASOAP ---
Subjective Progress Note Date: 06/29/24 She had lost 10 pounds and regained after staying home and snacking. She eats out of boredom. She is not getting much exercise. She needs colon resection for constipation. She is not eating protein. Needs steps 5 x per day. Get 2 shakes and a leg for diet over 60 to 80 grams daily. EKG abnormal. Needs cardiology clearance. Wants colectomy. Objective - Vital Signs Vital signs: Vital Signs Temp 98.1 F 06/29/24 14:50 Pulse 84 06/29/24 14:50 Resp 16 06/29/24 14:50 BP 128/81 06/29/24 14:50 Pulse Ox FiO2 Intake & Output 06/28/24 06/29/24 06/29/24 18:59 06:59 18:59 Weight 87.543 kg Assessment/Plan Plan: Date: 06/29/24 Initial Weight: 115.751 kg Initial BMI: 40.6 Current Weight: 87.543 kg Current BMI: 30.7 Type of Surgery: Total Volume in Band: Previous Volume: Volume Removed: Volume Added: Band Size:
[2024-06-29 16:38] VITALS: BP 128/81; PULSE 84; RESP 16; TEMP 98.1; BMI 30.7
== END ==
LOC: BARWHC3 14:23
PROVIDERS: ATTEND Surgery Plastic and Reconstructive Surgery
DX: E66.01 Morbid (severe) obesity due to excess calories (principal); Z91.048 Other nonmedicinal substance allergy status; Z88.1 Allergy status to other antibiotic agents; Z68.30 Body mass index [BMI] 30.0-30.9, adult
CPT/HCPCS: 99211

== ENCOUNTER → 2024-07-07 | Outpatient (CLI) | payer MEDICARE | END | disposition home or self-care (01) | LOC: LABPAT 11:45 | PROVIDERS: ATTEND Surgery Plastic and Reconstructive Surgery | DX: Z53.9 Procedure and treatment not carried out, unspecified reason (principal) ==

== ENCOUNTER → 2024-09-07 | Outpatient (CLI) | payer MEDICARE ==
[2024-09-07 09:51] VITALS: BP 136/88; PULSE 72; RESP 16; TEMP 97
--- NOTE | 2024-09-07 15:15 | P.PAINPG ---
Objective - Vital Signs Vital signs: Intake & Output 09/06/24 09/07/24 09/07/24 18:59 06:59 18:59 Weight 87.997 kg PQRS Measure Charge Sheet Comment: A 69 yr old female w at side with a history of severe and chronic thoracolumbar secondary to radiculopathy, spondylosis and facet arthropathy without myelopathy presents today for evaluation. Pt underwent a BL RFA L3-L5 in Oct 2023 when she experienced 75% pain relief x 7 mo s/p procedure. Pain level is provoked at 6 /10 in intensity, constant, localized in the lumbar spine, predominantly axial, sharp in character without shooting pain. Pain is provoked by standing for periods of 15 min or more. Pain is alleviated with injections, heated massage pad use, medications, topical, repositioning and rest. Pt could not afford PT but she follows the packet provided by her therapist at home. Interventional pain procedures completed include BL RFA L3-L5 x2 (Oct 2022, Mar 2024), HERBERT L4-L5 Patient is currently on Tyl Arth (since 10/23), Ibu (since 06/21) Patient denies any side effects of the medication(s), denies excessive drowsiness or sleepiness, denies suicidal ideation and reports that the current pain medication is helping to control the pain and improve activities of daily living. Patient denies any motor or sensory deficits. Patient denies any fever or night sweats, denies any change in the bowel movements or urination. Physical Examination: -Constitutional: Cooperative. Not in acute distress . - Neurologic: Cranial nerve II to XII intact. No focal neurological deficits. - Psychatric: Alert & oriented x 3. Matching mood & appropriate affect. Judgment and insight intact. - Musculoskeletal: Cervical spine: Muscle bulk/ tone/ strength in the bilateral upper extremities normal Vertebral body tenderness to palpation over Spurling test positive Distraction test positive Facet loading test positive TTP Thoracic spine Muscle bulk / tone/ strength in the bilateral paraspinal muscles normal Vertebral body tender to palpation over T6 Jay test positive BL T6-T7 Facet loading test positive TTP Lumbar spine: Motor bulk/ tone/ strength lower extremities , thigh and legs : 5/5 Deep tendon reflexes : Normal Knee Jerk. Normal Ankle Jerk . Vertebral body tenderness to palpation over Jay Test positive Lumbar Facet Loading Test positive over BL L4-L5, L5-S1 Straight Leg Raise: positive at 30 degrees right side/ left side Gaenslen's Test positive Sacral spine : Severe tenderness over the Sacroiliac joint: right side / left side Range of motion: Flexion of the lumbar spine <60 degrees Range of motion: Extension of the lumbar spine <20 degrees Gaenslen's Test positive right side / left side Samantha test: positive right side / left side Thigh Thrust Test positive right side / left side Sacral Thrust Test positive right side / left side Imaging: MRI non contrast thoracic spine from 04/24/24 reviewed, T6-T8 disc bulges Assessment and plan: Chronic thoracolumbar pain secondary to radiculopathy, spondylosis with facet arthropathy without myelopathy Recommendation of BL RFA L4-L5/ L5-S1. Risks, benefits of procedure discussed and patient verbalized understanding. Protocol for discontinuation/continuation of medication surrounding procedure discussed. Minimal anesthesia including Fentanyl and Versed if clinically indicated. All questions answered. I have spent less than 30 minutes on patient care today. Dr Pizano was available by phone for the evaluation of this patient. The time was used to review the medical records including relevant urine studies and Prescription history (MAPs), review of the available imaging, evaluation and examination of the patient, coordination of care with the medical staff and if applicable referring physicians, as well as creation of the medical record - Pain Location Back Non-Pharmacological Interventions: Position/Reposition Pharmacological Interventions: Discuss Pain Med Options PQRS Narrative: Smoking Status Never smoker Hx Alcohol Use (MH) Yes Home Medications: Ambulatory Orders Aspirin 81 mg PO DAILY #30 chewable 01/27/19 Gabapentin 300 mg PO BID 06/25/22 Acetaminophen Tab [Tylenol] 1,000 mg PO Q6HR PRN #30 tablet 04/08/23 Anastrozole [Arimidex] 1 mg PO DAILY 05/06/23 Atorvastatin [Lipitor] 20 mg PO HS 05/06/23 Metoprolol Succinate (ER) [Toprol Xl] 100 mg PO QAM 05/06/23 lisinopriL [Zestril] 5 mg PO QAM 05/06/23 Dapagliflozin Propanediol [Farxiga] 5 mg PO DAILY 05/25/24 Acetaminophen/Diphenhydramine [Tylenol PM 500-25mg] 2 tab PO HS PRN 09/07/24 HYDROcodone/APAP 5-325MG [[place] 5-325] 1 tab PO Q4H PRN 3 Days #18 tab 09/07/24 Melatonin [Melatonin Tr] 1 tab PO HS PRN 09/07/24 Controlled Substance Measures - Controlled Substance Measures Is patient prescribed a controlled substance at discharge?: Yes When asked, does pt state using other controlled substances?: No If prescribed controlled substance>3 days was MAPS reviewed?: Prescribed <3 Days
== END ==
LOC: PNWHC3 08:49
PROVIDERS: ATTEND Specialist
DX: M54.14 Radiculopathy, thoracic region (principal); M47.819 Spondylosis without myelopathy or radiculopathy, site unspecified; G89.29 Other chronic pain; Z88.8 Allergy status to other drugs, medicaments and biological substances; Z91.09 Other allergy status, other than to drugs and biological substances
CPT/HCPCS: 99211

== ENCOUNTER → 2024-09-28 | Outpatient (CLI) | payer MEDICARE ==
[2024-09-28 14:44] VITALS: BP 137/86; PULSE 69; RESP 16; TEMP 97.6; BMI 31.4
--- NOTE | 2024-09-28 15:20 | P.BASOAP ---
Subjective Progress Note Date: 09/28/24 DATE OF SERVICE: 09/28/24 CHIEF COMPLAINT: Morbid obesity HISTORY OF PRESENT ILLNESS: Nohemy Abernathy is a 69-year-old female status post sleeve gastrectomy 04/06/2023. She is almost 2 years out. She presents with lower abdominal cramping. She reports troubles with bowel habits. She is on protein shakes for at least 2 weeks. No reports of dysphagia. She has occasional gastroesophageal reflux disease. She presents for management of her bowels. At height of 5 feet 6.5 inches, her ideal body weight is 154 pounds. Her highest weight was 265 pounds. Her body mass index was 44.3. She comes in 198 pounds from 193 pounds, 4 ago. She has gained 5 pounds in 4 months. Her body mass index is 31.5. Lifetime weight loss 80 pounds. Lifetime percent excess weight loss 65%. She is 44 pounds overweight. PAST MEDICAL HISTORY: 1. Morbid obesity due to excess calories 2. Body mass index of 38.0, initial 3. Hypertensive heart disease 4. Hyperlipidemia 5. Diabetes type II, non-insulin dependent 6. Gastroesophageal reflux disease 7. Osteoarthritis lower back 8. Generalized anxiety disorder 9. Post op nausea and vomiting 10. Colon polyps. 11. Osteoarthritis of the hips 12. Osteoarthritis of the knee 13. History of ovarian cancer 14. History of breast cancer PAST SURGICAL HISTORY: 1. Appendectomy 2. Tonsillectomy 3. Status post sleeve gastrectomy 4. Hysterectomy HOME MEDICATIONS: Home Medications Medication Instructions Recorded Confirmed Gabapentin 300 mg PO BID 06/25/22 09/29/24 Anastrozole [Arimidex] 1 mg PO QAM 05/06/23 09/29/24 Atorvastatin [Lipitor] 20 mg PO HS 05/06/23 09/29/24 Dapagliflozin Propanediol [Farxiga] 5 mg PO QAM 05/25/24 09/29/24 Acetaminophen/Diphenhydramine 2 tab PO HS PRN 09/07/24 09/29/24 [Tylenol PM 500-25mg] Melatonin [Melatonin Tr] 1 tab PO HS PRN 09/07/24 09/29/24 Aspirin 81 mg PO QAM 09/22/24 09/29/24 Calcium Carb/Mag Ox/Zinc Sulf 1 each PO HS 09/22/24 09/29/24 [Lcf-Rxr-Ewqq 334-134-5 mg Tab] Cholecalciferol [Vitamin D3 (125 125 mcg PO BID 09/22/24 09/29/24 Mcg = 5000 Iu)] Previous Rx's Medication Instructions Recorded Acetaminophen Tab [Tylenol Tab] 1,000 mg PO Q6HR PRN #30 tablet 10/01/24 Ibuprofen [Motrin] 600 mg PO Q8HR PRN #30 tab 10/01/24 Simethicone [Gas-X] 125 mg PO AC-TID PRN #20 capsule 10/01/24 Omeprazole [PriLOSEC] 40 mg PO DAILY #14 cap 10/04/24 ALLERGIES: Allergies Allergy/AdvReac Type Severity Reaction Status Date / Time adhesive tape Allergy Rash/Hives Verified 09/30/24 08:55 gemifloxacin mesylate Allergy Rash/Hives Verified 09/30/24 08:55 [From Factive] SOCIAL HISTORY: No current tobacco use. FAMILY HISTORY: No family history of ulcerative colitis disease or Crohn's disease. Family history of morbid obesity. No lupus in the family. No reports of stomach or esophageal cancer. REVIEW OF ORGAN SYSTEMS: CONSTITUTIONAL: At height of 5 feet 6.5 inches, her ideal body weight is 154 pounds. Her highest weight was 265 pounds. Her body mass index was 44.3. She comes in 198 pounds from 193 pounds, 4 ago. She has gained 5 pounds in 4 months. Her body mass index is 31.5. Lifetime weight loss 80 pounds. Lifetime percent excess weight loss 65%. She is 44 pounds overweight. HEENT: Denies any active troubles with vision or hearing. ENDOCRINE: Has diabetes. No hypothyroidism. CARDIOVASCULAR: Denies past reports of palpitations or heart attacks or chest pain. Has hypertensive heart disease. RESPIRATORY: Has daytime somnolence. GASTROINTESTINAL: Denies any bright red blood per rectum. No diarrhea. No constipation. Has gastroesophageal reflux disease. GENITOURINARY: Denies bladder urgency. No recent blood in urine MUSCULOSKELETAL: Has lower back pain and joint pain. Has osteoarthritis of the knees. NEURO: No headaches. No seizure disorders. PSYCH: Has depression. No suicidal ideation. Has anxiety. RHEUMATOLOGIC: No lupus. No rheumatoid arthritis. HEMATOLOGIC: Denies any abnormal bleeding or bruising. SKIN: No rash. No skin cancer. PHYSICAL EXAM: VITAL SIGNS: Height 5 foot 6.5 inches, weight 198 pounds. BMI 31.5 Vital Signs Temp 97.6 F 09/28/24 14:37 Pulse 69 09/28/24 14:37 Resp 16 09/28/24 14:37 BP 137/86 09/28/24 14:37 Pulse Ox FiO2 GENERAL: Well-developed in no acute distress. HEENT: No scleral icterus. Extraocular movements grossly intact. Hears conversational speech. No nasal drainage. NECK: Supple without lymphadenopathy. CHEST: Nonlabored respirations with equal bilateral excursions. CARDIOVASCULAR: Regular rate and regular rhythm. Distal 2+ pulses. ABDOMEN: Obese, soft, nontender, nondistended. MUSCULOSKELETAL: No clubbing, cyanosis. NEURO: No focal or lateralizing signs. Cranial nerves 2 through 12 grossly within normal limits. PSYCH: Appropriate affect. Alert and oriented to person, place and time. SKIN: Good skin turgor. Well perfused. ASSESSMENT: 1. Morbid obesity due to excess calories 2. Body mass index of 44.3 to 31.5 3. Hypertensive heart disease 4. Hyperlipidemia 5. Diabetes type II, non-insulin dependent 6. Gastroesophageal reflux disease 7. Osteoarthritis lower back 8. Generalized anxiety disorder 9. Post op nausea and vomiting 10. Colon polyps. 11. Osteoarthritis of the hips 12. Osteoarthritis of the knee 13. Lactose intolerance 14. Status post sleeve gastrectomy 15. Large bowel obstruction due to diverticulitis PLAN: 1. Patient's pre-existing history of change in bowel habits do recommend colonoscopy 2. Due to worsening symptoms of change in bowel habits including partial obstruction, recommend colectomy. 3. Recommend CBC including CMP 4. Inpatient hospitalization advised 5. She is elevated risk for complications due to multiple abdominal surgeries Objective - Vital Signs Vital signs: Vital Signs Temp 97.6 F 09/28/24 14:37 Pulse 69 09/28/24 14:37 Resp 16 09/28/24 14:37 BP 137/86 09/28/24 14:37 Pulse Ox FiO2 Intake & Output 09/27/24 09/28/24 09/28/24 18:59 06:59 18:59 Weight 89.811 kg Assessment/Plan Plan: Date: 09/28/24 Initial Weight: 115.751 kg Initial BMI: 40.6 Current Weight: 89.811 kg Current BMI: 31.4 Type of Surgery: Total Volume in Band: Previous Volume: Volume Removed: Volume Added: Band Size:
== END ==
LOC: BARWHC3 13:58
PROVIDERS: ATTEND Surgery Plastic and Reconstructive Surgery
DX: E66.01 Morbid (severe) obesity due to excess calories (principal); I11.9 Hypertensive heart disease without heart failure; E78.5 Hyperlipidemia, unspecified; E11.9 Type 2 diabetes mellitus without complications; K21.9 Gastro-esophageal reflux disease without esophagitis; M19.09 Primary osteoarthritis, other specified site; F41.9 Anxiety disorder, unspecified; K63.5 Polyp of colon; M17.11 Unilateral primary osteoarthritis, right knee; M17.12 Unilateral primary osteoarthritis, left knee; M16.0 Bilateral primary osteoarthritis of hip; E73.9 Lactose intolerance, unspecified; K56.609 Unspecified intestinal obstruction, unspecified as to partial versus complete obstruction; K57.32 Diverticulitis of large intestine without perforation or abscess without bleeding; Z68.41 Body mass index [BMI] 40.0-44.9, adult; Z98.84 Bariatric surgery status; Z91.09 Other allergy status, other than to drugs and biological substances; Z88.8 Allergy status to other drugs, medicaments and biological substances
CPT/HCPCS: 99211

== ENCOUNTER 2024-09-29 07:34 | Day surgery (SDC) | payer MEDICARE ==
[2024-09-22 14:02] VITALS: BMI 29.5
[2024-09-29] MEDS: IV FLUID CONTINUATION 1,000 ML IV ONE ×2 (07:42→13:18)
[2024-09-29 08:05] LABS: Glucose,Whole Blood 85 mg/dL (70-110)
[2024-09-29] MEDS ORDERED: LIDOCAINE 1% (10MG/ML) FOR IV START INTRADERMA PRN (08:19)
[2024-09-29] MEDS ORDERED: PROPOFOL 10 MG/ML 20 ML VIAL IV ONE (08:35)
--- NOTE | 2024-09-29 08:44 | P.GSHP ---
History of Present Illness H&P Date: 09/29/24 CHIEF COMPLAINT: Sigmoid diverticulosis with obstruction HISTORY OF PRESENT ILLNESS: The patient is a 69-year-old female who presents with change in bowel habits including intermittent large bowel obstruction for over 6 months. She reports chronic gas bloat. She presents for surgical options, sigmoid colectomy. PAST MEDICAL HISTORY: Please see list. PAST SURGICAL HISTORY: Please see list. MEDICATIONS: Please see list. ALLERGIES: Please see list. SOCIAL HISTORY: No illicit drug use FAMILY HISTORY: No reports of Crohn disease or ulcerative colitis. REVIEW OF ORGAN SYSTEMS: CONSTITUTIONAL: Denies any fever or chills. HEENT: Denies any trouble with vision or nosebleeds. No difficulty swallowing. LYMPHATIC: The patient denies any lumps and bumps around the neck. ENDOCRINE: Denies any thyroid disorders. Has blood sugar glucose intolerance. RESPIRATORY: Denies pneumonia. Denies any troubles with breathing or dyspnea on exertion. CARDIOVASCULAR: Denies any chest pain, palpitations, or recent heart attacks. GASTROINTESTINAL: Has chronic diverticulitis. GENITOURINARY: Has increased urinary frequency. MUSCULOSKELETAL: Has back pain, stiffness, joint arthritis. NEUROLOGIC: Denies any numbness or tingling along the distal extremities. No seizure disorders or headaches. PSYCHIATRIC: Denies depression or suidical ideation. HEMATOLOGIC: Denies any abnormal bleeding or bruising. PHYSICAL EXAM: VITAL SIGNS: Stable GENERAL: Well-developed pleasant in no acute distress. HEENT: No scleral icterus. Extraocular movements grossly intact. Moist buccal mucosa. NECK: Supple without lymphadenopathy. CHEST: Unlabored respirations. Equal bilateral excursions. CARDIOVASCULAR: Regular rate and rhythm. Distal 2+ pulses. ABDOMEN: Soft, nontender, nondistended. MUSCULOSKELETAL: No clubbing, cyanosis, or edema. NERUO: Cranial nerves 2-12 grossly intact. PSYCH: Alert and oriented to person place and time. ASSESSMENT: 1. Sigmoid diverticulosis with bowel obstruction PLAN: 1. Benefits and risks of surgical robotic sigmoid resection was reviewed in detail. Robotic-assisted approach was also described. 2. Enhanced colon recovery program. 3. DVT prophylaxis. 4. Antibiotic prophylaxis. 5. Inpatient hospitalization greater than 2 nights. 6. Recommend colonoscopy for extent of obstruction and evaluation of neoplasm. 7. CBC and CMP on day of procedure 8. IV fluid hydration, 2 L 9. Recommend abdominal wall block for colectomy Past Medical History Past Medical History: Cancer, CVA/TIA, Diabetes Mellitus, GERD/Reflux, Hyperlipidemia, Hypertension, Pneumonia, Thyroid Disorder Additional Past Medical History / Comment(s): chronic back pain. right ovarian CA and endometrial CA, 09/21 chemo, finished with radiation. Thyroid nodules, hiatal hernia. "Possible mild stroke 2018." Arthritis. Kidney stones. "Excess colon" Chronic constipation. History of Any Multi-Drug Resistant Organisms: None Reported Past Surgical History: Appendectomy, Hernia Repair, Hysterectomy, Tonsillectomy Additional Past Surgical History / Comment(s): FEBRUARY 19 HIATAL HERNIA REPAIR. COLONOSCOPY, PAIN CLINIC PROCEDURE. Hiatal hernia repair 01-20. Sleeve gastrectomy 04-06-23 Past Anesthesia/Blood Transfusion Reactions: Postoperative Nausea & Vomiting (PONV) Additional Past Anesthesia/Blood Transfusion Reaction / Comment(s): PONV w/ appendicitis, no other problems. no hx blood transfusion to date. Past Psychological History: Anxiety Additional Psychological History / Comment(s): no meds Smoking Status: Former smoker Past Alcohol Use History: Rare Additional Past Alcohol Use History / Comment(s): STARTED SMOKING AGE 14(1968), QUIT 1988, SMOKED 1-1.5ppd Past Drug Use History: Marijuana Additional Drug Use History / Comment(s): pt. states she rarely drinks alcohol 2-3 drinks/month and occassionally smokes a vape pen with marijuana for her chronic back pain, pt. states she uses every 2 days. No Marijuana 24 hrs prior to procedure. - Past Family History Mother Family Medical History: Cancer Additional Family Medical History / Comment(s): pt. states her maternal grandmother had ovarian cancer, mother had thyroid nodules Father History Unknown: Yes Family Medical History: Unable to Obtain Additional Family Medical History / Comment(s): Didn't know father. Medications and Allergies Home Medications Medication Instructions Recorded Confirmed Type Gabapentin 300 mg PO BID 06/25/22 09/29/24 History Anastrozole [Arimidex] 1 mg PO QAM 05/06/23 09/29/24 History Atorvastatin [Lipitor] 20 mg PO HS 05/06/23 09/29/24 History Metoprolol Succinate (ER) [Toprol 100 mg PO QAM 05/06/23 09/29/24 History Xl] lisinopriL [Zestril] 5 mg PO QAM 05/06/23 09/29/24 History Dapagliflozin Propanediol [Farxiga] 5 mg PO QAM 05/25/24 09/29/24 History Acetaminophen/Diphenhydramine 2 tab PO HS PRN 09/07/24 09/29/24 History [Tylenol PM 500-25mg] Melatonin [Melatonin Tr] 1 tab PO HS PRN 09/07/24 09/29/24 History Aspirin 81 mg PO QAM 09/22/24 09/29/24 History Calcium Carb/Mag Ox/Zinc Sulf 1 each PO HS 09/22/24 09/29/24 History [Nzk-Atr-Tmxz 334-134-5 mg Tab] Cholecalciferol [Vitamin D3 (125 125 mcg PO BID 09/22/24 09/29/24 History Mcg = 5000 Iu)] Turmeric Root Extract [Turmeric 500 mg PO HS 09/22/24 09/29/24 History Curcumin] Allergies Allergy/AdvReac Type Severity Reaction Status Date / Time adhesive tape Allergy Rash/Hives Verified 09/29/24 07:45 gemifloxacin mesylate Allergy Rash/Hives Verified 09/29/24 07:45 [From Factive] Surgical - Exam Vital Signs Temp Pulse Resp BP Pulse Ox 98.1 F 78 14 140/88 99 09/29/24 07:42 09/29/24 07:42 09/29/24 07:42 09/29/24 07:42 09/29/24 07:42
[2024-09-29] MEDS ORDERED: Antibiotics per Pharmacy 1 EACH MISC MISCELLANE PRN (08:52)
[2024-09-29] MEDS: SODIUM CHLORIDE 0.9% 1,000 ML IV ONE ×3 (09:15→09:18)
--- NOTE | 2024-09-29 09:29 | P.PCN ---
Date of Procedure: 09/29/24 Description of Procedure: PREOPERATIVE DIAGNOSIS: Sigmoid diverticulosis with obstruction POSTOPERATIVE DIAGNOSIS: Sigmoid diverticulosis with obstruction OPERATION: Colonoscopy to the sigmoid colon. SURGEON: Loretta Espinoza MD. ANESTHESIA: MAC. INDICATIONS: The patient is a 69-year-old female who presents with change in bowel habits including worsening abdominal distention. Benefits and risks were described and informed consent was obtained. DESCRIPTION OF PROCEDURE: The patient had undergone Surep. She had been brought into the operating room and laid in the left lateral decubitus position. After adequate intravenous sedation, the rectum was examined with 2% lidocaine jelly. External hemorrhoids were encountered. The rectal tone was loose. No lesions were palpated in the rectal vault. An Olympus colonoscope was advanced along the rectum to a very tortuous sigmoid colon. The scope was then exchanged for a pediatric colonoscope. Despite multiple maneuvers, the sigmoid colon had severe tortuosity preventing further advancement of scope. Severe diverticulosis was identified. The scope was passed to 30 cm from the anal verge. As the patient posed high risk for perforation with persistence of the procedure, the procedure was discontinued. The colon was desufflated. The patient had tolerated the procedure well. Withdrawal time was over 6 minutes. FINDINGS: [place] preparation quality scale 2 (1-5) Tortuous sigmoid colon with stricture preventing further advancement of the scope due to diverticulitis. External prolapsed hemorrhoids, grade 2 Scope advanced to sigmoid colon at 30 cm. RECOMMENDATIONS: Recommend admission for colectomy due to obstruction
[2024-09-29] MEDS ORDERED: MELATONIN 5 MG TABLET PO PRN (09:30)
[2024-09-29] MEDS ORDERED: DEXTROSE 50% SYRINGE 50 ML IVP PRN ×2 (09:30)
[2024-09-29 09:51] LABS: HCT 41.4 % (34.0-46.0); HGB 13.8 gm/dL (11.4-16.0); MCH 30.5 pg (25.0-35.0); MCHC 33.2 g/dL (31.0-37.0); MCV 91.8 fL (80.0-100.0); Mean Platelet Volume 7.4; Platelet Count 212 k/uL (150-450); RBC 4.51 m/uL (3.80-5.40); RDW 13.6 % (11.5-15.5); WBC 5.9 k/uL (3.8-10.6)
[2024-09-29 09:54] LABS: ALT 18 U/L (4-34); African American GFR (CKD) >90 (>60 ml/min/1.73 sqM); Anion Gap 9 mmol/L; Blood Urea Nitrogen 17 mg/dL (7-17); Calcium 9.9 mg/dL (8.4-10.2); Carbon Dioxide 24 mmol/L (22-30); Chloride 105 mmol/L (98-107); Glucose 72 mg/dL (74-99); Non-African American GFR(CKD) >90 (>60 ml/min/1.73 sqM); Sodium 138 mmol/L (137-145); Total Bilirubin 1.2 mg/dL (0.2-1.3); Total Protein 6.3 g/dL (6.3-8.2)
[2024-09-29 10:04] LABS: AST 26 U/L (14-36); Alkaline Phosphatase 134 U/L (38-126); Potassium 4.4 mmol/L (3.5-5.1)
[2024-09-29] MEDS ORDERED: diphenhydrAMINE 25 MG CAP PO PRN (13:19)
[2024-09-29 13:53] LABS: Eosinophils # (M) 0.18 k/uL (0-0.7); Lymphocytes # (M) 1.83 k/uL (1.0-4.8); Monocytes # (M) 0.71 k/uL (0-1.0); Neutrophils # (M) 3.19 k/uL (1.3-7.7); Neutrophils % (M) 54 %; Nucleated Red Blood Cells 0 /100 WBC (0-0); Total Cells Counted 100
[2024-09-29 13:56] LABS: RBC Morphology Normal
[2024-09-29] MEDS: NEOMYCIN 500 MG TAB PO SCH (14:23)
[2024-09-29] MEDS: metroNIDAZOLE 500 MG TAB PO SCH (14:23)
[2024-09-29] MEDS: LACTATED RINGERS 1,000 ML IV SCH (15:03)
[2024-09-29] MEDS: PEG 3350 (420 GM/BTL) + LYTES 4,000 ML BOTTLE PO ONE (15:03)
[2024-09-29] MEDS: INSULIN ASPART (NovoLOG) 100 UNIT/ML VIAL SQ SCH (15:04)
[2024-09-29] MEDS: SODIUM CHLORIDE 0.9% 1,000 ML IV SCH (15:04)
[2024-09-29 16:19] LABS: Glucose,Whole Blood 87 mg/dL (70-110)
[2024-09-29] MEDS: GABAPENTIN 300 MG CAP PO SCH (20:48)
[2024-09-29] MEDS: ACETAMINOPHEN TAB 500 MG TAB PO PRN (20:49)
[2024-09-29] MEDS: TEMAZEPAM 15 MG CAP PO ONE (20:50)
[2024-09-29 20:57] LABS: Glucose,Whole Blood 88 mg/dL (70-110)
[2024-09-29 23:22] LABS: Glucose,Whole Blood 98 mg/dL (70-110)
[2024-09-30] MEDS ORDERED: metroNIDAZOLE-NS PMX 500 MG in SALINE 1 100ML.BAG IVPB PRN (05:00)
[2024-09-30 06:29] LABS: Glucose,Whole Blood 98 mg/dL (70-110)
[2024-09-30 07:04] LABS: Basophils % (A) 0 %; Eosinophils # (A) 0.2 k/uL (0-0.7); Eosinophils % (A) 3 %; HCT 43.6 % (34.0-46.0); HGB 14.1 gm/dL (11.4-16.0); Lymphocytes # (A) 1.9 k/uL (1.0-4.8); Lymphocytes % (A) 36 %; MCH 29.8 pg (25.0-35.0); MCHC 32.4 g/dL (31.0-37.0); Mean Platelet Volume 6.8; Monocytes # (A) 0.4 k/uL (0-1.0); Monocytes % (A) 7 %; Neutrophils # (A) 2.6 k/uL (1.3-7.7); Neutrophils % (A) 49 %; Platelet Count 230 k/uL (150-450); RBC 4.74 m/uL (3.80-5.40); RDW 13.2 % (11.5-15.5); WBC 5.2 k/uL (3.8-10.6)
[2024-09-30 07:26] LABS: ALT 18 U/L (4-34); AST 23 U/L (14-36); African American GFR (CKD) >90 (>60 ml/min/1.73 sqM); Albumin 3.9 g/dL (3.5-5.0); Albumin/Globulin Ratio 1.9; Alkaline Phosphatase 139 U/L (38-126); Anion Gap 8 mmol/L; Blood Urea Nitrogen 10 mg/dL (7-17); Calcium 9.8 mg/dL (8.4-10.2); Carbon Dioxide 23 mmol/L (22-30); Chloride 108 mmol/L (98-107); Globulin 2.1 g/dL; Glucose 86 mg/dL (74-99); Non-African American GFR(CKD) >90 (>60 ml/min/1.73 sqM); Potassium 3.6 mmol/L (3.5-5.1); Sodium 139 mmol/L (137-145); Total Bilirubin 0.9 mg/dL (0.2-1.3)
[2024-09-30] MEDS: lisinopriL 5 MG TAB PO SCH (08:36)
[2024-09-30] MEDS: METOPROLOL SUCCINATE (ER) 100 MG TAB.ER.24H PO SCH (08:36)
[2024-09-30] MEDS: IV FLUID CONTINUATION 1,000 ML IV ONE ×2 (09:12→09:40)
[2024-09-30] MEDS: ALVIMOPAN 12 MG CAPSULE PO PRN (09:30)
[2024-09-30] MEDS: ACETAMINOPHEN TAB 500 MG TAB PO PRN (09:30)
[2024-09-30 09:31] LABS: Glucose,Whole Blood 90 mg/dL (70-110)
[2024-09-30] MEDS: ONDANSETRON 4 MG/2 ML VIAL IVP PRN (09:32)
[2024-09-30] MEDS: DEXAMETHASONE SOD PHOSPHATE 4 MG/ML 1 ML VIAL IVP STA (09:32)
[2024-09-30] MEDS: HEPARIN SODIUM,PORCINE 5,000 UNIT/ML 1 ML VIAL SQ PRN (09:35)
[2024-09-30] MEDS: MIDAZOLAM 2 MG/2 ML VIAL IV ONE (09:42)
--- NOTE | 2024-09-30 09:52 | P.ANPRN ---
Procedure Note - Anesthesia - Nerve Block Performed Bilateral Erector Spinae Single Time Out Performed: Yes (0940) Date of Procedure: 09/30/24 Procedure Start Time: :40 Procedure Stop Time: 09:47 Location of Patient: PreOp Indication: Acute Post-Operative Pain, Requested by Surgeon Sedation Type: Sedate with meaningful contact maintained Preparation: Sterile Prep, Sterile Dressing Position: Sitting Catheter: None Needle Types: Pajunk Needle Gauge: 21 Ultrasound used to visualize needle placement: Yes Ultrasound used to observe medication spread: Yes Injectate: 0.5% Ropivacaine (see comment for volume) (On each side, 21 mL of block solution containing 10 mL of 0.5% ropivacaine mixed with 10 mL of preservative-free normal saline, and 4 mg of dexamethasone) Blood Aspirated: No Pain Paresthesia on Injection Noted: No Resistance on Injection: Normal Image Stored and Saved: Yes Events: Uneventful and Well Tolerated
--- NOTE | 2024-09-30 11:08 | P.HPADDEND ---
H&P Addendum H&P Addendum Date: 09/30/24 CBC and CMP this morning within normal limits. Benefits of risks of procedure described. Low fiber diet following diet reviewed. Patient will need to achieve pain control, no nausea, urinating prior to discharge. All questions addressed.
[2024-09-30] MEDS ORDERED: HEPARIN SODIUM,PORCINE 5,000 UNIT/ML 1 ML VIAL ONE (11:18)
[2024-09-30] MEDS ORDERED: DEXAMETHASONE SOD PHOSPHATE 4 MG/ML 1 ML VIAL ONE (11:18)
[2024-09-30] MEDS ORDERED: SODIUM CHLORIDE 0.9% (PF) 10 ML VIAL ONE (11:18)
[2024-09-30] MEDS ORDERED: GLYCOPYRROLATE 0.2 MG/ML 2 ML VIAL ONE (11:18)
[2024-09-30] MEDS ORDERED: ROPIVACAINE 5 MG/ML 30 ML VIAL ONE (11:18)
[2024-09-30] MEDS ORDERED: LIDOCAINE 1% INJ 10MG/ML (20 ML MDV) ONE (11:18)
[2024-09-30] MEDS ORDERED: KETAMINE HCL IN 0.9 % NACL 50 MG/5 ML SYRINGE ONE (11:18)
[2024-09-30] MEDS ORDERED: SUCCINYLCHOLINE CHLORIDE 200 MG/10 ML VIAL IV ONE (11:18)
[2024-09-30] MEDS ORDERED: fentaNYL (PF) 50 MCG/ML 2 ML AMP ONE (11:18)
[2024-09-30] MEDS ORDERED: ROCURONIUM 10 MG/ML (5 ML VIAL) IV ONE (11:18)
[2024-09-30] MEDS ORDERED: HYDROmorphone (PF) 1 MG/ML ONE (11:18)
[2024-09-30] MEDS ORDERED: NEOSTIGMINE 1 MG/ML 10 ML VIAL ONE (11:18)
[2024-09-30] MEDS ORDERED: PROPOFOL 10 MG/ML 20 ML VIAL IV ONE (11:18)
[2024-09-30] MEDS: LIDOCAINE 1%-EPI 1:100,000 20 ML VIAL SQ ONE (12:14)
[2024-09-30] MEDS: LACTATED RINGERS 1,000 ML IV ONE ×2 (13:45→15:20)
[2024-09-30] MEDS ORDERED: NALOXONE 0.4 MG/ML 1 ML VIAL IV PRN (17:27)
[2024-09-30] MEDS ORDERED: HYDROmorphone 1 MG/ML 1 ML SYRINGE IVP PRN (17:30)
[2024-09-30] MEDS ORDERED: BENZOCAINE/MENTHOL LOZENG 1 EACH LOZENGE MUCOUS MEM PRN (17:30)
[2024-09-30] MEDS: HYDROmorphone 0.5 MG/0.5 ML SYRINGE IVP ONE ×3 (17:36→18:10)
--- NOTE | 2024-09-30 17:36 | P.OP ---
Date of Procedure: 09/30/24 Description of Procedure: SURGEON: VIKAS CUMMINGS MD PREOPERATIVE DIAGNOSES: 1. Sigmoid diverticulitis with partial bowel obstruction 2. Hypertensive heart disease 3. History of sleeve gastrectomy POSTOPERATIVE DIAGNOSES: 1. Sigmoid diverticulitis with sigmoid volvulus 2. Hypertensive heart disease 3. History of sleeve gastrectomy 4. Severe pelvic adhesions including interloop adhesions OPERATION: 1. Robotic-assisted daVinci Xi sigmoid colectomy with low anterior resection using 29 mm Ethicon powered stapler 2. Robotic-assisted daVinci Xi extensive lysis of adhesions over 2 hours, greater than 60% of the case 3. Intraoperative colonoscopy used for sigmoidoscopy Anesthesia: GETA, local, regional Estimated Blood Loss (ml): 20 Pathology: 1. Sigmoid colon 2. EEA donuts 3. Proximal colotomy Condition: stable Disposition: floor COMPLICATIONS: None. Operative Findings: 1. Severe intra-abdominal pelvic adhesions involving the right lower quadrant, sigmoid colon and pelvis including cecum 2. Extensive lysis of adhesions over 2 hours sharply performed without enterotomy 3. Sigmoid resection 20 to 25 cm performed INDICATIONS: The patient is a 69-year-old female who presents with change in bowel habits, sigmoid diverticulosis with tortuous colon. She had prior to the colonoscopy however unsuccessful with computed tomography scan performed. She has pre-existing persistent leukocytosis which was addressed by hematology. Benefits and risks of surgical intervention was described in detail including infection, injury to the ureter, colostomy creation, possibility for additional surgery was discussed at length. Informed consent was obtained. All questions of the patient and family were answered. DESCRIPTION: Earlier the patient had undergone a bowel prep using the enhanced colon recovery program. The patient was transferred to the operating room and placed supine. After general induction, the abdomen was prepped and draped in standard sterile fashion. Ioban was placed along the abdomen to minimize any contamination of skin floor. A Quintanilla catheter was placed. After a timeout protocol was performed, attention was then brought to the left upper quadrant whereby a 0 degree 5 mm laparoscopic trocar entry was performed. The abdominal cavity was entered and insufflated to 15 mmHg pressure, which was tolerated well. Diagnostic laparoscopy confirmed moderately redundant sigmoid colon and active sigmoid volvulus. The small bowel was unremarkable. Next a robotic 12-mm trocar was placed along the right lateral abdominal wall 20 cm superior from the pelvis. Two 8 mm ports were placed along the upper abdomen. Ports were placed 10 cm apart from each other including 20 cm away from the target anatomy of the left pelvis. The 12-mm port was exchanged for an 8 mm robotic port at the left upper quadrant. The robot was docked along the left lateral abdomen. The patient was positioned in steep Trendelenburg position at 21-degrees. Using atraumatic graspers and vessel sealer, the robotic system was docked and primed as described. Instruments were interchanged by the phlebotomy lab assistant including hook cautery, needle national van truck driver, robotic stapler and vessel sealer. The robot stapler was prepared along the right lateral abdominal wall. The stapler 12-mm port was arranged along the right lateral abdominal wall. Next, attention was brought to identify the sigmoid colon. A stay suture using 3- 0 silk was placed along the anterior serosa of the redundant sigmoid colon. The sigmoid mesentery was mobilized using a vessel sealer whereby the descending colon was marked and tagged. Using multiple fires of the robot stapler 60 mm green load, the proximal sigmoid colon was divided. The mesentery of the sigmoid colon was mobilized towards the pelvic brim and sacral promontory using a vessel sealer. The sigmoid volvulus was reduced with viable colon. Next, the sigmoid colon was divided using the robotic stapler 60 mm black staple loads. The rest of the sigmoid colon mesentery was mobilized using vessel sealer. Additionally, the sigmoid colon was mobilized onto the colon to minimize injury to the ureters. I went to the foot of the bed to confirm sizers and placement of 29-mm Ethicon powered stapler. I re-scrubbed into the case. The robotic arms were temporarily undocked. A 29-mm anvil was placed with a 3-0 silk sutured at the tip of the anvil planning coordinator. Then the anvil was placed via the left upper quadrant 12 mm port. All robotic arms were re-docked. I went back to the console. The staple line was opened using cautery. The anvil was entered into the proximal descending colon. The colotomy was closed using 60 mm green load. Next, the sharp tip of the anvil planning coordinator was brought through the staple line. The anvil planning coordinator was removed from the abdomen using empty clip appliers. I went to the foot of the bed to place the powered Ethicon 29 mm stapler via the rectum. The anvil and stapler were mated for 1 minute. The doughnuts were intact on both sides and thick. An intraoperative leak test was performed as I inserted the colonoscope to the anastomosis. Endoscopic images were obtained. Irrigation was placed in the pelvis and no air leaks were identified. Irrigation fluid was aspirated from the pelvis until dry. I went back to the console. All sponges and needles were removed from the abdominal cavity. The robot was undocked. I re-scrubbed into the case. Via the left upper quadrant port, the sigmoid colon was removed using 15 mm Endo Catch bag. All sponges were removed from the abdominal cavity. The left upper quadrant incision was widened to 3-cm. No contamination had occurred throughout the case. The fascial defect was oversewn using 0 Vicryl and a Aldo Zaidi. Next all pneumoperitoneum was evacuated from the abdominal cavity. The 8-mm trocar sites were reapproximated using 4-0 Monocryl in an interrupted subcuticular fashion. Local anesthetic was infiltrated to all wounds for postop analgesia. All incisions were also cleansed with diluted hydrogen peroxide. An [employer] Ag advance surgical dressing was placed over the colon extraction site. Liquid glue was applied to the rest of the skin incisions. The patient had tolerated the procedure well. The patient was extubated successfully. The patient was transferred to the postanesthesia care unit in stable condition. Intraoperative findings were described in detail to the patient's family. Console time: 77 minutes
[2024-09-30 18:42] LABS: Glucose,Whole Blood 173 mg/dL (70-110)
[2024-09-30] MEDS: SODIUM CHLORIDE 0.9% 1,000 ML IV ONE (19:00)
[2024-09-30] MEDS: ACETAMINOPHEN IV (For NPO) 1,000 MG in EMPTY BAG 1 BAG IVPB SCH (20:39)
[2024-09-30 21:27] LABS: Glucose,Whole Blood 163 mg/dL (70-110)
[2024-09-30] MEDS: fentaNYL PCA 500 MCG/50 ML BAG IV SCH (21:29)
[2024-09-30] MEDS: ARTIFICIAL TEARS-HYPROMELLOSE DROPS 15 ML BTL BOTH EYES PRN (22:17)
[2024-09-30] MEDS: HEPARIN SODIUM,PORCINE 5,000 UNIT/ML 1 ML VIAL SQ SCH (22:17)
[2024-09-30] MEDS: FAMOTIDINE 20 MG/2 ML VIAL IV SCH (22:17)
[2024-09-30] MEDS: ONDANSETRON 4 MG/2 ML VIAL IVP SCH (22:18)
[2024-09-30] MEDS: metroNIDAZOLE-NS PMX 500 MG in SALINE 1 100ML.BAG IVPB SCH (22:18)
[2024-09-30] MEDS: SIMETHICONE 80 MG CHEWABLE PO SCH (22:19)
[2024-10-01 06:07] LABS: Glucose,Whole Blood 118 mg/dL (70-110)
[2024-10-01 08:39] VITALS: PULSE 100
[2024-10-01] MEDS: ALVIMOPAN 12 MG CAPSULE PO SCH (08:39)
[2024-10-01] MEDS: SODIUM CHLORIDE 0.9% 1,000 ML IV ONE (09:59)
[2024-10-01 11:54] LABS: Glucose,Whole Blood 135 mg/dL (70-110)
[2024-10-01 12:27] LABS: BUN/Creat Ratio 15.33 Ratio (12.00-20.00); Blood Urea Nitrogen 9.2 mg/dL (9.0-27.0); Calcium 8.8 mg/dL (8.7-10.3); Carbon Dioxide 20.6 mmol/L (21.6-31.8); Chloride 110 mmol/L (96-109); Glucose 132 mg/dL (70-110); Potassium 4.3 mmol/L (3.5-5.5); Sodium 142 mmol/L (135-145)
[2024-10-01 12:37] VITALS: BP 103/60; RESP 20; TEMP 98.2
--- NOTE | 2024-10-01 15:19 | P.DS ---
Providers Date of admission: 09/29/2024 Expected date of discharge: 10/01/24 Attending physician: Loretta Espinoza Primary care physician: Narend[facility] Course: CHIEF COMPLAINT: Sigmoid diverticulitis with bowel obstruction HISTORY OF PRESENT ILLNESS: The patient is a 69-year-old female admitted for sigmoid diverticulitis with large bowel obstruction. Patient had an attempted colonoscopy confirming sigmoid stricture with near partial obstruction. Patient underwent colectomy, 09/30/2024. Findings of severe intra-abdominal pelvic adhesions were found extending her surgery. This morning, pain is well- controlled. She is tolerating diet. No nausea and vomiting. at bedside. ROS: No reports of nausea and vomiting. No bowel movements. No fevers or chills. No new chest pain. No productive sputum PHYSICAL EXAM: VITAL SIGNS: Reviewed CONSTITUTIONAL: Well developed and in no acute distress. EYES: Conjuctivae without sclera icterus. Extraocular movements grossly intact. HEAD, EARS, NOSE, THROAT: Moist buccal mucosa. Head is atraumatic, normocephalic. Hears conversational speech. No nasal drainage. RESPIRATORY: Non-labored respirations and equal bilateral excursions. CARDIOVASCULAR: Palpable 2+ radial pulses. ABDOMEN: Incisions clean dry intact. Abdominal binder present. MUSCULOSKELETAL: No gross deformity of the lower extremities noted. No clubbing. No cyanosis. SKIN: Good skin turgor. Well perfused. NEUROLOGIC: Cranial nerves II through XII grossly intact. No focal or lateralizing signs. PSYCH: Appropriate affect. Alert and oriented to person, place and time. CLINICAL LABS: Reviewed. Creatinine within normal limits. ASSESSMENT: 1. Sigmoid diverticulitis with large bowel obstruction 2. Severe intra-abdominal adhesions PLAN: 1. Clinically, patient is doing well after robotic colectomy. 2. Patient advised to avoid broccoli, seeds, nuts which may interfere with her recent colectomy 3. Close outpatient follow-up via telehealth 4. Discharge instruction reviewed and verbalized Procedures: Colonoscopy, 09/29/2024 Sigmoid colectomy, low anterior resection, 09/30/2024 Patient Condition at Discharge: Good Plan - Discharge Summary Discharge Rx Participant: No New Discharge Prescriptions: New Ibuprofen [Motrin] 600 mg PO Q8HR PRN #30 tab PRN Reason: Pain Acetaminophen Tab [Tylenol Tab] 1,000 mg PO Q6HR PRN #30 tablet PRN Reason: Pain Simethicone [Gas-X] 125 mg PO AC-TID PRN #20 capsule PRN Reason: Pain Continue Atorvastatin [Lipitor] 20 mg PO HS Dapagliflozin Propanediol [Farxiga] 5 mg PO QAM Acetaminophen/Diphenhydramine [Tylenol PM 500-25mg] 2 tab PO HS PRN PRN Reason: sleep Melatonin [Melatonin Tr] 1 tab PO HS PRN PRN Reason: sleep Calcium Carb/Mag Ox/Zinc Sulf [Lag-Hqj-Ekxh 334-134-5 mg Tab] 1 each PO HS Gabapentin 300 mg PO BID Anastrozole [Arimidex] 1 mg PO QAM Cholecalciferol [Vitamin D3 (125 Mcg = 5000 Iu)] 125 mcg PO BID Aspirin 81 mg PO QAM Discontinued lisinopriL [Zestril] 5 mg PO QAM Turmeric Root Extract [Turmeric Curcumin] 500 mg PO HS Metoprolol Succinate (ER) [Toprol XL] 100 mg PO QAM Discharge Medication List Gabapentin 300 mg PO BID 06/25/22 [History] Anastrozole [Arimidex] 1 mg PO QAM 05/06/23 [History] Atorvastatin [Lipitor] 20 mg PO HS 05/06/23 [History] Dapagliflozin Propanediol [Farxiga] 5 mg PO QAM 05/25/24 [History] Acetaminophen/Diphenhydramine [Tylenol PM 500-25mg] 2 tab PO HS PRN 09/07/24 [History] Melatonin [Melatonin Tr] 1 tab PO HS PRN 09/07/24 [History] Aspirin 81 mg PO QAM 09/22/24 [History] Calcium Carb/Mag Ox/Zinc Sulf [Xar-Ser-Pqml 334-134-5 mg Tab] 1 each PO HS 09/22/24 [History] Cholecalciferol [Vitamin D3 (125 Mcg = 5000 Iu)] 125 mcg PO BID 09/22/24 [History] Acetaminophen Tab [Tylenol Tab] 1,000 mg PO Q6HR PRN #30 tablet 10/01/24 [Rx] Ibuprofen [Motrin] 600 mg PO Q8HR PRN #30 tab 10/01/24 [Rx] Simethicone [Gas-X] 125 mg PO AC-TID PRN #20 capsule 10/01/24 [Rx] Follow up Appointment(s)/Referral(s): Loretta Espinoza MD [STAFF PHYSICIAN] - 10/04/24 7:00 pm (Telehealth) Patient Instructions/Handouts: Colectomy Diet (ED), Laparoscopic Bowel Resection (GEN) Activity/Diet/Wound Care/Special Instructions: EXPECT BOWEL MOVEMENT WITH BLOOD FOR 1 WEEK, 10/07/24 TAKE LAXATIVE FOR CONSTIPATION AFTER 7 DAYS, 10/07/24 NO LONG DRIVES OR AIRPLANE RIDES OVER 60 MINUTES FOR THE NEXT 2 WEEKS, 10/14/24, DUE TO HIGH RISK OF PULMONARY EMBOLISM/DVTs May drive on 10/04/24 Wear abdominal binder for comfort. No lifting over 4 pounds in 4 weeks OCTOBER 29December shower. No bath tub soaks for two weeks until 10/14/24, Avoid raspberry seeds. See diverticulitis, low fiber, colectomy diet Use Tylenol and ibuprofen scheduled for the next 24-48 hours for best pain relief. Use ice along incisions for today to prevent swelling. Remove dressing 10/07/24 Discharge Disposition: HOME SELF-CARE
== END 2024-10-01 16:52 | disposition home or self-care (01) ==
LOC: ORWHC2ENDO 07:34 → 4SSUR 08:51 → ORWHC2ENDO 10-01 16:52
PROVIDERS: ATTEND Surgery Plastic and Reconstructive Surgery
DX: K57.32 Diverticulitis of large intestine without perforation or abscess without bleeding (principal); K56.690 Other partial intestinal obstruction; K64.1 Second degree hemorrhoids; K56.2 Volvulus; N73.6 Female pelvic peritoneal adhesions (postinfective); G89.18 Other acute postprocedural pain; I11.9 Hypertensive heart disease without heart failure; E11.9 Type 2 diabetes mellitus without complications; E78.5 Hyperlipidemia, unspecified; K21.9 Gastro-esophageal reflux disease without esophagitis; G89.29 Other chronic pain; Z91.89 Other specified personal risk factors, not elsewhere classified; Z79.811 Long term (current) use of aromatase inhibitors; Z79.84 Long term (current) use of oral hypoglycemic drugs; Z79.82 Long term (current) use of aspirin; Z79.899 Other long term (current) drug therapy; Z87.891 Personal history of nicotine dependence; Z86.73 Personal history of transient ischemic attack (TIA), and cerebral infarction without residual deficits; Z85.43 Personal history of malignant neoplasm of ovary; Z85.42 Personal history of malignant neoplasm of other parts of uterus; Z98.84 Bariatric surgery status; Z88.1 Allergy status to other antibiotic agents; Z91.048 Other nonmedicinal substance allergy status
CPT/HCPCS: 44207; S2900; 45330; 80048; 80053; 83036; 85025

== ENCOUNTER → 2024-11-02 | Outpatient (CLI) | payer MEDICARE ==
[2024-11-02 13:14] VITALS: BP 103/67; PULSE 98; RESP 16; TEMP 97.9; BMI 31.6
--- NOTE | 2024-11-02 14:05 | P.BASOAP ---
Subjective Progress Note Date: 11/02/24 She reports heartburn that has improved since surgery. She feels better. No more constipation medications. Fluids drinking is less than 30 oz daily. She is using skinny mix. She wants hiatal hernia repair. Her is stable. Objective - Vital Signs Vital signs: Vital Signs Temp 97.9 F 11/02/24 13:11 Pulse 98 11/02/24 13:11 Resp 16 11/02/24 13:11 BP 103/67 11/02/24 13:11 Pulse Ox FiO2 Intake & Output 11/01/24 11/02/24 11/02/24 18:59 06:59 18:59 Weight 90.265 kg Assessment/Plan Plan: Date: 11/02/24 Initial Weight: 115.751 kg Initial BMI: 40.6 Current Weight: 90.265 kg Current BMI: 31.6 Type of Surgery: Vertical Sleeve Gastrectomy Total Volume in Band: Previous Volume: Volume Removed: Volume Added: Band Size:
== END ==
LOC: BARWHC3 12:57
PROVIDERS: ATTEND Surgery Plastic and Reconstructive Surgery
DX: E66.01 Morbid (severe) obesity due to excess calories (principal); Z68.31 Body mass index [BMI] 31.0-31.9, adult; Z91.048 Other nonmedicinal substance allergy status; Z91.09 Other allergy status, other than to drugs and biological substances
CPT/HCPCS: 99211

== ENCOUNTER → 2024-12-05 | Outpatient (CLI) | payer MEDICARE ==
[2024-12-05 15:10] LABS: Basophils # (A) 0.04 X 10*3/uL (0.00-0.10); Basophils % (A) 0.8 %; Eosinophils # (A) 0.07 X 10*3/uL (0.04-0.35); Eosinophils % (A) 1.4 %; HCT 44.7 % (37.2-46.3); Lymphocytes # (A) 2.04 X 10*3/uL (0.90-5.00); Lymphocytes % (A) 41.9 %; MCH 29.4 pg (27.0-32.0); MCHC 31.3 g/dL (32.0-37.0); MCV 93.7 FL (80.0-97.0); Mean Platelet Volume 9.3 FL (9.5-12.2); Monocytes # (A) 0.49 X 10*3/uL (0.20-1.00); Monocytes % (A) 10.1 %; NRBC Per 100 WBC 0 X 10*3/uL (0.00-0.01); Neutrophils # (A) 2.22 X 10*3/uL (1.80-7.70); Neutrophils % (A) 45.6 %; Platelet Count 264 X 10*3/uL (140-440); RBC 4.77 X 10*6/uL (4.10-5.20); RDW 13.3 % (11.5-14.5); WBC 4.87 X 10*3/uL (4.50-10.00)
[2024-12-05 15:16] LABS: ALT 12 U/L (8-44); AST 19 U/L (13-35); Albumin 4.2 g/dL (3.8-4.9); Albumin/Globulin Ratio 1.91 Ratio (1.60-3.17); Alkaline Phosphatase 152 U/L (41-126); Blood Urea Nitrogen 19.8 mg/dL (9.0-27.0); Calcium 9.9 mg/dL (8.7-10.3); Carbon Dioxide 23.5 mmol/L (21.6-31.8); Chloride 109 mmol/L (96-109); Globulin 2.2 g/dL (1.6-3.3); Glucose 100 mg/dL (70-110); Potassium 4.2 mmol/L (3.5-5.5); Sodium 143 mmol/L (135-145); Total Bilirubin 0.7 mg/dL (0.3-1.2); Total Protein 6.4 g/dL (6.2-8.2)
== END | disposition home or self-care (01) ==
LOC: LABPAT 09:12
PROVIDERS: ATTEND Surgery Plastic and Reconstructive Surgery
DX: Z01.812 Encounter for preprocedural laboratory examination (principal)
CPT/HCPCS: 80053; 85025; 86850; 86900; 86901

== ENCOUNTER 2024-12-12 07:27 | Day surgery (SDC) | payer MEDICARE ==
[2024-12-08 09:45] VITALS: BMI 30.1
[~2024-12-12 07:27] MED LIST changes: -LACTATED RINGERS 1,000 ML IV SCH; +LIDOCAINE 1% (10MG/ML) FOR IV START INTRADERMA PRN
[2024-12-12 08:08] LABS: Glucose,Whole Blood 97 mg/dL (70-110)
[2024-12-12] MEDS: IV FLUID CONTINUATION 1,000 ML IV ONE (08:09)
[2024-12-12] MEDS: ONDANSETRON 4 MG/2 ML VIAL IVP PRN (08:14)
[2024-12-12] MEDS: DEXAMETHASONE SOD PHOSPHATE 4 MG/ML 1 ML VIAL IV ONE (08:14)
[2024-12-12] MEDS: ACETAMINOPHEN TAB 500 MG TAB PO PRN (08:14)
--- NOTE | 2024-12-12 08:51 | P.GSHP ---
History of Present Illness H&P Date: 12/12/24 CHIEF COMPLAINT: Paraesophageal hiatal hernia with gastroesophageal reflux disease. HISTORY OF PRESENT ILLNESS: The patient is a 69-year-old female who presents with symptomatic paraesophageal hiatal hernia over one year with gastroesophageal reflux disease. She has completed upper endoscopy workup. Now she presents for surgical intervention. PAST MEDICAL HISTORY: Please see list. PAST SURGICAL HISTORY: Please see list. MEDICATIONS: Please see list. ALLERGIES: Please see list. SOCIAL HISTORY: No illicit drug use FAMILY HISTORY: No reports of Crohn disease or ulcerative colitis. REVIEW OF ORGAN SYSTEMS: CONSTITUTIONAL: No reports of fevers or chills. GI: Denies any blood in stools or constipation. PHYSICAL EXAM: VITAL SIGNS: Stable GENERAL: Well-developed pleasant and in no acute distress. HEENT: No scleral icterus. Extraocular movements grossly intact. Moist buccal mucosa. NECK: Supple without lymphadenopathy. CHEST: Unlabored respirations. Equal bilateral excursions. CARDIOVASCULAR: Regular rate and rhythm. Distal 2+ pulses. ABDOMEN: Soft, nondistended. No peritoneal signs. MUSCULOSKELETAL: No clubbing, cyanosis, or edema. SKIN: Well-perfused. Good skin turgor. REPORTS: Upper endoscopy demonstrates paraesophageal hiatal hernia BARIUM SWALLOW: Images reviewed demonstrating paraesophageal hiatal hernia. This is my independent interpretation. REPORTS: Cardiology risk assessment obtained. Please see chart. ASSESSMENT: 1. Diaphragmatic paraesophageal hiatal hernia with severe gastroesophageal reflux disease. PLAN: 1. Recommend proceeding with a robotic paraesophageal hiatal hernia with possible mesh. 2. Benefits and risks of surgical intervention was discussed including possibility of open technique. 3. Inpatient hospitalization recommended of 2 nights 4. DVT prophylaxis. 5. Antibiotic prophylaxis. 6. She has also completed a very low caloric high-protein diet to address underlying hepatomegaly. 7. Non narcotic pain management including abdominal wall block described 8. Blood sugar glucose described. 9. Weight loss management described. Past Medical History Past Medical History: Cancer, CVA/TIA, Diabetes Mellitus, GERD/Reflux, Hyperlipidemia, Hypertension, Pneumonia, Thyroid Disorder Additional Past Medical History / Comment(s): Chronic back pain. Hx right ovarian and endometrial cancer, 09/21 with chemo and radiation. Thyroid nodules. "Possible mild stroke 2018." Arthritis. Kidney stones. Chronic constipation. History of Any Multi-Drug Resistant Organisms: None Reported Past Surgical History: Appendectomy, Bariatric Surgery, Bowel Resection, Hernia Repair, Hysterectomy, Tonsillectomy Additional Past Surgical History / Comment(s): HIATAL HERNIA REPAIR, COLONOSCOP Y, PAIN CLINIC PROCEDURE, sleeve gastrectomy 04-06-23. Past Anesthesia/Blood Transfusion Reactions: Postoperative Nausea & Vomiting (PONV) Additional Past Anesthesia/Blood Transfusion Reaction / Comment(s): PONV with appendectomy. Slow to wake up after bowel resection and "Got glue in my eye from the tape". Smoking Status: Former smoker - Past Family History Mother Family Medical History: Cancer Additional Family Medical History / Comment(s): Maternal grandmother had ovarian cancer, mother had thyroid nodules. Father History Unknown: Yes Family Medical History: Unable to Obtain Additional Family Medical History / Comment(s): Didn't know father. Medications and Allergies Home Medications Medication Instructions Recorded Confirmed Type Gabapentin 300 mg PO BID 06/25/22 12/12/24 History Anastrozole [Arimidex] 1 mg PO QAM 05/06/23 12/08/24 History Atorvastatin [Lipitor] 20 mg PO HS 05/06/23 12/08/24 History Dapagliflozin Propanediol [Farxiga] 5 mg PO QAM 05/25/24 12/08/24 History Melatonin [Melatonin Tr] 10 mg PO HS PRN 09/07/24 12/08/24 History Aspirin 81 mg PO QAM 09/22/24 12/08/24 History Calcium Carb/Mag Ox/Zinc Sulf 1 each PO HS 09/22/24 12/08/24 History [Whx-Ypz-Eylz 334-134-5 mg Tab] Cholecalciferol [Vitamin D3 (125 125 mcg PO BID 09/22/24 12/08/24 History Mcg = 5000 Iu)] Ibuprofen [Motrin] 600 mg PO Q8HR PRN #30 tab 10/01/24 12/08/24 Rx Simethicone [Gas-X] 125 mg PO AC-TID PRN #20 capsule 10/01/24 12/08/24 Rx Omeprazole [PriLOSEC] 40 mg PO DAILY PRN 12/08/24 12/08/24 History lisinopriL [Zestril] 5 mg PO DAILY 12/12/24 12/12/24 History Allergies Allergy/AdvReac Type Severity Reaction Status Date / Time adhesive tape Allergy Rash/Hives Verified 12/12/24 07:45 gemifloxacin mesylate Allergy Rash/Hives Verified 12/12/24 07:45 [From Factive] Surgical - Exam Vital Signs Temp Pulse Resp BP Pulse Ox 97.3 F L 79 16 138/87 98 12/12/24 07:53 12/12/24 07:53 12/12/24 07:53 12/12/24 07:53 12/12/24 07:53
[2024-12-12] MEDS: MIDAZOLAM 2 MG/2 ML VIAL IV ONE (09:11)
--- NOTE | 2024-12-12 09:23 | P.ANPRN ---
Procedure Note - Anesthesia - Nerve Block Performed Bilateral Erector Spinae Single Time Out Performed: Yes Date of Procedure: 12/12/24 Procedure Start Time: 09:11 Procedure Stop Time: 09:16 Location of Patient: PreOp Indication: Acute Post-Operative Pain, Analgesia, Requested by Surgeon Sedation Type: Sedate with meaningful contact maintained Preparation: Sterile Prep Position: Prone Catheter: None Needle Types: Pajunk Needle Gauge: 21 Ultrasound used to visualize needle placement: Yes Ultrasound used to observe medication spread: Yes Injectate: 0.5% Ropivacaine (see comment for volume) ([id number], Needle level T8---Each side.) Blood Aspirated: No Pain Paresthesia on Injection Noted: No Resistance on Injection: Normal Image Stored and Saved: Yes Events: Uneventful and Well Tolerated
[2024-12-12] MEDS: HEPARIN SODIUM,PORCINE 5,000 UNIT/ML 1 ML VIAL SQ PRN (09:25)
[2024-12-12] MEDS ORDERED: fentaNYL (PF) 50 MCG/ML 2 ML AMP ONE (09:35)
[2024-12-12] MEDS ORDERED: LIDOCAINE 1% INJ 10MG/ML (20 ML MDV) ONE (09:35)
[2024-12-12] MEDS ORDERED: PROPOFOL 10 MG/ML 20 ML VIAL IV ONE (09:35)
[2024-12-12] MEDS ORDERED: PHENYLEPHRINE 10 MG/ML VIAL ONE (09:35)
[2024-12-12] MEDS ORDERED: DEXAMETHASONE SOD PHOSPHATE 4 MG/ML 1 ML VIAL ONE (09:35)
[2024-12-12] MEDS ORDERED: SUCCINYLCHOLINE CHLORIDE 200 MG/10 ML VIAL IV ONE (09:35)
[2024-12-12] MEDS ORDERED: GLYCOPYRROLATE 0.2 MG/ML 2 ML VIAL ONE (09:35)
[2024-12-12] MEDS ORDERED: ROCURONIUM 10 MG/ML (5 ML VIAL) IV ONE (09:35)
[2024-12-12] MEDS ORDERED: NEOSTIGMINE 1 MG/ML 10 ML VIAL ONE (09:35)
[2024-12-12] MEDS ORDERED: ROPIVACAINE 5 MG/ML 30 ML VIAL ONE (09:35)
[2024-12-12] MEDS: ceFAZolin 2 GM in DEXTROSE 5% IN WATER 50 ML IVPB PRN (09:40)
[2024-12-12] MEDS: LIDOCAINE 1%-EPI 1:100,000 20 ML VIAL SQ ONE (10:04)
[2024-12-12] MEDS: LACTATED RINGERS 1,000 ML IV ONE (11:18)
[2024-12-12] MEDS: HYDROmorphone 0.5 MG/0.5 ML SYRINGE IVP PRN (11:42)
--- NOTE | 2024-12-12 12:02 | P.OP ---
Date of Procedure: 12/12/24 Description of Procedure: SURGEON: VIKAS CUMMINGS MD SPECTROGRAPHER: ZEHRA YOUNG PREOPERATIVE DIAGNOSES: 1. Gastroesophageal reflux disease, severe with erosive esophagitis 2. Paraesophageal hiatal hernia, midline. 3. Hypertensive heart disease 4. Hyperlipidemia 5. Diabetes type II, non-insulin dependent 6. Gastroesophageal reflux disease 7. Osteoarthritis lower back 8. Generalized anxiety disorder 9. Post op nausea and vomiting 10. Colon polyps. 11. Osteoarthritis of the hips 12. Osteoarthritis of the knee 13. Lactose intolerance 14. Status post sleeve gastrectomy 15. Status post sigmoid colectomy for large bowel obstruction due to diverticulitis 16. Morbid obesity due to excess calories 17. Body mass index of 44.3 to 30.7 POSTOPERATIVE DIAGNOSES: 1. Gastroesophageal reflux disease, severe with erosive esophagitis 2. Paraesophageal hiatal hernia, midline, incarcerated and recurrent, 5 x 3 cm, type III 3. Hypertensive heart disease 4. Hyperlipidemia 5. Diabetes type II, non-insulin dependent 6. Gastroesophageal reflux disease 7. Osteoarthritis lower back 8. Generalized anxiety disorder 9. Post op nausea and vomiting 10. Colon polyps. 11. Osteoarthritis of the hips 12. Osteoarthritis of the knee 13. Lactose intolerance 14. Status post sleeve gastrectomy 15. Status post sigmoid colectomy for large bowel obstruction due to diverticulitis 16. Morbid obesity due to excess calories 17. Body mass index of 44.3 to 30.7 18. Perigastric peritoneal adhesions OPERATION: 1. Robotic-assisted da Lorena Xi laparoscopic reduction and repair of recurrent incarcerated paraesophageal hiatal hernia, 5 x 3 cm, with [place] Biopatch A 8 x 8 cm. 2. Robotic-assisted da Lorena Xi laparoscopic extensive lysis of adhesions over 30 minutes 3. Intraoperative esophagogastroscopy ANESTHESIA: General with local anesthetic. ESTIMATED BLOOD LOSS: 20 mL Pathology: None COMPLICATIONS: None. FINDINGS: 1. Incarcerated upper pole of the stomach within the mediastinum with moderate dissection performed with resection of mediastinal hernia sac, type III paraesophageal hiatal hernia 2. 5 cm paraesophageal incarcerated diaphragmatic hiatal hernia with moderate dissection into the mediastinum. 3. [place] Biopatch A onlay mesh placed. 4. Identified previous hiatal hernia repair with retained suture consistent with recurrent incarcerated hiatal hernia 5. Reduction of incarcerated 4 cm superior pole of stomach from previously gastrectomy 6. Intra-abdominal esophageal length over 2 cm obtained 7. Perigastric peritoneal adhesions as result of recurrent hiatal hernia INDICATIONS: The patient is a 9-year-old female who presents with epigastric ab dominal pain, gastroesophageal reflux recalcitrant to medical therapy with a symptomatic diaphragmatic hiatal hernia. Preoperative workup including upper endoscopy demonstrated hiatal hernia with erosive esophagitis. Given the severity of her symptoms, she had elected for surgical intervention. Benefits and risks including bleeding, infection, recurrence, dysphagia, injury to the lung, need for further surgery was described at length. Informed consent was obtained. DESCRIPTION: The patient was brought into the operating room and placed in supine position. Preoperatively she had received Lovenox subcutaneously for DVT prophylaxis. After general induction, the abdomen was prepped and draped in standard sterile fashion. The patient had previously voided prior to coming to the operating room. Ioban draping was placed along the abdomen. A timeout protocol was confirmed with the surgical team, for which the patient's name, procedure to be performed including DVT prophylaxis with bilateral SCDs, and preoperative antibiotics were also confirmed. A robotic da Lorena Xi system was prepped and primed. At 11 cm from the xiphoid to just below the umbilicus, proposed port sites were marked with indelible marker along the left axillary line, left mid-clavicular line with each ports were marked 10 cm from each other. A 5 mm 0 degrees laparoscopic trocar entry was performed along the left upper quadrant. The abdomen was insufflated to 15 mmHg pressure was tolerated well. Diagnostic laparoscopy demonstrated no injury to bowel, viscera. A small defect from the trocar of the mesentery was identified and explored without injury to bowel. No injury had occurred to the small bowel or viscera. Severe peritoneal adhesions completely obscuring the liver, sleeve gastrectomy was found along the epigastrium and midline. Next, one 8 mm robotic port was placed along the right upper abdomen. An 8-mm port was were placed along the left lateral abdominal wall. The camera 8-mm port was maintained along the epigastrium. Another 12 mm port was placed along the left upper abdominal wall after exchanging the 5 mm port. Please note that the ports were placed at least 20 cm away from the target anatomy. Care was taken to check that each robotic arm were safely away from collision with the bed or the patient. The patient was repositioned in reverse Trendelenburg position at 25-degrees after lowering the bed. The robot was docked above the left side of the patient. Using a grasper for arm 3, a grasper for arm 1, including vessel sealer for arm 2, the robotic system was docked and primed as described. Instruments were interchanged by the information services assistant. I had sat at the console. Initial attention was brought to the severe peritoneal adhesions involving the greater omentum to the anterior abdominal wall of the epigastrium including midline and right including left upper quadrant. Using combination blunt dissection including vessel sealer for sharp dissection, extensive lysis of adhesions over 30 minutes minutes was performed. Dissection was carried to the hiatus circumferentially using vessel sealer including blunt dissection. Previous retained suture was found along the hiatus consistent with a prior repair. The hiatus hernia recurred anteriorly including a retained sac acting as a lead point for recurrence. The remnant gastrohepatic ligament was cleaved using a vessel sealer. Next, the phrenoesophageal ligament was mobilized and the distal esophagus was mobilized circumferentially. An incarcerated hernia sac was found into the mediastinum. As a result, deep dissection well into the mediastinum was needed to free the proximal sleeve gastrectomy including distal esophagus consistent with a type III hiatal hernia. The left and right crura was identified. Mobilization of the distal to mid esophagus into the mediastinum was performed. Circumferentially, the hernia sac was excised and brought into the abdominal cavity. Care was taken to avoid any gastrotomy to the incarcerated upper pole of the stomach. The measured defect was measured with a ruler consistent with 5 cm axial length and 3 cm in width. After extensive dissection, the distal esophagus at least 2 cm was brought into the abdominal cavity. Once the hiatus and crura was dissected, 2-0 VLOC nonabsorbable suture was placed as a running suture to re-approximate the diaphragmatic hiatus anteriorly and posteriorly. To buttress the repair, a [place] Biopatch A was prepared along the back table and cut in a garcia-hole fashion as to reinforce the repair as an underlay. The mesh was resized posteriorly placed along the crural repair and tagged using 2-0 VLOC. I went to the head of the bed to perform intraoperative esophagogastroduodenoscopy. Erosive esophagitis was confirmed. An Olympus gastroscope was passed through posterior oropharynx, where the squamocolumnar junction was confirmed at 36 cm from the incisors. The hiatus repair was confirmed at 36 cm from the incisors at the GE junction. The stomach was entered. The duodenum was intubated without acute ulceration. Retroflexion of the scope was performed in the distal stomach. The stomach had been desufflated. No evidence of leaks were found or mucosal defects of the esophagus or stomach. This concluded the endoscopic portion of the case. The robot was undocked from the patient. I re-scrubbed into the case. All instruments and pneumoperitoneum were evacuated from the abdominal cavity. The incisions were cleansed with dilute hydrogen peroxide with saline solution. Incisions were reapproximated using 4-0 Monocryl in an interrupted subcuticular fashion. The 12-mm port site fascial defect was less than 8 mm in size. Dermabond was applied to the skin. Local anesthetic was infiltrated in all wounds for postop analgesia. Multiple intra-abdominal films were obtained. At the end of the procedure, needle, sponge, and instrument count was verified correct by the surgical scrub technician. The patient had tolerated the procedure well and was taken to the postanesthesia unit in stable condition. Intraoperative films were reviewed with the patient's family who were pleased with the level of care.
[2024-12-12 12:11] LABS: Glucose,Whole Blood 156 mg/dL (70-110)
[2024-12-12] MEDS: LACTATED RINGERS 1,000 ML IV SCH (12:42)
[2024-12-12] MEDS: ONDANSETRON 4 MG/2 ML VIAL IVP ONE (12:42)
[2024-12-12] MEDS: DEXAMETHASONE SOD PHOSPHATE 4 MG/ML 1 ML VIAL IVP SCH (14:07)
[2024-12-12] MEDS: SIMETHICONE 40 MG/0.6 ML DROPS 2,000 MG/30 ML BOTTLE PO SCH (14:07)
[2024-12-12] MEDS: METOCLOPRAMIDE 5 MG/ML 2 ML VIAL IVP SCH (14:07)
[2024-12-12] MEDS: ONDANSETRON 4 MG/2 ML VIAL IVP SCH (14:07)
--- NOTE | 2024-12-12 16:04 | FL ---
EXAMINATION TYPE: FL esophagus cervic/pharynx DATE OF EXAM: 12/12/2024 LIMITED UGI-ESOPHAGRAM: CLINICAL HISTORY: History of gastric sleeve surgery with hiatal hernia having surgical repair dawn rowley today. TECHNIQUE: Limited esophagram is performed utilizing 50 mL of Isovue-370. A total of 54 seconds of f luoroscopic time was utilized during procedure. TOTAL DAP = 1400.18. FINDINGS: The patient swallowed contrast without difficulty or delay. Esophageal peristalsis and mo tility are within normal limits. There is mild delay in flow of contrast along the diaphragmatic hiat us into the proximal stomach and gastric sleeve, there is no evidence of contrast extravasation to velásquez ggest leak. No persistent hiatal hernia is seen. Patient remains asymptomatic. IMPRESSION: No evidence of leak or significant obstruction status post Alexander fundoplication surgery earlier today. [facility], , 12/12/2024 4:02 PM
[2024-12-12 16:58] LABS: Glucose,Whole Blood 193 mg/dL (70-110)
[2024-12-12] MEDS: ceFAZolin 2 GM in DEXTROSE 5% IN WATER 50 ML IVPB SCH (17:28)
[2024-12-12] MEDS: HYDROmorphone 2 MG/ML 1 ML SYRINGE IVP PRN (17:32)
[2024-12-12] MEDS: CHOLECALCIFEROL 125 MCG (5000 IU) TABLET PO SCH (20:22)
[2024-12-12] MEDS: ATORVASTATIN 20 MG TAB PO SCH (20:22)
[2024-12-12] MEDS: GABAPENTIN 300 MG CAP PO SCH (20:22)
[2024-12-12] MEDS ORDERED: MELATONIN 5 MG TABLET PO PRN (21:00)
[2024-12-12] MEDS ORDERED: NON FORMULARY DRUG (Calcium Carb/Mag Ox/Zinc Sulf [Cal-Mag-Zinc 334-134-5 Mg Tab] 1 EACH T PO SCH (21:00)
[2024-12-12 21:13] LABS: Glucose,Whole Blood 166 mg/dL (70-110)
[2024-12-13 06:29] LABS: Glucose,Whole Blood 134 mg/dL (70-110)
[2024-12-13] MEDS: ANASTROZOLE 1 MG TAB PO SCH (08:33)
[2024-12-13] MEDS: ASPIRIN 81 MG PO SCH (08:33)
[2024-12-13] MEDS: lisinopriL 5 MG TAB PO SCH (08:33)
[2024-12-13] MEDS: ENOXAPARIN 30 MG/0.3 ML SYRINGE SQ SCH (08:33)
[2024-12-13] MEDS: DAPAGLIFLOZIN PROPANEDIOL 5 MG TABLET PO SCH (08:33)
[2024-12-13 09:15] VITALS: TEMP 97.3
[2024-12-13] MEDS: SODIUM CHLORIDE 0.9% 1,000 ML IV ONE (10:22)
[2024-12-13 11:55] LABS: Glucose,Whole Blood 95 mg/dL (70-110)
[2024-12-13 12:41] VITALS: BP 131/83; PULSE 104; RESP 18
--- NOTE | 2024-12-13 13:49 | P.DS ---
Providers Expected date of discharge: 12/13/24 Attending physician: Loretta Espinoza Primary care physician: [facility] Course: Discharge diagnosis 1. Gastroesophageal reflux disease, severe with erosive esophagitis 2. Paraesophageal hiatal hernia, midline, incarcerated and recurrent, 5 x 3 cm, type III 3. Hypertensive heart disease 4. Hyperlipidemia 5. Diabetes type II, non-insulin dependent 6. Gastroesophageal reflux disease 7. Osteoarthritis lower back 8. Generalized anxiety disorder 9. Post op nausea and vomiting 10. Colon polyps. 11. Osteoarthritis of the hips 12. Osteoarthritis of the knee 13. Lactose intolerance 14. Status post sleeve gastrectomy 15. Status post sigmoid colectomy for large bowel obstruction due to diverticulitis 16. Morbid obesity due to excess calories 17. Body mass index of 44.3 to 30.7 18. Perigastric peritoneal adhesions Hospital course This is a 69-year-old female who presented with epigastric abdominal pain and gastroesophageal reflux recalcitrant to medical therapy with a symptomatic di aphragmatic hiatal hernia. She tolerated surgery well. Her pain is controlled. She is tolerating clear liquid diet. She has been up and ambulating. She denies any difficulty urinating. She is afebrile. She is stable for discharge. Physician Food Adviser note has been reviewed by physician. Signing provider agrees with the documented findings, assessment, and plan of care. Patient Condition at Discharge: Stable Plan - Discharge Summary Discharge Rx Participant: No New Discharge Prescriptions: New bisacodyL [Dulcolax] 5 mg PO DAILY PRN #10 tab PRN Reason: Constipation Omeprazole [PriLOSEC] 40 mg PO DAILY #90 cap Simethicone 40 mg/0.6 ml Drops [Mylicon Drops] 40 mg PO PCHS PRN #30 ml PRN Reason: Gas Ondansetron Odt [Zofran Odt] 4 mg PO Q8HR PRN #9 tab PRN Reason: Nausea Acetaminophen Tab [Tylenol] 1,000 mg PO Q6HR PRN #30 tablet PRN Reason: Pain Continue Atorvastatin [Lipitor] 20 mg PO HS Dapagliflozin Propanediol [Farxiga] 5 mg PO QAM Melatonin [Melatonin Tr] 10 mg PO HS PRN PRN Reason: sleep Gabapentin 300 mg PO BID Anastrozole [Arimidex] 1 mg PO QAM Cholecalciferol [Vitamin D3 (125 Mcg = 5000 Iu)] 125 mcg PO BID Aspirin 81 mg PO QAM lisinopriL [Zestril] 5 mg PO DAILY Discontinued Calcium Carb/Mag Ox/Zinc Sulf [Ydg-Hcl-Hzsd 334-134-5 mg Tab] 1 each PO HS Ibuprofen [Motrin] 600 mg PO Q8HR PRN #30 tab PRN Reason: Pain Simethicone [Gas-X] 125 mg PO AC-TID PRN #20 capsule PRN Reason: Pain Omeprazole [PriLOSEC] 40 mg PO DAILY PRN PRN Reason: Indigestion Discharge Medication List Gabapentin 300 mg PO BID 06/25/22 [History] Anastrozole [Arimidex] 1 mg PO QAM 05/06/23 [History] Atorvastatin [Lipitor] 20 mg PO HS 05/06/23 [History] Dapagliflozin Propanediol [Farxiga] 5 mg PO QAM 05/25/24 [History] Melatonin [Melatonin Tr] 10 mg PO HS PRN 09/07/24 [History] Aspirin 81 mg PO QAM 09/22/24 [History] Cholecalciferol [Vitamin D3 (125 Mcg = 5000 Iu)] 125 mcg PO BID 09/22/24 [History] lisinopriL [Zestril] 5 mg PO DAILY 12/12/24 [History] Acetaminophen Tab [Tylenol] 1,000 mg PO Q6HR PRN #30 tablet 12/13/24 [Rx] Omeprazole [PriLOSEC] 40 mg PO DAILY #90 cap 12/13/24 [Rx] Ondansetron Odt [Zofran Odt] 4 mg PO Q8HR PRN #9 tab 12/13/24 [Rx] Simethicone 40 mg/0.6 ml Drops [Mylicon Drops] 40 mg PO PCHS PRN #30 ml 12/13/24 [Rx] bisacodyL [Dulcolax] 5 mg PO DAILY PRN #10 tab 12/13/24 [Rx] Follow [facility](s[facility] [facility] [place] [facility] Week Activity/Diet/Wound Care/Special Instructions: Liquid diet only for 2 weeks No lifting over 4 pounds in 4 weeks May shower No soaking in bath tubs for 2 weeks Please notify your surgeon if you develop nausea and vomiting including new onset of abdominal pain. Please ambulate at all times. Use Simethicone, Gas-X, Tylenol scheduled for the next 24-48 hours for best pain relief. Use ice along incisions for the today to prevent swelling. Please open, cut, crush pills larger than the size of a tic tack No carbonated beverages. No straws. Do not remove scopolamine patch for 3 days, if present Avoiding Gas Avoid drinking through a straw. Do not chew gum or tobacco. These actions cause you to swallow air, which produces excess gas in your stomach. Chew with your mouth closed. Avoid any foods that cause stomach gas and distention. These foods include corn, dried beans, peas, lentils, onions, broccoli, cauliflower and any food from the cabbage family. Avoid carbonated drinks, alcohol, citrus and tomato products. Carbonated drinks (sodas) are not allowed for the first six to eight weeks after surgery. After this time you can try them again in small amounts Clear Liquid Diet The first diet after surgery is the clear liquid diet. It includes the following liquids: Apple juice Cranberry juice Grape juice Chicken broth Beef broth Flavored gelatin (Jell-O) Decaf tea and coffee Caffeinated beverages are permitted based on tolerance Popsicles Macanese ice Full Liquid Diet The full liquid diet contains anything on the clear liquid diet, plus: Milk, soy, rice and almond (no chocolate) Cream of wheat, cream of rice, grits Strained creamed soups (no tomato or broccoli) Vanilla and strawberry-flavored ice cream Sherbet Blended, custard styled or whipped yogurt (plain or vanilla only) Vanilla and butterscotch pudding (no chocolate or coconut) Nutritional drinks including Ensure, Boost, [place] Instant Breakfast (no chocolate-flavored) Note: Dairy products, such as milk, ice cream and pudding, may cause diarrhea in some people just after surgery. You may need to avoid milk products. If so, substitute them with lactose-free beverages, such as soy, rice, Lactaid or almond milks. Discharge Disposition: HOME SELF-CARE
== END 2024-12-13 15:00 | disposition home or self-care (01) ==
LOC: OR 07:27 → 4SSUR 11:24 → OR 12-13 15:00
PROVIDERS: ATTEND Surgery Plastic and Reconstructive Surgery
DX: K44.0 Diaphragmatic hernia with obstruction, without gangrene (principal); K66.0 Peritoneal adhesions (postprocedural) (postinfection); K21.00 Gastro-esophageal reflux disease with esophagitis, without bleeding; K63.5 Polyp of colon; R16.0 Hepatomegaly, not elsewhere classified; I11.9 Hypertensive heart disease without heart failure; E11.9 Type 2 diabetes mellitus without complications; E78.5 Hyperlipidemia, unspecified; E66.01 Morbid (severe) obesity due to excess calories; E73.9 Lactose intolerance, unspecified; E07.9 Disorder of thyroid, unspecified; F41.1 Generalized anxiety disorder; M16.0 Bilateral primary osteoarthritis of hip; L23.1 Allergic contact dermatitis due to adhesives; Z98.84 Bariatric surgery status; Z90.49 Acquired absence of other specified parts of digestive tract; Z68.41 Body mass index [BMI] 40.0-44.9, adult; Z01.818 Encounter for other preprocedural examination; Z85.42 Personal history of malignant neoplasm of other parts of uterus; Z87.442 Personal history of urinary calculi; Z86.73 Personal history of transient ischemic attack (TIA), and cerebral infarction without residual deficits; Z87.891 Personal history of nicotine dependence; Z88.1 Allergy status to other antibiotic agents; Z79.811 Long term (current) use of aromatase inhibitors; Z79.84 Long term (current) use of oral hypoglycemic drugs; Z79.82 Long term (current) use of aspirin; Z79.899 Other long term (current) drug therapy
CPT/HCPCS: 43282; 49593; 64468; 74210; C1781; J2250; J0330; J1171 ×2; J1644; J1100 ×2; J2710; J2765 ×2; J0690 ×2; J2405 ×2; J2003; J3010; J1650; S0170; J2795; J2704; Q9967; J2371; J1596

== ENCOUNTER 2025-01-24 06:59 | Day surgery (SDC) | payer MEDICARE ==
[2025-01-20 09:22] VITALS: BMI 29.7
[2025-01-24 07:48] VITALS: TEMP 97.7
[2025-01-24] MEDS: IV FLUID CONTINUATION 1,000 ML IV ONE ×2 (07:48→08:39)
[2025-01-24] MEDS: LACTATED RINGERS 1,000 ML IV SCH (07:48)
[2025-01-24 07:52] LABS: Glucose,Whole Blood 89 mg/dL (70-110)
[2025-01-24] MEDS ORDERED: ROPIVACAINE 5 MG/ML 30 ML VIAL ONE (08:02)
[2025-01-24] MEDS ORDERED: MIDAZOLAM 2 MG/2 ML VIAL ONE (08:02)
[2025-01-24] MEDS ORDERED: fentaNYL (PF) 50 MCG/ML 2 ML AMP ONE (08:02)
[2025-01-24] MEDS ORDERED: methylPREDNISolone ACETATE 40 MG/ML 1 ML VIAL ONE (08:02)
--- NOTE | 2025-01-24 08:32 | P.PCN ---
Date of Procedure: 01/24/25 Procedure(s) Performed: PREOPERATIVE DIAGNOSIS: 1-Lumbar Spondylosis with Facet Arthropathy without myelopathy. 2- Lumber degenerative disc disease. POSTOPERATIVE DIAGNOSIS: 1- Lumbar Spondylosis with Facet Arthropathy without myelopathy. 2- Lumber degenerative disc disease. PROCEDURES : Bilateral Radiofrequency thermocoagulation, L3 , L4 , and L5 medial branch, with fluoroscopic guidance (fluoroscopy images available in the radiology department) ( to denervate the facet joint at bilateral L4-5 ,and L5-S1 levels ). ANESTHESIA: Sedation with Versed 2 mg and fentanyl 100 mcg, (sedation start time 08:02 , end time 08:26 ) EBL: Minimal PROCEDURE INDICATION: The patient with low back pain secondary to lumbar facet arthropathy who had more than 80% relief of her pain with previous diagnostic lumbar medial branch block with bupivacaine. PROCEDURE DESCRIPTION / TECHNIQUE: The patient was seen and identified in the preoperative area. Risks, benefits, complications, including but not limited to risk of infection ,bleeding , allergic reactions to the medications and no complete pain releife , and alternatives were discussed with the patient, the patient agreed to proceed with the procedure and signed the consent. IV was started. Vital signs remained stable throughout the procedure. Patient was taken to the OR and time out was completed. The patient was placed in the prone position on the procedure table. The lumber area was prepped and draped in the usual sterile fashion. . Vital signs were closely monitored during the procedure .IV sedation was used during the procedure to decrease patients anxiety. Using AP and then oblique fluoroscopy, the ``eye of the Layo dog corresponding to the connection between the superior and transverse articular processes of right L3, L4, and L5 were identified, marked, and localized with 1% lidocaine. Subsequently, a 18 guage (VENOM )100-mm radiofrequency cannula with a 10-mm active tip was advanced guided by fluoroscopy to each of the``eyes of the Layo dog at right L3, L4, and L5. Each site then underwent sensory testing at 50 Hz and 0 to 1 volt and motor testing at 2.5 Hz and 0 to 3 volt with local stimulation, but no radicular symptoms down the legs. Thereafter each sites underwent radiofrequency thermocoagulation at 80 degrees celsius for 90 seconds after injecting 0.5 ml of PF Ropivacaine 1ml, then after the thermocoagulation done , 1 ml of the block solution containing Depo-Medrol 20 mg and 3 ml of Ropivacaine 0.5% was injected at the right L3 , L4 , and L5 , levels after negative aspiration of CSF and blood and with no paresthesias. Cannulas were retracted while injecting lidocaine 1% until the needle is out. The same procedure was repeated at the level of Left L3, L4, and L5 levels. At the end of the procedure, the skin was cleansed and bandages were applied. COMPLICATIONS: No acute complications. DISPOSITION / PLANS: The patient was placed in a supine position and transferred to the recovery area in a stable condition for observation and was discharged from the recovery room after meeting discharge criteria. Home discharge instructions given to the patient by the staff. The patient was reexamined prior to discharge. The patient will schedule a follow up in the clinic in 2-4 weeks.
--- NOTE | 2025-01-24 08:48 | FL ---
EXAMINATION TYPE: FL guided pain mgmt statistic DATE OF EXAM: 01/24/2025 FLUOROSCOPY ZACHARY LUM RAD FREQ FL 18.8 SECS DAP [id number] 6 images are submitted. [facility], , 01/24/2025 8:45 AM
[2025-01-24 08:59] VITALS: BP 141/90; PULSE 77; RESP 16
== END 2025-01-24 09:16 | disposition home or self-care (01) ==
LOC: ORPAIN 06:59
PROVIDERS: ATTEND Specialist
DX: M47.816 Spondylosis without myelopathy or radiculopathy, lumbar region (principal); M51.369 Other intervertebral disc degeneration, lumbar region without mention of lumbar back pain or lower extremity pain; L23.1 Allergic contact dermatitis due to adhesives; Z88.1 Allergy status to other antibiotic agents
CPT/HCPCS: 64635; 64636 ×2; J2250; J3010; J2795; J1010; 99152; 99153

== ENCOUNTER → 2025-02-06 | Outpatient (CLI) | payer MEDICARE ==
[2025-02-06 10:23] LABS: ALT 25 U/L (8-44); AST 23 U/L (13-35); Chol/HDL Ratio 2.72 Ratio
== END | disposition home or self-care (01) ==
LOC: LABWHC1 07:00
PROVIDERS: ATTEND Internal Medicine Interventional Cardiology
DX: E78.2 Mixed hyperlipidemia (principal)
CPT/HCPCS: 36415; 80061; 84450; 84460

== ENCOUNTER → 2025-02-15 | Outpatient (CLI) | payer MEDICARE ==
[2025-02-15 13:12] VITALS: BP 110/77; PULSE 64; RESP 19
--- NOTE | 2025-02-15 15:40 | P.PAINPG ---
PQRS Measure Charge Sheet Comment: A 69 yr old female w at side with a history of severe and chronic thoracolumbar secondary to radiculopathy, spondylosis and facet arthropathy without myelopathy presents today for evaluation s/p BL RFA L4-L5/ L5-S1. Pt states she experienced 60% pain relief s/p procedure. Pain level is provoked at 2 /10 in intensity, constant, localized in the lumbar spine, predominantly axial, sharp in character without shooting pain. Pain is provoked by standing for periods of 15 min or more. Pain is alleviated with injections, heated massage pad use, medications, topical, repositioning and rest. Pt could not afford PT but she follows the packet provided by her therapist at home. Interventional pain procedures completed include BL RFA L3-L5 x3 (Oct 2022, Mar 2024, December 2024), HERBERT L4-L5 Patient is currently on Tyl Arth (since 10/23), Ibu (since 06/21) Patient denies any side effects of the medication(s), denies excessive drowsiness or sleepiness, denies suicidal ideation and reports that the current pain medication is helping to control the pain and improve activities of daily living. Patient denies any motor or sensory deficits. Patient denies any fever or night sweats, denies any change in the bowel movements or urination. Physical Examination: -Constitutional: Cooperative. Not in acute distress . - Neurologic: Cranial nerve II to XII intact. No focal neurological deficits. - Psychatric: Alert & oriented x 3. Matching mood & appropriate affect. Judgment and insight intact. - Musculoskeletal: Cervical spine: Muscle bulk/ tone/ strength in the bilateral upper extremities normal Vertebral body tenderness to palpation over Spurling test positive Distraction test positive Facet loading test positive TTP Thoracic spine Muscle bulk / tone/ strength in the bilateral paraspinal muscles normal Vertebral body tender to palpation over T6 Jay test positive BL T6-T7 Facet loading test positive TTP Lumbar spine: Motor bulk/ tone/ strength lower extremities , thigh and legs : 5/5 Deep tendon reflexes : Normal Knee Jerk. Normal Ankle Jerk . Vertebral body tenderness to palpation over Jay Test positive Lumbar Facet Loading Test positive over BL L4-L5, L5-S1 Straight Leg Raise: positive at 30 degrees right side/ left side Gaenslen's Test positive Sacral spine : Severe tenderness over the Sacroiliac joint: right side / left side Range of motion: Flexion of the lumbar spine <60 degrees Range of motion: Extension of the lumbar spine <20 degrees Gaenslen's Test positive right side / left side Samantha test: positive right side / left side Thigh Thrust Test positive right side / left side Sacral Thrust Test positive right side / left side Imaging: MRI non contrast thoracic spine from 04/24/24 reviewed, T6-T8 disc bulges Assessment and plan: Chronic thoracolumbar pain secondary to radiculopathy, spondylosis with facet arthropathy without myelopathy Will manage residual pain and may RTC on an as needed basis. All questions answered. I have spent less than 30 minutes on patient care today. Dr Pizano was available by phone for the evaluation of this patient. The time was used to review the medical records including relevant urine studies and Prescription history (MAPs), review of the available imaging, evaluation and examination of the patient, coordination of care with the medical staff and if applicable referring physicians, as well as creation of the medical record PQRS Narrative: Smoking Status Never smoker Hx Alcohol Use (MH) Yes Home Medications: Ambulatory Orders Gabapentin 300 mg PO BID 06/25/22 Anastrozole [Arimidex] 1 mg PO QAM 05/06/23 Atorvastatin [Lipitor] 20 mg PO HS 05/06/23 Dapagliflozin Propanediol [Farxiga] 5 mg PO QAM 05/25/24 Melatonin [Melatonin Tr] 10 mg PO HS PRN 09/07/24 Aspirin 81 mg PO QAM 09/22/24 Cholecalciferol [Vitamin D3 (125 Mcg = 5000 Iu)] 125 mcg PO BID 09/22/24 lisinopriL [Zestril] 5 mg PO DAILY 12/12/24 Acetaminophen Tab [Tylenol] 1,000 mg PO Q6HR PRN #30 tablet 12/13/24 Omeprazole [PriLOSEC] 40 mg PO DAILY #90 cap 12/13/24 Simethicone 40 mg/0.6 ml Drops [Mylicon Drops] 40 mg PO PCHS PRN #30 ml 12/13/24 bisacodyL [Dulcolax] 5 mg PO DAILY PRN #10 tab 12/13/24 Nystatin 100,000 Unit/gm Powd [Mycostatin Powder] 1 applic TOPICAL BID #60 gm 12/21/24 Controlled Substance Measures - Controlled Substance Measures Is patient prescribed a controlled substance at discharge?: No
== END ==
LOC: PNWHC3 12:55
PROVIDERS: ATTEND Specialist
DX: M47.25 Other spondylosis with radiculopathy, thoracolumbar region (principal); F12.90 Cannabis use, unspecified, uncomplicated; Z91.048 Other nonmedicinal substance allergy status; Z88.1 Allergy status to other antibiotic agents
CPT/HCPCS: 99212